=== PATIENT | male | born 1950 | race Caucasian/White ===

== ENCOUNTER → 2017-06-21 12:08 | Outpatient (CLI) | payer BC, SELFPAY ==
[2017-06-21 13:16] LABS: PSA,Total- Diagnostic 0.01 ng/mL (0.0-4.0)
== END ==
PROVIDERS: Family Provider Family Medicine; PCP Family Medicine; Visit Provider Urology
DX: C61 Malignant neoplasm of prostate (principal)
CPT/HCPCS: 36415; 84153

== ENCOUNTER → 2017-12-20 11:56 | Outpatient (CLI) | payer BC, SELFPAY ==
[2017-12-20 13:54] LABS: PSA,Total- Diagnostic < 0.01 ng/mL (0.0-4.0)
== END ==
PROVIDERS: Family Provider Family Medicine; PCP Family Medicine; Referring Provider Urology; Visit Provider Urology
DX: C61 Malignant neoplasm of prostate (principal)
CPT/HCPCS: 36415; 84153

== ENCOUNTER → 2018-07-22 | Outpatient (CLI) | payer BC, SELFPAY ==
[2018-07-22 16:08] LABS: PSA,Total- Diagnostic < 0.01 ng/mL (0.0-4.0)
== END | disposition home or self-care (01) ==
LOC: LAB 14:56
PROVIDERS: Family Provider Family Medicine; PCP Family Medicine; Referring Provider Urology; Visit Provider Urology
DX: C61 Malignant neoplasm of prostate (principal)
CPT/HCPCS: 36415; 84153

== ENCOUNTER → 2019-03-13 12:52 | Outpatient (CLI) | payer BC, SELFPAY ==
[2019-02-20 14:44] VITALS: BMI 26.5
--- NOTE | 2019-03-13 12:53 | ECHOD_ITS ---
Reason For Study: Murmur Procedure This was a 2D Doppler, Color Flow transthoracic echocardiogram. The exam was of adequate technical quality. Exam performed in department. Left Ventricle Normal LV size. Left ventricular systolic function is normal. The estimated ejection fraction is 65 %. No evidence for diastolic dysfunction. No regional wall motion abnormalities noted. Right Ventricle Normal RV size. Normal systolic function. Atria Normal left atrium. Normal right atrium. No doppler evidence for ASD. Mitral Valve There is no mitral annular calcification. Anterior leaflet diffuse mitral valve thickening. Mild (1+) mitral valve insufficiency. Tricuspid Valve Normal tricuspid valve. Mild tricuspid valve insufficiency. Right ventricular systolic pressure estimated to be 27 mmHg. Aortic Valve Trisinus/trileaflet aortic valve. Mild diffuse aortic valve calcification. Mild aortic stenosis. Trivial aortic valve insufficiency. Pulmonic Valve The pulmonic valve is not well visualized. Trivial pulmonic valve insufficiency. Great Vessels Normal sized aortic root. Pericardium/Pleural No pericardial effusion. MMode/2D Measurements & Calculations LVIDd: 4.2 cm IVSd: 1.1 cm LVOT diam: 2.2 cm LVIDs: 2.2 cm LVPWd: 1.1 cm LVOT area: 3.8 cm2 RVDd: 3.8 cm FS: 47.1 % Ao root diam: 3.5 cm LAV(MOD-bp): 52.0 ml LA A4 area: 15.9 cm2 LAV(MOD-bp) Indexed: 27.1 ml/m2 LAV(MOD-sp2): 62.1 ml LAV(MOD-sp4): 40.0 ml LA dimension(2D): 3.7 cm RA A4 area: 16.5 cm2 Doppler Measurements & Calculations MV E max jose: 60.0 cm/sec Lat Peak E' Jose: 9.3 cm/sec Med Peak E' Jose: 6.5 cm/sec MV A max jose: 66.4 cm/sec E/E' lat: 6.4 E/E' med: 9.3 MV E/A: 0.90 Ao V2 max: 264.1 cm/sec AI max jose: 444.0 cm/sec LV V1 max: 124.1 cm/sec Ao max P.0 mmHg AI max P.2 mmHg LV V1 max P.2 mmHg Ao V2 mean: 179.2 cm/sec AI dec slope: 196.1 cm/sec2 LV V1 mean P.6 mmHg Ao mean P.6 mmHg AI P1/2t: 663.0 msec LV V1 mean: 91.1 cm/sec Ao V2 VTI: 61.2 cm LV V1 VTI: 31.0 cm SHARON(I,D): 1.9 cm2 SHARON(V,D): 1.8 cm2 SV(LVOT): 118.8 ml PA V2 max: 93.2 cm/sec TR max jose: 242.4 cm/sec TR max P.5 mmHg Interpretation Summary Left ventricular systolic function is normal. The estimated ejection fraction is 65 %. Anterior leaflet diffuse mitral valve thickening. Mild (1+) mitral valve insufficiency. Mild tricuspid valve insufficiency. Mild diffuse aortic valve calcification. Mild aortic stenosis. Trivial aortic valve insufficiency. Trivial pulmonic valve insufficiency. Right ventricular systolic pressure estimated to be 27 mmHg. No evidence for diastolic dysfunction. Ordering Physician: Rome Patel Referring Physician: Danilo Funes Performed By: Maria A Whitten RDCS
== END ==
PROVIDERS: Family Provider Family Medicine; PCP Family Medicine; Referring Provider Internal Medicine Cardiovascular Disease; Visit Provider Internal Medicine Cardiovascular Disease
DX: R01.1 Cardiac murmur, unspecified (principal); I34.0 Nonrheumatic mitral (valve) insufficiency; I35.1 Nonrheumatic aortic (valve) insufficiency; I48.0 Paroxysmal atrial fibrillation; E78.5 Hyperlipidemia, unspecified
CPT/HCPCS: 93306

== ENCOUNTER → 2019-08-08 | Outpatient (CLI) | payer BC, SELFPAY ==
[2019-02-20 14:44] VITALS: BMI 26.5
[2019-08-08 17:39] LABS: PSA,Total - Annual Screen 0.01 ng/mL (0.00-4.00)
== END | disposition home or self-care (01) ==
PROVIDERS: PCP Family Medicine; Referring Provider Urology; Visit Provider Urology
DX: C61 Malignant neoplasm of prostate (principal)
CPT/HCPCS: 36415; 84153; G0103

== ENCOUNTER → 2019-08-25 08:23 | Outpatient (CLI) | payer BC, SELFPAY ==
[2019-08-21 09:31] VITALS: BMI 26.9
[2019-08-25 09:43] LABS: AST(SGOT) 17 U/L (15-37); Alanine Aminotransfer ALT/SGPT 28 U/L (16-61); Albumin, Serum 3.7 g/dL (3.2-5.0); Alkaline Phosphatase 52 U/L (45-117); Bilirubin, Direct 0.13 mg/dL (0.00-0.30); Cholesterol 178 mg/dL (200); Globulin 3.5 g/dL (2.2-4.2); High Density Lipoprotein 66 mg/dL; Protein, Total 7.2 g/dL (6.4-8.2); Triglycerides 80 mg/dL; Very Low Density Lipoprotein 16 mg/dL (5-40)
== END ==
PROVIDERS: PCP Family Medicine; Referring Provider Physician Assistant Medical; Visit Provider Physician Assistant Medical
DX: E78.5 Hyperlipidemia, unspecified (principal)
CPT/HCPCS: 36415; 80061; 80076

== ENCOUNTER → 2019-12-30 | Outpatient (CLI) | payer BC, SELFPAY ==
[2019-08-21 09:31] VITALS: BMI 26.9
[2019-12-30 11:58] LABS: Anion Gap 7 (5-15); BUN 19 mg/dL (7-18); BUN/Creat Ratio 15.1 RATIO (10-20); Calcium,Total 9.2 mg/dL (8.5-10.1); Chloride 105 mmol/L (98-107); Creatinine, Serum 1.26 mg/dL (0.70-1.30); EST Glomerular Filtration Rate 60 mL/min (>60); Est Glom Filt Rate - Afr Amer 72 mL/min (>60); Glucose 92 mg/dL (74-106); Magnesium 2.5 mg/dL (1.6-2.6); Potassium 4.1 mmol/L (3.5-5.1); Sodium Level 139 mmol/L (136-145); Thyroid Stim Hormone (TSH) 3.76 uIU/mL (0.358-3.74)
== END | disposition home or self-care (01) ==
LOC: LAB 09:45
PROVIDERS: PCP Family Medicine; Referring Provider Internal Medicine Cardiovascular Disease; Visit Provider Internal Medicine Cardiovascular Disease
DX: I34.0 Nonrheumatic mitral (valve) insufficiency (principal); I35.1 Nonrheumatic aortic (valve) insufficiency; I48.0 Paroxysmal atrial fibrillation; R01.1 Cardiac murmur, unspecified
CPT/HCPCS: 36415; 80048; 83735; 84443

== ENCOUNTER → 2020-02-10 14:14 | Outpatient (CLI) | payer BC, SELFPAY ==
[2019-08-21 09:31] VITALS: BMI 26.9
[2020-02-10 15:41] LABS: Thyroid Stim Hormone (TSH) 3.14 uIU/mL (0.358-3.74)
== END ==
PROVIDERS: PCP Family Medicine; Referring Provider Internal Medicine Cardiovascular Disease; Visit Provider Internal Medicine Cardiovascular Disease
DX: E78.5 Hyperlipidemia, unspecified (principal); I34.0 Nonrheumatic mitral (valve) insufficiency; I35.1 Nonrheumatic aortic (valve) insufficiency; I48.0 Paroxysmal atrial fibrillation; R01.1 Cardiac murmur, unspecified; R79.89 Other specified abnormal findings of blood chemistry
CPT/HCPCS: 36415; 84443

== ENCOUNTER → 2020-04-23 09:11 | Outpatient (CLI) | payer BC, SELFPAY ==
[2019-08-21 09:31] VITALS: BMI 26.9
[2020-04-23 10:26] LABS: AST(SGOT) 17 U/L (15-37); Alanine Aminotransfer ALT/SGPT 27 U/L (16-61); Albumin, Serum 3.9 g/dL (3.2-5.0); Alkaline Phosphatase 57 U/L (45-117); Bilirubin, Direct 0.12 mg/dL (0.00-0.30); Cholesterol 177 mg/dL (200); Globulin 3.1 g/dL (2.2-4.2); High Density Lipoprotein 65 mg/dL; Triglycerides 84 mg/dL; Very Low Density Lipoprotein 17 mg/dL (5-40)
== END ==
PROVIDERS: PCP Family Medicine; Visit Provider Internal Medicine Cardiovascular Disease
DX: E78.00 Pure hypercholesterolemia, unspecified (principal); E78.5 Hyperlipidemia, unspecified
CPT/HCPCS: 36415; 80061; 80076

== ENCOUNTER → 2020-08-18 08:36 | Outpatient (CLI) | payer BC, MEDICARE, SELFPAY ==
[2020-04-23 13:06] VITALS: BMI 27.6
[2020-08-18 10:06] LABS: PSA,Total- Diagnostic 0.01 ng/mL (0.0-4.0)
== END ==
PROVIDERS: PCP Family Medicine; Referring Provider Urology; Visit Provider Urology
DX: R97.21 Rising PSA following treatment for malignant neoplasm of prostate (principal)
CPT/HCPCS: 36415; 84153

== ENCOUNTER → 2020-09-29 08:09 | Outpatient (CLI) | payer MEDICARE, OTHER, SELFPAY ==
[2020-04-23 13:06] VITALS: BMI 27.6
[2020-09-29 10:02] LABS: AST(SGOT) 22 U/L (15-37); Alanine Aminotransfer ALT/SGPT 33 U/L (16-61); Albumin, Serum 3.7 g/dL (3.2-5.0); Alkaline Phosphatase 59 U/L (45-117); Bilirubin, Direct 0.16 mg/dL (0.00-0.30); Cholesterol 167 mg/dL (200); Globulin 3.1 g/dL (2.2-4.2); High Density Lipoprotein 65 mg/dL; Protein, Total 6.8 g/dL (6.4-8.2); Triglycerides 78 mg/dL; Very Low Density Lipoprotein 16 mg/dL (5-40)
== END ==
PROVIDERS: PCP Family Medicine; Referring Provider Internal Medicine Cardiovascular Disease; Visit Provider Internal Medicine Cardiovascular Disease
DX: E78.5 Hyperlipidemia, unspecified (principal); E78.00 Pure hypercholesterolemia, unspecified
CPT/HCPCS: 36415; 80061; 80076

== ENCOUNTER → 2021-01-01 11:13 | Outpatient (CLI) | payer MEDICARE, OTHER, SELFPAY ==
[2021-01-01 12:23] LABS: PSA,Total- Diagnostic 0.02 ng/mL (0.0-4.0)
== END ==
PROVIDERS: PCP Family Medicine; Referring Provider Urology; Visit Provider Urology
DX: R97.20 Elevated prostate specific antigen [PSA] (principal); C61 Malignant neoplasm of prostate
CPT/HCPCS: 36415; 84153

== ENCOUNTER → 2021-08-02 | Outpatient (CLI) | payer MEDICARE, OTHER, SELFPAY ==
[2021-08-02 11:08] LABS: PSA,Total - Annual Screen < 0.01 ng/mL (0.00-4.00)
== END | disposition home or self-care (01) ==
LOC: LAB 09:04
PROVIDERS: PCP Family Medicine; Referring Provider Urology; Visit Provider Urology
DX: Z12.5 Encounter for screening for malignant neoplasm of prostate (principal); R97.21 Rising PSA following treatment for malignant neoplasm of prostate
CPT/HCPCS: 84153; G0103

== ENCOUNTER → 2021-10-19 | Outpatient (CLI) | payer MEDICARE, OTHER, SELFPAY ==
[2021-10-19 10:24] LABS: AST(SGOT) 15 U/L (15-37); Alanine Aminotransfer ALT/SGPT 24 U/L (16-61); Albumin, Serum 3.5 g/dL (3.2-5.0); Alkaline Phosphatase 48 U/L (45-117); Bilirubin, Direct 0.13 mg/dL (0.00-0.30); Cholesterol 165 mg/dL (200); High Density Lipoprotein 62 mg/dL; Protein, Total 6.5 g/dL (6.4-8.2); Triglycerides 67 mg/dL; Very Low Density Lipoprotein 13 mg/dL (5-40)
== END | disposition home or self-care (01) ==
LOC: LAB 08:47
PROVIDERS: PCP Family Medicine; Visit Provider Internal Medicine Cardiovascular Disease
DX: E78.5 Hyperlipidemia, unspecified (principal)
CPT/HCPCS: 36415; 80061; 80076

== ENCOUNTER 2021-10-21 11:06 | Emergency (ER) | payer MEDICARE, OTHER, SELFPAY ==
[2021-10-21 11:06] VITALS: BP 133/91; PULSE 100; RESP 18; TEMP 36.6; O2SAT 95; BMI 26.6
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
[2021-10-21] MEDS: HYDROcodone Bitartrate/Apap 5/325 Tablet PO (12:08)
[2021-10-21] MEDS: Cefazolin 1 GM/5 ML Vial IM (12:39)
[2021-10-21] MEDS: Lidocaine 1% (20 ml mdv) 20 ML Vial INFILT (12:40)
--- NOTE | 2021-10-21 13:15 | RAD_ITS ---
STUDY: X-RAY - RIGHT HAND, ATTENTION right thumb. REASON FOR EXAM: Male, 71 old. Postreduction -- thumb TECHNIQUE: 3 view(s) of the finger were obtained. COMPARISON: Comparison is made with prior examination done earlier today. FINDINGS: Normal metacarpal head. Normal metacarpophalangeal joint. Normal proximal phalanx. Normal distal phalanx. Satisfactory reduction of the distal interphalangeal joint of the thumb. Soft tissue swelling. RAD/Finger(s) Min 2 Views IMPRESSION: Satisfactory reduction of the distal interphalangeal joint of the thumb. Electronically Signed: Rashi Goff MD at 13:26 EDT ,
--- NOTE | 2021-10-21 13:49 | CONS.ORTHO ---
HPI Consult Data Date of Consult: 10/21/21 HPI Narrative HPI Narrative: NAHOMI BUENROSTRO, is a 71 M who presents with pain right thumb (interphalangeal joint dislocation. I was called by the emergency physician pathology transcriptionist today at approximately 1:[address] Figueredo. Currently the patient had a fall was seen in the emergency department. The physician has irrigated debrided the wound done at closed reduction sutured the wound and is planning to send the patient for hand specialist outpatient consultation with splinting. [facility] Medical History (Updated 10/21/21 @ 13:[address] Luis Figueredo MD) Benign prostate hyperplasia History of prostate cancer Hyperlipidemia Kidney stone Non-rheumatic aortic regurgitation Non-rheumatic mitral regurgitation TALI on CPAP Paroxysmal atrial fibrillation Systolic murmur Home Medications aspirin 81 mg tablet,delayed release 81 mg PO DAILY@0800 07/01/13 [History Last Taken Unknown] metoprolol tartrate 25 mg tablet 25 mg PO DAILY PRN Cardiac Arrhythmia #30 tabs 06/11/20 [Rx Last Taken Unknown] flecainide 100 mg tablet 100 mg PO BID #180 tabs 04/05/21 [Rx Last Taken Unknown] pravastatin 40 mg tablet 40 mg PO QHS #30 tabs 04/07/21 [Rx Last Taken Unknown] Allergy/AdvReac Type Severity Reaction Status Date / Time Penicillins [PCN] Allergy Hives Verified 10/21/21 11:08 Family History Mother Congestive heart failure Father Heart disease Heart valve disease Grandmother Cancer stomach Surgical History History of radical prostatectomy Social History Smoking Status: Never smoker alcohol intake: never substance use type: does not use caffeine: Yes Type: coffee Number of servings: 4 Vital Signs Vital Signs Vital Signs: 10/21/21 11:06 10/21/21 11:15 Temperature 98 F Temperature Source Temporal Pulse Rate 100 Respiratory Rate 18 Respiratory Effort Normal Non-Labored Respiratory Depth Normal Respiratory Pattern Normal Blood Pressure 133/91 H Blood Pressure Mean 105 Pulse Ox 95 Oxygen Delivery Method Room Air Room Air Weight Weight: 175 lb Body Mass Index (BMI) 26.6 Physical Exam Narrative Per the emergency department physician on-call this was an open injury however clean edges cap refill is good and neurovascularly intact with able to flex and extend the IP joint of the right thumb without difficulties after the closed reduction. Radiology Impression Finger X-Ray 10/21/21 11:29 IMPRESSION: 1. There is complete posterior/dorsal dislocation of the distal phalanx of the thumb from its articulation by 6.8 mm. Laceration and subcutaneous air and irregularity is present at this site, there is also protrusion of the head of the proximal phalanx of the thumb through the skin of the defect Electronically Signed: Gigi Harrell MD at 12:02 EDT , Ribs w/Chest X-Ray 10/21/21 11:47 IMPRESSION: RIBS: Linear minimally displaced fractures present at the posterior lateral margin of the left seventh rib see image #4. Normal remaining visualized ribs. No pneumothorax is present. CHEST: No acute process of the chest. Electronically Signed: Gigi Harrell MD at 12:27 EDT , Finger X-Ray 10/21/21 13:15 IMPRESSION: Satisfactory reduction of the distal interphalangeal joint of the thumb. Electronically Signed: Rashi Goff MD at 13:26 EDT , Assessment & Plan Assessment/Plan (1) Open dislocation of interphalangeal joint of right thumb: (2) Laceration of right thumb: PLAN: Plan This 71-year-old man with a open IP joint dislocation of the right thumb that has now been irrigated debrided closed - I recommend splinting in flexion as this was a dorsal dislocation. Recommend appropriate dressing close follow-up referral as an outpatient to a hand specialist ideally today if not within the next few days. The patient has been given intravenous Ancef as well as tetanus is up-to-date and has been given oral antibiotics as well. Typically according to Dr. Figueredo he would send them to the [facility] in [place] however if there is any other acute concerns (like redness, drainage or infection / neurovascular problems) I am happy to see the patient on an earlier timeline.
[2021-10-21 13:50] VITALS: BP 115/94; PULSE 57; RESP 18; O2SAT 97
[2021-10-21 14:04] VITALS: BP 115/94; PULSE 57; RESP 16
== END 2021-10-21 15:08 | disposition home or self-care (01) ==
PROVIDERS: Emergency Provider Emergency Medicine; PCP Family Medicine; Visit Provider Emergency Medicine
DX: S63.124A Dislocation of interphalangeal joint of right thumb, initial encounter (principal); S61.011A Laceration without foreign body of right thumb without damage to nail, initial encounter; E78.5 Hyperlipidemia, unspecified; V18.0XXA Pedal cycle driver injured in noncollision transport accident in nontraffic accident, initial encounter; Y93.55 Activity, bike riding; Z79.82 Long term (current) use of aspirin
CPT/HCPCS: 12002; 26641; 71101; 73140; 96372; 99283

== ENCOUNTER → 2021-11-02 | Outpatient (CLI) | payer MEDICARE, OTHER, SELFPAY ==
--- NOTE | 2021-11-02 09:47 | ECHOD_ITS ---
Reason For Study: Procedure This was a 2D Doppler, Color Flow transthoracic echocardiogram. The exam was of adequate technical quality. Exam performed in department. Left Ventricle Normal LV size. Left ventricular systolic function is normal. The estimated ejection fraction is 65 %. Diastolic function is indeterminate. No regional wall motion abnormalities noted. Right Ventricle Normal RV size. Normal systolic function. Atria Normal left atrium. Normal right atrium. No doppler evidence for ASD. Mitral Valve There is no mitral annular calcification. Anterior leaflet diffuse mitral valve thickening. The mitral papillary muscle appears thickened and/or calcified. Mild (1+) mitral valve insufficiency. Tricuspid Valve Normal tricuspid valve. Mild tricuspid valve insufficiency. Right ventricular systolic pressure estimated to be 34 mmHg. Aortic Valve Trisinus/trileaflet aortic valve. Mild diffuse aortic valve thickening. Moderate diffuse aortic valve calcification. Moderate aortic stenosis. Trivial aortic valve insufficiency. Pulmonic Valve The pulmonic valve is not well visualized. Great Vessels Normal sized aortic root. Pericardium/Pleural No pericardial effusion. MMode/2D Measurements & Calculations LVIDd: 4.6 cm IVSd: 0.80 cm LVOT diam: 2.0 cm LVIDs: 3.2 cm FS: 32.0 % LVOT area: 3.2 cm2 RVDd: 4.2 cm Ao root diam: 3.7 cm LAV(MOD-sp4): 38.7 ml LVAd ap4: 29.0 cm2 LVLd ap4: 8.9 cm EDV(MOD-sp4): 77.9 ml EDV(sp4-el): 80.6 ml LVAs ap4: 14.4 cm2 LVLs ap4: 7.0 cm ESV(MOD-sp4): 25.8 ml ESV(sp4-el): 25.3 ml EF(MOD-sp4): 66.9 % EF(sp4-el): 68.6 % SV(MOD-sp4): 52.1 ml SV(sp4-el): 55.3 ml LA A4 area: 16.0 cm2 LA dimension(2D): 3.8 cm RA A4 area: 24.6 cm2 Time Measurements MV dec time: 0.21 sec Doppler Measurements & Calculations MV E max jose: 65.6 cm/sec Lat Peak E' Jose: 9.4 cm/sec Med Peak E' Jose: 7.0 cm/sec MV A max jose: 45.5 cm/sec E/E' lat: 7.0 E/E' med: 9.3 MV E/A: 1.4 MV V2 max: 130.7 cm/sec Ao V2 max: 290.0 cm/sec MV max P.8 mmHg MV dec slope: 310.9 cm/sec2 Ao max P.7 mmHg MV V2 mean: 49.0 cm/sec Ao V2 mean: 214.4 cm/sec MV mean P.4 mmHg Ao mean P.5 mmHg MV V2 VTI: 32.3 cm Ao V2 VTI: 76.5 cm MVA(VTI): 2.7 cm2 SHARON(I,D): 1.1 cm2 SHARON(V,D): 1.1 cm2 AI max jose: 465.1 cm/sec LV V1 max: 95.6 cm/sec SV(LVOT): 85.7 ml AI max P.5 mmHg LV V1 max P.7 mmHg LV V1 mean P.3 mmHg AI dec slope: 233.0 cm/sec2 LV V1 mean: 72.0 cm/sec AI P1/2t: 584.6 msec LV V1 VTI: 26.7 cm PA V2 max: 63.2 cm/sec TR max jose: 280.3 cm/sec TR max P.4 mmHg ECHO/Echo Complete Interpretation Summary Left ventricular systolic function is normal. The estimated ejection fraction is 65 %. Anterior leaflet diffuse mitral valve thickening. The mitral papillary muscle appears thickened and/or calcified. Mild (1+) mitral valve insufficiency. Mild tricuspid valve insufficiency. Moderate aortic stenosis. Trivial aortic valve insufficiency. Right ventricular systolic pressure estimated to be 34 mmHg. Diastolic function is indeterminate. Ordering Physician: Rome Patel Performed By: Cynthia Hickman RCS
== END | disposition home or self-care (01) ==
LOC: CVS 09:46
PROVIDERS: PCP Family Medicine; Visit Provider Internal Medicine Cardiovascular Disease
DX: I35.1 Nonrheumatic aortic (valve) insufficiency (principal); I35.0 Nonrheumatic aortic (valve) stenosis
CPT/HCPCS: 93306

== ENCOUNTER 2021-11-14 11:47 | Outpatient (RCR) | payer MEDICARE, OTHER, SELFPAY ==
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
--- NOTE | 2022-02-06 12:53 | HP.OT.NRP ---
NAHOMI BUENROSTRO was seen in my office for initial evaluation on 11/14/21. The following Plan of Care was established for this patient: Anticipated Interventions: A/AAROM/PROM, Strengthening, Scar Care, Desensitization, Joint Protection/Energy Conservation, Ergonomic Education, Education re Diagnosis, Home Program This patient was last seen in our office 11/14/21. Pertinent comments regarding their Occupational therapy will appear below: Pt seen for eval only- no further apts have been scheduled and due to time lapse in services pt d/c. At this point I will be discontinuing this patient from occupational therapy. I would be happy to see this patient again in the future if found appropriate by the physician. Thank you! Deya Prescott, OTR/L, CHT
== END 2021-11-14 19:00 | disposition home or self-care (01) ==
LOC: OT 11:47
PROVIDERS: PCP Family Medicine; Referring Provider Orthopaedic Surgery Hand Surgery; Visit Provider Orthopaedic Surgery Hand Surgery
DX: S61.001D Unspecified open wound of right thumb without damage to nail, subsequent encounter (principal); S63.104D Unspecified dislocation of right thumb, subsequent encounter; X58.XXXD Exposure to other specified factors, subsequent encounter
CPT/HCPCS: 97166; 97530

== ENCOUNTER → 2022-04-19 | Outpatient (CLI) | payer MEDICARE, OTHER, SELFPAY ==
[2022-04-19 10:45] LABS: AST(SGOT) 18 U/L (15-37); Alanine Aminotransfer ALT/SGPT 28 U/L (16-61); Albumin, Serum 3.7 g/dL (3.2-5.0); Alkaline Phosphatase 68 U/L (45-117); Bilirubin, Direct 0.14 mg/dL (0.00-0.30); Cholesterol 151 mg/dL (200); Globulin 3.3 g/dL (2.2-4.2); High Density Lipoprotein 67 mg/dL; Triglycerides 64 mg/dL; Very Low Density Lipoprotein 13 mg/dL (5-40)
== END | disposition home or self-care (01) ==
LOC: LAB 10:03
PROVIDERS: PCP Family Medicine; Referring Provider Internal Medicine Cardiovascular Disease; Visit Provider Internal Medicine Cardiovascular Disease
DX: E78.5 Hyperlipidemia, unspecified (principal)
CPT/HCPCS: 36415; 80061; 80076

== ENCOUNTER → 2022-07-26 | Outpatient (CLI) | payer MEDICARE, OTHER, SELFPAY ==
[2022-07-26 11:05] LABS: PSA,Total- Diagnostic 0.02 ng/mL (0.0-4.0)
== END | disposition home or self-care (01) ==
LOC: LAB.FUTURE 09:25 → LAB 09:28
PROVIDERS: PCP Family Medicine; Referring Provider Urology; Visit Provider Urology
DX: R97.21 Rising PSA following treatment for malignant neoplasm of prostate (principal)
CPT/HCPCS: 36415; 84153

== ENCOUNTER → 2022-12-18 | Outpatient (CLI) | payer MEDICARE, OTHER, SELFPAY ==
[2022-12-18 10:16] LABS: AST(SGOT) 15 U/L (15-37); Alanine Aminotransfer ALT/SGPT 24 U/L (16-61); Albumin, Serum 3.6 g/dL (3.2-5.0); Alkaline Phosphatase 66 U/L (45-117); Bilirubin, Direct 0.13 mg/dL (0.00-0.30); Cholesterol 151 mg/dL (200); Globulin 3.4 g/dL (2.2-4.2); High Density Lipoprotein 60 mg/dL; Triglycerides 109 mg/dL; Very Low Density Lipoprotein 22 mg/dL (5-40)
== END | disposition home or self-care (01) ==
LOC: LAB 09:10
PROVIDERS: PCP Family Medicine; Referring Provider Nurse Practitioner Gerontology; Visit Provider Nurse Practitioner Gerontology
DX: E78.00 Pure hypercholesterolemia, unspecified (principal)
CPT/HCPCS: 36415; 80061; 80076

== ENCOUNTER → 2023-02-06 | Outpatient (CLI) | payer MEDICARE, OTHER, SELFPAY ==
[2023-02-06 12:45] LABS: PSA,Total- Diagnostic 0.01 ng/mL (0.0-4.0)
== END | disposition home or self-care (01) ==
LOC: LAB 10:50
PROVIDERS: PCP Family Medicine; Referring Provider Urology; Visit Provider Urology
DX: C61 Malignant neoplasm of prostate (principal)
CPT/HCPCS: 36415; 84153

== ENCOUNTER → 2023-02-12 | Outpatient (CLI) | payer MEDICARE, OTHER, SELFPAY ==
--- NOTE | 2023-02-12 10:54 | ECHOD_ITS ---
Version 2 Reason For Study: Non Rheumatic Procedure This was a 2D Doppler, Color Flow transthoracic echocardiogram. Exam performed in department. Left Ventricle Normal LV size. Mild concentric left ventricular hypertrophy. Left ventricular systolic function is normal. The estimated ejection fraction is 60 %. Stage 1 diastolic dysfunction. No regional wall motion abnormalities noted. Right Ventricle Normal RV size. Normal systolic function. Mitral Valve Normal mitral valve. Tricuspid Valve Normal tricuspid valve. Mild to moderate (1-2+) tricuspid valve insufficiency. Pulmonary artery systolic pressure is 31 mmHg. Aortic Valve Trisinus/trileaflet aortic valve. Moderate focal aortic valve calcification. Peak aortic valve gradient 57 mmHg. Mean aortic valve gradient 31 mmHg. Moderate aortic stenosis. Mild (1+) aortic valve insufficiency. Pulmonic Valve Normal pulmonic valve. Great Vessels Normal aortic root. The pulmonary artery is normal size. Normal inferior vena cava. Pericardium/Pleural No pericardial effusion. MMode/2D Measurements & Calculations LVIDd: 4.2 cm IVSd: 1.2 cm LVOT diam: 2.0 cm LVIDs: 2.8 cm LVPWd: 1.2 cm LVOT area: 3.0 cm2 RVDd: 4.0 cm FS: 32.9 % Ao root diam: 3.7 cm LAV(MOD-sp2): 62.5 ml TAPSE: 1.7 cm LA dimension: 3.5 cm Time Measurements MV dec time: 0.21 sec Doppler Measurements & Calculations MV E max jose: 72.9 cm/sec Lat Peak E' Jose: 8.3 cm/sec Med Peak E' Jose: 6.6 cm/sec MV A max joes: 77.3 cm/sec E/E' lat: 8.8 E/E' med: 11.0 MV E/A: 0.94 MV V2 max: 70.1 cm/sec MV P1/2t max jose: 70.1 cm/sec Ao V2 max: 377.0 cm/sec MV max P.0 mmHg MV P1/2t: 59.4 msec Ao max P.9 mmHg MV V2 mean: 35.9 cm/sec MV dec slope: 345.6 cm/sec2 Ao V2 mean: 260.0 cm/sec MV mean P.64 mmHg Ao mean P.9 mmHg MV V2 VTI: 28.7 cm MVA(P1/2t): 3.7 cm2 Ao V2 VTI: 96.7 cm MVA(VTI): 2.7 cm2 AV (velocity ratio): 0.27 SHARON(I,D): 0.81 cm2 SHARON(V,D): 0.77 cm2 AI max jose: 416.3 cm/sec LV V1 max: 95.6 cm/sec SV(LVOT): 78.7 ml AI max P.4 mmHg LV V1 max P.7 mmHg AI dec slope: 162.7 cm/sec2 LV V1 mean P.8 mmHg AI P1/2t: 749.5 msec LV V1 mean: 61.5 cm/sec LV V1 VTI: 25.9 cm PA V2 max: 86.9 cm/sec TR max jose: 266.3 cm/sec PA V2 mean: 56.4 cm/sec TR max P.4 mmHg ECHO/Echo Complete Interpretation Summary Normal LV size. Left ventricular systolic function is normal. The estimated ejection fraction is 60 %. Mild concentric left ventricular hypertrophy. Stage 1 diastolic dysfunction. Pulmonary artery systolic pressure is 31 mmHg. Mild (1+) aortic valve insufficiency. Mean aortic valve gradient 31 mmHg. Moderate aortic stenosis. Moderate focal aortic valve calcification. Ordering Physician: Jana Dumont Referring Physician: Danilo Funes Performed By: Brad Zaragoza RCS
== END | disposition home or self-care (01) ==
LOC: CVS 10:53
PROVIDERS: PCP Family Medicine; Referring Provider Internal Medicine Cardiovascular Disease; Visit Provider Internal Medicine Cardiovascular Disease
DX: I35.1 Nonrheumatic aortic (valve) insufficiency (principal); I35.0 Nonrheumatic aortic (valve) stenosis
CPT/HCPCS: 93306

== ENCOUNTER → 2023-02-22 | Outpatient (CLI) | payer MEDICARE, OTHER, SELFPAY ==
--- NOTE | 2023-02-22 15:29 | STRESSREP ---
Stress Test Report Exercise stress test. 72-year-old male with a history of chest pain Stress protocol: Resting EKG demonstrates sinus bradycardia with a rate of 47 bpm resting blood pressure is 128/78 mmHg. The patient exercised according to the regular Yefri protocol for a total duration of 8 minutes and 15 seconds attaining a maximum heart rate of 146 bpm which was 100% of maximum predicted heart rate; the maximum workload was 10.1 metabolic equivalents. At rest there were no ST or T wave changes noted to suggest ischemia and at peak exercise upsloping ST changes only were noted which did not meet the criteria for ischemia. No clinical angina was noted the test was terminated due to the target heart rate being achieved/fatigue. The peak blood pressure was 160/86 mmHg. Rate-pressure product was 18,700. Conclusion: Normal exercise stress test with no EKG criteria for ischemia
== END | disposition home or self-care (01) ==
LOC: CVS 09:07
PROVIDERS: PCP Family Medicine; Referring Provider Nurse Practitioner Gerontology; Visit Provider Nurse Practitioner Gerontology
DX: R94.31 Abnormal electrocardiogram [ECG] [EKG] (principal); I48.0 Paroxysmal atrial fibrillation; E78.5 Hyperlipidemia, unspecified; R01.1 Cardiac murmur, unspecified; I34.0 Nonrheumatic mitral (valve) insufficiency; I35.1 Nonrheumatic aortic (valve) insufficiency; I35.0 Nonrheumatic aortic (valve) stenosis; Z79.899 Other long term (current) drug therapy; Z51.81 Encounter for therapeutic drug level monitoring
CPT/HCPCS: 93017

== ENCOUNTER → 2023-07-31 | Outpatient (CLI) | payer MEDICARE, OTHER, SELFPAY ==
[2023-07-31 13:15] LABS: PSA,Total- Diagnostic 0.01 ng/mL (0.0-4.0)
== END | disposition home or self-care (01) ==
LOC: LAB 11:40
PROVIDERS: PCP Family Medicine; Referring Provider Family Medicine; Visit Provider Family Medicine
DX: C61 Malignant neoplasm of prostate (principal)
CPT/HCPCS: 36415; 84153

== ENCOUNTER → 2024-01-07 | Outpatient (CLI) | payer MEDICARE, OTHER, SELFPAY ==
[2024-01-07 11:37] LABS: PSA,Total- Diagnostic 0.02 ng/mL (0.0-4.0)
== END | disposition home or self-care (01) ==
LOC: LAB 10:35
PROVIDERS: PCP Family Medicine; Referring Provider Urology; Visit Provider Urology
DX: C61 Malignant neoplasm of prostate (principal)
CPT/HCPCS: 36415; 84153

== ENCOUNTER 2024-02-19 08:50 | Outpatient (CLI) | payer MEDICARE, OTHER, SELFPAY ==
[2024-02-19 10:22] LABS: AST(SGOT) 21 U/L (15-37); Alanine Aminotransfer ALT/SGPT 29 U/L (16-61); Albumin, Serum 3.5 g/dL (3.2-5.0); Alkaline Phosphatase 60 U/L (45-117); Bilirubin, Direct 0.13 mg/dL (0.00-0.30); Cholesterol 148 mg/dL (200); Globulin 3.3 g/dL (2.2-4.2); High Density Lipoprotein 61 mg/dL; Protein, Total 6.8 g/dL (6.4-8.2); Triglycerides 69 mg/dL; Very Low Density Lipoprotein 14 mg/dL (5-40)
== END 2024-02-19 23:59 | disposition home or self-care (01) ==
LOC: LAB 08:52
PROVIDERS: Internal Medicine Cardiovascular Disease; PCP Family Medicine; Referring Provider Nurse Practitioner Gerontology; Visit Provider Nurse Practitioner Gerontology
DX: E78.5 Hyperlipidemia, unspecified (principal)
CPT/HCPCS: 36415; 80061; 80076

== ENCOUNTER → 2024-03-03 | Outpatient (CLI) | payer MEDICARE, OTHER, SELFPAY ==
--- NOTE | 2024-03-03 11:03 | ECHOD_ITS ---
Reason For Study: AORTIC STENOSIS Procedure This was a 2D Doppler, Color Flow transthoracic echocardiogram. Exam performed in department. Left Ventricle Normal LV size. Mild concentric left ventricular hypertrophy. Left ventricular systolic function is normal. The left ventricular ejection fraction is 70 %. Stage 1 diastolic dysfunction. No regional wall motion abnormalities noted. Right Ventricle Normal RV size. Normal systolic function. Atria Normal left atrium. Normal right atrium. Mitral Valve Normal mitral valve. Tricuspid Valve Normal tricuspid valve. Mild (1+) tricuspid valve insufficiency. Pulmonary artery systolic pressure is 28 mmHg. Aortic Valve Trisinus/trileaflet aortic valve. Peak aortic valve gradient 58 mmHg. Mean aortic valve gradient 36 mmHg. Moderate to severe aortic stenosis. Mild (1+) aortic valve insufficiency. Pulmonic Valve Normal pulmonic valve. Great Vessels Normal aortic root. The pulmonary artery is normal size. Normal inferior vena cava. Pericardium/Pleural No pericardial effusion. MMode/2D Measurements & Calculations LVIDd: 3.7 cm IVSd: 1.5 cm LVOT diam: 2.0 cm LVIDs: 1.7 cm LVPWd: 1.2 cm LVOT area: 3.0 cm2 RVDd: 3.8 cm FS: 55.5 % asc Aorta Diam: 3.5 cm LAV(MOD-bp): 53.9 ml LVAd ap4: 27.1 cm2 LAV(MOD-bp) Indexed: 27.7 ml/m2 LVLd ap4: 8.7 cm LAV(MOD-sp2): 58.4 ml EDV(MOD-sp4): 69.2 ml LAV(MOD-sp4): 49.4 ml EDV(sp4-el): 71.6 ml LVAs ap4: 12.7 cm2 LVLs ap4: 7.0 cm ESV(MOD-sp4): 20.8 ml ESV(sp4-el): 19.7 ml EF(MOD-sp4): 70.0 % EF(sp4-el): 72.5 % LVAd ap2: 27.5 cm2 SV(MOD-sp4): 48.5 ml SV(MOD-sp2): 52.1 ml LVLd ap2: 8.8 cm SI(MOD-sp4): 24.9 ml/m2 SI(MOD-sp2): 26.8 ml/m2 EDV(MOD-sp2): 72.0 ml EDV(sp2-el): 72.8 ml LVAs ap2: 12.6 cm2 LVLs ap2: 7.2 cm ESV(MOD-sp2): 19.9 ml ESV(sp2-el): 18.6 ml EF(MOD-sp2): 72.3 % SV(sp4-el): 51.9 ml Ao sinus diam: 3.[address] Junction: 2.9 cm LA dimension(2D): 3.7 cm LA A4 area: 18.3 cm2 RA A4 area: 17.6 cm2 TAPSE: 1.8 cm Time Measurements MV dec time: 0.29 sec Doppler Measurements & Calculations MV E max jose: 65.0 cm/sec Lat Peak E' Jose: 9.7 cm/sec Med Peak E' Jose: 6.8 cm/sec MV A max jose: 75.6 cm/sec E/E' lat: 6.7 E/E' med: 9.6 MV E/A: 0.86 MV dec slope: 220.6 cm/sec2 Ao V2 max: 378.9 cm/sec AI max jose: 364.6 cm/sec Ao max P.4 mmHg AI max P.2 mmHg Ao V2 mean: 289.1 cm/sec AI dec slope: 182.1 cm/sec2 Ao mean P.0 mmHg AI P1/2t: 586.5 msec Ao V2 VTI: 94.7 cm AV (velocity ratio): 0.27 SHARON(I,D): 0.80 cm2 SHARON(V,D): 0.80 cm2 LV V1 max: 100.6 cm/sec SV(LVOT): 75.8 ml PA V2 max: 90.6 cm/sec LV V1 max P.0 mmHg LV V1 mean P.6 mmHg LV V1 mean: 79.5 cm/sec LV V1 VTI: 25.2 cm PI end-d jose: 97.7 cm/sec TR max jose: 246.2 cm/sec TR max P.3 mmHg ECHO/Echo Complete Interpretation Summary Normal LV size. Left ventricular systolic function is normal. The left ventricular ejection fraction is 70 %. Stage 1 diastolic dysfunction. Mean aortic valve gradient 36 mmHg. Moderate to severe aortic stenosis. Ordering Physician: Rogelio Myrick Referring Physician: Rogelio Myrick MD Performed By: Myrtle Jeffries RDCS
== END | disposition home or self-care (01) ==
LOC: CVS 10:59
PROVIDERS: PCP Family Medicine; Referring Provider Internal Medicine Cardiovascular Disease; Visit Provider Internal Medicine Cardiovascular Disease
DX: I35.0 Nonrheumatic aortic (valve) stenosis (principal)
CPT/HCPCS: 93306

== ENCOUNTER → 2024-08-04 | Outpatient (CLI) | payer MEDICARE, OTHER, SELFPAY ==
[2024-08-04 12:16] LABS: PSA,Total- Diagnostic < 0.02 ng/mL (0.00-4.00)
[2024-08-04 12:54] LABS: AST(SGOT) 22 U/L (<=37); Alanine Aminotransfer ALT/SGPT 22 U/L (<=46); Albumin, Serum 4.3 g/dL (3.4-4.8); Alkaline Phosphatase 70 U/L (40-129); Bilirubin, Direct 0.21 mg/dL (0.00-0.30); Cholesterol 144 mg/dL (<=200); Globulin 2.7 g/dL (2.2-4.2); High Density Lipoprotein 53 mg/dL; Low Density Lipoprotein Calc. 76 mg/dL; Total Bilirubin 0.47 mg/dL (0.00-1.30); Triglycerides 80 mg/dL; Very Low Density Lipoprotein 16 mg/dL (5-40); cholesterol:hdl ratio screen 2.74
== END | disposition home or self-care (01) ==
LOC: LAB 09:08
PROVIDERS: Physician Assistant Medical; PCP Family Medicine; Referring Provider Urology; Visit Provider Urology
DX: C61 Malignant neoplasm of prostate (principal); E78.00 Pure hypercholesterolemia, unspecified
CPT/HCPCS: 36415; 80061; 80076; 84153

== ENCOUNTER 2024-08-05 09:26 | Emergency (ER) | payer MEDICARE, OTHER, SELFPAY ==
[2024-08-05 09:27] VITALS: BP 110/81; PULSE 58; RESP 19; TEMP 36.7; O2SAT 97; BMI 26.6
--- NOTE | 2024-08-05 09:37 | RAD_ITS ---
PROCEDURE: RIBS UNI MIN 3V W/PA CHEST 08/05/2024 REASON FOR EXAM: DECREASED BREATH SOUNDS RIGHT WITH PAIN TO PALPATI TECHNIQUE: Upright PA chest image supplemented by for additional views of the right-sided ribs was obtained. COMPARISON: PA chest, 10/21/2021 FINDINGS: There is a large right-sided pneumothorax, with almost complete collapse of the lung and with displacement of the mediastinal structures to the left consistent with tension. There are acute fractures of the right 8th through 10th ribs. There is subcutaneous emphysema over the right lateral chest extending into the base of the neck. RAD/Ribs Uni Min 3V w/PA Chest IMPRESSION: 1. Large right-sided tension pneumothorax. 2. Multiple right-sided rib fractures with subcutaneous emphysema as described . Note: Findings were discussed with the emergency room physician in [place] on the morning of 08/05/2024 at 10:15 a.m. Reading Location: [place] [id number]
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
[2024-08-05 10:17] LABS: Absolute Lymphocyte Count 1.36 X10^3/uL (0.83-4.51); Absolute Neutrophil Count 8.8 X10^3/uL (2.0-7.7); Basophil# 0.03 X10^3/uL; Basophil% 0.3 % (0-1); Eosinophil# 0.08 X10^3/uL; Eosinophils% 0.7 % (0-5); Hematocrit 44.4 % (40-54); Hemoglobin 14.8 g/dL (13.0-16.5); Lymphocyte # 1.36 X10^3/ul (0.83-4.51); Lymphocyte % 11.9 % (19-41); Mean Corp Hgb Conc 33.3 g/dL (32-36); Mean Corpuscular Volume 99.1 fL (80-94); Mean Platelet Vol. 10.2 fl (6.2-12.0); Monocyte# 1.15 X10^3/uL; Monocyte% 10.1 % (0-10); NRBC Flagged by Analyzer 0 % (0-5); Neutrophil # 8.75 X10^3/uL (2.7-7.7); Neutrophil % 76.6 % (47-70); Platelet Count 231 K/mm3 (150-450); RBC Distribution Width CV 13.5 % (11.6-14.6); RBC Distribution Width SD 49.5 fl (35.1-43.9); Red Blood Count 4.48 M/mm3 (4.6-6.2); White Blood Count 11.4 K/mm3 (4.4-11.0)
[2024-08-05] MEDS: Lidocaine 1% (20 ml mdv) 20 ML Vial 10 ML INFILT (10:22)
[2024-08-05] MEDS: Midazolam 2 MG/2 ML Syringe IV (10:22)
[2024-08-05] MEDS: HYDROmorphone 0.5 MG/0.5 ML SYRINGE IV ×3 (10:22→16:13)
--- NOTE | 2024-08-05 10:50 | RAD_ITS ---
PROCEDURE: CHEST 1 VIEW (PORTABLE) 08/05/2024 REASON FOR EXAM: STATUS POST CHEST TUBE PLACEMENT TECHNIQUE: Frontal view of the chest. COMPARISON: Chest x-ray of earlier on 08/05/2024. RAD/Chest 1 View (Portable) IMPRESSION: Interval placement of a right chest tube, with only a small residual pneumothor ax now seen. Areas of mild atelectasis remain on the right. No left-sided pneumothorax is seen. No significant pleural fluid collection is evident. No evidence of pulmonary e caroline. The cardiomediastinal silhouette is stable, with a tortuous aorta noted; no mya dence of cardiomegaly. Reading Location: [id number]
[2024-08-05 10:56] LABS: Anion Gap 11 (5-15); BUN 24 mg/dL (4-19); BUN/Creat Ratio 18.5 RATIO (10-20); Calcium,Total 9.6 mg/dL (7.6-11.0); Carbon Dioxide 23.7 mmol/L (21.0-32.0); Chloride 102 mmol/L (98-108); Creatinine, Serum 1.28 mg/dL (0.70-1.20); EST Glomerular Filtration Rate 58 (>60); Glucose 104 mg/dL (70-99); Potassium 4.8 mmol/L (3.3-5.1); Sodium Level 137 mmol/L (133-145)
[2024-08-05] MEDS: Clindamycin 600 MG/50 ML BAG 100 MG IV (11:20)
--- NOTE | 2024-08-05 11:50 | CT_ITS ---
PROCEDURE: CHEST WITHOUT CONTRAST 08/05/2024 REASON FOR EXAM: EVALUATE FOR RIB FRACTURES AND PULMONARY CONTUSION TECHNIQUE: Contiguous axial scans of mm slice thicknesses. Sagittal and coronal reconstruction images were obtained. One or more dose reduction techniques were used (e.g., automated exposure control, adjustment of mA and/or kv according to patient size, use of iterative reconstruction technique). RADIATION DOSE SUMMARY: DLP: 610.72 mGycm COMPARISON: Ribs and chest dated 08/05/2024. FINDINGS: Lungs and Airways: Hypoventilatory changes are noted in the bilateral lungs. Areas of ground-glass opacification are noted in the right upper lobe. Pleura: Interval insertion of a large caliber right chest tube. No significant residual pneumothorax following chest tube insertion. Heart: Normal heart size. No pericardial effusion. Pericardium: No thickening. Coronary arteries: Coronary artery calcifications. Thoracic Aorta: Ascending aorta diameter measures 4.0 cm. Pulmonary Vessels: No dilatation or other abnormalities. Mediastinum: No mediastinal hilar or axillary lymphadenopathy. Thyroid:No nodules.. Upper Abdomen: At least 3 left renal cysts, largest measuring 4.4 cm. Bones: A few nondisplaced right rib fractures are redemonstrated. Soft tissues: Marked subcutaneous emphysema is noted along the right chest wall. CT/Chest without Contrast IMPRESSION: INTERVAL INSERTION OF A RIGHT LARGE CALIBER CHEST TUBES SINCE THE PREVIOUS STUD Y WITH RE-EXPANSION OF THE RIGHT LUNG. AREAS OF GROUND-GLASS OPACIFICATION AND HYPOVENTILATORY CHANGES WITH AREAS OF S UBSEGMENTAL ATELECTASIS. ASSOCIATED SUBCUTANEOUS EMPHYSEMA INVOLVING THE RIGHT CHEST WALL EXTENDING TO T HE BASE OF THE NECK. LEFT RENAL CYSTS. Reading Location: [place] [id number]
[2024-08-05 13:27] VITALS: BP 130/88; PULSE 49; RESP 18; O2SAT 98
[2024-08-05 15:04] VITALS: BP 105/75; PULSE 58; RESP 23; O2SAT 98
[2024-08-05 15:08] VITALS: BP 105/75; PULSE 56; RESP 30; TEMP 36.7; O2SAT 97
--- NOTE | 2024-08-05 15:09 | PCM.HP.STD ---
HPI - General General Date of Service: 08/05/24 Chief Complaint: Traumatic rib fractures and pneumothorax HPI Narrative NAHOMI BUENROSTRO, is a 74 M who presents to [facility] emergency department approximately 24 hours postevent with complaints of right chest discomfort. He shares that he was moving a lot of dirt with a wheelbarrow and the wheelbarrow rotated and caused him to lose his balance falling down onto a brick patio. He states that he fell onto his back and there is no loss of consciousness. Upon arrival to the emergency department chest x-ray showed 100% pneumothorax with tension component. Emergent chest tube was placed with reexpansion of the lung. I was contacted to evaluate patient for possible admission here and requested additional imaging with CT chest. Patient denies any history of tobacco use or primary lung pathology apart from a diagnosis of obstructive sleep apnea requiring nightly CPAP. However, a cardiac perspective he has a diagnosis of paroxysmal atrial fibrillation and shares that he is also diagnosed with severe aortic stenosis. He is not presently anticoagulated. In addition to the above he reports a history of baseline bradycardia. [facility] Medical History (Updated 08/05/24 @ 14:[address] Claude Jiménez MD) Non-rheumatic aortic regurgitation Kidney stone History of prostate cancer Non-rheumatic mitral regurgitation TALI on CPAP Paroxysmal atrial fibrillation Systolic murmur Hyperlipidemia Benign prostate hyperplasia Home Medications ?Medication ?Instructions ?Recorded ?Last Taken ?Type aspirin 81 mg tablet,delayed 81 mg PO DAILY@0800 07/01/13 08/04/24 History release pravastatin 40 mg tablet 40 mg PO QHS #90 TABLETS 06/29/23 08/04/24 Rx metoprolol tartrate 25 mg tablet 12.5 mg (1/2 x 25 mg) PO DAILY 02/21/24 08/05/24 Rx Cardiac Arrhythmia #30 tabs flecainide 100 mg tablet See Rx Instructions .Route 03/31/24 08/05/24 Rx .COMPLEX #180 tabs ibuprofen 200 mg tablet (Advil) 400 mg PO Q6H PRN fever or pain 08/05/24 08/05/24 History Allergy/AdvReac Type Severity Reaction Status Date / Time Penicillins (PCN) Allergy Hives Verified 08/05/24 09:27 Family History Mother Congestive heart failure Father Heart disease Heart valve disease Grandmother Cancer stomach Surgical History History of radical prostatectomy Social History Smoking Status: Never smoker alcohol intake: never substance use type: does not use caffeine: Yes Type: coffee Number of servings: 4 Vital Signs Vital Signs Vital Signs: 08/05/24 09:27 08/05/24 09:59 08/05/24 13:27 Temperature 98.1 F Temperature Source Oral Pulse Rate 58 L 49 L Respiratory Rate 19 H 18 Respiratory Effort Normal Blood Pressure 110/81 H 130/88 H Blood Pressure Mean 90 102 Pulse Ox 97 98 Oxygen Delivery Method Room Air Room Air 08/05/24 15:04 Temperature Temperature Source Pulse Rate 58 L Respiratory Rate 23 H Respiratory Effort Blood Pressure 105/75 Blood Pressure Mean 85 Pulse Ox 98 Oxygen Delivery Method Room Air Weight Weight: 175 lb 8 oz Body Mass Index (BMI) 26.6 Physical Exam Const alert and oriented x3 Constitutional Narrative: Patient describes discomfort from his right chest tube insertion site Resp Resp Narrative: Mildly tachypneic with shallow inspiration, chest tube in place to right lateral chest wall. Chest tube dressing intact and there is some scant serosanguineous drainage in the chest tube and immediate suction tubing. There is no kinking of the suction tubing or chest tube. Pleur-evac is examined and the chest tube is to suction at -20 cm of water with expanded pro. There is no evident air leak. Skin Skin Narrative: Patient's right upper chest and neck are examined and there is a scant amount of crepitus on palpation. Results Lab / Micro Data 08/05/24 10:11 08/05/24 10:11 Labs: Laboratory Results - last 24 hr 08/05/24 10:11: WBC 11.4 H, RBC 4.48 L, Hgb 14.8, Hct 44.4, MCV 99.1 H, MCH 33.0 H, MCHC 33.3, RDW Std Deviation 49.5 H, RDW Coeff of Ernie 13.5, Plt Count 231, MPV 10.2, Immature Gran % (Auto) 0.400, Neut % (Auto) 76.6 H, Lymph % (Auto) 11.9 L, [place] % (Auto) 10.1 H, Eos % (Auto) 0.7, Baso % (Auto) 0.3, Absolute Neuts (auto) 8.8 H, Absolute Lymphs (auto) 1.36, Nucleated RBC % 0, Sodium 137, Potassium 4.8, Chloride 102, Carbon Dioxide 23.7, Anion Gap 11, BUN 24 H, Creatinine 1.28 H, Estim Creat Clear Calc 47.50 L, Est GFR (MDRD) Non-Af 58 L, BUN/Creatinine Ratio 18.5, Glucose 104 H, Calcium 9.6 Rhythm Strip Rhythm Strip: Sinus bradycardia, which is chronic Rate: 58 Imaging Radiology Impression Ribs w/Chest X-Ray 08/05/24 09:37 IMPRESSION: 1. Large right-sided tension pneumothorax. 2. Multiple right-sided rib fractures with subcutaneous emphysema as described. Note: Findings were discussed with the emergency room physician in [place] on the morning of 08/05/2024 at 10:15 a.m. Reading Location: [place] [id number] Chest X-Ray 08/05/24 10:50 IMPRESSION: Interval placement of a right chest tube, with only a small residual pneumothorax now seen. Areas of mild atelectasis remain on the right. No left-sided pneumothorax is seen. No significant pleural fluid collection is evident. No evidence of pulmonary edema. The cardiomediastinal silhouette is stable, with a tortuous aorta noted; no evidence of cardiomegaly. Reading Location: [id number] Chest CT 08/05/24 11:50 IMPRESSION: INTERVAL INSERTION OF A RIGHT LARGE CALIBER CHEST TUBES SINCE THE PREVIOUS STUDY WITH RE-EXPANSION OF THE RIGHT LUNG. AREAS OF GROUND-GLASS OPACIFICATION AND HYPOVENTILATORY CHANGES WITH AREAS OF SUBSEGMENTAL ATELECTASIS. ASSOCIATED SUBCUTANEOUS EMPHYSEMA INVOLVING THE RIGHT CHEST WALL EXTENDING TO THE BASE OF THE NECK. LEFT RENAL CYSTS. Reading Location: [place] [id number] Assessment & Plan Assessment/Plan (1) Closed traumatic fracture of ribs of right side with pneumothorax: PLAN: Patient is a 74-year-old male who presents with history of blunt trauma to the right chest wall resulting in multiple nondisplaced right-sided rib fractures as well as complete right pneumothorax with tension phenomenon. He had a favorable response to thoracostomy tube placement by emergency medicine and there is no residual pneumothorax shown on his CT imaging. Additionally, I did not identify evidence of a pulmonary contusion or intrapleural process I would suggest a hemothorax. However, outside of the thoracic cavity there is a significant extent of subcutaneous emphysema. Upon exam patient initially appears conversant but in some discomfort from his chest tube. However, when he is asked to cough he is unable to comply with this request, describes feeling acutely nauseous, and even states that he feels as though he is to blackout. He was undergoing continuous vital sign monitoring and his heart rate became very bradycardic in the mid 30s. Subsequent blood pressure dropped approximately 50 points to 70/50. This was a transient phenomena and patient did spontaneously regain his normal composure and improved vital signs. Thereafter he demonstrated vital capacity on the inspirometer of approximately 2400 mL. I shared with patient and his family that I believed he was a borderline candidate for admission here and given his presyncopal episode, underlying cardiac disease, and my desire to see him have improved pulmonary toilet (with potentially an offer of regional anesthesia using either an intercostal or serratus block from anesthesia) I recommended transfer to a trauma center. We simply do not have the [id number] deputy director of finance coverage nor anesthesia support for making these goals possible. Patient and his family expressed understanding but a willingness to proceed as recommended. As patient awaits transfer recommend continuous suction on chest tube -20 cmH2O and minimizing narcotic administration while maximizing other modalities for analgesia. Impression and recommendation discussed with emergency medicine. Elijah Contreras MD General Surgery Endocrine Surgery Pager: [facility] [address] [place] [address], [address] [place] [address] Office: [phone] (2) Vasovagal near-syncope: Charges/Coding Visit Charges Office Visits / Consults: 39193 ED Visit; High/Urgent Severity
--- NOTE | 2024-08-05 15:14 | ED.RN ---
This RN called [facility] to give report, nurse at [facility] stated they did not need report from this RN as a physician had already given report.
[2024-08-05 15:35] VITALS: BP 93/69; PULSE 59; RESP 20; O2SAT 95
--- NOTE | 2024-08-05 15:39 | ED.RN ---
[facility] will be here in 20 minutes
[2024-08-05 15:51] VITALS: BP 104/69
[2024-08-05] MEDS: 0.9% Normal Saline (1000mL) 1,000 ML 150 ML IV (15:58)
[2024-08-05] MEDS: Ondansetron 4 MG/2 ML Vial IV (16:13)
--- OUTSIDE RECORDS SUMMARY | 2024-08-05 20:19 | XMS RPT_ITS | CCD ---
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 mg/dL Low 8.5-10.1 [facility] Comment on above: Performed By: #### P 8 #### [facility] [address], [place] [address] CO2 [Moles/Vol] 25 mmol/L Normal 21-32 [facility] Comment on above: Performed By: #### P 8 #### [facility] [address], [place] [address] Glucose [Mass/Vol] 95 mg/dL Normal 70-99 [facility] Comment on above: Performed By: #### P 8 #### [facility] [address], [place] [address] Urea nitrogen [Mass/Vol] 17 mg/dL Normal 7-18 [facility] Comment on above: Performed By: #### P 8 #### [facility] [address], [place] [address] Chloride [Moles/Vol] 106 mmol/L Normal 98-107 [facility] Comment on above: Performed By: #### P 8 #### [facility] [address], [place] [address] Potassium [Moles/Vol] 4.3 mmol/L Normal 3.5-5.1 [facility] Comment on above: Performed By: #### P 8 #### [facility] [address], [place] [address] Sodium [Moles/Vol] 138 mmol/L Normal 136-145 [facility] Comment on above: Performed By: #### P 8 #### [facility] [address], [place] [address] Hemogramon 10-06-2018 Erythrocyte distribution width (RBC) [Ratio] 12.7 % Normal 11.6-14.4 [facility] Comment on above: Performed By: #### C BC1 #### [facility] [address], [place] [address] Hematocrit (Bld) [Volume fraction] 33.4 % Low 40.1-51.0 [facility] Comment on above: Performed By: #### C BC1 #### [facility] [address], [place] [address] Hemoglobin (Bld) [Mass/Vol] 11.1 g/dL Low 13.7-17.5 [facility] Comment on above: Performed By: #### C BC1 #### [facility] [address], [place] [address] MCH (RBC) [Entitic mass] 33.2 pg High 25.7-32.2 [facility] Comment on above: Performed By: #### C BC1 #### [facility] [address], [place] [address] MCHC (RBC) [Mass/Vol] 33.2 % Normal 32.3-36.5 [facility] Comment on above: Performed By: #### C BC1 #### [facility] [address] [address] MCV (RBC) [Entitic vol] 100.0 fL High 83.2-95.6 [facility] Comment on above: Performed By: #### C BC1 #### [facility] [address] [address] Platelet mean volume (Bld) [Entitic vol] 10.6 fL Normal 8.7-12.0 [facility] Comment on above: Performed By: #### C BC1 #### [facility] [address] [address] Platelets (Bld) [#/Vol] 182 thou/cmm Normal 141-365 [facility] Comment on above: Performed By: #### C BC1 #### [facility] [address] [address] RBC (Bld) [#/Vol] 3.34 mil/cmm Low 4.63-6.08 [facility] Comment on above: Performed By: #### C BC1 #### [facility] [address] [address] RDW SD 46.8 fl High 36.1-45.8 [facility] Comment on above: Performed By: #### C BC1 #### [facility] [address], [place] [address] WBC (Bld) [#/Vol] 7.68 thou/cmm Normal 4.23-9.07 [facility] Comment on above: Performed By: #### C BC1 #### [facility] [address], [place] [address] MDRD GFRon 10-06-2018 GFR/1.73 sq M predicted among non-blacks MDRD (S/P/Bld) [Vol rate/Area] 43.84 mL/min/{1.73_m2} Normal >60mL/min/1.7 3m2 [facility] Comment on above: Result Comment: If t he patient is , multiply the result by 1.210. Performed By: #### G FR #### [facility] [address], [place] [address] PROGRESSon 10-06-2018 PROGRESS HNO ID: [id number] Author: Markus Zambrano Service: Urology Author Type: Physician Type: Progress Notes Filed: 10/06/2018 12:32 PM Note Text: UROLOGY PROGRESS NOTE PATIENT NAME: Nahomi Buenrostro DATE OF : 1950 ADMISSION DATE: 10/05/2018 9:33 AM Subjective Patient passed stone overnight Pain improved this AM Wants to eat. Objective VS: BP 107/69 Pulse 67 Temp 37.1 ?C (98.8 ?F) (Oral) Resp 16 Ht 172.7 cm (5' 8) Wt 75.8 kg (167 lb) SpO2 95% BMI 25.39 kg/m? I AND O - 24hr: Intake/Output Summary (Last 24 hours) at 10/06/2018 0808 Last data filed at 10/06/2018 0500 Gross per 24 hour Intake ? Output 1200 ml Net -1200 ml Physical Exam: General: Neck: Resp: Abdomen: No acute distress Supple Normal effort Soft, non-tender, nondistended : No L-sided CVA/flank TTP Labs and Imaging Studies LABS: BMP: Glucose (mg/dL) Date Value 10/06/2018 95 Potassium (mEq/L) Date Value 10/06/2018 4.3 Sodium (mEq/L) Date Value 10/06/2018 138 Chloride (mEq/L) Date Value 10/06/2018 106 CO2 (mEq/L) Date Value 10/06/2018 25 Creatinine (mg/dL) Date Value 10/06/2018 1.57 BUN (mg/dL) Date Value 10/06/2018 17 Anion Gap (no units) Date Value 10/06/2018 11 Calcium (mg/dL) Date Value 10/06/2018 8.3 CBC: Hemoglobin (g/dL) Date Value 10/04/2018 13.4 HGB (g/dL) Date Value 10/06/2018 11.1 Hematocrit (%) Date Value 10/06/2018 33.4 WBC (thou/cmm) Date Value 10/06/2018 7.68 Platelet Count (thou/cmm) Date Value 10/06/2018 182 Urinalysis: Specific [place], Ur Date Value Ref Range Status 10/05/2018 1.027 1.005 - 1.030 Final Glucose, Urine Date Value Ref Range Status 10/05/2018 NEGATIVE Negative mg/dL Final Bilirubin, Urine Date Value Ref Range Status 10/05/2018 see below (A) Negative Final Comment: Detected (Unable to confirm). Ketones, Urine Date Value Ref Range Status 10/05/2018 NEGATIVE Negative mg/dL Final Hemoglobin/Blood,Ur Date Value Ref Range Status 10/04/2018 Large (A) Negative Final Protein, Urine Date Value Ref Range Status 10/05/2018 30 (A) Negative mg/dL Final Urobilinogen, Urine Date Value Ref Range Status 10/05/2018 4.0 (A) 0.2 - 1.0 EU/dL Final Nitrites Date Value Ref Range Status 10/04/2018 Negative Negative Final Nitrites Urine Date Value Ref Range Status 10/05/2018 NEGATIVE Negative Final WBC, Urine Date Value Ref Range Status 10/05/2018 2.1 0.0 - 5.0 /hpf Final Urine Culture: No results found for: URCUL RADIOLOGY: Assessment and Plan ASSESSMENT: 68 year old male with passed L-sided ureteral stone PLAN: - no surgery this AM - ok for diet - will discharge home this AM - will discuss with attending Gael Cano DO Urology, PGY-2 2442 Pt passed stone and d/c'd prior to being seen. Markus Zambrano MD Normal [facility] Basic Panelon 10-05-2018 Creatinine [Mass/Vol] 1.43 mg/dL High 0.67-1.17 [facility] Comment on above: Performed By: #### P 8 #### [address], [place] [address] Anion gap [Moles/Vol] 8 mmol/L Normal 8-16 [facility] Comment on above: Performed By: #### P 8 #### [facility] [address], [place] [address] CO2 [Moles/Vol] 29 mmol/L Normal 21-32 [facility] Comment on above: Performed By: #### P 8 #### [facility] [address], [place] [address] Glucose [Mass/Vol] 92 mg/dL Normal 70-99 [facility] Comment on above: Performed By: #### P 8 #### [facility] [address], [place] [address] Urea nitrogen [Mass/Vol] 17 mg/dL Normal 7-18 [facility] Comment on above: Performed By: #### P 8 #### [facility] [address], [place] [address] Calcium [Mass/Vol] 8.9 mg/dL Normal 8.5-10.1 [facility] Comment on above: Performed By: #### P 8 #### [facility] [address], [place] [address] Chloride [Moles/Vol] 106 mmol/L Normal 98-107 [facility] Comment on above: Performed By: #### P 8 #### [facility] [address], [place] [address] Potassium [Moles/Vol] 4.4 mmol/L Normal 3.5-5.1 [facility] Comment on above: Performed By: #### P 8 #### [facility] [address], [place] [address] Sodium [Moles/Vol] 139 mmol/L Normal 136-145 [facility] Comment on above: Performed By: #### P 8 #### [facility] [address], [place] [address] CASE MGT INIT ASSESon 2018 CASE MGT INIT ASSES HNO ID: [id number] Author: Jolene JasonRn) IBAN Locke Service: Care Management Author Type: Registered Nurse Type: Care Mgt Initial Assessment Filed: 10/05/2018 1:01 PM Note Text: CARE MANAGEMENT: ASSESSMENT AND DISCHARGE PLAN SERVICE DATE: 10/05/2018 SERVICE TIME: 1230 pm PRIMARY CARE PHYSICIAN: Danilo Funes MD ADMISSION STATUS: Emergency MEDICAL: Patient/Leander macario Stated Goals: To have reduction in pain Get something for pain Health Insurance: [employer] Health Issues Impacting Discharge Plan: Kidney stone Last Discharge Date: 10/04/18 Is this Within the Past 30 days? No Advance Directive: No Health Literacy: 1. How often do you need to have someone help you when you read instructions, pamphlets, or other written material from your doctor or pharmacy? Never - 1 2. How confident are you filling out medical forms by yourself? Extremely - 1 If Patient scores > 3 on either question, the following interventions were put into place: Patient did not score > 3 FUNCTIONAL AND COGNITIVE/BEHAVIORA L PRIOR TO ADMISSION: Baseline Mental Status: Alert AND Oriented, Person, Place , Time and Situation Functional Status: Independent Does Patient Currently Receive Any Community Services or Home Care? None Equipment Prior to Admission: Bi-level Positive Airway Pressure/Continuous Positive Airway Pressure Has the Patient Been in a Shelter Facility in the Past 30 days? No SOCIAL: Living Arrangement: Home Lives With: Spouse Financial Resources: Retired Primary Contact: Extended Emergency Contact Information Primary Emergency Contact: Edwin Buenrostro Address: [address] [place] [address] [place] [address] [phone] Mobile Relation: Spouse Supportive: Yes Other Important Patient Contacts: None Caregiver Assessment: Caregiver is ready, willing and able to meet the patient's needs as recommended by the inter-professional team? No Caregiver Needed Patient's transition needs and plan for meeting these needs: Supportive environment Does the patient have an acute stroke diagnosis, or has the patient had a stroke during this admission? No Medication Adherence: I am convinced of the importance of my prescription medication: Agree completely - 0 I worry that my prescription medication will do more harm than good to me Disagree completely - 0 I feel financially burdened by my [id number] expenses for my prescription medication: Disagree completely - 0 Patient is categorized as low risk < 2 Are you interested in bedside delivery of your medications? No Food Concerns: In the Last Month, Have You had Trouble Getting Food? No trouble getting food During the Last Month, Have You Worried Whether Your Food Would Run Out Before You Had Enough Money to Buy More? No Is the Patient Psychosocially Complex? No ASSESSMENT AND PLAN: Medical Needs: 2 or more chronic diseases Psychosocial Needs: None FREEDOM OF CHOICE EXPLAINED: N/A POTENTIAL TRANSITION PLANS No Services Indicated Functional Status: Independent. Resides with spouse. DME: CPAP Pharmacy: [facility] AD: None ER: [facility] [phone] PCP: Dr. Funes Chart reviewed: From [facility]. Left UVJ stone, 4mm. Met with pt. Anticipate home at discharge. SIGNATURE: Joleen Locke RN PATIENT NAME: Nahomi Buenrostro DATE: October 05, 2018 TIME: 12:46 PM PAGER/CONTACT #: [phone] [facility] ED NOTEon 10-05-2018 ED NOTE HNO ID: [id number] Author: Rosenda Ling RN Service: Nursing Author Type: Registered Nurse Type: ED Notes Filed: 10/05/2018 10:53 AM Note Text: Transport took patient to [facility] at this time. [facility] ED NOTE HNO ID: [id number] Author: Rosenda Ling RN Service: Nursing Author Type: Registered Nurse Type: ED Notes Filed: 10/05/2018 10:35 AM Note Text: Xray notified that patient is ready. [facility] ED NOTE HNO ID: [id number] Author: Rosenda Ling RN Service: Nursing Author Type: Registered Nurse Type: ED Notes Filed: 10/05/2018 10:25 AM Note Text: Patient verified by name, date of . Patient placed on cardiac, SpO2, and continuous BP monitors. Bed in lowest position and locked. Call light within reach. [facility] ED NOTE HNO ID: [id number] Author: Rosenda Ling RN Service: Nursing Author Type: Registered Nurse Type: ED Notes Filed: 10/05/2018 10:04 AM Note Text: Clean catch urine specimen obtained and sent. Culture sent. [facility] ED NOTE HNO ID: [id number] Author: Rosenda (Rn) IBAN Ling Service: Nursing Author Type: Registered Nurse Type: ED Notes Filed: 10/05/2018 9:53 AM Note Text: Dr Vargas at bedside assessing patient. Normal [facility] ED PROV NOTEon 10-05-2018 ED PROV NOTE HNO ID: [id number] Author: Gabriel Vargas DO Service: Emergency Medicine Author Type: Resident Type: ED Provider Notes Filed: 10/05/2018 1:02 PM Note Text: ---- Attestation signed by Srini Yip MD at 10/05/2018 2:09 PM Attending Note I evaluated the patient and personally participated in the rockwell components. I agree with the resident's findings and plan as documented and have discussed the case and management of the patient's care with the resident. ED Course as of Oct 05 1408 Srini Yip's Documentation Sat Oct 05, 2018 1015 Patient presents for evaluation of recurrence of his left flank pain. He was diagnosed last night with a kidney stone on the left side at the UVJ. Pain it got much better he went home and then the pain worsened this morning. He denies any fevers or chills no hematuria no frequency urgency or other complaints. On examination abdomen soft nontender without guarding rebound masses or distention vital signs are stable he's afebrile there is no CVA tenderness. We'll obtain baseline labs and a KUB. We will also give him pain control, consider urology consultation pending the results of the kidney function and response to pain medications. Clinical Impressions as of Oct 05 1408 Kidney stone on left side Signature: Srini Yip MD Date: 10/05/2018 Time: 2:09 PM ---- ED Provider Note Patient Name: Nahomi Buenrostro SERVICE DATE: 10/05/18 History Patient presents with: Flank Pain: The patient complains of left flank pain for over 1 week. The patient states he has been seen for this and diagnosed with a kidney stone. The patient states he was at [place] last night and told to come here to see Dr. Zambrano. Patient is 68-year-old male who presents emergency Department with left flank pain. Patient was seen at [facility] yesterday for similar problem. Patient was diagnosed with a kidney stone with 5 mm in the ureteropelvic junction. Patient was instructed to come to [facility] if his pain significantly worsened. Patient states that his pain is not being controlled at home. Patient states that he was initially pain free after he left the hospital, but it returned this morning. Patient denies any changes in his symptoms. Patient denies any fevers, chills, chest pain, nausea, vomiting, diarrhea or constipation. Patient states that he is urinating. Patient denies any gross blood in his urine. Patient has no other complaints at this time. PAST MEDICAL HISTORY Diagnosis Date - Aortic valve disorders Dr. Coffman - Arrhythmia - Atrial fibrillation (HCC) - BPH (benign prostatic hyperplasia) - Cardiomegaly - Diverticulosis of colon (without mention of hemorrhage) - External hemorrhoids without mention of complication - Mitral valve disorders(424.0) - TALI (obstructive sleep apnea) on cpap - Prostate cancer (HCC) Dr. Reeves - Snoring PAST SURGICAL HISTORY Procedure Laterality Date - COLONOSCOP W/ OR W/O [facility] 07/04/07 - COLONOSCOP W/ OR W/O [facility] 11/29/2017 Colonoscopy - LAPAROSCOPIC RADICAL PROSTATECTOMY 07/09/13 FAMILY HISTORY Problem Relation Age of Onset - other (CHF) Mother - other (CHF) Father - other (stomache cancer) Paternal Grandmother - other (skin ca) Maternal Grandfather Social History Tobacco Use - Smoking status: Never Smoker - Smokeless tobacco: Never Used Substance and Sexual Activity - Alcohol use: No - Drug use: No - Sexual activity: Not on file ALLERGIES Allergen Reactions - Penicillin Rash, Itching Review of Systems Respiratory: Negative for cough, chest tightness and shortness of breath. Cardiovascular: Negative for chest pain, palpitations and leg swelling. Gastrointestinal: Negative for constipation, diarrhea, nausea and vomiting. Genitourinary: Positive for flank pain. Negative for difficulty urinating, dysuria, frequency and urgency. All other systems reviewed and are negative. Physical Exam BP 139/92 Pulse 74 Temp (Src) 98.4 (Oral) Resp 23 Ht 5' 8 (1.73m) Wt 167 lb (75.8kg) SpO2 99% BMI 25.40 kg/(m2). O2 Therapy: Room Air Physical Exam Constitutional: He is oriented to person, place, and time. He appears well-developed and well-nourished. He appears distressed. HENT: Head: Normocephalic and atraumatic. Mouth/Throat: Oropharynx is clear and moist. Eyes: EOM are normal. No scleral icterus. Cardiovascular: Normal rate and regular rhythm. Pulmonary/Chest: Effort normal and breath sounds normal. Abdominal: Normal appearance and bowel sounds are normal. There is tenderness in the left upper quadrant. There is no rebound, no guarding and no CVA tenderness. Neurological: He is alert and oriented to person, place, and time. Skin: Skin is warm and dry. Capillary refill takes less than 2 seconds. Nursing note and vitals reviewed. Diagnostic Testing ED Labs Ordered and Reviewed BASIC METABOLIC PANEL (AK,AV,EU,FV,HL,MARJ, MM,SP) - Abnormal; Notable for the following components: Result Value Ref Range Creatinine 1.43 (*) 0.67 - 1.17 mg/dL All other components within normal limits CBC + AUTO DIFF (AK,AV,EU,FV,HL,MARJ, MM,SP) - Abnormal; Notable for the following components: WBC 9.94 (*) 4.23 - 9.07 thou/cmm RBC 4.02 (*) 4.63 - 6.08 mil/cmm HGB 13.1 (*) 13.7 - 17.5 g/dL MCV 100.0 (*) 83.2 - 95.6 fl MCH 32.6 (*) 25.7 - 32.2 pg RDW-SD 46.8 (*) 36.1 - 45.8 fl Abs. Neut(Anc) 7.61 (*) 1.78 - 5.38 thou/cmm Abs. Humphreys 0.96 (*) 0.30 - 0.82 thou/cmm All other components within normal limits URINALYSIS WITH MICROSCOPIC (AK,AV,EU,FV,HL,MARJ, MM,SP) - Abnormal; Notable for the following components: Hemoglobin, Urine TRACE (*) Negative Protein, Urine 30 (*) Negative mg/dL Bilirubin, Urine see below (*) Negative Urobilinogen, Urine 4.0 (*) 0.2 - 1.0 EU/dL RBC, Urine 8.1 (*) 0.0 - 5.0 /hpf All other components within normal limits MDRD GFR Procedures ED Course / Clinical Impression ED Course as of Oct 06 1255 Others' Documentation Sat Oct 05, 2018 1015 Patient presents for evaluation of recurrence of his left flank pain. He was diagnosed last night with a kidney stone on the left side at the UVJ. Pain it got much better he went home and then the pain worsened this morning. He denies any fevers or chills no hematuria no frequency urgency or other complaints. On examination abdomen soft nontender without guarding rebound masses or distention vital signs are stable he's afebrile there is no CVA tenderness. We'll obtain baseline labs and a KUB. We will also give him pain control, consider urology consultation pending the results of the kidney function and response to pain medications. [TR] ED Course User Index [TR] Srini Yip MD Clinical Impressions as of Oct 06 1255 Kidney stone on left side MDM / Disposition / Plan Laboratory work showed stable kidney function. Patient had slight elevation of white blood cell count. Patient's vital signs remained stable while in the emergency department. Case was discussed with urology resident who came down and evaluated the patient. Neurology recommends admission to the hospital with surgical intervention tomorrow. Patient will be admitted to surgical floor pending his surgery tomorrow. Patient states that he agrees to this plan. Patient will be admitted at this time. The patient was ADMITTED TO: Regular nursing floor. Condition at time of disposition: stable SIGNATURE: DO Gabriel Wright (Res) DO Sam Resident 10/05/18 1302 Srini Yip MD 10/05/18 1409 Normal [facility] HISTORY PHYSICALon HISTORY PHYSICAL HNO ID: [id number] Author: Markus Zambrano Service: Urology Author Type: Physician Type: HANDP Filed: 10/06/2018 12:31 PM Note Text: Urology History and Physical Date: 10/05/2018 Patient Name: Nahomi Buenrostro Date of : 1950 Admit Date: 10/05/2018 Age: [age] year old PCP: Danilo Funes MD Patient presents with: Flank Pain: The patient complains of left flank pain for over 1 week. The patient states he has been seen for this and diagnosed with a kidney stone. The patient states he was at [facility] last night and told to come here to see Dr. Zambrano. Narrative: The patient is a 68 year old male who presents to the ED with left flank pain. He had CT yesterday which showed 5mm L UVJ calculus and was discharged after pain was controlled. He returns to ED today with increasing left flank pain. Pain is primarily located to the left flank with radiation to the LLQ. He endorses associated nausea/vomiting He denies chest pain, sob, abdominal pain diarrhea, hematuria, or dysuria. He has never had kidney stones before. Follows with Dr. Trimble for BPH. PAST MEDICAL HISTORY Diagnosis Date - Aortic valve disorders Dr. Coffman - Arrhythmia - Atrial fibrillation (HCC) - BPH (benign prostatic hyperplasia) - Cardiomegaly - Diverticulosis of colon (without mention of hemorrhage) - External hemorrhoids without mention of complication - Mitral valve disorders(424.0) - TALI (obstructive sleep apnea) on cpap - Prostate cancer (HCC) Dr. Reeves - Snoring PAST SURGICAL HISTORY Procedure Laterality Date - COLONOSCOP W/ OR W/O [facility] 07/04/07 - COLONOSCOP W/ OR W/O [facility] 11/29/2017 Colonoscopy - LAPAROSCOPIC RADICAL PROSTATECTOMY 07/09/13 Family History Problem Relation Age of Onset - other (CHF) Mother - other (CHF) Father - other (stomache cancer) Paternal Grandmother - other (skin ca) Maternal Grandfather Outpatient Medications Marked as Taking for the 10/05/18 encounter (Hospital Encounter): HYDROcodone-acetami nophen (NORCO) 5-325 mg per tablet Take 1 tablet by mouth every 6 hours as needed for Pain for up to 7 days. Disp: 10 tablet Rfl: 0 metoprolol tartrate, short acting, (LOPRESSOR) 25 mg tablet Take 1 tablet by mouth twice daily as needed. Disp: 20 tablet Rfl: 6 pravastatin (PRAVACHOL) 40 mg tablet Take 1 tablet by mouth daily at bedtime. Disp: 90 tablet Rfl: 3 flecainide (TAMBOCOR) 100 mg tablet Take 1 tablet by mouth twice daily. Disp: 180 tablet Rfl: 3 aspirin, enteric coated (ECOTRIN LOW STRENGTH) 81 mg EC tablet Take 1 tablet by mouth once daily. Disp: Rfl: 0 Medications flecainide 100 mg tab(s) (TAMBOCOR) (has no administration in time range) atorvastatin 10 mg tab(s) (LIPITOR) (has no administration in time range) aspirin, enteric coated 81 mg tab(s) (has no administration in time range) NaCl 0.9% iv infusion (has no administration in time range) oxyCODONE-acetamino phen 5-325 mg 1-2 tablet (PERCOCET) (has no administration in time range) morphine 2 mg injection (has no administration in time range) ondansetron (PF) 4 mg injection (ZOFRAN) (has no administration in time range) tamsulosin ER 0.4 mg cap(s) (FLOMAX) (has no administration in time range) enoxaparin 40 mg injection (LOVENOX) (has no administration in time range) acetaminophen 650 mg tab(s) (TYLENOL) (has no administration in time range) morphine 4 mg injection (4 mg INTRAVENOUS Given 10/05/18 1025) HYDROmorphone 1 mg injection (DILAUDID) (1 mg INTRAVENOUS Given 10/05/18 1254) ALLERGIES Allergen Reactions - Penicillin Rash, Itching Social History: Social History Socioeconomic History Marital status: Spouse name: Edwin Number of children: 0 Years of education: Not on file Highest education level: Not on file Occupational History Employer: [employer] Social Needs Financial resource strain: Not on file Food insecurity: Worry: Not on file Inability: Not on file Transportation needs: Medical: Not on file Non-medical: Not on file Tobacco Use Smoking status: Never Smoker Smokeless tobacco: Never Used Substance and Sexual Activity Alcohol use: No Drug use: No Sexual activity: Not on file Lifestyle Physical activity: Days per week: Not on file Minutes per session: Not on file Stress: Not on file Relationships Social connections: Talks on phone: Not on file Gets together: Not on file Attends bahai service: Not on file Active member of club or organization: Not on file Attends meetings of clubs or organizations: Not on file Relationship status: Not on file Intimate partner violence: Fear of current or ex partner: Not on file Emotionally abused: Not on file Physically abused: Not on file Forced sexual activity: Not on file Other Topics Concerns: Not on file Social History Narrative Not on file ROS: Constitutional: negative for chills and fevers Respiratory: negative for hemoptysis and shortness of breath Cardiovascular: negative for dyspnea and syncope Gastrointestinal: negative for jaundice, +nausea and vomiting Genitourinary:negat renaldo for dysuria and hematuria, +left flank pain Hematologic/lymphat ic: negative for bleeding and lymphadenopathy Integumentary: no new bruises or lesions Musculoskeletal:neg ative for muscle weakness or pain Neurological: negative for coordination problems and seizures All other systems negative Physical Exam: 10/05/18 1200 10/05/18 1254 10/05/18 1300 10/05/18 1508 BP: 135/91 139/92 135/87 124/75 Pulse: 68 74 78 74 Resp: 14 23 18 18 Temp: 36.9 ?C (98.4 ?F) TempSrc: Oral SpO2: 99% 99% 98% 97% Weight: Height: General: Alert, in no acute distress Head: Normocephalic, atraumatic Neck: supple, trachea is midline, no obvious masses Respiratory: normal effort, no audible wheezes Cardiovascular: regular pulse and no cyanosis Musculoskeletal: moving all extremities, normal tone Skin: warm and dry Psych: normal mood and affect, oriented Abdomen: soft, non distended, non tender, no organomegaly, no hernias : mild left cva tenderness, no sp tenderness Labs: CBC: Recent Labs 10/05/18 1000 10/04/18 1936 10/04/18 1102 WBC 9.94* 8.56 7.95 HCT 40.2 39.6 36.9* MCV 100.0* 99.2 100.3* RBC 4.02* 3.99* 3.68* RDW 12.8 -- -- PLT 239 206 205 BMP: Recent Labs 10/05/18 1000 10/04/18 1936 10/04/18 1102 NA 139 136 135* K 4.4 4.5 4.6 CO2 29 26 24 BUN 17 16 15 CA 8.9 9.5 9.3 Coagulation: No results found for: INR, APTT Lactic acid: No components found for: LACTA Radiology: CT A/P IMPRESSION: Left hydronephrosis with a 5 mm stone near the left uterovesical junction. ?Left perinephric and periureteral stranding. ? Left renal lesions suggestive of cysts. ?Right nephrolithiasis. ?Small amount of pelvic free fluid. ?Findings consistent with old granulomatous disease. Assessment and Plan: 68 year old male left 5mm ureteral calculus PLAN: - Admit - IVF - NPO @ NH - Page with fevers/hypotension - Flomax - Pain/nausea control - Strain urine - Options for stone treatment were discussed with the patient and a decision was made for Ureteroscopy and Laser Lithotripsy with stent All risks, benefits and alternatives were discussed with the patient including but not limited to , Stroke, WI, bleeding, infection, injury to the urethra, bladder, ureter, kidney or any other adjacent organs. It was discussed at length that there are always chances that we would be unable to reach the stone on the first try and would require stenting with subsequent procedure for stone management. In all likelihood a stent will be left and will be removed in the office in 1-2 weeks. If the stone is able to be removed at this procedure. Otherwise it will be removed/changed at the next procedure After explaining all of the above to the patient they will proceed with surgery and informed consent was signed and placed in the chart. Diego Parker MD 10/05/2018 4:13 PM Patient passed stone and was discharged prior to being seen. Stone sent for analysis. Markus Zambrano MD October 06, 2018 12:31 PM Normal [facility] Hemogram/Diffon 10-05-2018 Abs Immature Grans 0.04 thou/cmm Normal 0.00-0.05 [facility] Comment on above: Performed By: #### C BCD1 #### [facility] [address] [place] [address] Abs Neut (ANC) 7.61 thou/cmm High 1.78-5.38 [facility] Comment on above: Performed By: #### C BCD1 #### [facility] [address] [place], [place] [address] Abs. Baso 0.03 thou/cmm Normal 0.01-0.08 [facility] Comment on above: Performed By: #### C BCD1 #### [facility] [address] [place] [address] Abs. Humphreys 0.96 thou/cmm High 0.30-0.82 [facility] Comment on above: Performed By: #### C BCD1 #### [facility] [address] [place] [address] Basophils/100 WBC (Bld) 0.3 % Normal [facility] Comment on above: Performed By: #### C BCD1 #### [facility] [address] [place] [address] Eosinophils (Bld) [#/Vol] 0.05 thou/cmm Normal 0.04-0.54 [facility] Comment on above: Performed By: #### C BCD1 #### [facility] [address] [place] [address] Eosinophils/100 WBC (Bld) 0.5 % Normal [facility] Comment on above: Performed By: #### C BCD1 #### [facility] [address] [place] [address] Erythrocyte distribution width (RBC) [Ratio] 12.8 % Normal 11.6-14.4 [facility] Comment on above: Performed By: #### C BCD1 #### [facility] [address] [place] [address] Hematocrit (Bld) [Volume fraction] 40.2 % Normal 40.1-51.0 [facility] Comment on above: Performed By: #### C BCD1 #### [facility] [address] [place] [address] Hemoglobin (Bld) [Mass/Vol] 13.1 g/dL Low 13.7-17.5 [facility] Comment on above: Performed By: #### C BCD1 #### [facility] [address] [place], [place] [address] Immature Grans 0.40 % Normal [facility] Comment on above: Performed By: #### C BCD1 #### [facility] [address] [place], [place] [address] Lymphocytes (Bld) [#/Vol] 1.24 thou/cmm Normal 0.84-2.85 [facility] Comment on above: Performed By: #### C BCD1 #### [facility] [address] [place], [place] [address] Lymphocytes/100 WBC (Bld) 12.5 % Normal [facility] Comment on above: Performed By: #### C BCD1 #### [facility] [address] [place], [place] [address] MCH (RBC) [Entitic mass] 32.6 pg High 25.7-32.2 [facility] Comment on above: Performed By: #### C BCD1 #### [facility] [address] [place] [address] MCHC (RBC) [Mass/Vol] 32.6 % Normal 32.3-36.5 [facility] Comment on above: Performed By: #### C BCD1 #### [facility] [address] [place] [address] MCV (RBC) [Entitic vol] 100.0 fL High 83.2-95.6 [facility] Comment on above: Performed By: #### C BCD1 #### [address] [address] Monocytes/100 WBC (Bld) 9.7 % Normal [facility] Comment on above: Performed By: #### C BCD1 #### [facility] [address] [place], [place] [address] Platelet mean volume (Bld) [Entitic vol] 10.6 fL Normal 8.7-12.0 [facility] Comment on above: Performed By: #### C BCD1 #### [address] [address] Platelets (Bld) [#/Vol] 239 thou/cmm Normal 141-365 [facility] Comment on above: Performed By: #### C BCD1 #### [facility] [address] [place], [place] [address] RBC (Bld) [#/Vol] 4.02 mil/cmm Low 4.63-6.08 [facility] Comment on above: Performed By: #### C BCD1 #### [facility] [address] [place], [place] [address] RDW SD 46.8 fl High 36.1-45.8 [facility] Comment on above: Performed By: #### C BCD1 #### [facility] [address] [place], [place] [address] Seg Neutrophil 76.6 % Normal [facility] Comment on above: Performed By: #### C BCD1 #### [facility] [address] [place], [place] [address] WBC (Bld) [#/Vol] 9.94 thou/cmm High 4.23-9.07 [facility] Comment on above: Performed By: #### C BCD1 #### [facility] [address] [place], [place] [address] PLAN OF CAREon 10-05-2018 PLAN OF CARE HNO ID: [id number] Author: Jyoti Howard (Dispatcher [place]) Service: Pharmacy Author Type: Computer Technician Type: Plan of Care Filed: 10/05/2018 2:07 PM Note Text: MEDICATION HISTORY Patient Name:J Carlos Buenrostro : 1950 Source of history:Patient: Reliability of source: Appears reliable, clearly identified: Medication name, Pharmacy records: [facility] [phone] and [facility] records Medication Nonadherence Identified: No barriers noted The above information represents the best possible medication history: Yes Additional comments: [id number] Medication List Adjustments: Medication Regimen Changes: Verified with patient and pharmacy. Not sure why patient is no longer taking nitrofurantoin 100 mg reported stopped on 10/04/18. 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 Yes metoprolol tartrate, short acting, (LOPRESSOR) 25 mg tablet Take 1 tablet by mouth twice daily as needed. Yes pravastatin (PRAVACHOL) 40 mg tablet Take 1 tablet by mouth daily at bedtime. Yes flecainide (TAMBOCOR) 100 mg tablet Take 1 tablet by mouth twice daily. Yes aspirin, enteric coated (ECOTRIN LOW STRENGTH) 81 mg EC tablet Take 1 tablet by mouth once daily. Yes Jyoti Howard (Dispatcher [place]) [id number] October 05, 2018 1:56 PM -- Normal [facility] Urinalysis Routineon 019 Bacteria LM.HPF (Urine sed) [#/Area] NONE Normal None [facility] Comment on above: Performed By: #### U RIN2 #### [place] [address] Ep Cells Urine 0.8 /hpf Normal 0.0-5.0 [facility] Comment on above: Performed By: #### U RIN2 #### [facility] [address] [place], [place] [address] Hyaline Cast 0.0 /lpf Normal 0.0-1.0 [facility] Comment on above: Performed By: #### U RIN2 #### [facility] [address] [place], [place] [address] RBC LM.HPF (Urine sed) [#/Area] 8.1 /[HPF] High 0.0-5.0 [facility] Comment on above: Performed By: #### U RIN2 #### [facility] [address] [place] [address] WBC LM.HPF (Urine sed) [#/Area] 2.1 /[HPF] Normal 0.0-5.0 [facility] Comment on above: Performed By: #### U RIN2 #### [facility] [address] [place] [address] Appearance (U) CLEAR Normal [facility] Comment on above: Performed By: #### U RIN2 #### [facility] [address] [place] [address] Bilirubin (U) [Mass/Vol] see below Abnormal Negative [facility] Comment on above: Result Comment: Dete cted (Unable to confirm). Performed By: #### U RIN2 #### [facility] [address] [place] [address] Color (U) DK YELLOW Normal [facility] Comment on above: Performed By: #### U RIN2 #### [facility] [address] [place] [address] Glucose Ql (U) Negative Normal Negative [facility] Comment on above: Performed By: #### U RIN2 #### [facility] [address] [place] [address] Hemoglobin,Urine TRACE Abnormal Negative [facility] Comment on above: Performed By: #### U RIN2 #### [facility] [address] [place] [address] Ketone Urine Negative Normal Negative [facility] Comment on above: Performed By: #### U RIN2 #### [facility] [address] [place] [address] Leukocytes Esterase Negative Normal Negative [facility] Comment on above: Performed By: #### U RIN2 #### [facility] [address] [place] [address] Nitrites Urine Negative Normal Negative [facility] Comment on above: Performed By: #### U RIN2 #### [facility] [address] [place] [address] pH (U) 6.0 [pH] Normal 5.0-8.0 [facility] Comment on above: Performed By: #### U RIN2 #### [facility] [address] [place] [address] Protein (U) [Mass/Vol] 30 mg/dL Abnormal Negative [facility] Comment on above: Performed By: #### U RIN2 #### [facility] [address] [place] [address] Specific [place], Ur 1.027 Normal 1.005-1.030 [facility] Comment on above: Performed By: #### U RIN2 #### [facility] [address] [place], [place] [address] Urobilinogen,Ur 4.0 EU/dL Abnormal 0.2-1.0 [facility] Comment on above: Performed By: #### U RIN2 #### [facility] [address] [place] [phone] ALLIED HEALTHon 10-04-2018 ALLIED HEALTH HNO ID: [id number] Author: REGINA Madden (Ct) Service: Radiology Author Type: Clinical Computer Technician Type: Allied Health Filed: 10/04/2018 9:17 PM Note Text: Radiology Service Progress Note PATIENT NAME: Nahomi Buenrostro DATE OF SERVICE: October 04, 2018 TIME: 9:17 PM PATIENT IDENTITY VERIFICATION COMPLETED USING TWO (2) METHODS: Patient confirmed name verbally and ID band matches.. PATIENT GENDER DATA: Male PATIENT RELEVANT IMPLANT DATA REVIEWED: Not Applicable RADIOLOGY DEPARTMENT: CT; Exam(s) Completed: Abdomen/Pelvis PERIPHERAL IV DATA: Not applicable SIGNED BY: REGINA Madden October 04, 2018 9:17 PM Normal [facility] CBC and Differentialon 10-04 Abs Baso <0.03 Normal <0.11 [facility] Comment on above: Performed By: #### C FLORA PALMER #### [facility] [address] [place], [place] [phone] Abs Humphreys 1.03 k/uL High <0.87 [facility] Comment on above: Performed By: #### C SPENCER CMP #### [facility] [address] [place], [place] [phone] Abs Neut 5.87 k/uL Normal 1.45-7.50 [facility] Comment on above: Performed By: #### C SPENCER CMP #### [facility] [address] [place], [place] [phone] Basophils/100 WBC (Bld) 0.2 % Normal [facility] Comment on above: Performed By: #### C NEGRITADIF, CMP #### [facility] [address] [facility] [phone] Eosinophils (Bld) [#/Vol] 0.10 10*3/uL Normal <0.46 [facility] Comment on above: Performed By: #### C BCDIF, CMP #### [facility] [address] [place] [phone] Eosinophils/100 WBC (Bld) 1.2 % Normal [facility] Comment on above: Performed By: #### C BCKATELINF, CMP #### [facility] [address] [place] [phone] Erythrocyte distribution width (RBC) [Ratio] 13.0 % Normal 11.5-15.0 [facility] Comment on above: Performed By: #### C BCKATELINF CMP #### [facility] [address] [place] [phone] Hematocrit (Bld) [Volume fraction] 39.6 % Normal 39.0-51.0 [facility] Comment on above: Performed By: #### C BCDIF CMP #### [facility] [address] [place] [phone] Hemoglobin (Bld) [Mass/Vol] 13.4 g/dL Normal 13.0-17.0 [facility] Comment on above: Performed By: #### C BCDIF CMP #### [facility] [address] Lymphocytes (Bld) [#/Vol] 1.54 10*3/uL Normal 1.00-4.00 [facility] Comment on above: Performed By: #### C BCDIF, CMP #### [facility] [address] [place] [phone] Lymphocytes/100 WBC (Bld) 18.0 % Normal [facility] Comment on above: Performed By: #### C BCDIF, CMP #### [facility] [address] [place], [place] [phone] MCH (RBC) [Entitic mass] 33.6 pG Normal 26.0-34.0 [facility] Comment on above: Performed By: #### C BCDIF, CMP #### [facility] [address] [place] [phone] MCHC (RBC) [Mass/Vol] 33.8 g/dL Normal 30.5-36.0 [facility] Comment on above: Performed By: #### C BCDIF, CMP #### [facility] [address] [place] [phone] MCV (RBC) [Entitic vol] 99.2 fL Normal 80.0-100.0 [facility] Comment on above: Performed By: #### C BCDIF, CMP #### [facility] [address] [place] [address] Monocytes/100 WBC (Bld) 12.0 % Normal [facility] Comment on above: Performed By: #### C BCDIF, CMP #### [facility] [address] [place] [address] Neutrophils/100 WBC (Bld) 68.6 % Normal [facility] Comment on above: Performed By: #### C BCDIF, CMP #### [facility] [address] [place] [address] Platelet mean volume (Bld) [Entitic vol] 10.1 fL Normal 9.0-12.7 [facility] Comment on above: Performed By: #### C BCDIF, CMP #### [facility] [address] [place] [address] Platelets (Bld) [#/Vol] 206 10*3/uL Normal 150-400 [facility] Comment on above: Performed By: #### C BCDIF, CMP #### [facility] [address] RBC (Bld) [#/Vol] 3.99 10*6/uL Low 4.20-6.00 [facility] Comment on above: Performed By: #### C BCDIF, CMP #### [facility] [address] [place] [phone] WBC (Bld) [#/Vol] 8.56 10*3/uL Normal 3.70-11.00 [facility] Comment on above: Performed By: #### C BCDIF, CMP #### [facility] [address] [place] [phone] [address] FLANK WO IVCONon 10-05-[address] FLANK WO IVCON * * *Final Report* * * DATE OF EXAM: Oct 04 2018 9:20PM [facility] 0529 - CT FLANK WO IVCON / PROCEDURE REASON: Flank pain, stone disease suspected * * * * Physician Interpretation * * * * EXAMINATION: CT ABDOMEN AND PELVIS WITHOUT IV CONTRAST (Renal stone protocol) CLINICAL HISTORY: Unspecified flank pain. Flank pain, stone disease suspected FLANK PAIN HX STONE TECHNIQUE: Non-contrast imaging of the abdomen and pelvis was performed through the urinary tract. Study performed without intravenous or oral contrast to evaluate for urinary tract calculus. MQ: [id number] Contrast: IV contrast: None Oral contrast: None CT Radiation dose: Integrated dose-length product (DLP) for this visit = 496 mGy*cm. CT Dose Reduction Employed: mAs-kVp adjusted based on patient size-age COMPARISON: 05/12/2010 RESULT: Limitations: Unenhanced imaging is limited for the evaluation of some renal and other intra-abdominal and pelvic pathology. Urinary Tract: Right kidney and ureter: A punctate 2 mm stone is present in the lower pole the right kidney.. No hydronephrosis. No finding to suggest cyst or mass in the unenhanced kidney. Left kidney and ureter: Moderate left hydronephrosis is noted. Left perinephric and periureteral stranding is present. A 5 mm stone is noted near the left ureterovesical junction. 2 hypodensities are present in the lower pole the left kidney measuring up to approximately 2.8 cm in size suggestive of cysts. A 3 mm hyperdensity is noted in the mid left kidney which may represent a stone or parenchymal calcification. Bladder: No calculus. Abdomen and Pelvis: Liver: Unremarkable. Biliary: Unremarkable Spleen: No splenomegaly. Multiple punctate calcifications are noted in the spleen. Pancreas: Unremarkable. Adrenals: Normal. GI Tract: No bowel dilation. The appendix appears unremarkable. Lymph Nodes: Multiple small lymph nodes are present in the retroperitoneum and mesentery.. Mesentery/peritoneu m: No free air is identified. A small amount of free fluid is noted in the pelvis. Vasculature: No evidence of aneurysm. Pelvis: Small amount of pelvic free fluid. Bones/Soft Tissues: There is a large sclerotic focus noted in the left iliac bone which was seen on the prior study and appears stable. Lower thorax: Mild linear densities are noted near the right lung base suggestive of small areas of atelectasis. IMPRESSION: Left hydronephrosis with a 5 mm stone near the left uterovesical junction. Left perinephric and periureteral stranding. Left renal lesions suggestive of cysts. Right nephrolithiasis. Small amount of pelvic free fluid. Findings consistent with old granulomatous disease. Supervisor Mixing: LLOYD Transcribe Date/Time: Oct 04 2018 9:35P Dictated by : MONALISA DE LA PAZ MD This examination was interpreted and the report reviewed and electronically signed by: MONALISA DE LA PAZ MD on Oct 04 2018 9:46PM EST [id number] Normal [facility] Comp Metabolic Panelon 10-04 Albumin [Mass/Vol] 4.4 g/dL Normal 3.9-4.9 [facility] Comment on above: Performed By: #### C BCSTEFANIE CMP #### [facility] [address] [place] [address] ALP [Catalytic activity/Vol] 70 U/L Normal 38-113 [facility] Comment on above: Performed By: #### C BCSTEFANIE CMP #### [facility] [address] [place] [address] ALT [Catalytic activity/Vol] 12 U/L Normal 10-54 [facility] Comment on above: Performed By: #### C BCSTEFANIE CMP #### [facility] [address] [place] [address] Anion gap [Moles/Vol] 13 mmol/L Normal 9-18 [facility] Comment on above: Performed By: #### C BCSTEFANIE CMP #### [facility] [address] [place] [address] AST [Catalytic activity/Vol] 13 U/L Low 14-40 [facility] Comment on above: Performed By: #### C BCKATELINF CMP #### [facility] [address] [place] [address] Bilirubin [Mass/Vol] 0.5 mg/dL Normal 0.2-1.3 [facility] Comment on above: Performed By: #### C BCSTEFANIE, CMP #### [facility] [address] [place] [address] Calcium [Mass/Vol] 9.5 mg/dL Normal 8.5-10.2 [facility] Comment on above: Performed By: #### C BCDIF, CMP #### [facility] [address] [facility] [phone] Chloride [Moles/Vol] 97 mmol/L Normal 97-105 [facility] Comment on above: Performed By: #### C BCDIF, CMP #### [facility] [address] [facility] [phone] CO2 [Moles/Vol] 26 mmol/L Normal 22-30 [facility] Comment on above: Performed By: #### C BCDIF, CMP #### [facility] [address] [facility] [phone] Creatinine [Mass/Vol] 1.62 mg/dL High 0.73-1.22 [facility] Comment on above: Performed By: #### C BCDIF, CMP #### [facility] [address] [phone] eGFR- Amer. 51 Normal [facility] Comment on above: Performed By: #### C BCDIF, CMP #### [facility] [address] [phone] GFR/1.73 sq M predicted among non-blacks MDRD (S/P/Bld) [Vol rate/Area] 42 . Normal [facility] Comment on above: Result Comment: eGFR (Estimated GFR) Units of measure: mL/min/1.73 meters squared eGFR is derived from the reexpressed MDRD Study equation using the following parameters: serum creatinine, age, gender and race. The creatinine assay has been calibrated to be traceable to IDMS. An eGFR <60 mL/min/1.73m2 for >3 months is consistent with chronic kidney disease. Refer to KDOQI guidelines for clinical interpretation. In patients with unstable renal function, e.g. those with acute kidney injury, the eGFR may not accurately reflect actual GFR. Performed By: #### C BCDIF, CMP #### [facility] [address] [facility] [phone] Glucose [Mass/Vol] 101 mg/dL High 74-99 [facility] Comment on above: Result Comment: The [place] [employer] (ADA) provides guidance for cutoff values for fasting glucose and random glucose. The ADA defines fasting as no caloric intake for at least 8 hours. Fasting plasma glucose results between 100 to 125 mg/dL indicate increased risk for diabetes (prediabetes). Fasting plasma glucose results greater than or equal to 126 mg/dL meet the criteria for diagnosis of diabetes. In the absence of unequivocal hyperglycemia, results should be confirmed by repeat testing. In a patient with classic symptoms of hyperglycemia or hyperglycemic crisis, random plasma glucose results greater than or equal to 200 mg/dL meet the criteria for diagnosis of diabetes. Reference: Standards of Medical Care in Diabetes 2016, [place] [employer]. Diabetes Care. 2016.39(Suppl 1). Performed By: #### C BCDIF, CMP #### [facility] [address] [place], [place] [phone] Potassium [Moles/Vol] 4.5 mmol/L Normal 3.7-5.1 [facility] Comment on above: Performed By: #### C BCDIF, CMP #### [facility] [address] [place], [place] [phone] Protein [Mass/Vol] 7.6 g/dL Normal 6.3-8.0 [facility] Comment on above: Performed By: #### C BCDIF, CMP #### [facility] [address] [place], [place] [phone] Sodium [Moles/Vol] 136 mmol/L Normal 136-144 [facility] Comment on above: Performed By: #### C BCDIF, CMP #### [facility] [address] [place], [place] [phone] Urea nitrogen [Mass/Vol] 16 mg/dL Normal 9-24 [facility] Comment on above: Performed By: #### C BCDIF, CMP #### [facility] [address] [place], [place] [address] ED NOTEon 10-04-2018 ED NOTE HNO ID: [id number] Author: Lizbeth JasonRn) IBAN Diaz Service: Nursing Author Type: Registered Nurse Type: ED Notes Filed: 10/04/2018 6:29 PM Note Text: Dr Monae rounds on pt at bedside to assess. [facility] ED NOTE HNO ID: [id number] Author: Lizbeth Lopez) IBAN Diaz Service: Nursing Author Type: Registered Nurse Type: ED Notes Filed: 10/04/2018 6:18 PM Note Text: Pt presents to ED for CC L flank pain, has a known kidney stone. Saw Moisés cooper in urology for same and was sent here for surgery with Dr Nolan. Normal [facility] ED PROV NOTEon 10-04-2018 ED PROV NOTE HNO ID: [id number] Author: Tawnya Monae MD Service: ? Author Type: Physician Type: ED Provider Notes Filed: 10/04/2018 10:45 PM Note Text: ED Provider Note Patient Name: Nahomi Buenrostro SERVICE DATE: 10/04/18 History Patient presents with: Kidney Stones Patient with h/o afib, mitral valve disorder, and prostate Ca who presents with left 4 mm UVJ stone who was sent to ED for admission for surgery. He saw [facility] who saw him today and sent him here. He began with pain 9 days ago. He had a Ct flank 3 days ago which showed the UVJ stone. The Darcy apparently spoke with Dr. Nolan who told him to come to [place] ED. Patient is currently pain free. He last had pain this morning. PAST MEDICAL HISTORY Diagnosis Date - Aortic valve disorders Dr. Coffman - Arrhythmia - Atrial fibrillation (HCC) - BPH (benign prostatic hyperplasia) - Cardiomegaly - Diverticulosis of colon (without mention of hemorrhage) - External hemorrhoids without mention of complication - Mitral valve disorders(424.0) - TALI (obstructive sleep apnea) on cpap - Prostate cancer (HCC) Dr. Reeves - Snoring PAST SURGICAL HISTORY Procedure Laterality Date - COLONOSCOP W/ OR W/O [facility] 07/04/07 - COLONOSCOP W/ OR W/O [facility] 11/29/2017 Colonoscopy - LAPAROSCOPIC RADICAL PROSTATECTOMY 07/09/13 FAMILY HISTORY Problem Relation Age of Onset - other (CHF) Mother - other (CHF) Father - other (stomache cancer) Paternal Grandmother - other (skin ca) Maternal Grandfather Social History Tobacco Use - Smoking status: Never Smoker - Smokeless tobacco: Never Used Substance and Sexual Activity - Alcohol use: No - Drug use: No - Sexual activity: Not on file ALLERGIES Allergen Reactions - Penicillin Rash, Itching Review of Systems Constitutional: Negative for chills and fever. HENT: Negative for congestion, rhinorrhea, sinus pressure, sinus pain, sneezing and sore throat. Eyes: Negative for visual disturbance. Respiratory: Negative for cough and shortness of breath. Cardiovascular: Negative for chest pain, palpitations and leg swelling. Gastrointestinal: Negative for abdominal pain, diarrhea, nausea and vomiting. Genitourinary: Positive for flank pain. Negative for difficulty urinating, dysuria and hematuria. Musculoskeletal: Negative for back pain, myalgias and neck stiffness. Skin: Negative for pallor.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 prosecute any alcohol or drug abuse patient.[facility] HospitalIn the event this information is protected by the Federal Confidentiality of Alcohol and Drug Abuse Patient Records regulations: The Federal rules restrict any use of the information to criminally investigate or prosecute any alcohol or drug abuse patient.[facility] HospitalIn the event this information is protected by the Federal Confidentiality of Alcohol and Drug Abuse Patient Records regulations: The Federal rules restrict any use of the information to criminally investigate or prosecute any alcohol or drug abuse patient.[facility] Reason for Visit (unrecogniz ed section and content) Reason Comments ER F/U [facility] ER 10/21/21 dx: d islocated R thumb; bruised L ribs Reason Comments Ear Problem Ear wax build up Care Teams (unrecognized sec tion and content) Kennel Assistant Relationship Specialty Start Date End Date Danilo Fuens MD [address] [place], [place] [phone] PCP - General Family Practice 04/05/12 Kennel Assistant Relationship Specialty Start Date End Date Danilo Funes MD [address] [place], [place] [phone] PCP - General Family Practice 04/05/12 Kennel Assistant Relationship Specialty Start Date End Date Danilo Funes MD [address] [place], [place] [id number] PCP - General Family Medicine 04/05/12 Team Status: Active Member Role Status Dates Dr. Danilo Funes MD Family Provider Active Dr. Danilo Funes MD Primary Care Provider Active Team Status: Inactive Member Role Status Dates Dr. Danilo Funes MD Primary Care Provider Active Dr. Rome Patel MD Attending Provider, Referring Provider Active Kennel Assistant Relationship Specialty Start Date End Date Danilo Funes MD [address] [place], [place] [phone] PCP - General Family Medicine 04/05/12 Team Status: Inactive Member Role Status Dates Dr. Danilo Funes MD Primary Care Provider Active Dr. Ayaan Reeves MD Attending Provider, Referr ing Provider Active Team Status: Inactive Member Role Status Dates Dr. Danilo Funes MD Primary Care Provider Active Jana Dumont WARP COILER, WARP COILER-C Attending Provider, Referring Charles [place] Active Team Status: Inactive Member Role Status Dates Dr. Danilo Funes MD Primary Care Provider, Referring Provider Active Dr. Rome Patel MD Active Jana Dumont WARP COILER, WARP COILER-C Attending Provider Active Team Status: Active Member Role Status Dates Dr. Danilo Funes MD Primary Care Provider Active Dr. Rogelio Myrick MD Attending Provider Active Team Status: Active Member Role Status Dates Dr. Danilo Funes MD Primary Care Provider Active Jana Dumont WARP COILER, WARP COILER-C Attending Provider Active Team Status: Inactive Member Role Status Dates Dr. Danilo Funes MD Primary Care Provider Active Dr. Rogelio Myrick MD Attending Provider, Referring Pro vider Active Kennel Assistant Relationship Specialty Start Date End Date Danilo Funes MD [address] [place], [place] [id number] PCP - General Family Medicine 04/05/12 Krystal Oswald APRN.STERILIZER MACHINE OPERATOR [address] [place], [place] [phone] Replaced By [facility] 02/11/24 Bhavana Jang APRN.STERILIZER MACHINE OPERATOR [address] [place], [place] [phone] Replaced By [facility] 02/11/24 FOR RECORDS PERTAINING TO PATIENTS WHO ARE OR HAVE BEEN ENROLLED IN A CHEMICAL DEPENDENCY/SUBSTANCEABUSE PROGRAM, SOME INFORMATION MAY BE OMITTED. This clinical summary was aggregated from multiple sources. Caution should be exercised in using it in the provision of clinical care. This summary normalizes information from multiple sources, and as a consequence, information in this document may materially change the coding, format and clinical context of patient data. In addition, data may be omitted in some cases. CLINICAL DECISIONS SHOULD BE BASED ON THE PRIMARY CLINICAL RECORDS. [facility] [employer] provides no warranty or guarantee of the accuracy or completeness of information in this document.
== END 2024-08-05 16:26 | disposition short-term general hospital (02) ==
PROVIDERS: Emergency Provider Emergency Medicine; PCP Family Medicine; Visit Provider Emergency Medicine
DX: S27.0XXA Traumatic pneumothorax, initial encounter (principal); I48.0 Paroxysmal atrial fibrillation; S22.41XA Multiple fractures of ribs, right side, initial encounter for closed fracture; W01.198A Fall on same level from slipping, tripping and stumbling with subsequent striking against other object, initial encounter; R55 Syncope and collapse; R00.1 Bradycardia, unspecified; I95.9 Hypotension, unspecified; I35.1 Nonrheumatic aortic (valve) insufficiency; E78.5 Hyperlipidemia, unspecified; G47.33 Obstructive sleep apnea (adult) (pediatric); Z79.82 Long term (current) use of aspirin; Z79.899 Other long term (current) drug therapy; Z82.49 Family history of ischemic heart disease and other diseases of the circulatory system
CPT/HCPCS: 32551; 71045; 71101; 71250; 80048; 85025; 96374; 96375; 96376; 99285; A4216; J2405

== ENCOUNTER → 2024-09-08 | Outpatient (CLI) | payer MEDICARE, OTHER, SELFPAY | END | disposition home or self-care (01) | LOC: CVS 12:43 | PROVIDERS: PCP Family Medicine; Referring Provider Physician Assistant Medical; Visit Provider Physician Assistant Medical | DX: I35.0 Nonrheumatic aortic (valve) stenosis (principal) | CPT/HCPCS: 93306 ==

== ENCOUNTER → 2024-09-19 | Outpatient (CLI) | payer MEDICARE, OTHER, SELFPAY ==
--- NOTE | 2024-09-19 10:27 | RAD_ITS ---
PROCEDURE: Chest x-ray dated 08/05/2024 09/19/2024 REASON FOR EXAM: PRE-PROCEDURE TECHNIQUE: CHEST PA AND LATERAL COMPARISON: Chest x-ray dated 08/05/2024 FINDINGS: Hardware: None Heart: Heart size and configuration are within normal limits. Aorta appears to measure 4.5 cm. Mediastinum: Pulmonary vasculature and hilar structures are unremarkable. Trachea is midline. Lungs: Expanded and clear without evidence of pneumothorax, atelectasis, consolidation, effusion or pneumonic infiltrate. Bones: A subtle levo scoliotic curvature of the thoracic spine is noted. Diffuse osteopenia of the bony thorax is seen. RAD/Chest PA and Lateral IMPRESSION: No acute cardiopulmonary process identified radiographically. Thoracic aorta appears aneurysmal. Reading Location: [id number]
[2024-09-19 10:46] LABS: Hematocrit 39.1 % (40-54); Hemoglobin 13.2 g/dL (13.0-16.5); Immature Granulocytes Count 0.030 X10^3/uL (0.0-0.0); Mean Corp Hgb Conc 33.8 g/dL (32-36); Mean Corpuscular Volume 98.5 fL (80-94); Mean Platelet Vol. 10.4 fl (6.2-12.0); NRBC Flagged by Analyzer 0 % (0-5); Platelet Count 187 K/mm3 (150-450); RBC Distribution Width CV 13.6 % (11.6-14.6); RBC Distribution Width SD 49.5 fl (35.1-43.9); Red Blood Count 3.97 M/mm3 (4.6-6.2); White Blood Count 7.1 K/mm3 (4.4-11.0)
[2024-09-19 10:57] LABS: Prothrombin Time (Protime)PT. 12.9 SECONDS (11.7-14.9)
[2024-09-19 11:24] LABS: Anion Gap 8 (5-15); BUN 23 mg/dL (4-19); BUN/Creat Ratio 19.1 RATIO (10-20); Calcium,Total 9.3 mg/dL (7.6-11.0); Carbon Dioxide 26.0 mmol/L (21.0-32.0); Chloride 105 mmol/L (98-108); Glucose 88 mg/dL (70-99); Potassium 4.4 mmol/L (3.3-5.1)
== END | disposition home or self-care (01) ==
PROVIDERS: PCP Family Medicine; Referring Provider Physician Assistant Medical; Visit Provider Physician Assistant Medical
DX: I35.0 Nonrheumatic aortic (valve) stenosis (principal)
CPT/HCPCS: 36415; 71046; 80048; 85025; 85610

== ENCOUNTER 2024-10-01 06:52 | Day surgery (SDC) | payer MEDICARE, OTHER, SELFPAY ==
[2024-09-30 08:14] VITALS: BMI 27.0
--- OUTSIDE RECORDS SUMMARY | 2024-10-01 06:57 | XMS RPT_ITS | CCD ---
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 now severely stenotic. He is here today to further discuss this. Patient is asymptomatic with his aortic stenosis. He is active. He does not have any fatigue, does not have any chest pain, does not have any lightheadedness dizziness syncopal episodes. He does not have any palpitations. Intake Vital Signs 08/05/24 09:27 09/19/24 06:40 Height 5 ft 8 in 5 ft 8 in Weight: 178 lb BMI 27.0 BP 142/87 H Blood Pressure Location Lt brachial Position Sitting Respiration 16 Pulse 48 L Pulse Source Monitor Pulse Oximetry (%) 98 Oxygen Delivery Method room air Intake Visit Reasons: [facility] ECHO Cello Teacher Required: No Accompanied by: Daughter Is patient in pain?: No Allergies Penicillins (PCN) Allergy (Verified 09/19/24 09:23) Hives Medications ???Medication ???Instructions ???Recorded ???Confirmed ???Type aspirin 81 mg tablet,delayed 81 mg PO DAILY@0800 07/01/1309/19 History release pravastatin 40 mg tablet 40 mg PO QHS #90 TABLETS 06/29/23 09/19/24 Rx metoprolol tartrate 25 mg tablet 12.5 mg (1/2 x 25 mg) PO DAILY 09/19/24 Rx Cardiac Arrhythmia #30 tabs flecainide 100 mg tablet See Rx Instructions .Route 5 09/19/24 Rx .COMPLEX #180 tabs ibuprofen 200 mg tablet (Advil) 400 mg PO Q6H PRN fever or pain 09/19/24 History Ejection fraction %: 75 Have you fallen in the past year?: Yes PFSH Medical History Non-rheumatic aortic regurgitation Kidney [...] ROS Const Const: Negative for fatigue, weakness, headache(s) or frequent falls Eyes Eyes: Negative for blurry vision ENT ENT: Negative for headache(s), dizziness or Nosebleed/epistaxis Cardio Chest Pain: No Palpitations: No Edema: None Muscle aches with walking: None Resp Respiratory: Negative for SOB with activity, SOB at rest or SOB orthopnea SOB lying down GI GI: Negative nausea, vomiting, heartburn, bright, red blood in stools or black,tarry stools : Negative for hematuria Neuro Neuro: Negative for dizziness, lightheadedness, near syncope, syncope, frequent falls, headache(s), weakness or blurry vision Endo Endo: Negative for fatigue Cardiology Exam [...] gallop Murmur: Grade 3/6, harsh, mid systolic, (more content not included)... Normal [facility] Chest PA and Lateralon 09-19 Chest PA and Lateral [facility] Imaging Services [address] [place], [place] [address] Chest PA and Lateral MR#: [id number] Acct: [id number] Name: NAHOMI JARAMILLO Rep #: [id number] : 1950 M 74 From: Marcella Martínez PCP: Dr. Danilo Donis MD Status: REG CLI Study: Chest PA and Lateral Date of Exam: 09/19/24 Exam# [id number] Ordering Dr: Deya Louise PA PROCEDURE: Chest x-ray dated 08/05/2024 09/19/2024 REASON FOR EXAM: PRE-PROCEDURE TECHNIQUE: CHEST PA AND LATERAL COMPARISON: Chest x-ray dated 08/05/2024 FINDINGS: Hardware: None Heart: Heart size and configuration are within normal limits. Aorta appears to measure 4.5 cm. Mediastinum: Pulmonary vasculature and hilar structures are unremarkable. Trachea is midline. Lungs: Expanded and clear without evidence of pneumothorax, atelectasis, consolidation, effusion or pneumonic infiltrate. Bones: A subtle levo scoliotic curvature of the thoracic spine is noted. Diffuse osteopenia of the bony thorax is seen. RAD/Chest PA and Lateral IMPRESSION: No acute cardiopulmonary process identified radiographically. Thoracic aorta appears aneurysmal. Reading Location: UYI-UONOF-NP CC: Dr. Danilo Donis MD; SANDEEP Rosales Collateral Analyst: Signed Normal [facility] Chloride assayOrdered By: Leyda Louise on 09-19-2024 Chloride [Moles/Vol] 105 mmol/L 98-108 [facility] Eosinophil percentageOrdered By: Deya Louise on 09-19-2024 Eosinophils/100 WBC (Bld) 1.6 % 0-5 [facility] Erythrocyte distribution wid th ratioOrdered By: Deya Louise on 09-19-2024 Erythrocyte distribution width (RBC) [Ratio] 13.6 % 11.6-14.6 [facility] Erythrocyte distribution wid th standard deviationOrdered By: Deya Louise on 09-19-2024 Erythrocyte distribution width (RBC) [Ratio] 49.5 fl High 35.1-43.9 [facility] Glomerular filtration rate ( GFR) estimation/1.73 sq m using serum, plasma, or whole bOrdered By: Deya Louise on 09-19-2024 GFR/1.73 sq M.predicted among non-blacks MDRD (S/P/Bld) [Vol rate/Area] 64 mL/min/{1.73_m2} >60 [facility] Comment on above: mL/min/1.73m2 CKD-EP I Creatinine Equation (2020) Hematocrit Auto (Bld) [Volum e fraction]Ordered By: Deya Louise on 09-19-2024 Hematocrit (Bld) [Volume fraction] 39.1 % Low 40-54 [facility] Hemoglobin measurementOrdere d By: Deya Louise on 09-19-2024 Hemoglobin (Bld) [Mass/Vol] 13.2 g/dL 13.0-16.5 [facility] Immature granulocytes/100 WB C Auto (Bld)Ordered By: Deya Louise on 09-19-2024 Immature granulocytes/100 WBC (Bld) 0.400 % 0.0-0.9 [facility] Comment on above: IG% - Immature Granu locytes (promyelocytes, myelocytes and metamyelocytes) > 1% indicates that a LEFT SHIFT is Present. International normalized rat io (INR) calculationOrdered By: Deya Louise on 09-19-2024 INR Coag (Bld) [Relative time] 1.0 {INR} [facility] MCV (mean corpuscular volume ) determinationOrdered By: Deya Louise on 09-19-2024 MCV (RBC) [Entitic vol] 98.5 fL High 80-94 [facility] Mean corpuscular hemoglobin (MCH) determinationOrdered By: Deya Louise on 09-19-2024 MCH (RBC) [Entitic mass] 33.2 pg High 27.0-32.0 [facility] Mean corpuscular hemoglobin concentration (MCHC) determinationOrdered By: Deya Louise on 09-19-2024 MCHC (RBC) [Mass/Vol] 33.8 g/dL 32-36 [facility] Mean platelet volume determi nationOrdered By: Deya Louise on 09-19-2024 Platelet mean volume (Bld) [Entitic vol] 10.4 fL 6.2-12.0 [facility] Monocyte percentageOrdered B y: Deya Louise on 09-19-2024 Monocytes/100 WBC (Bld) 9.8 % 0-10 [facility] Neutrophil percentageOrdered By: Deya Louise on 09-19-2024 Neutrophils/100 WBC (Bld) 65.0 % 47-70 [facility] Nucleated red blood cell per centageOrdered By: Deya Louise on 09-19-2024 Nucleated RBC/100 WBC (Bld) [Ratio] 0 % 0-5 [facility] Platelet countOrdered By: Leyda Louise on 09-19-2024 Platelets (Bld) [#/Vol] 187 10*3/uL 150-450 [facility] Potassium measurement (mass/ volume)Ordered By: Deya Louise on 09-19-2024 Potassium (Unsp spec) [Mass/Vol] 4.4 mmol/L 3.3-5.1 [facility] Prothrombin Time w/INRon INR Coag (PPP) [Relative time] 1.0 {INR} Normal [facility] Comment on above: Performed By: #### L 500.2500, L100.0100, L300.3900 #### [facility] [address] [place], [address] PT Coag (PPP) [Time] 12.9 s Normal 11.7-14.9 [facility] Comment on above: Performed By: #### L 500.2500, L100.0100, L300.3900 #### [facility] [address] [place], [address] Prothrombin timeOrdered By: Deya Louise on 09-19-2024 PT Coag (PPP) [Time] 12.9 s 11.7-14.9 [facility] RBC Auto (Bld) [#/Vol]Ordere d By: Deya Louise on 09-19-2024 RBC (Bld) [#/Vol] 3.97 10*6/uL Low 4.6-6.2 [facility] Serum creatinine measurement (mass/volume)Ordered By: Deya Louise on 09-19-2024 Creatinine [Mass/Vol] 1.18 mg/dL 0.70-1.20 [facility] Serum glucose measurement (m ass/volume)Ordered By: Deya Louise on 09-19-2024 Glucose [Mass/Vol] 88 mg/dL 70-99 [facility] Serum or plasma calcium radha urement (mass/volume)Ordered By: Deya Louise on 09-19-2024 Calcium [Mass/Vol] 9.3 mg/dL 7.6-11.0 [facility] Serum or plasma urea nitroge n measurement (mass/volume)Ordered By: Deya Louise on 09-19-2024 Urea nitrogen [Mass/Vol] 23 mg/dL High 4-19 [facility] Sodium levelOrdered By: Leland Louise on 09-19-2024 Sodium [Moles/Vol] 139 mmol/L 133-145 [facility] White blood cell (WBC) count Ordered By: Deya Louise on 09-19-2024 WBC (Bld) [#/Vol] 7.1 10*3/uL 4.4-11.0 [facility] Echo Completeon 09-08-2024 Echo Complete [facility] [address] [place] [id number] Echo Complete 09/08/24 1306 MR#: [id number] Acct: [id number] Name: NAHOMI JARAMILLO Rep #: [id number] : 1950 74 From: Rogelio Myrick MD Attending Dr: SANDEEP Rosales Status: REG CLI Ordering Dr: Deya Louise Date: 09/26 Location: [facility] Sex: M C Admitted: Reason For Study Reason For Study: Murmur Procedure This was a 2D Doppler, Color Flow transthoracic echocardiogram. Myocardial strain analysis was performed in this exam to aid in the assessment of cardiac function. Exam performed in department. Left Ventricle Normal LV size. Sigmoid septum. The global longitudinal strain = -18.1 % (normal). The left ventricular ejection fraction is 75 %. Stage 1 diastolic dysfunction. No regional wall motion abnormalities noted. Right Ventricle Normal RV size. Normal systolic function. Atria Normal left atrium. Normal right atrium. Tricuspid Valve Normal tricuspid valve. Mild tricuspid valve insufficiency. Pulmonary artery systolic pressure is 28 mmHg. Aortic Valve Severe focal aortic valve calcification. Peak aortic valve gradient 89 mmHg. Mean aortic valve gradient 49 mmHg. Severe aortic stenosis. Mild (1+) aortic valve insufficiency. Pulmonic Valve Normal pulmonic valve. Great Vessels Normal aortic root. The pulmonary artery is normal size. Inferior vena cava collapse with respiration. Pericardium/Pleural No pericardial effusion. MMode/2D Measurements Calculations LVIDd: 4.0 cm IVSd: 1.4 cm LVOT diam: 2.1 cm LVIDs: 2.1 cm LVPWd: 1.1 cm LVOT area: 3.6 cm2 RVDd: 3.5 cm FS: 47.9 % Ao root diam: 3.7 cm LAV(MOD-bp): 48.3 ml LVAd ap4: 26.9 cm2 LAV(MOD-bp) Indexed: 25.2 ml/m2 LVLd ap4: 8.5 cm LAV(MOD-sp2): 48.1 ml EDV(MOD-sp4): 69.7 ml LAV(MOD-sp4): 50.0 ml EDV(sp4-el): 72.6 ml LVAs ap4: 11.9 cm2 LVLs ap4: 6.6 cm ESV(MOD-sp4): 19.4 ml ESV(sp4-el): 18.0 ml EF(MOD-sp4): 72.1 % EF(sp4-el): 75.3 % SV(MOD-sp4): 50.3 ml SV(sp4-el): 54.7 ml Ao sinus diam: 3.5 cm SI(MOD-sp4): 26.2 ml/m2 Ao ST Junction: 3.1 cm LA A4 area: 18.7 cm2 LA dimension(2D): 3.7 cm RA A4 area: 16.9 cm2 Time Measurements MV dec time: 0.27 sec Doppler Measurements Calculations MV E max valerie: 66.4 cm/sec Lat Peak E' Valerie: 6.1 cm/sec Med Peak E' Valerie: 5.4 cm/sec MV A max valerie: 83.7 cm/sec E/E' lat: 10.8 E/E' med: 12.2 MV E/A: 0.79 MV V2 max: 83.2 cm/sec MV P1/2t max valerie: 75.7 cm/sec Ao V2 max: 470.3 cm/sec MV max P.8 mmHg MV P1/2t: 92.6 msec Ao max P.6 mmHg MV V2 mean: 40.0 cm/sec MV dec slope: 239.4 cm/sec2 Ao V2 mean: 326.3 cm/sec MV mean P.81 mmHg MVA(P1/2t): 2.4 cm2 Ao mean P.3 mmHg MV V2 VTI: 37.8 cm Ao V2 VTI: 130.3 cm MVA(VTI): 2.8 cm2 AV (velocity ratio): 0.23 SHARON(I,D): 0.82 cm2 SHARON(V,D): 0.80 cm2 AI max valerie: 391.5 cm/sec LV V1 max: 103.7 cm/sec MR max valerie: 645.4 cm/sec AI max P.4 mmHg LV V1 max P.3 mmHg MR max P.6 mmHg LV V1 mean P.7 mmHg MR mean valerie: 461.7 cm/sec AI dec slope: 118.0 cm/sec2 LV V1 mean: 77.9 cm/sec MR mean P.4 mmHg AI P1/2t: 971.6 msec LV V1 VTI: 29.6 cm MR VTI: 266.1 cm SV(LVOT): 107.0 ml PA V2 max: 94.0 cm/sec TR max valerie: 246.6 cm/sec TR max P.3 mmHg ECHO/Echo Complete Interpretation Summary Normal LV size. The global longitudinal strain = -18.1 % (normal). The left ventricular ejection fraction is 75 %. Stage 1 diastolic dysfunction. Mean aortic valve gradient 49 mmHg. Severe focal aortic valve calcification. Severe aortic stenosis. Ordering Physician: Deya Louise Referring Physician: Deya Louise Performed By: Brad Zaragoza RCS 09/08/24 1557 Date Rogelio Myrick MD CC: Dr. Danilo Donis MD; SANDEEP Rosales Date Dictated: 09/08/24 130 Date Transcribed: 09/08/241556 Collateral Analyst: Signed Normal [facility] Echocardiogram study reportO rdered By: Rogelio Myrick on 09-08-2024 Study report [facility] [address] [place] [address] Echo Complete 09/08/241305 MR#: [id number] Acct: [id number] Name: NAHOMI JARAMILLO Rep #:[id number] : 1950 74 From: Rogelio Borja Attending Dr: SADNEEP Rosales Status: REG CLI Ordering Dr: Deya Louise Date: 09/08/24 Location: [facility] Sex: M C Admitted: Reason For Study Reason For Study: Murmur Procedure This was a 2D Doppler, Color Flow transthoracic echocardiogram. Myocardial strain analysis was performed in this exam to aid in the assessment of cardiac function. Exam performed in department. Left Ventricle Normal LV size. Sigmoid septum. The global longitudinal strain = -18.1 % (normal). The left ventricular ejection fraction is 75 %. Stage 1 diastolic dysfunction. No regional wall motion abnormalities noted. Right Ventricle Normal RV size. Normal systolic function. Atria Normal left atrium. Normal right atrium. Tricuspid Valve Normal tricuspid valve. Mild tricuspid valve insufficiency. Pulmonary artery systolic pressure is 28 mmHg. Aortic Valve Severe focal aortic valve calcification. Peak aortic valve gradient 89 mmHg. Mean aortic valve gradient 49 mmHg. Severe aortic stenosis. Mild (1+) aortic valve insufficiency. Pulmonic Valve Normal pulmonic valve. Great Vessels Normal aortic root. The pulmonary artery is normal size. Inferior vena cava collapse with respiration. Pericardium/Pleural No pericardial effusion. MMode/2D Measurements & Calculations LVIDd: 4.0 cm IVSd: 1.4 cm LVOT diam: 2.1 cm LVIDs: 2.1 cm LVPWd: 1.1 cm LVOT area: 3.6 cm2 RVDd: 3.5 cm FS: 47.9 % Ao root diam: 3.7 cm LAV(MOD-bp): 48.3 ml LVAd ap4: 26.9 cm2 LAV(MOD-bp) Indexed: 25.2 ml/m2 LVLd ap4: 8.5 cm LAV(MOD-sp2): 48.1 ml EDV(MOD-sp4): 69.7 ml LAV(MOD-sp4): 50.0 ml EDV(sp4-el): 72.6 ml LVAs ap4: 11.9 cm2 LVLs ap4: 6.6 cm ESV(MOD-sp4): 19.4 ml ESV(sp4-el): 18.0 ml EF(MOD-sp4): 72.1 % EF(sp4-el): 75.3 % SV(MOD-sp4): 50.3 ml SV(sp4-el): 54.7 ml Ao sinus diam: 3.5 cm SI(MOD-sp4): 26.2 ml/m2 Ao ST Junction: 3.1 cm LA A4 area: 18.7 cm2 LA dimension(2D): 3.7 cm RA A4 area: 16.9 cm2 Time Measurements MV dec time: 0.27 sec Doppler Measurements & Calculations MV E max valerie: 66.4 cm/sec Lat Peak E' Valerie: 6.1 cm/sec Med Peak E' Valerie: 5.4 cm/sec MV A max valerie: 83.7 cm/sec E/E' lat: 10.8 E/E' med: 12.2 MV E/A: 0.79 MV V2 max: 83.2 cm/sec MV P1/2t max valerie: 75.7 cm/sec Ao V2 max: 470.3 cm/sec MV max P.8 mmHg MV P1/2t: 92.6 msec Ao max P.6 mmHg MV V2 mean: 40.0 cm/sec MV dec slope: 239.4 cm/sec2 Ao V2 mean: 326.3 cm/sec MV mean P.81 mmHg MVA(P1/2t): 2.4 cm2 Ao mean P.3 mmHg MV V2 VTI: 37.8 cm Ao V2 VTI: 130.3 cm MVA(VTI): 2.8 cm2 AV (velocity ratio): 0.23 SHARON(I,D): 0.82 cm2 SHARON(V,D): 0.80 cm2 AI max valerie: 391.5 cm/sec LV V1 max: 103.7 cm/sec MR max valerie: 645.4 cm/sec AI max P.4 mmHg LV V1 max P.3 mmHg MR max P.6 mmHg LV V1 mean P.7 mmHg MR mean valerie: 461.7 cm/sec AI dec slope: 118.0 cm/sec2 LV V1 mean: 77.9 cm/sec MR mean P.4 mmHg AI P1/2t: 971.6 msec LV V1 VTI: 29.6 cm MR VTI: 266.1 cm SV(LVOT): 107.0 ml PA V2 max: 94.0 cm/sec TR max valerie: 246.6 cm/sec TR max P.3 mmHg ECHO/Echo Complete Interpretation Summary Normal LV size. The global longitudinal strain = -18.1 % (normal). The left ventricular ejection fraction is 75 %. Stage 1 diastolic dysfunction. Mean aortic valve gradient 49 mmHg. Severe focal aortic valve calcification. Severe aortic stenosis. Ordering Physician: Deya Louise Referring Physician: Deya Louise Performed By: Brad Zaragoza, JAKI 09/08/24 515 Date _ Rogelio Myrick MD CC: Dr. Danilo Donis MD; SANDEEP Rosales ~ Date Dictated: 09/08/24 1306 Date Transcribed: 09/08/241556 Collateral Analyst: Signed [facility] Work Phone: CNOVon 08-25-2024 CNOV Office Visit (FAMPWS) NAHOMI JARAMILLO ([id number]) 1950 M Date Time Provider Department 08/25/24 11:20 AM KRYSTAL OSWALD During your visit today, we recorded the following information about you: Pulse Respiration Blood pressure Weight 59/minute 16/minute 121/75 79.8 kg Krystal Oswald APRN.TOP STOP ATTACHER 08/25/2024 12:38 PM Signed Nahomi Jaramillo is a 74 year old male here for a Medicare wellness visit. Medicare Health Risk Assessment General Health Excellent Exercise: Minutes/Day 60 min Exercise: Days/Week 4 days Alcohol: Daily Use Never Alcohol: Drinks/Day Patient does not drink Alcohol: 6 or more drinks Never Feel off balance No Concerns: Teeth/Dentures No Concerns: Sexual function No Troubled by feelings None of the above Frequency: Eating healthy diet Nearly every day ADLs requiring help None of the above Safety precautions in home/vehicle No Smoke, vape, chews tobacco No Difficulty hearing No Difficulty seeing No Current Providers Specialists: I have reviewed specialist-related care of the patient in the medical record. Outside specialists seen: Cardiology, urology, dermatology. Medical/Family history review Reviewed and updated problem list, medical/surgical/fam reji/social history, medications, and allergies. Opioid use review Opioid Medications (last 90 days) 08/05/2024 20:57 08/07/2024 01:31 Opioid Medications oxycodone HCl 5 mg, ORAL, EVERY 6 HOURS NEEDED, Starting on 08/05/24 at 2056, Until Genevieve 08/07/24 at 013, Severe Pain (>/=7) - Enteral 5 mg, ORAL, EVERY 6 HOURS NEEDED, Starting on 08/05/24 at 2056, Until Genevieve 08/07/24 at 013, Severe Pain (>/=7) - Enteral-Discontinued (AUTO DC AT D) [facility] medication Anxiety/Depression screening DEMETRIUS-7 Score: 0 . Recommendation: no further intervention at this time Cognitive screening Declined per nursing Cognitive screening reviewed and Patient declined Mini-Cog test. Functional Observation Was the patient's Timed Up AND Go test unsteady or >= 12 seconds? No Advance Care Planning Will check into it. Measurements BP 121/75 Pulse (!) 59 Resp 16 Wt 79.8 kg (176 lb) SpO2 98% BMI 26.77 kg/m? Vision Screening: Follows with optometry/ophthalmol ogy Assessment/Plan Medicare annual wellness visit, subsequent (Z00.00) - Counseled on healthy diet and regular exercise - Fall avoidance information provided - Personalized prevention plan provided Additional Concerns The following concerns were also discussed with the patient: Recording using ambient [employer] software for draft documentation of the visit was discussed with the patient/authorized workforce services representative; all questions welcomed and answered. Patient/authorized workforce services representative agreed to proceed Subjective Sleep Apnea: - Has not used CPAP since pneumothorax. - Reluctant to resume CPAP use, concerned it may have aggravated the pneumothorax. - Interested in an oral appliance for sleep apnea management; has contacted Dr. Lee, a local dentist, about this option. - Reports nocturnal oxygen saturation levels as low as 73% without CPAP, monitored using a non-medical imaging director. - Has not seen a sleep specialist since obtaining CPAP in 4024-2013. Atrial Fibrillation: - Managed by Dr. Myrick. - Taking flecainide BID and metoprolol 1/2 tablet daily. - Dr. Myrick has mentioned discontinuing flecainide and metoprolol but has not yet done so. - Denies current dyspnea. Pneumothorax: - Occurred following an accident. Pain improving. Breathing improved. - Denies current dyspnea. Cholesterol: - Last checked on 08/04; total cholesterol 144 mg/dL, triglycerides 80 mg/dL, HDL 53 mg/dL, LDL 76 mg/dL. Constitutional: (-) unintentional weight loss, (-) weakness, (-) fatigue Head: (-) headaches Eyes: (-) vision change Ears/Nose/Mouth/Thro at: (-) hearing loss, (-) dysphagia Neck: (-) neck mass Cardiovascular: (-) chest pain, (-) palpitations, (-) peripheral edema Respiratory: (-) dyspnea Gastrointestinal: (-) heartburn, (-) indigestion, (-) diarrhea, (-) constipation, (-) hematochezia, (-) melena Genitourinary: (-) dysuria Musculoskeletal: (-) myalgia, (-) arthralgia, (-) joint redness/swelling Skin: (-) rash Neurological: (-) syncope, (-) seizures, (-) tremor Psychiatric: (+) irritability, (-) depression, (-) anxiety Endocrine: (+) heat intolerance, (-) cold intolerance, (-) polydipsia, (-) polyuria Hematologic/Lymphati c: (-) easy bruising, (-) abnormal bleeding Labs: (08/05) - CBC: - WBC: Slightly elevated - MCV: Upper end of normal - Glucose: 116 mg/dL (non-fasting) (08/04) - Lipid panel: - Cholesterol: 144 mg/dL - Triglycerides: 80 mg/dL - HDL: 53 mg/dL - LDL: 76 mg/dL Objective BP 121/75 Pulse (!) 59 Resp 16 Wt 79.8 kg (176 lb) SpO2 98% BMI 26.77 kg/m? GENERAL: NAD, alert and oriented. SKIN: Unre (more content not included)... Normal [facility] CNOVon 08-12-2024 CNOV Office Visit (FAMPWS) NAHOMI JARAMILLO ([id number]) 1950 M Date Time Provider Department 08/12/24 8:00 [facility] your visit today, we recorded the following information about you: Pulse Respiration Blood pressure Weight 64/minute 16/minute 104/64 80.3 kg Krystal Oswald APRN.CNP 08/12/2024 1:52 PM Signed Transitional Care Management TCM Eligibility Documentation Outreach completed via text messaging service. Provider Documentation Nahomi Jaramillo is a 74 year old male here today for a follow up from recent hospitalization. I have reviewed the patient's hospital course including discharge summary, discharge medications , and follow up needs with the patient and any family members present at today's visit. Recording using [employer] software for draft documentation of the visit was discussed with the patient/authorized workforce services representative; all questions welcomed and answered. Patient/authorized workforce services representative agreed to proceed Copied and pasted from discharge summary. Hospital Course as Described to the Patient: You were admitted for Fall, right rib fractures 8-10 with pneumothorax. 74 year old male patient presented tot he ED as a level III trauma after falling over a wheelbarrow and landing on right right side. He originally presented to [facility] and was found to have right rib fractures 8-10 and a pneumothorax. A 28 niuean chest tube was placed prior to transfer. Patient denies hitting his head or losing consciousness, he denies taking blood thinners. A chest x-ray was obtained when he arrived to the emergency department and showed resolution of the pneumothorax. Patient was admitted to a regular nursing floor under trauma services. In the morning of 08/06, chest tube was placed to water seal. A chest x-ray was repeated at noon and showed a small apical pneumothorax. Chest tube was removed and an additional x-ray was obtained 4 hours after removal which was stable. PT/OT evaluated the patient and recommended home. Patient was discharged home in good condition on 08/06. HPI Pneumothorax and Rib Fractures: - Recent pneumothorax and right rib fractures (8-10) following a fall. - Initial treatment at [facility] on the , with chest tube placement. - Transferred to [facility]; chest X-ray showed improved pneumothorax. - Chest tube removed after stable X-ray findings; discharged on the with gabapentin. - Pain is improving and tolerable; initially experienced spasms with movement, now mostly resolved. - Using an incentive spirometer device for breathing exercises; walking regularly. - Taking Tylenol in the morning and at night; gabapentin once daily at night -- only has one left for tonight and tomorrow night. - Finished a course of muscle relaxants; last dose taken this morning. - Denies dizziness, syncope, chest pain, palpitations, hemoptysis, or productive cough. - Appetite and bowel movements are normal; denies hematochezia or melena. - Urination is normal; no visible bruising noted. Obstructive Sleep Apnea: - Currently using CPAP; interested in exploring a dental appliance for TALI management. - Last sleep study was in 2013. - Reports good sleep quality with CPAP but desires to avoid using the machine if he is able to correct with oral appliance. Aortic Stenosis: - Diagnosed with aortic stenosis; last cardiology visit with Dr. Myrick was approximately 6 months ago. - Upcoming echocardiogram scheduled for September 08. Atrial Fibrillation: - Managed with flecainide BID and metoprolol 1/2 tablet daily. Constitutional: (+) positional sleep difficulty Cardiovascular: (-) chest pain, (-) palpitations Gastrointestinal: (-) constipation, (-) hematochezia, (-) melena, (-) decreased appetite Genitourinary: (-) urinary symptoms Musculoskeletal: (+) right rib pain Skin: (-) bruising Neurological: (-) dizziness, (-) syncope Labs: Tests: (2013) Sleep Study: Consistent with sleep apnea Imaging: - Chest X-ray: Pneumothorax stable 4 hours after chest tube removal - Chest X-ray: Stable after water seal - Chest X-ray: Pneumothorax improved - Chest X-ray: Right pneumothorax with right rib fractures 8-10 - (09/08) Echocardiogram: Aortic stenosis PHYSICAL EXAMINATION BP 104/64 Pulse 64 Resp 16 Wt 80.3 kg (177 lb) SpO2 96% BMI 26.92 kg/m? GENERAL: NAD, alert and oriented. SKIN: some tape irritation on the right lateral chest wall. Some minimal bruising around chest tube site. Small amount of subq air palpated along the chest wall. HEAD: Normocephalic. EYES: EOMI, conjunctiva clear. OROPHARYNX: Lips, mucosa, and tongue normal, good dentition. LUNGS: Clear to auscultation bilaterally, no wheezes/rhonchi/rale s. HEART: Regular rate and rhythm. + murmur 2-3/6. No ectopy. EXTREMITIES: Normal, no deformities, no skin disc (more content not included)... Normal [facility] XR CHEST 2V FRONTAL/LATon XR CHEST 2V FRONTAL/LAT * * *Final Repor t* * * DATE OF EXAM: Aug 12 2024 9:52AM WOX 5291 - XR CHEST 2V FRONTAL/LAT / PROCEDURE REASON: multiple diagnoses * * * * Physician Interpretation * * * * EXAMINATION: CHEST RADIOGRAPH (2 VIEW FRONTAL and LATERAL) CLINICAL HISTORY: 74 years old Male with Closed fracture of multiple ribs of right side with routine healing, subsequent encounter. Traumatic pneumothorax, subsequent encounter. Recent fx of right ribs 8-10. Had pneumothorax w/ chest tube. Small amount of subq air palpable. MQ: XC2_6 EXAM DATE/TIME: 08/12/2024 9:52 AM COMPARISON: Chest radiograph 08/06/2024, outside hospital CT 08/05/2024 RESULT/ IMPRESSION: Lines, tubes, and devices: None. Lungs and pleura: Mild elevation of the LEFT hemidiaphragm and mild eventration of the RIGHT hemidiaphragm. Mild bibasilar atelectasis. Mild blunting of the costophrenic angles may be secondary to atelectasis and/or trace pleural effusions. No apparent consolidation. No pneumothorax identified. Cardiomediastinal silhouette: Normal heart size. Calcified mediastinal nodes, sequela of remote granulomatous disease. Bones and soft tissues: Interval resolution of RIGHT neck subcutaneous emphysema. Interval decrease without resolution of RIGHT chest wall subcutaneous emphysema. Nondisplaced RIGHT lateral 9th and 10th rib fractures better assessed on recent CT 08/05/2024. Collateral Analyst: LLOYD Transcribe Date/Time: Aug 12 2024 9:53A Dictated by : IVÁN CHRISTOPHER DO This examination was interpreted and the report reviewed and electronically signed by: IVÁN CHRISTOPHER DO on Aug 12 2024 10:03AM EST [id number] Normal [facility] XR Chest PA and Lateralon IMPRESSION: Lines, tubes, and devices: None. Lungs and pleura: Mild elevation of the LEFT hemidiaphragm and mild eventration of the RIGHT hemidiaphragm. Mild bibasilar atelectasis. Mild blunting of the costophrenic angles may be secondary to atelectasis and/or trace pleural effusions. No apparent consolidation. No pneumothorax identified. Cardiomediastinal silhouette: Normal heart size. Calcified mediastinal nodes, sequela of remote granulomatous disease. Bones and soft tissues: Interval resolution of RIGHT neck subcutaneous emphysema. Interval decrease without resolution of RIGHT chest wall subcutaneous emphysema. Nondisplaced RIGHT lateral 9th and 10th rib fractures better assessed on recent CT 08/05/2024. Collateral Analyst: LLOYD Transcribe Date/Time: Aug 12 2024 9:53A Dictated by : IVÁN CHRISTOPHER DO This examination was interpreted and the report reviewed and electronically signed by: IVÁN CHRISTOPHER DO on Aug 12 2024 10:03AM [facility] DIVISION OF RADIOLOGY * * *Final Report* * * DATE OF EXAM: Aug 12 2024 9:52AM WOX 5291 - XR CHEST 2V FRONTAL/LAT / PROCEDURE REASON: multiple diagnoses * * * * Physician Interpretation * * * * EXAMINATION: CHEST RADIOGRAPH (2 VIEW FRONTAL & LATERAL) CLINICAL HISTORY: 74 years old Male with Closed fracture of multiple ribs of right side with routine healing, subsequent encounter. Traumatic pneumothorax, subsequent encounter. Recent fx of right ribs 8-10. Had pneumothorax w/ chest tube. Small amount of subq air palpable. MQ: XC2_6 EXAM DATE/TIME: 08/12/2024 9:52 AM COMPARISON: Chest radiograph 08/06/2024, outside hospital CT 08/05/2024 RESULT/ DIVISION OF RADIOLOGY Provider, [facility] - 08/12/2024 * * *Final Report* * * DATE OF EXAM: Aug 12 2024 9:52AM WOX 5291 - XR CHEST 2V FRONTAL/LAT / PROCEDURE REASON: multiple diagnoses * * * * Physician Interpretation * * * * EXAMINATION: CHEST RADIOGRAPH (2 VIEW FRONTAL & LATERAL) CLINICAL HISTORY: 74 years old Male with Closed fracture of multiple ribs of right side with routine healing, subsequent encounter. Traumatic pneumothorax, subsequent encounter. Recent fx of right ribs 8-10. Had pneumothorax w/ chest tube. Small amount of subq air palpable. MQ: XC2_6 EXAM DATE/TIME: 08/12/2024 9:52 AM COMPARISON: Chest radiograph 08/06/2024, outside hospital CT 08/05/2024 RESULT/ IMPRESSION IMPRESSION: Lines, tubes, and devices: None. Lungs and pleura: Mild elevation of the LEFT hemidiaphragm and mild eventration of the RIGHT hemidiaphragm. Mild bibasilar atelectasis. Mild blunting of the costophrenic angles may be secondary to atelectasis and/or trace pleural effusions. No apparent consolidation. No pneumothorax identified. Cardiomediastinal silhouette: Normal heart size. Calcified mediastinal nodes, sequela of remote granulomatous disease. Bones and soft tissues: Interval resolution of RIGHT neck subcutaneous emphysema. Interval decrease without resolution of RIGHT chest wall subcutaneous emphysema. Nondisplaced RIGHT lateral 9th and 10th rib fractures better assessed on recent CT 08/05/2024. Collateral Analyst: LLOYD Transcribe Date/Time: Aug 12 2024 9:53A Dictated by : IVÁN CHRISTOPHER DO This examination was interpreted and the report reviewed and electronically signed by: IVÁN CHRISTOPHER DO on Aug 12 2024 10:03AM EST [facility] Radiology Study observation (narrative) Luanne borja [facility] XR Chest PA and LateralOrder ed By: [facility] Provider on 08-12-2024 [facility] Fernando 08-07-2024 CNPN Telephone (PODCCP) NAHOMI JARAMILLO ([id number]) 1950 M Date Time Provider Department 08/07/24 ENMANUEL ZULUAGA PODNAVYA During your visit today, we recorded the following information about you: Enmanuel Zuluaga RN 08/07/2024 1:38 PM Addendum [place] Nurse calling patient who has reported worsening symptoms. Patient reports he was feeling worse but didn't have his medications but since then has received them and he is feeling much better. Allergies As of Date: 08/07/2024 Noted Allergy Reaction PENICILLIN 11/07/2015 2 - Rash 9 - Itching Date Reviewed: 08/05/2024 Reviewed by: Annie Clay RN - Fully Assessed Reason for Visit: Follow Up Phone Call [[phone]] Cmt: [facility] post discharge follow-up - contacted - all clear Prescriptions as of 08/07/2024 - acetaminophen (TYLENOL) 500 mg tablet Take 2 tablets by mouth every 8 hours as needed for pain. - gabapentin (NEURONTIN) 300 mg capsule Take 1 capsule by mouth once daily for 7 days. - lidocaine (SALONPAS) 4 % patch Apply 1 patch as directed once daily. - methocarbamol (ROBAXIN) 500 mg tablet Take 1 tablet by mouth four times daily for 5 days. - senna-docusate (SENNA-S) 8.6-50 mg per tablet Take 1 tablet by mouth two times a day. - CPAP Initiate CPAP @ 13 cm of water with humidification. Mask (per patient preference) optional chin strap (if indicated) , filters, tubing, humidifier and lifetime supplies. - pravastatin (PRAVACHOL) 40 mg tablet Take 1 tablet by mouth daily at bedtime. - metoprolol tartrate, short acting, (LOPRESSOR) 25 mg tablet Take 1 tablet by mouth twice daily as needed. - flecainide (TAMBOCOR) 100 mg tablet Take 1 tablet by mouth twice daily. - aspirin, enteric coated (ECOTRIN LOW STRENGTH) 81 mg EC tablet Take 1 tablet by mouth once daily. Problem List As Of Date 08/07/2024 Noted Resolved BPH w Urinary Obs/LUTS [N40.1, N13.8] 06/27/2007 Bladder Neck Obstruction [N32.0] 06/27/2007 Incomplete Bladder Emptying [R33.9] 06/27/2007 Other and unspecified hyperlipidemia [E78.5] 05/04/2008 Chronic Rhinitis [J31.0] 05/04/2008 Aortic insufficiency [I35.1] 08/06/2009 Elevated prostate specific antigen (PSA) [R97.2*05/18/2010 Adenocarcinoma of prostate (HCC) [C61] 06/13/2010 Atrial fibrillation (HCC) [I48.91] TALI on CPAP [G47.33] 05/01/2016 Left ureteral calculus [N20.1] 10/05/2018 Trauma [T14.90XA] 08/05/2024 Closed traumatic fracture of ribs of right side*08/06/2024 Encounter Status:Closed by ENMANUEL ZULUAGA on 08/07/24 Normal [facility] Basic metabolic 2000 panelon 08-06-2024 Anion gap [Moles/Vol] 7 mmol/L Normal 5-16 [facility] Comment on above: Order Comment: Speci men Type: BLOOD SPECIMENOrdering Facility: [facility] Address: [address] [place] [address] Performed By: #### 2 4321-2 ####[facility] LABORATORYCLIA [id number] [place] [id number] [place] Calcium [Mass/Vol] 8.9 mg/dL Normal 8.5-10.5 [facility] Comment on above: Order Comment: Speci men Type: BLOOD SPECIMENOrdering Facility: [facility] Address: [address] [place] [address] Performed By: #### 2 4321-2 ####[facility] LABORATORYCLIA [id number] [place] [id number] [place] Chloride [Moles/Vol] 104 mmol/L Normal 98-107 [facility] Comment on above: Order Comment: Speci men Type: BLOOD SPECIMENOrdering Facility: [facility] Address: [address] [place] [address] Performed By: #### 2 4321-2 ####[facility] LABORATORYCLIA [id number] [place] [address] [place] CO2 [Moles/Vol] 28 mmol/L Normal 21-32 [facility] Comment on above: Order Comment: Speci men Type: BLOOD SPECIMENOrdering Facility: [facility] Address: [address] [place] [address] Performed By: #### 2 4321-2 ####[facility] LABORATORYCLIA [id number] [place] [address] [place] Creatinine [Mass/Vol] 1.09 mg/dL Normal 0.50-1.40 [facility] Comment on above: Order Comment: Speci men Type: BLOOD SPECIMENOrdering Facility: [facility] Address: [address] [place] [address] Result Comment: Ele ents receiving either N-Acetylcysteine (NAC) or Metamizole prior to venipuncture, may have falsely depressed results. Performed By: #### 2 4321-2 ####[facility] LABORATORYCLIA [id number] [place] [address] [place] Creatinine and Glomerular filtration rate.predicted panel (S/P/Bld) 70 mL/min/1.73m??? Normal >=60 [facility] Comment on above: Order Comment: Tita swift Type: BLOOD SPECIMENOrdering Facility: [facility] Address: [address] [place] [address] Result Comment: Bhargavi mated Glomerular Filtration Rate (eGFR) is calculated using the 2020 CKD-EPI creatinine equation. This equation utilizes serum creatinine, sex, and age as parameters. The creatinine assay has traceable calibration to isotope dilution-mass spectrometry. Refer to KDIGO guidelines for clinical interpretation. In patients with unstable renal function, e.g. those with acute kidney injury, the eGFR may not accurately reflect actual GFR. Performed By: #### 2 4321-2 ####[facility] LABORATORYCLIA [id number] [place] [id number] [place] Glucose [Mass/Vol] 103 mg/dL High 70-100 [facility] Comment on above: Order Comment: Tita swift Type: BLOOD SPECIMENOrdering Facility: [facility] Address: [address] [place] [address] Result Comment: The [place] Diabetes Association (ADA) provides guidance for cutoff [...] Standards of Medical Care in Diabetes 2016, [place] [employer] Association. Diabetes Care. 2016.39(Suppl 1). Results may be falsely elevated after the administration of Sulfapyridine. Results may be falsely depressed after the administration of Sulfasalazine. Performed By: #### 2 4321-2 ####[facility] LABORATORYCLIA [id number] [place] [id number] [place] Potassium [Moles/Vol] 4.8 mmol/L Normal 3.5-5.1 [facility] Comment on above: Order Comment: Speci men Type: BLOOD SPECIMENOrdering Facility: [facility] Address: [address] [place] [address] Performed By: #### 2 4321-2 ####[facility] LABORATORYCLIA [id number] [place] [id number] [place] Sodium [Moles/Vol] 139 mmol/L Normal 136-145 [facility] Comment on above: Order Comment: Speci men Type: BLOOD SPECIMENOrdering Facility: [facility] Address: [address] [place] [address] Performed By: #### 2 4321-2 ####[facility] LABORATORYCLIA [id number] [place] [address] [place] Urea nitrogen [Mass/Vol] 20 mg/dL Normal 7-26 [facility] Comment on above: Order Comment: Speci men Type: BLOOD SPECIMENOrdering Facility: [facility] Address: [address] [place] [address] Performed By: #### 2 4321-2 ####[facility] LABORATORYCLIA [id number] [place] [address] [place] CBC panel Auto (Bld)on 08-06 Erythrocyte distribution width (RBC) [Ratio] 13.6 % Normal 11.5-15.0 [facility] Comment on above: Order Comment: Speci men Type: BLOOD SPECIMEN Ordering Facility: [facility] Address: [address] [place] [address] Performed By: #### 5 8410-2 #### [facility] CLIA [id number] [address] [place] [address] [place] Hematocrit (Bld) [Volume fraction] 40.5 % Normal 39.0-51.0 [facility] Comment on above: Order Comment: Speci men Type: BLOOD SPECIMEN Ordering Facility: [facility] Address: [address] [place] [address] Performed By: #### 5 8410-2 #### [facility] CLIA [id number] [address] [place] [address] [place] Hemoglobin (Bld) [Mass/Vol] 13.2 g/dL Normal 13.0-17.0 [facility] Comment on above: Order Comment: Speci men Type: BLOOD SPECIMEN Ordering Facility: [facility] Address: [address] [place] [address] Performed By: #### 5 8410-2 #### [facility] CLIA [id number] [address] [place] [address] [place] MCH (RBC) [Entitic mass] 33.0 pg Normal 26.0-34.0 [facility] Comment on above: Order Comment: Speci men Type: BLOOD SPECIMEN Ordering Facility: [facility] Address: [address] [place] [address] Performed By: #### 5 8410-2 #### [facility] CLIA [id number] [address] [place] [address] [place] MCHC (RBC) [Mass/Vol] 32.6 g/dL Normal 30.5-36.0 [facility] Comment on above: Order Comment: Speci men Type: BLOOD SPECIMEN Ordering Facility: [facility] Address: [address] [place] [address] Performed By: #### 5 8410-2 #### [facility] CLIA [id number] [address] [place] [address] [place] MCV (RBC) [Entitic vol] 101.3 fL High 80.0-100.0 M [facility] Comment on above: Order Comment: Speci men Type: BLOOD SPECIMEN Ordering Facility: [facility] Address: [address] [place] [address] Performed By: #### 5 8410-2 #### [facility] CLIA [id number] [address] [place] [address] [place] Nucleated RBC (Bld) [#/Vol] 10*3/uL Normal <0.01 [facility] Comment on above: Order Comment: Speci men Type: BLOOD SPECIMEN Ordering Facility: [facility] Address: [address] [place], [place] [address] [id number] Performed By: #### 5 8410-2 #### [facility] CLIA [id number] [address] [place], [place] [address] [place] Platelet mean volume (Bld) [Entitic vol] 10.9 fL Normal 9.0-12.7 [facility] Comment on above: Order Comment: Speci men Type: BLOOD SPECIMEN Ordering Facility: [facility] Address: [address] [place], [place] [address] Performed By: #### 5 8410-2 #### [facility] CLIA [id number] [address] [place], [place] [address] [place] Platelets (Bld) [#/Vol] 197 10*3/uL Normal 150-400 [facility] Comment on above: Order Comment: Speci men Type: BLOOD SPECIMEN Ordering Facility: [facility] Address: [address] [place], [place] [address] [address] Performed By: #### 5 8410-2 #### [facility] CLIA [id number] [address] [place] [address] [place] RBC (Bld) [#/Vol] 4.00 10*6/uL Low 4.20-6.00 [facility] Comment on above: Order Comment: Speci men Type: BLOOD SPECIMEN Ordering Facility: [facility] Address: [facility] [address] [place] [id number] Performed By: #### 5 8410-2 #### [facility] CLIA [id number] [address] [place], [place] [address] [place] WBC (Bld) [#/Vol] 11.00 10*3/uL Normal 3.70-11.00 [facility] Comment on above: Order Comment: Speci men Type: BLOOD SPECIMEN [facility]ing [facility] Address: [facility] [place] [address] Performed By: #### 5 8410-2 #### [facility] CLIA [id number] [address] [place], [place] [address] [place] CNDSon 08-06-2024 CNDS HNO ID: [id number] Author: SRINI ESPARZA MD Service: General Surgery Author Type: Physician Type: Discharge Summary Filed: 08/06/2024 20:22 Note Text: DISCHARGE NOTE (Patient Admitted Less than 48 Hours) SERVICE DATE: 08/06/2024 SERVICE TIME: 8:22 PM ADMISSION DATE: 08/05/2024 DISCHARGE DISPOSITION: Home with Self Care DIET: Regular ACTIVITY AFTER DISCHARGE: Resume pre-hospital activity FOLLOW UP CARE REQUIRED: with PCP DISCHARGE MEDICATIONS: Medication List START taking these medications acetaminophen 500 mg tablet Commonly known as: TYLENOL Take 2 tablets by mouth every 8 hours as needed for pain. gabapentin 300 mg capsule Commonly known as: NEURONTIN Take 1 capsule by mouth once daily for 7 days. Start taking on: August 07, 2024 lidocaine 4 % patch Commonly known as: SALONPAS Apply 1 patch as directed once daily. methocarbamol 500 mg tablet Commonly known as: ROBAXIN Take 1 tablet by mouth four times daily for 5 days. senna-docusate 8.6-50 mg per tablet Commonly known as: SENNA-S Take 1 tablet by mouth two times a day. CONTINUE taking these medications aspirin, enteric coated 81 mg EC tablet Commonly known as: ECOTRIN LOW STRENGTH Take 1 tablet by mouth once daily. CPAP Initiate CPAP @ 13 cm of water with humidification. Mask (per patient preference) optional chin strap (if indicated) , filters, tubing, humidifier and lifetime supplies. flecainide 100 mg tablet Commonly known as: TAMBOCOR Take 1 tablet by mouth twice daily. metoprolol tartrate (short acting) 25 mg tablet Commonly known as: LOPRESSOR Take 1 tablet by mouth twice daily as needed. pravastatin 40 mg tablet Commonly known as: PRAVACHOL Take 1 tablet by mouth daily at bedtime. Where to Get Your Medications These medications were sent to e- [facility]/pharmacy #[id number] [place] [address] - [address] - [phone] [facility] [address] [id number] [address] [place] [address] gabapentin 300 mg capsule methocarbamol 500 mg tablet You can get these medications from any pharmacy You don't need a prescription for these medications acetaminophen 500 mg tablet lidocaine 4 % patch senna-docusate 8.6-50 mg per tablet FINAL DIAGNOSIS: ACTIVE PROBLEM LIST Hypertrophy of Prostate With Urinary Obstruction and Other Lower Urinary Tract Symptoms (Luts) Bladder Neck Obstruction Incomplete Bladder Emptying Other and Unspecified Hyperlipidemia Chronic Rhinitis Aortic Insufficiency Elevated Prostate Specific Antigen (Psa) Adenocarcinoma of Prostate (Hcc) Atrial Fibrillation (Hcc) Tali On Cpap Left Ureteral Calculus Trauma Closed Traumatic Fracture of Ribs of Right Side With Pneumothorax Active Hospital Problems Diagnosis POA Closed traumatic fracture of ribs of right side with pneumothorax Yes Trauma Yes Resolved Hospital Problems No resolved problems to display. SIGNATURE: Srini Esparza MD PATIENT NAME: Nahomi Jaramillo DATE: August 06, 2024 TIME: 8:22 PM [facility] HNO ID: [id number] Author: SYLVIE SHAH MD Service: Trauma Author Type: Physician Type: Discharge Summary Filed: 08/11/2024 19:31 Note Text: I agree with the discharge summary I spent less than 10 minutes on this discharge summary Signature: Sylvie Shah MD Date: 08/11/2024 Time: 7:31 PM DISCHARGE SUMMARY PATIENT NAME: Nahomi Jaramillo ADMISSION DATE: 08/05/2024 DISCHARGE DATE: 08/06/2024 Attending Physician: Sylvie Shah MD Code Status: Full Code Highest Readmission Risk Score: 5 The 30 day readmissions risk score is derived from an internally validated risk model which evaluates patient level characteristics, utilization history, medication orders and lab results up until the day of discharge. Patients with a score of 39 or above are considered highest risk for readmission. Specific patient level drivers will be listed at the bottom of the summary. Reason for Hospitalization: Fall, right rib fractures 8-10 with pneumothorax Final Diagnosis: Right rib fractures with pneumothorax Active Hospital Problems Diagnosis POA Closed traumatic fracture of ribs of right side with pneumothorax Yes Trauma Yes Resolved Hospital Problems No resolved problems to display. Hospital Course as Described to the Patient: You were admitted for Fall, right rib fractures 8-10 with pneumothorax. 74 year old male patient presented tot he ED as a level III trauma after falling over a wheelbarrow and landing on right right side. He originally presented to [facility] and was found to have right rib fractures 8-10 and a pneumothorax. A 28 niuean chest tube was placed prior to transfer. Patient denies hitting his head or losing consciousness, he denies taking blood thinners. A chest x-ray was obtained when he arrived to the emergency department and showed resolution of the pneumothorax. Patient was admitted to a regular nursing floor under trauma services. In the morning of 08/06, chest tube was placed to water seal. A chest x-ray was repeated at noon and showed a small apical pneumothorax. Chest tube was removed and an additional x-ray was obtained 4 hours after removal which was stable. PT/OT evaluated the patient and recommended home. Patient was discharged home in good condition on 08/06. Transitions of Care Critical Issues: None LABS AND PROCEDURES PENDING AT DISCHARGE: No pending results. Additional Provider to Provider Information: Principal Problem: Closed traumatic fracture of ribs of right side with pneumothorax Active Problems: Trauma Resolved Problems: * No resolved hospital problems. * Operations During Hospitalization: None Procedures During Hospitalization: CT Scan Consulting Teams During Hospitalization: Treatment Team: Attending Provider: Sylvie Shah MD Consulting: TRAUMA None Patient Condition @ Discharge: Good Discharge Disposition: Home/Self Care Information Provided to Patient: Diet: Resume pre-hospital diet Activity: Resume pre-hospital activity Wound/Surgical Site Care: ALLERGIES Allergen Reactions Penicillin Rash, Itching Discharge Medications: Medication List ASK your doctor about these medications aspirin, enteric coated 81 mg EC tablet Commonly known as: ECOTRIN LOW STRENGTH Take 1 tablet by mouth once daily. CPAP Initiate CPAP @ 13 cm of water with humidification. Mask (per patient preference) optional chin strap (if indicated) , filters, tubing, humidifier and lifetime supplies. flecainide 100 mg tablet Commonly known as: TAMBOCOR Take 1 tablet by mouth twice daily. metoprolol tartrate (short acting) 25 mg tablet Commonly known as: LOPRESSOR Take 1 tablet by mouth twice daily as needed. pravastatin 40 mg tablet Commonly known as: PRAVACHOL Take 1 tablet by mouth daily at bedtime. Plan of Care: Plan of care discussed with Provider, RN, Patient Future Appointments: Follow Up with PCP: Danilo Donis MD Future Appointments Date Time Provider Department Center 08/25/2024 11:00 AM [facility] for Next 45 Days Date and Time Provider Department Dept Phone 08/25/2024 11:[address] [facility] [phone] The patient's risk for 30-day readmission is determined using the following contributing factors: Predictive Model Details 5% (Low) Factor Value Calculated 08/06/2024 17:20 -96% Hospital Unit MR 5B MED/SURG [facility] READMISSION RISK Model -13% Admissions (365d) 1 -13% [facility] 10% Admission Provider Speciality GENERAL SURGERY -8% ED visits (365d) 0 7% Albumin (Min) 3.9 -7% ED Encounter No 7% Facility [facility] -7% Observations (365d) 0 -6% Appointments (365d) 0 I have performed the khel-lc-guuk and relevant services for a total of 35 minutes. SIGNATURE: Taylor Larios APRN.TOP STOP ATTACHER PATIENT NAME: Nahomi Jaramillo DATE: August 06, 2024 TIME: 5:06 PM Normal [facility] HISTORY PHYSICALon HISTORY PHYSICAL HNO ID: [id number] Author: SYLVIE SHAH MD Service: Trauma Author Type: Physician Type: H&P Filed: 08/07/2024 13:16 Note Text: Attending Note I have personally performed a face to face assessment of the patient and have reviewed the MARILIN note and agree with the documentation with my additions below. I performed a substantive portion of the visit including, but not limited to, the history, review of systems, and physical exam. The medical decision making for the patient was performed as a team with my supervision. Patient doing well. 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 He originally presented to [facility] and was found to have right rib fractures 8-10 and a pneumothorax. A 28 niuean chest tube was placed prior to transfer. Patient denies hitting his head or losing consciousness, he denies taking blood thinners. A chest x-ray was obtained when he arrived to the emergency department and showed resolution of the pneumothorax. 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 Neurological: Negative for dizziness, sensory change, loss of consciousness, weakness and headaches. OBJECTIVE: Objective VITALS: BP 131/81 Pulse 65 Temp (Src) 98.4 (Oral) Resp 18 Ht 5' 7.992 (1.73m) Wt 172 lb 6.4 oz (78.2kg) SpO2 96% BMI 26.22 kg/(m2). O2 Therapy: Room Air Temp (24hrs), Av.8 ?C (98.2 ?F), Min:36.7 ?C (98.1 ?F), Max:36.9 ?C (98.4 ?F) O2 Therapy: Room Air General: Alert, sitting up in bed resting. No acute distress. Head/Face: Normocephalic. Atraumatic. Eyes: Pupils brisk. Sclera not icteric, not injected Neck: Normal range of motion displayed. No midline tenderness. Resp: Lungs clear bilaterally. Chest rise is symmetrical and respirations unlabored. Tenderness over right lateral ribs, chest tube present with a scant amount sanguinous drainage. No crepitus. CVS: RRR. Strong pulses and good cap refill GI: Abdomen is soft, not distended. No guarding or rigidity. Back: No midline tenderness on palpation. No evidence of cutaneous trauma. MSK: GONG. No obvious deformities. Skin: Warm and dry. Normal color for ethnicity. Neuro: AANDOx3. Strength and sensation intact. GCS15. Psych: Normal mood. Normal affect. RADIOLOGICAL/OTHER TEST DATA: XR CHEST 1V FRONTAL PORT Final Result IMPRESSION: No discernible pneumothorax after chest tube placement. Collateral Analyst: LLOYD Transcribe Date/Time: Aug 05 2024 7:06P Dictated by : KEVIN FRIEND MD This examination was interpreted and the report reviewed and electronically signed by: KEVIN FRIEND MD on Aug 05 2024 7:08PM EST XR CHEST 1V FRONTAL (Results Pending) XR CHEST 2V FRONTAL/LAT (Results Pending) Labs: No results for input(s): BODSITE, CTYPE, PH, PCO2, PO2, BE, HCO3, CO2CT, O2HB, COHB, MHGB, TEMP, PHTC, PCO2T, PO2T, O2AD in the last 72 hours. Recent Labs 08/06/24 0458 08/05/24 1805 CREAT 1.09 1.01 BUN 20 23 NA 139 139 K 4.8 4.6 CHLOR 104 101 CO2 28 28 ANION 7 10 GLUC 103* 116* CA 8.9 8.7 ALB -- 3.9 AST -- 23 ALT -- 23 ALKPHOS -- 78 TBILI -- 0.7 WBC 11.00 12.51* HB 13.2 13.9 HCT 40.5 41.7 PLT 197 190 ASSESSMENT AND PLAN: (more content not included)... [facility] THERAPY NTon 08-06-2024 THERAPY NT HNO ID: [id number] Author: NEO ALLAN PT Service: Physical Therapy Author Type: Physical Therapist Type: Therapy (PT/OT/Speech/Resp) Filed: 08/06/2024 12:50 Note Text: Physical Therapy Evaluation Summary SERVICE DATE: 08/06/2024 SERVICE TIME: 1111 to 1124 ROOM: [place] [address] PT 6 Clicks Score: 24 DISCHARGE RECOMMENDATIONS Home Anticipated Discharge Needs: Supervision at Home Supervision at Home due to: Decreased safety awareness ASSESSMENT Response to Therapy Interventions: Good Participation in Activities Pt tolerated PT eval well. He does not require therapy at this time PRECAUTIONS Lines/Tubes/Drains rib fx R side; chest tube CURRENT HOSPITAL COURSE fall resulting in R rib fx and R pneumothorax with chest tube placement Relevant Past Medical History: prostate [place] HOME LIVING Patient Lives With: Self/Alone Assistance Available: PRN, Other: See Comment Comments: daughter local Entry To Home: Stairs, Without Rail Number Of Stairs Into Home: 2 Number Of Stairs To Bed/Bath: 0 Tub/Shower Type: tub/shower Laundry: main level Equipment Owned: Other: See Comment (none) PRIOR FUNCTIONAL LEVEL Within Functional Limits pt reports independence with ADLs, IADLs, denies device, manages own medicaitons, denies other falls. SUBJECTIVE THERAPY DIAGNOSIS No Skilled Need TREATMENT INTERVENTIONS Evaluation Skilled Treatment Time (minutes): 13 TRAINING AND EDUCATION PROVIDED Anatomy and Impact on Deficits, Assistive Device Use, Bed Mobility, Benefits of In-Hospital Mobility, Discharge Planning, Disease Specific Education, Expected Functional Level, Falls Prevention, Gait Pattern, Reduction of Deviations, Precautions/Restrict ions, Role of Physical Therapy, Transfers THERAPEUTIC SKILLS USED Cues for Sequencing/Proper Technique for Activity FUNCTIONAL STATUS Bed Mobility Transfers Sit To Stand: Supervision Stand To Sit: Supervision Bed to Chair Gait Supervision Gait Device: None General Deviations/Observati ons: Shuffling Gait, Step length decreased Gait Distance (feet): 250 Stairs Supervision Number of Stairs: 3 GOALS Patient will demonstrate understanding of importance of mobility during hospital stay and resolve all functional needs identified. Rehab Potential: Excellent Excellent Rehab Potential Due To: Current objective clinical presentation Progress Toward Goals: Progressing as expected ACUTE CARE TREATMENT PLAN PT Frequency: Discontinue Therapy Services Reasons Therapy Services Discontinued: No skilled needs Treatment Interventions: Education SIGNATURE: Neo Allan PT PATIENT NAME: Nahomi Jaramillo DATE: August 06, 2024 TIME: 12:50 PM [facility] THERAPY NT HNO ID: [id number] Author: JET HUERTAS, TORRIR/L Service: Occupational Therapy Author Type: Occupational Therapist Type: Therapy (PT/OT/Speech/Resp) Filed: 08/06/2024 10:16 Note Text: Occupational Therapy Evaluation Summary SERVICE DATE: 08/06/2024 SERVICE TIME: 934 to 1009 ROOM: [id number] OT 6 Clicks Score: 24 DISCHARGE RECOMMENDATIONS Home Recommended Discharge Disposition Comments: pt presents at supervision level with ADLs, funcitonal transfers and safety, pt with no further skilled OT needs ASSESSMENT Response to Therapy Interventions: Good Participation in Activities PRECAUTIONS Lines/Tubes/Drains rib fx R side; chest tube CURRENT HOSPITAL COURSE fall resulting in R rib fx and R pneumothorax with chest tube placement Relevant Past Medical History: prostate [place] HOME LIVING Patient Lives With: Self/Alone Assistance Available: PRN, Other: See Comment Comments: daughter local Entry To Home: Stairs, Without Rail Number Of Stairs Into Home: 2 Number Of Stairs To Bed/Bath: 0 Tub/Shower Type: tub/shower Laundry: main level Equipment Owned: Other: See Comment (None) PRIOR FUNCTIONAL LEVEL Within Functional Limits pt reports independence with ADLs, IADLs, denies device, manages own medicaitons, denies other falls. Baseline Cognition: Oriented to place, Oriented to self, Oriented to time, Oriented to situation SUBJECTIVE COGNITION Responsiveness: Alert Follows Commands: 3-step Commands THERAPY DIAGNOSIS Decreased activities of daily living (ADL) TREATMENT INTERVENTIONS Evaluation, Self Fci Management (92683) Timed Code Treatment (minutes): 15 Skilled Treatment Time (minutes): 30 TRAINING AND EDUCATION PROVIDED Activity Adaptation/Compensat ory Strategies, Adaptive Equipment/DME, Bed Mobility, Benefits of In-Hospital Mobility, Discharge Planning, Edema Management, Energy Conservation, Functional Mobility Involving ADLs, Grooming Tasks, Insight into Deficits, Lower Extremity Bathing, Lower Extremity Dressing, Positioning, Precautions/Restrict ions THERAPEUTIC SKILLS USED Activity Dosing, Cues for Sequencing/Proper Technique for Activity FUNCTIONAL STATUS Activities of Daily Living Assist Level Additional Information Feeding Independent Grooming Modified Independent Bathing Upper Body Modified Independent Bathing Lower Body Modified Independent Dressing Upper Body Modified Independent Dressing Lower Body Modified Independent Toileting Modified Independent Mobility Assist Level Additional Information Bed Mobility Supine To Sit: Modified Independent, Additional Information HOB elevated into sitting, pt completing modified log roll - pt plans to sleep in recliner upon homegoing Sit to Stand Modified Independent Stand to Sit Modified Independent Bed to Chair Toilet/Commode Shower Functional Mobility Modified Independent, Additional Information Functional Mobility Device: None good pacing, no LOB, denied dizziness; in home functional distances ~60ft x2 GOALS Patient will demonstrate progress with self-care, cognitive and/or coping needs identified to allow safe discharge to home with available support and/or physical assistance. Rehab Potential: Excellent Excellent Rehab Potential Due To: Good motivation ACUTE CARE TREATMENT PLAN OT Frequency: Discontinue Therapy Services Reasons Therapy Services Discontinued: Goals met Treatment Interventions: Education, Self Care/Home Management Plan for Next Visit: Bathing Training, Bed Mobility, Chair/Commode Transfer Training, Edema Management, Energy Conservation, Fall Prevention SIGNATURE: Jet Huertas OTR/L PATIENT NAME: Nahomi Jaramillo DATE: August 06, 2024 TIME: 10:16 AM [facility] XR CHEST 1V FRONTALon 2024 XR CHEST 1V FRONTAL * * *Final Report* * * DATE OF EXAM: Aug 06 2024 12:14PM [id number] [id number] - XR CHEST 1V FRONTAL / PROCEDURE REASON: Pneumothorax * * * * Physician Interpretation * * * * EXAMINATION: CHEST RADIOGRAPH (SINGLE VIEW AP OR PA) CLINICAL HISTORY: Pneumothorax MQ: XC1_5 Comparison: 08/05/2024 RESULT: Lines, tubes, and devices: Right-sided chest tube is similarly positioned. Lungs and pleura: Small pneumothorax at the right apex with the pleura about 1 cm from the chest wall. Low lung volumes with right midlung and bibasilar atelectasis. Vascularity is not congested. No pneumothorax. Probable small left pleural effusion. Cardiomediastinal silhouette: Cardiac and mediastinal contours are stable. Other: Soft tissue gas right chest wall extending into the right neck beyond the [id number]-unfu. IMPRESSION: Similarly positioned right chest tube with small pneumothorax at the right apex. Low lung volumes with bibasilar and right midlung atelectasis and small left pleural effusion. Collateral Analyst: LLOYD Transcribe Date/Time: Aug 06 2024 12:14P Dictated by : CASEY SHUKLA MD This examination was interpreted and the report reviewed and electronically signed by: CASEY SHUKLA MD on Aug 06 2024 12:17PM EST [id number] [facility] XR CHEST 2V FRONTAL/LATon XR CHEST 2V FRONTAL/LAT * * *Final Repor t* * * DATE OF EXAM: Aug 06 2024 6:35PM RHX [id number] - XR CHEST 2V FRONTAL/LAT / PROCEDURE REASON: Other * * * * Physician Interpretation * * * * EXAMINATION: CHEST RADIOGRAPH (2 VIEW FRONTAL and LATERAL) CLINICAL HISTORY: Other, pneumothorax, post chest tube removal MQ: XC2_6 EXAM DATE/TIME: 08/06/2024 6:35 PM COMPARISON: 08/06/2024 RESULT: Lines, tubes, and devices: None. Lungs and pleura: No consolidation. No lung mass. No pleural effusion. No pneumothorax. Atelectasis in the right midlung. Small left pleural effusion. Nodular density in the lateral radiograph likely corresponds to calcified mediastinal nodes. Cardiomediastinal silhouette: Normal cardiomediastinal silhouette. Bones and soft tissues: Unremarkable. Subcutaneous emphysema about the right neck and right lateral chest wall. IMPRESSION: No discernible pneumothorax. Small left pleural effusion. Collateral Analyst: LLOYD Transcribe Date/Time: Aug 06 2024 7:02P Dictated by : KEVIN FRIEND MD This examination was interpreted and the report reviewed and electronically signed by: KEVIN FRIEND MD on Aug 06 2024 7:10PM EST [id number] [facility] Absolute lymphocyte countOrd ered By: Claude Jiménez on 08-05-2024 Lymphocytes Auto (Unsp spec) [#/Vol] 1.36 10*3/uL 0.83-4.51 [facility] Absolute neutrophil countOrd ered By: Claude Jiménez on 08-05-2024 Neutrophils (Bld) [#/Vol] 8.8 10*3/uL High 2.0-7.7 [facility] Anion gap in Serum or Plasma Ordered By: Claude Jiménez on 08-05-2024 Anion gap [Moles/Vol] 11 mmol/L 5-15 [facility] Automated lymphocyte count a s percentage of total leukocytesOrdered By: Claude Jiménez on 08-05-2024 Lymphocytes/100 WBC Auto (Unsp spec) 11.9 % Low 19-41 [facility] BLOOD BANK COMMENTon 025 BLOOD BANK COMMENT See Comment Normal [facility] Comment on above: Order Comment: Speci men Type: BLOOD SPECIMEN Ordering Facility: [facility] Address: [address] [place] [address] Result Comment: DORIS NEGRETE sample requested from : MARIN 1822 TS Performed By: #### L [id number], TSCR #### [facility] BLOOD BANK CLIA [id number] [address] [place] [address] [facility] BUN/creatinine ratioOrdered By: Claude Jiménez on 08-05-2024 Urea nitrogen/Creatinine [Mass ratio] 18.5 mg/mg - [facility] Basic Metabolic Profile (BMP )on 08-05-2024 BUN/CRE 18.5 RATIO Normal - [facility] Comment on above: Performed By: #### L 500.2500, L100.0100 ####[facility] [address] [place], [address] Calcium [Mass/Vol] 9.6 mg/dL Normal 7.6-11.0 [facility] Comment on above: Performed By: #### L 500.2500, L100.0100 ####[facility] [address] [place], [address] Chloride [Moles/Vol] 102 mmol/L Normal 98-108 [facility] Comment on above: Performed By: #### L 500.2500, L100.0100 ####[facility] [address] [place], [address] CO2 [Moles/Vol] 23.7 mmol/L Normal 21.0-32.0 [facility] Comment on above: Performed By: #### L 500.2500, L100.0100 ####[facility] [address] [place], [address] Creatinine [Mass/Vol] 1.28 mg/dL High 0.70-1.20 [facility] Comment on above: Performed By: #### L 500.2500, L100.0100 ####[facility] [address] [place], [address] ECRCL 47.50 ml/min Low 50-250 [facility] Comment on above: Performed By: #### L 500.2500, L100.0100 ####[facility] [address] [place], [address] GAP 11 Normal 5-15 [facility] Comment on above: Performed By: #### L 500.2500, L100.0100 ####[facility] [address] [place], [address] GFR/1.73 sq M.predicted among non-blacks MDRD (S/P/Bld) [Vol rate/Area] 58 mL/min/{1.73_m2} Low >60 [facility] Comment on above: Result Comment: mL/m in/1.73m2 CKD-EPI Creatinine Equation (2020) Performed By: #### L 500.2500, L100.0100 ####[facility] [address] [place], [address] Glucose [Mass/Vol] 104 mg/dL High 70-99 [facility] Comment on above: Performed By: #### L 500.2500, L100.0100 ####[facility] [address] [place], [address] Potassium [Moles/Vol] 4.8 mmol/L Normal 3.3-5.1 [facility] Comment on above: Performed By: #### L 500.2500, L100.0100 ####[facility] [address] [place], [address] Sodium [Moles/Vol] 137 mmol/L Normal 133-145 [facility] Comment on above: Performed By: #### L 500.2500, L100.0100 ####[facility] [address] [place], [address] Urea nitrogen [Mass/Vol] 24 mg/dL High 4-19 [facility] Comment on above: Performed By: #### L 500.2500, L100.0100 ####[facility] [address] [place], [address] Basophil percentageOrdered B y: Claude Jiménez on 08-05-2024 Basophils/100 WBC (Bld) 0.3 % 0-1 [facility] CBC W/Diff, Automatedon Absolute Lymph 1.36 X10 3/uL Normal 0.83-4.51 [facility] Comment on above: Performed By: #### L 500.2500, L100.0100 ####[facility] [address] [place], [address] Absolute Neut 8.8 X10 3/uL High 2.0-7.7 [facility] Comment on above: Performed By: #### L 500.2500, L100.0100 ####[facility] [address] [place], [address] Basophils/100 WBC (Bld) 0.3 % Normal 0-1 [facility] Comment on above: Performed By: #### L 500.2500, L100.0100 ####[facility] [address] [place], [address] Eosinophils/100 WBC (Bld) 0.7 % Normal 0-5 [facility] Comment on above: Performed By: #### L 500.2500, L100.0100 ####[facility] [address] [place], [address] Erythrocyte distribution width (RBC) [Ratio] 13.5 % Normal 11.6-14.6 [facility] Comment on above: Performed By: #### L 500.2500, L100.0100 ####[facility] [address] [place], [address] Hematocrit (Bld) [Volume fraction] 44.4 % Normal 40-54 [facility] Comment on above: Performed By: #### L 500.2500, L100.0100 ####[facility] [address] [place], [address] Hemoglobin (Bld) [Mass/Vol] 14.8 g/dL Normal 13.0-16.5 [facility] Comment on above: Performed By: #### L 500.2500, L100.0100 ####[facility] [address] [place], [address] IG% 0.400 Normal 0.0-0.9 [facility] Comment on above: Result Comment: IG% - Immature Granulocytes (promyelocytes, myelocytes and metamyelocytes) > 1% indicates that a LEFT SHIFT is Present. Performed By: #### L 500.2500, L100.0100 ####[facility] [address] [place], [address] Lymphocytes/100 WBC (Bld) 11.9 % Low 19-41 [facility] Comment on above: Performed By: #### L 500.2500, L100.0100 ####[facility] [address] [place], [address] MCH (RBC) [Entitic mass] 33.0 pg High 27.0-32.0 [facility] Comment on above: Performed By: #### L 500.2500, L100.0100 ####[facility] [address] [place], [address] MCHC (RBC) [Mass/Vol] 33.3 g/dL Normal 32-36 [facility] Comment on above: Performed By: #### L 500.2500, L100.0100 ####[facility] [address] [place], [address] MCV (RBC) [Entitic vol] 99.1 fL High 80-94 [facility] Comment on above: Performed By: #### L 500.2500, L100.0100 ####[facility] [address] [place], [address] Monocytes/100 WBC (Bld) 10.1 % High 0-10 [facility] Comment on above: Performed By: #### L 500.2500, L100.0100 ####[facility] [address] [place], [address] Neutrophils/100 WBC (Bld) 76.6 % High 47-70 [facility] Comment on above: Performed By: #### L 500.2500, L100.0100 ####[facility] [address] [place], [address] Nucleated RBC (Bld) [#/Vol] 0 10*3/uL Normal 0-5 [facility] Comment on above: Performed By: #### L 500.2500, L100.0100 ####[facility] [address] [place], [address] Platelet mean volume (Bld) [Entitic vol] 10.2 fL Normal 6.2-12.0 [facility] Comment on above: Performed By: #### L 500.2500, L100.0100 ####[facility] [address] [place], [address] Platelets (Bld) [#/Vol] 231 10*3/uL Normal 150-450 [facility] Comment on above: Performed By: #### L 500.2500, L100.0100 ####[facility] [address] [place], [address] RBC (Bld) [#/Vol] 4.48 10*6/uL Low 4.6-6.2 [facility] Comment on above: Performed By: #### L 500.2500, L100.0100 ####[facility] [address] [place], [address] RDW SD 49.5 fl High 35.1-43.9 [facility] Comment on above: Performed By: #### L 500.2500, L100.0100 ####[facility] [address] [place], [address] WBC (Bld) [#/Vol] 11.4 10*3/uL High 4.4-11.0 [facility] Comment on above: Performed By: #### L 500.2500, L100.0100 ####[facility] [address] [place], [address] CBC panel Auto (Bld)on 08-05 Erythrocyte distribution width (RBC) [Ratio] 13.6 % Normal 11.5-15.0 [facility] Comment on above: Order Comment: Speci men Type: BLOOD SPECIMEN Ordering Facility: [facility] Address: [address] [place] [address] Performed By: #### 5 8410-2 #### [facility] CLIA [id number] [address] [place] [address] [place] Hematocrit (Bld) [Volume fraction] 41.7 % Normal 39.0-51.0 [facility] Comment on above: Order Comment: Speci men Type: BLOOD SPECIMEN Ordering Facility: [facility] Address: [address] [place] [address] Performed By: #### 5 8410-2 #### [facility] CLIA [id number] [address] [place], [place] [address] [place] Hemoglobin (Bld) [Mass/Vol] 13.9 g/dL Normal 13.0-17.0 [facility] Comment on above: Order Comment: Speci men Type: BLOOD SPECIMEN Ordering Facility: [facility] Address: [address] [place] [address] Performed By: #### 5 8410-2 #### [facility] CLIA [id number] [address] [place] [address] [place] MCH (RBC) [Entitic mass] 33.1 pg Normal 26.0-34.0 [facility] Comment on above: Order Comment: Speci men Type: BLOOD SPECIMEN Ordering Facility: [facility] Address: [address] [place] [address] Performed By: #### 5 8410-2 #### [facility] CLIA [id number] [address] [place] [address] [place] MCHC (RBC) [Mass/Vol] 33.3 g/dL Normal 30.5-36.0 [facility] Comment on above: Order Comment: Speci men Type: BLOOD SPECIMEN Ordering Facility: [facility] Address: [address] [place] [address] Performed By: #### 5 8410-2 #### [facility] CLIA [id number] [address] [place] [address] [place] MCV (RBC) [Entitic vol] 99.3 fL Normal 80.0-100.0 [facility] Comment on above: Order Comment: Speci men Type: BLOOD SPECIMEN Ordering Facility: [facility] Address: [address] [place] [address] Performed By: #### 5 8410-2 #### [facility] CLIA [id number] [address] [place] [address] [place] Nucleated RBC (Bld) [#/Vol] 10*3/uL Normal <0.01 [facility] Comment on above: Order Comment: Speci men Type: BLOOD SPECIMEN Ordering Facility: [facility] Address: [address] [place] [address] Performed By: #### 5 8410-2 #### [facility] CLIA [id number] [address] [place] [address] [place] Platelet mean volume (Bld) [Entitic vol] 10.2 fL Normal 9.0-12.7 [facility] Comment on above: Order Comment: Speci men Type: BLOOD SPECIMEN Ordering Facility: [facility] Address: [address] [facility] [place] [address] Performed By: #### 5 8410-2 #### [facility] CLIA [id number] [address] [place], [place] [address] [place] Platelets (Bld) [#/Vol] 190 10*3/uL Normal 150-400 [facility] Comment on above: Order Comment: Speci men Type: BLOOD SPECIMEN Ordering Facility: [facility] Address: [address] [place], [place] [address] Performed By: #### 5 8410-2 #### [facility] CLIA [id number] [address] [place], [place] [address] [place] RBC (Bld) [#/Vol] 4.20 10*6/uL Normal 4.20-6.00 [facility] Comment on above: Order Comment: Speci men Type: BLOOD SPECIMEN Ordering Facility: [facility] Address: [address] [place], [place] [address] Performed By: #### 5 8410-2 #### [facility] CLIA [id number] [address] [place], [place] [address] [place] WBC (Bld) [#/Vol] 12.51 10*3/uL High 3.70-11.00 [facility] Comment on above: Order Comment: Speci men Type: BLOOD SPECIMEN Ordering Facility: [facility] Address: [address] [place] [address] Performed By: #### 5 8410-2 #### [facility] CLIA [id number] [address] [place], [place] [address] [place] Carbon dioxide, total [Moles /volume] in Central venous bloodOrdered By: Claude Jiménez on 08-05-2024 CO2 [Moles/Vol] 23.7 mmol/L 21.0-32.0 [facility] Chest 1 View (Portable)on Chest 1 View (Portable) [facility] Imaging Services [address] [place] [address] Chest 1 View (Portable) MR#: [id number] Acct: [id number] Name: NAHOMI JARAMILLO Rep #: [id number] : 1950 M 74 From: Monalisa Borja PCP: Dr. Danilo Donis MD Status: REG ER Study: Chest 1 View (Portable) Date of Exam: 08/05/24 Exam# [id number] Ordering Dr: Claude Jiménez MD PROCEDURE: CHEST 1 VIEW (PORTABLE) 08/05/2024 REASON FOR EXAM: STATUS POST CHEST TUBE PLACEMENT TECHNIQUE: Frontal view of the chest. COMPARISON: Chest x-ray of earlier on 08/05/2024. RAD/Chest 1 View (Portable) IMPRESSION: Interval placement of a right chest tube, with only a small residual pneumothorax now seen. Areas of mild atelectasis remain on the right. No left-sided pneumothorax is seen. No significant pleural fluid collection is evident. No evidence of pulmonary edema. The cardiomediastinal silhouette is stable, with a tortuous aorta noted; no evidence of cardiomegaly. Reading Location: [address] CC: Dr. Claude Jiménez MD; Dr. Danilo Donis MD Collateral Analyst: Signed Normal [facility] Chest without Contraston Chest without Contrast [facility] Imaging Services [address] [place], [place] [address] Chest without Contrast MR#: [id number] Acct: [id number] Name: NAHOMI JARAMILLO Rep #: [id number] : 1950 M 74 From: Alfred Coleman MD PCP: Dr. Danilo Donis MD Status: REG ER Study: Chest without Contrast Date of Exam: 08/05/24 Exam# [id number] Ordering Dr: Claude Jiménez MD PROCEDURE: CHEST WITHOUT CONTRAST 08/05/2024 REASON FOR EXAM: EVALUATE FOR RIB FRACTURES AND PULMONARY CONTUSION TECHNIQUE: Contiguous axial scans of mm slice thicknesses. Sagittal and coronal reconstruction images were obtained. One or more dose reduction techniques were used (e.g., automated exposure control, adjustment of mA and/or kv according to patient size, use of iterative reconstruction technique). RADIATION DOSE SUMMARY: DLP: 610.72 mGycm COMPARISON: Ribs and chest dated 08/05/2024. FINDINGS: Lungs and Airways: Hypoventilatory changes are noted in the bilateral lungs. Areas of ground-glass opacification are noted in the right upper lobe. Pleura: Interval insertion of a large caliber right chest tube. No significant residual pneumothorax following chest tube insertion. Heart: Normal heart size. No pericardial effusion. Pericardium: No thickening. Coronary arteries: Coronary artery calcifications. Thoracic Aorta: Ascending aorta diameter measures 4.0 cm. Pulmonary Vessels: No dilatation or other abnormalities. Mediastinum: No mediastinal hilar or axillary lymphadenopathy. Thyroid:No nodules.. Upper Abdomen: At least 3 left renal cysts, largest measuring 4.4 cm. Bones: A few nondisplaced right rib fractures are redemonstrated. Soft tissues: Marked subcutaneous emphysema is noted along the right chest wall. CT/Chest without Contrast IMPRESSION: INTERVAL INSERTION OF A RIGHT LARGE CALIBER CHEST TUBES SINCE THE PREVIOUS STUDY WITH RE-EXPANSION OF THE RIGHT LUNG. AREAS OF GROUND-GLASS OPACIFICATION AND HYPOVENTILATORY CHANGES WITH AREAS OF SUBSEGMENTAL ATELECTASIS. ASSOCIATED SUBCUTANEOUS EMPHYSEMA INVOLVING THE RIGHT CHEST WALL EXTENDING TO THE BASE OF THE NECK. LEFT RENAL CYSTS. Reading Location: [place] [address] CC: Dr. Claude Jiménez MD; Dr. Danilo Donis MD Collateral Analyst: Signed Normal [facility] Chloride assayOrdered By: Anabel Jiménez on 08-05-2024 Chloride [Moles/Vol] 102 mmol/L 98-108 [facility] Comprehensive metabolic 2000 panelon 08-05-2024 Albumin [Mass/Vol] 3.9 g/dL Normal 3.2-5.0 [facility] Comment on above: Order Comment: Speci men Type: BLOOD SPECIMEN Ordering Facility: [facility] Address: [address] [place] [address] Performed By: #### 2 4323-8, 3040-3, 5643-2 #### [facility] CLIA [id number] [address] [place] [address] [place] ALP [Catalytic activity/Vol] 78 U/L Normal 45-117 [facility] Comment on above: Order Comment: Speci men Type: BLOOD SPECIMEN Ordering Facility: [facility] Address: [address] [place] [address] Performed By: #### 2 4323-8, 3040-3, 5643-2 #### [facility] CLIA [id number] [address] [place], [place] [address] [place] ALT [Catalytic activity/Vol] 23 U/L Normal 13-61 [facility] Comment on above: Order Comment: Speci men Type: BLOOD SPECIMEN Ordering Facility: [facility] Address: [address] [place] [address] Result Comment: Resu lts may be falsely depressed after the administration of Sulfasalazine and/or Sulfapyridine. Performed By: #### 2 4323-8, 3040-3, 5643-2 #### [facility] CLIA [id number] [address] [place] [address] [place] [facility] Anion gap [Moles/Vol] 10 mmol/L Normal 5-16 [facility] Comment on above: Order Comment: Breannai jeniffer Type: BLOOD SPECIMEN Ordering Facility: [facility] Address: [address] [place] [address] Performed By: #### 2 4323-8, 3040-3, 5643-2 #### [facility] CLIA [id number] [address] [place], [place] [address] [place] AST [Catalytic activity/Vol] 23 U/L Normal 8-34 [facility] Comment on above: Order Comment: Speci men Type: BLOOD SPECIMEN Ordering Facility: [facility] Address: [address] [place] [address] Result Comment: Resu lts may be falsely depressed after the administration of Sulfasalazine and/or Sulfapyridine. Performed By: #### 2 4323-8, 3040-3, 5643-2 #### [facility] CLIA [id number] [address] [place] [address] [place] Bilirubin [Mass/Vol] 0.7 mg/dL Normal 0.2-1.0 [facility] Comment on above: Order Comment: Speci men Type: BLOOD SPECIMEN Ordering Facility: [facility] Address: [address] [place] [address] Performed By: #### 2 4323-8, 0-3, 5643-2 #### [facility] CLIA [id number] [address] [place], [place] [address] [place] Calcium [Mass/Vol] 8.7 mg/dL Normal 8.5-10.5 [facility] Comment on above: Order Comment: Speci men Type: BLOOD SPECIMEN Ordering Facility: [facility] Address: [address] [place] [address] Performed By: #### 2 4323-8, 0-3, 5643-2 #### [facility] CLIA [id number] [address] [place] [address] [place] Chloride [Moles/Vol] 101 mmol/L Normal 98-107 [facility] Comment on above: Order Comment: Speci men Type: BLOOD SPECIMEN Ordering Facility: [facility] Address: [address] [place] [address] Performed By: #### 2 4323-8, 3039-3, 5643-2 #### [facility] CLIA [id number] [address] [place], [place] [address] [place] CO2 [Moles/Vol] 28 mmol/L Normal 21-32 [facility] Comment on above: Order Comment: Speci men Type: BLOOD SPECIMEN Ordering Facility: [facility] Address: [address] [place] [address] Performed By: #### 2 4323-8, 3040-3, 5643-2 #### [facility] CLIA [id number] [address] [place], [place] [address] [place] Creatinine [Mass/Vol] 1.01 mg/dL Normal 0.50-1.40 [facility] Comment on above: Order Comment: Speci men Type: BLOOD SPECIMEN Ordering Facility: [facility] Address: [address] [place] [id number] Result Comment: Ele ents receiving either N-Acetylcysteine (NAC) or Metamizole prior to venipuncture, may have falsely depressed results. Performed By: #### 2 4323-8, 3040-3, 5643-2 #### [facility] CLIA [id number] [address] [place] [address] [place] Creatinine and Glomerular filtration rate.predicted panel (S/P/Bld) 77 mL/min/1.73m??? Normal >=60 [facility] Comment on above: Order Comment: Tita swift Type: BLOOD SPECIMEN Ordering Facility: [facility] Address: [address] [place] [address] Result Comment: Bhargavi mated Glomerular Filtration Rate (eGFR) is calculated using the 2020 CKD-EPI creatinine equation. This equation utilizes serum creatinine, sex, and age as parameters. The creatinine assay has traceable calibration to isotope dilution-mass spectrometry. Refer to KDIGO guidelines for clinical interpretation. In patients with unstable renal function, e.g. those with acute kidney injury, the eGFR may not accurately reflect actual GFR. Performed By: #### 2 4323-8, 3040-3, 5643-2 #### [facility] CLIA [id number] [address] [place], [place] [address] [place] Glucose [Mass/Vol] 116 mg/dL High 70-100 [facility] Comment on above: Order Comment: Tita swift Type: BLOOD SPECIMEN Ordering Facility: [facility] Address: [address] [place] [address] Result Comment: The [place] Diabetes Association (ADA) provides guidance for cutoff [...] Standards of Medical Care in Diabetes 2016, [place] [employer]. Diabetes Care. 2016.39(Suppl 1). Results may be falsely elevated after the administration of Sulfapyridine. Results may be falsely depressed after the administration of Sulfasalazine. Performed By: #### 2 4323-8, 0-3, 5643-2 #### [facility] CLIA [id number] [address] [place], [place] [address] [place] Potassium [Moles/Vol] 4.6 mmol/L Normal 3.5-5.1 [facility] Comment on above: Order Comment: Speci men Type: BLOOD SPECIMEN Ordering Facility: [facility] Address: [address] [place] [address] Performed By: #### 2 4323-8, 0-3, 5643-2 #### [facility] CLIA [id number] [address] [place] [address] [place] Protein [Mass/Vol] 6.8 g/dL Normal 6.0-8.5 [facility] Comment on above: Order Comment: Speci men Type: BLOOD SPECIMEN Ordering Facility: [facility] Address: [address] [place] [address] Performed By: #### 2 4323-8, 3039-3, 5643-2 #### [facility] CLIA [id number] [address] [place] [address] [place] Sodium [Moles/Vol] 139 mmol/L Normal 136-145 [facility] Comment on above: Order Comment: Speci men Type: BLOOD SPECIMEN Ordering Facility: [facility] Address: [address] [place] [address] Performed By: #### 2 4323-8, 0-3, 5643-2 #### [facility] CLIA [id number] [address] [place], [place] [address] [place] Urea nitrogen [Mass/Vol] 23 mg/dL Normal 7-26 [facility] Comment on above: Order Comment: Speci men Type: BLOOD SPECIMEN Ordering Facility: [facility] Address: [address] [place] [address] Performed By: #### 2 4323-8, 3040-3, 5643-2 #### [facility] CLIA [id number] [address] [place] [address] [facility] ED NOTEon 08-05-2024 ED NOTE HNO ID: [id number] Author: NIC MOSCOSO, RN Service: Emergency Medicine Author Type: Registered Nurse Type: ED Notes Filed: 08/05/2024 18:13 Note Text: Boxed lunch given Normal [facility] ED PROV NOTEon 08-05-2024 ED PROV NOTE HNO ID: [id number] Author: RISHI PERKINS DO Service: ? Author Type: Physician Type: ED Provider Notes Filed: 08/05/2024 18:06 Note Text: ED Provider Note Patient Name: Nahomi Jaramillo : 1950 SERVICE DATE: 08/05/24 History Patient presents with: pneumothorax: Pt had a fall over a wheelbarrel yesterday, found to have a pneumothorax at [facility], 28 FR chest tube insterted to right chest wall, right sided rib fx, takes daily ASA. The patient is a 74-year-old male who presents to the emergency department for treatment of a pneumothorax. He was at outside hospital and had chest tube placed for this. Patient states that he fell while using a wheelbarrow whenever it tipped over. He landed on his side going down 2 steps. He was having persistent right sided chest pain and went to the emergency department today. He denies hitting his head or losing consciousness. No neck or back pain. No abdominal pain. No injury to lower extremities and has been ambulating without issue. He does take daily aspirin but denies any blood thinning medications. PAST MEDICAL HISTORY Diagnosis Date Aortic valve [...] PFRMD 11/29/2017 Colonoscopy LAPAROSCOPIC RADICAL PROSTATECTOMY 07/09/13 FAMILY HISTORY Problem Relation Age of Onset other (CHF) Mother other (CHF) Father other (stomache cancer) Paternal Grandmother other (skin ca) Maternal Grandfather Social History Tobacco Use Smoking status: Never Smokeless tobacco: Never Substance and Sexual Activity Alcohol use: No Drug use: No Sexual activity: Not on file ALLERGIES Allergen Reactions Penicillin Rash, Itching Review of Systems Physical Exam Vitals [08/05/24 1724] BP Pulse Temp Temp src Resp SpO2 Weight Height 132/76 58 36.7 ?C (98.1 ?F) Oral 18 98 % 78 kg (172 lb) 1.727 m (5' 8) Physical Exam Vitals and nursing note reviewed. Constitutional: General: He is not in acute distress. Appearance: Normal appearance. He is not ill-appearing. HENT: Head: Normocephalic and atraumatic. Mouth/Throat: Mouth: Mucous membranes are moist. Eyes: Extraocular Movements: Extraocular movements intact. Pupils: Pupils are equal, round, and reactive to light. Cardiovascular: Rate and Rhythm: Normal rate and regular rhythm. Heart sounds: No murmur heard. Pulmonary: Effort: Pulmonary effort is normal. No respiratory distress. Breath sounds: Normal breath sounds. Comments: Right sided lateral chest tube in place. Abdominal: General: There is no distension. Palpations: Abdomen is soft. Tenderness: There is no abdominal tenderness. Musculoskeletal: General: No tenderness. Normal range of motion. Cervical back: Normal range of motion and neck supple. Right lower leg: No edema. Left lower leg: No edema. Comments: No midline spine tenderness. 5 out of 5 muscle strength and range of motion in all 4 extremities. Skin: General: Skin is warm and dry. Capillary Refill: Capillary refill takes less than 2 seconds. Findings: No rash. Neurological: General: No focal deficit present. Mental Status: He is alert and oriented to person, place, and time. Mental status is at baseline. Diagnostic Testing ED Labs Ordered and Reviewed - No data to display Procedures ED Course / Clinical Impression Clinical Impressions as of 08/05/24 1806 Pneumothorax Closed fracture of multiple ribs of right side, initial encounter MDM / Disposition / Plan The patient presents to the emergency department for pneumothorax with chest tube placed. I did review outside hospital CT scan which did show rib fractures of 8, 9 and 10 on the right side with associated pneumothorax. Repeat x-ray here shows reexpansion of the lung. He otherwise is satting well on room air. Hemodynamically stable. Trauma lab testing is being obtained we will admit for further workup and evaluation. Currently patient's pain is well-controlled. He is agreeable with plan. Patient did have incentive spirometer obtained and okay for general nursing floor. Management Management of the patient was discussed with:admitting team SIGNATURE: DO Ольга Price JOSEPH 08/05/24 4439 [facility] Emergency Department Summary on 08-05-2024 Emergency Department Summary [facility] Medical Records Department [address] [place] [address] Emergency Department Summary 08/05/24 MR#: [id number] Acct: [id number] Name: NAHOMI JARAMILLO Rep #: [id number] : 1950 74 From: Claude Jiménez MD PCP: Dr. Danilo Donis MD Status:REG ER Location: ED HPI History of Present Illness Chief Complaint: Chest Other Detail of Chief Complaint: Pain right flank area due to blunt trauma Informant: patient and family Onset/Context/Timing Onset: Yesterday Mechanism/Context: Blunt Injury Location of pain/injuries: - (Right flank area) Quality of Pain: Aching Location: Of right flank Current Severity: Mild Maximum Severity: Severe Worsened by: Certain movements Relieved by: Nothing Associated Symptoms Associated Symptoms: Positive for - (Complains of shortness of breath); Negative for Parasthesias, Weakness, Loss of function, Inability to ambulate, Loss of consciousness or Amnesia Narrative Narrative: Patient is a 74-year-old male. He is on a baby aspirin. He is on no other antithrombotic and on no anticoagulant. He was lifting a bag of rocks out of his wheelbarrow. Wheelbarrow began to tap. He attempted to prevent it from tipping and was thrown to the ground. He complains of pain that he localizes to the right flank area. He had no dark-colored urine. He does complain of shortness of breath. Certain movements make the pain very severe. He denies head trauma. He denies neck pain. He denies paresthesia, anesthesia or motor weakness upper or lower extremity. Prior similar symptoms: No Recent Illness/Hospitalizat ion: No PFSH PFSH Medical History (Updated 08/05/24 @ 14:[address] Claude Jiménez MD) Non-rheumatic aortic regurgitation Kidney stone History of prostate cancer Non-rheumatic mitral regurgitation TALI on CPAP Paroxysmal atrial fibrillation Systolic murmur Hyperlipidemia Benign prostate hyperplasia Home Medications ???Medication ???Instructions ???Recorded ???Last Taken ???Type aspirin 81 mg tablet,delayed 81 mg PO DAILY@0800 07/01/1308/04 History release pravastatin 40 mg tablet 40 mg PO QHS #90 TABLETS 06/29/23 08/04/24 Rx metoprolol tartrate 25 mg tablet 12.5 mg (1/2 x 25 mg) PO DAILY 08/05/24 Rx Cardiac Arrhythmia #30 tabs flecainide 100 mg tablet See Rx Instructions .Route 5 08/05/24 Rx .COMPLEX #180 tabs ibuprofen 200 mg tablet (Advil) 400 mg PO Q6H PRN fever or pain 08/05/24 History Allergy/AdvReac Type Severity Reaction Status Date / Time Penicillins (PCN) Allergy Hives Verified 08/05/24 09:27 Family History Mother Congestive heart failure Father Heart disease Heart valve disease Grandmother Cancer stomach Surgical History History of radical prostatectomy Social History Smoking Status: Never smoker alcohol intake: never substance use type: does not use caffeine: Yes Type: coffee Number of servings: 4 ROS ROS ED Constitutional Constitutional ED: Denies chills or fever(s) Eyes Eyes: Denies blurry vision or change in vision Cardiovascular Cardiovascular: Denies chest pain or paroxysmal nocturnal dyspnea Respiratory/Chest Respiratory/Chest: Reports dyspnea and dyspnea on exertion; Denies cough or paroxysmal nocturnal dyspnea Gastrointestinal Gastrointestinal: Denies abdominal pain, nausea or vomiting Genitourinary Genitourinary ED: Denies hematuria Musculoskeletal Musculoskeletal: Reports other Details: Right flank pain Integumentary Denies rash Hematologic/Lymphati c Hematologic/Lymphati c: Denies easy bleeding or easy bruising EXAM Physical Exam Const Vital Signs: 08/05/24 09:27 08/05/24 09:59 08/05/24 13:27 Temperature 98.1 F Temperature Source Oral Pulse Rate 58 L 49 L Respiratory Rate 19 H 18 Respiratory Effort Normal Blood Pressure 110/81 H 130/88 H Blood Pressure Mean 90 102 Pulse Ox 97 98 Oxygen Delivery Method Room Air Room Air Positive well nourished and well developed General Appearance ED: well developed HEENT HEENT Narrative: Ears normal. Nares patent. No clinical findings of basilar skull fracture. atraumatic Nose: Negative for septum abnormal Eyes PERRL and EOMs intact bilaterally General Eye ED: Yes other Other Details: No subconjunctival hemorrhage Neck full ROM General: Negative for tenderness Chest Wall inspection of chest normal and palpation of chest normal Chest Narrative: There is pain outpatient over the 10th rib. There is no subcutaneous air or crepitus appreciated. Patient does splint with deep breathing. Resp normal respiratory effort and clear to auscultation bilaterally Effort (more content not included)... Normal [facility] Eosinophil percentageOrdered By: [facility] on 08-05-2024 Eosinophils/100 WBC (Bld) 0.7 % 0-5 [facility] Erythrocyte distribution wid th ratioOrdered By: [facility] on 08-05-2024 Erythrocyte distribution width (RBC) [Ratio] 13.5 % 11.6-14.6 [facility] Erythrocyte distribution wid th standard deviationOrdered By: [facility] on 08-05-2024 Erythrocyte distribution width (RBC) [Ratio] 49.5 fl High 35.1-43.9 [facility] Ethanol SerPl-mCncon 025 Ethanol [Mass/Vol] mg/dL Normal <0.010 [facility] Comment on above: Order Comment: Speci men Type: BLOOD SPECIMEN Ordering Facility: [facility] Address: [address] [place] [address] Performed By: #### 2 4323-8, 3040-3, 5643-2 #### [facility] CLIA [id number] [facility] [place] [address] [place] Glomerular filtration rate ( GFR) estimation/1.73 sq m using serum, plasma, or whole bOrdered By: Claude Jiménez on 08-05-2024 GFR/1.73 sq M.predicted among non-blacks MDRD (S/P/Bld) [Vol rate/Area] 58 mL/min/{1.73_m2} Low >60 [facility] Comment on above: mL/min/1.73m2 CKD-EP I Creatinine Equation (2020) Hematocrit Auto (Bld) [Volum e fraction]Ordered By: Claude Jiménez on 08-05-2024 Hematocrit (Bld) [Volume fraction] 44.4 % 40-54 [facility] Hemoglobin measurementOrdere d By: Claude Jiménez on 08-05-2024 Hemoglobin (Bld) [Mass/Vol] 14.8 g/dL 13.0-16.5 [facility] Immature granulocytes/100 WB C Auto (Bld)Ordered By: Claude Jiménez on 08-05-2024 Immature granulocytes/100 WBC (Bld) 0.400 % 0.0-0.9 [facility] Comment on above: IG% - Immature Granu locytes (promyelocytes, myelocytes and metamyelocytes) > 1% indicates that a LEFT SHIFT is Present. Lipase SerPl-cCncon 08-06-19 25 Lipase [Catalytic activity/Vol] 29 U/L Normal 12-60 [facility] Comment on above: Order Comment: Speci men Type: BLOOD SPECIMEN Ordering Facility: [facility] Address: [address] [place] [address] Performed By: #### 2 4323-8, 3040-3, 5643-2 #### [facility] CLIA [id number] [address] [place], [place] [id number] [place] MCV (mean corpuscular volume ) determinationOrdered By: Claude Jiménez on 08-05-2024 MCV (RBC) [Entitic vol] 99.1 fL High 80-94 [facility] Mean corpuscular hemoglobin (MCH) determinationOrdered By: Claude Jiménez on 08-05-2024 MCH (RBC) [Entitic mass] 33.0 pg High 27.0-32.0 [facility] Mean corpuscular hemoglobin concentration (MCHC) determinationOrdered By: Claudekrista Jiménez on 08-05-2024 MCHC (RBC) [Mass/Vol] 33.3 g/dL 32-36 [facility] Mean platelet volume determi nationOrdered By: Claudekrista Jiménez on 08-05-2024 Platelet mean volume (Bld) [Entitic vol] 10.2 fL 6.2-12.0 [facility] Monocyte percentageOrdered B y: [facility] on 08-05-2024 Monocytes/100 WBC (Bld) 10.1 % High 0-10 [facility] Neutrophil percentageOrdered By: [facility] on 08-05-2024 Neutrophils/100 WBC (Bld) 76.6 % High 47-70 [facility] Nucleated red blood cell per centageOrdered By: [facility] on 08-05-2024 Nucleated RBC/100 WBC (Bld) [Ratio] 0 % 0-5 [facility] Platelet countOrdered By: [facility] Jiménez on 08-05-2024 Platelets (Bld) [#/Vol] 231 10*3/uL 150-450 [facility] Potassium measurement (mass/ volume)Ordered By: [facility] on 08-05-2024 Potassium (Unsp spec) [Mass/Vol] 4.8 mmol/L 3.3-5.1 [facility] RBC Auto (Bld) [#/Vol]Ordere d By: [facility] on 08-05-2024 RBC (Bld) [#/Vol] 4.48 10*6/uL Low 4.6-6.2 [facility] Ribs Uni Min 3V w/PA Cheston 08-05-2024 Ribs Uni Min 3V w/PA Chest [facility] Imaging Services [address] [place] [address] Ribs Uni Min 3V w/PA Chest MR#: [id number] Acct: [id number] Name: NAHOMI JARAMILLO Rep #: [id number] : 1950 M 74 From: Alfred Coleman MD PCP: Dr. Danilo Donis MD Status: [facility] ER Study: Ribs Uni Min 3V w/PA Chest Date of Exam: 08/05 Exam# [id number] Ordering Dr: Claude Jiménez MD PROCEDURE: RIBS UNI MIN 3V W/PA CHEST 08/05/2024 REASON FOR EXAM: DECREASED BREATH SOUNDS RIGHT WITH PAIN TO PALPATI TECHNIQUE: Upright PA chest image supplemented by for additional views of the right-sided ribs was obtained. COMPARISON: PA chest, 10/21/2021 FINDINGS: There is a large right-sided pneumothorax, with almost complete collapse of the lung and with displacement of the mediastinal structures to the left consistent with tension. There are acute fractures of the right 8th through 10th ribs. There is subcutaneous emphysema over the right lateral chest extending into the base of the neck. RAD/Ribs Uni Min 3V w/PA Chest IMPRESSION: 1. Large right-sided tension pneumothorax. 2. Multiple right-sided rib fractures with subcutaneous emphysema as described. Note: Findings were discussed with the emergency room physician in [place] on the morning of 08/05/2024 at 10:15 a.m. Reading Location: [place] [address] CC: Dr. Claude Jiménez MD; Dr. Danilo Donis MD Collateral Analyst: Signed Normal [facility] Serum creatinine measurement (mass/volume)Ordered By: Claude Jiménez on 08-05-2024 Creatinine [Mass/Vol] 1.28 mg/dL High 0.70-1.20 [facility] Serum glucose measurement (m ass/volume)Ordered By: Claude Jiménez on 08-05-2024 Glucose [Mass/Vol] 104 mg/dL High 70-99 [facility] Serum or plasma calcium radha urement (mass/volume)Ordered By: Claude Jiménez on 08-05-2024 Calcium [Mass/Vol] 9.6 mg/dL 7.6-11.0 [facility] Serum or plasma urea nitroge n measurement (mass/volume)Ordered By: Claude Jiménez on 08-05-2024 Urea nitrogen [Mass/Vol] 24 mg/dL High 4-19 [facility] Sodium levelOrdered By: Claude Jiménez on 08-05-2024 Sodium [Moles/Vol] 137 mmol/L 133-145 [facility] TYPE + SCREENon 08-05-2024 ABO A Normal [facility] Comment on above: Order Comment: Speci men Type: BLOOD SPECIMEN Ordering Facility: [facility] Address: [address] [place] [id number] Performed By: #### L [id number], TSCR #### [facility] CLIA [id number] [address] [place] [address] [place] Rh Nom (Bld) Positive Normal [facility] Comment on above: Order Comment: Speci men Type: BLOOD SPECIMEN Ordering Facility: [facility] Address: [address] [place] [address] [place] [address] Performed By: #### L [id number], TSCR #### [facility] CLIA [id number] [address] [place] [address] TYPE AND SCREEN EXPIRATION 08/08/2024 23:59 [facility] Comment on above: Order Comment: Speci men Type: BLOOD SPECIMEN Ordering Facility: [facility] Address: [address] [place] [address] Performed By: #### L [id number], TSCR #### [facility] CLIA [id number] [address] [place] [address] [place] Urinalysis, Completeon 08-05 BACTERIA Normal None Seen [facility] Comment on above: Order Comment: CLEAN CATCH Result Comment: PT D EPARTED ED Performed By: #### L 400.0001 ####[facility] [address] [place], [place], [id number] BILIRUBIN URINE Normal Negative [facility] Comment on above: Order Comment: CLEAN CATCH Result Comment: PT D EPARTED ED Performed By: #### L 400.0001 ####[facility] [address] [place], [place], [id number] Clarity (U) Normal Clear [facility] Comment on above: Order Comment: CLEAN CATCH Result Comment: PT D EPARTED ED Performed By: #### L 400.0001 ####[facility] [address] [place], [address] Color (U) Normal Yellow [facility] Comment on above: Order Comment: CLEAN CATCH Result Comment: PT D EPARTED ED Performed By: #### L 400.0001 ####[facility] [address] [place], [address] EPI,SQUAMOUS Normal 0-5 [facility] Comment on above: Order Comment: CLEAN CATCH Result Comment: PT D EPARTED ED Performed By: #### L 400.0001 ####[facility] [address] [place], [address] GLUCOSE, UR Normal Normal [facility] Comment on above: Order Comment: CLEAN CATCH Result Comment: PT D EPARTED ED Performed By: #### L 400.0001 ####[facility] [address] [place], [address] KETONE UR Normal Negative [facility] Comment on above: Order Comment: CLEAN CATCH Result Comment: PT D EPARTED ED Performed By: #### L 400.0001 ####[facility] [address] [place], [address] LEUK ESTERASE Normal Negative [facility] Comment on above: Order Comment: CLEAN CATCH Result Comment: PT D EPARTED ED Performed By: #### L 400.0001 ####[facility] [address] [place], [address] Mucus Ql (Urine sed) Normal [facility] Comment on above: Order Comment: CLEAN CATCH Result Comment: PT D EPARTED ED Performed By: #### L 400.0001 ####[facility] [address] [place], [address] Nitrite Ql (U) Normal Negative [facility] Comment on above: Order Comment: CLEAN CATCH Result Comment: PT D EPARTED ED Performed By: #### L 400.0001 ####[facility] [address] [place], [address] OCCULT BLOOD-UR Normal Negative [facility] Comment on above: Order Comment: CLEAN CATCH Result Comment: PT D EPARTED ED Performed By: #### L 400.0001 ####[facility] [address] [place], [address] pH UR Normal 5.0 - 8.0 [facility] Comment on above: Order Comment: CLEAN CATCH Result Comment: PT D EPARTED ED Performed By: #### L 400.0001 ####[facility] [address] [place], [address] PROT DIPSTX Normal Negative [facility] Comment on above: Order Comment: CLEAN CATCH Result Comment: PT D EPARTED ED Performed By: #### L 400.0001 ####[facility] [address] [place], [address] RBC Normal 0-5 [facility] Comment on above: Order Comment: CLEAN CATCH Result Comment: PT D EPARTED ED Performed By: #### L 400.0001 ####[facility] [address] [place], [address] SP.GR. DIPSTX Normal 1.002-1.030 [facility] Comment on above: Order Comment: CLEAN CATCH Result Comment: PT D EPARTED ED Performed By: #### L 400.0001 ####[facility] [address] [place], [address] UR Preservative Normal [facility] Comment on above: Order Comment: CLEAN CATCH Result Comment: PT D EPARTED ED Performed By: #### L 400.0001 ####[facility] [address] [place], [address] UROBILI Normal Normal [facility] Comment on above: Order Comment: CLEAN CATCH Result Comment: PT D EPARTED ED Performed By: #### L 400.0001 ####[facility] [address] [place], [address] WBC Normal 0-5 [facility] Comment on above: Order Comment: CLEAN CATCH Result Comment: PT D EPARTED ED Performed By: #### L 400.0001 ####[facility] [address] [place], [address] White blood cell (WBC) count Ordered By: Claude Jiménez on 08-05-2024 WBC (Bld) [#/Vol] 11.4 10*3/uL High 4.4-11.0 [facility] XR CHEST 1V FRONTAL PORTon 0 08-05-2024 XR CHEST 1V FRONTAL PORT * * *Final Repo rt* * * DATE OF EXAM: Aug 05 2024 5:59PM RHX [id number] - XR CHEST 1V FRONTAL PORT / PROCEDURE REASON: Other * * * * Physician Interpretation * * * * EXAMINATION: CHEST RADIOGRAPH (PORTABLE SINGLE VIEW AP) Exam Date/Time: 08/05/2024 5:59 PM CLINICAL HISTORY: Other, PTX, chest tube placed MQ: XCPR_5 Comparison: 08/05/2024 RESULT: Lines, tubes, and devices: Right-sided chest tube in place with the tip projecting over the medial aspect of the mid right lung and the side port projecting over the lateral aspect of the mid to upper lung. Lungs and pleura: No pleural effusion. No discernible pneumothorax. There is some atelectasis or scarring in the right midlung and right lung base. Cardiomediastinal silhouette: Stable cardiomediastinal silhouette. Other: Subcutaneous emphysema in the right neck and chest wall . IMPRESSION: No discernible pneumothorax after chest tube placement. Collateral Analyst: PSCB Transcribe Date/Time: Aug 05 2024 7:06P Dictated by : KEVIN FRIEND MD This examination was interpreted and the report reviewed and electronically signed by: KEVIN FRIEND MD on Aug 05 2024 7:08PM EST [id number] [facility] Bilirubin directOrdered By: Deya Louise on 08-04-2024 Bilirubin.direct [Mass/Vol] 0.21 mg/dL 0.00-0.30 [facility] Bilirubin, totalOrdered By: Deya Louise on 08-04-2024 Bilirubin [Mass/Vol] 0.47 mg/dL 0.00-1.30 [facility] Calculated very low density lipoprotein (VLDL) cholesterol measurementOrdered By: Deya Louise on 08-04-2024 Calculated very low density lipoprotein (VLDL) cholesterol measurement 16 mg/dL 5-40 [facility] LDL calc ser/plasOrdered By: Deya Louise on 08-04-2024 Cholesterol in LDL [Mass/Vol] 76 mg/dL [facility] Comment on above: Diwotjzqzz=593-750 m g/dL & Higher Kzvr=158 mg/dL or greater Laboratory - Chemistry and C hemistry - challengeOrdered By: Deya Louise on 08-04-2024 AST [Catalytic activity/Vol] 22 U/L <38 [facility] Lipid Profileon 08-04-2024 CHOL:HDL 2.74 Normal [facility] Comment on above: Performed By: #### L 500.4100, L500.3400 #### [facility] [address] [facility] [id number] (512) Cholesterol [Mass/Vol] 144 mg/dL Normal <=200 [facility] Comment on above: Result Comment: Chol esterol level, Desirable <200 mg/dL Borderline high cholesterol 200-239 mg/dL High cholesterol >=240 mg/dL Recommendations of the NCEP Adult Treatment Panel for the following risk-cutoff thresholds for the [place] population. Performed By: #### L 500.4100, L500.3400 #### [facility] [address] [facility]. [place], [place], [address] Cholesterol in HDL [Mass/Vol] 53 mg/dL Normal [facility] Comment on above: Result Comment: Juany onal Cholesterol Education Program (NCEP) guidelines: <40 mg/dL: Low HDL-cholesterol (major risk factor for CHD) >= 60 mg/dL: High HDL-cholesterol (negative risk factor for CHD) HDL-cholesterol is affected by a number of factors, e.g. smoking, exercise, hormones, sex and age. Performed By: #### L 500.4100, L500.3400 #### [facility] [address] [place], [address] Cholesterol in LDL [Mass/Vol] 76 mg/dL Normal [facility] Comment on above: Result Comment: Bord ivpudx=940-558 mg/dL Higher Rsmk=991 mg/dL or greater Performed By: #### L 500.4100, L500.3400 #### [facility] [address] [place], [address] Cholesterol in VLDL [Mass/Vol] 16 mg/dL Normal 5-40 [facility] Comment on above: Performed By: #### L 500.4100, L500.3400 #### [facility] [address] [place], [address] Triglyceride [Mass/Vol] 80 mg/dL Normal [facility] Comment on above: Result Comment: The drugs N-Acetylcysteine and Metamizole may falsely depress this assay. Normal range: <150 mg/dL Borderline High: 150-199 mg/dL High: 200-499 mg/dL Very High: >500 mg/dL Performed By: #### L 500.4100, L500.3400 #### [facility] [address] [place], [address] Liver Profileon 08-04-2024 Albumin [Mass/Vol] 4.3 g/dL Normal 3.4-4.8 [facility] Comment on above: Performed By: #### L 500.4100, L500.3400 #### [facility] [address] [place], [address] ALK PHOS 70 U/L Normal 40-129 [facility] Comment on above: Performed By: #### L 500.4100, L500.3400 #### [facility] [address] [place], [address] ALT [Catalytic activity/Vol] 22 U/L Normal <=46 [facility] Comment on above: Performed By: #### L 500.4100, L500.3400 #### [facility] [address] [place], [address] AST [Catalytic activity/Vol] 22 U/L Normal <=37 [facility] Comment on above: Performed By: #### L 500.4100, L500.3400 #### [facility] [address] [place], [address] Bilirubin [Mass/Vol] 0.47 mg/dL Normal 0.00-1.30 [facility] Comment on above: Performed By: #### L 500.4100, L500.3400 #### [facility] [address] [place], [address] Bilirubin.direct [Mass/Vol] 0.21 mg/dL Normal 0.00-0.30 [facility] Comment on above: Performed By: #### L 500.4100, L500.3400 #### [facility] [address] [place], [address] Globulin (S) [Mass/Vol] 2.7 g/dL Normal 2.2-4.2 [facility] Comment on above: Performed By: #### L 500.4100, L500.3400 #### [facility] [address] [place], [address] T PROT 7.0 g/dL Normal 5.9-8.4 [facility] Comment on above: Performed By: #### L 500.4100, L500.3400 #### [facility] [address] [place], [address] PSA,Total- Diagnosticon 06-0 2-2024 PSA, DIAGNOSTIC < 0.02 Normal 0.00-4.00 [facility] Comment on above: Result Comment: This [...] Performed By: #### L 501.9940 ####[facility] [address] [place], [address] Screening total cholesterol/ high density lipoprotein (HDL) cholesterol ratioOrdered By: Deya Loiuse on 08-04-2024 Cholesterol.total/Choles terol in HDL [Mass ratio] 2.74 {ratio} [facility] Serum globulin measurementOr dered By: Deya Louise on 08-04-2024 Globulin (S) [Mass/Vol] 2.7 g/dL 2.2-4.2 [facility] Serum or plasma alanine malloy otransferase (ALT) measurementOrdered By: Deya Louise on 08-04-2024 ALT [Catalytic activity/Vol] 22 U/L <47 [facility] Serum or plasma albumin radha urement (mass/volume)Ordered By: Deya Louise on 08-04-2024 Albumin [Mass/Vol] 4.3 g/dL 3.4-4.8 [facility] Serum or plasma alkaline christi sphatase measurementOrdered By: Deya Louise on 08-04-2024 ALP [Catalytic activity/Vol] 70 U/L 40-129 [facility] Serum or plasma cholesterol in HDL measurement (mass/volume)Ordered By: Deya Louise on 08-04-2024 Cholesterol in HDL [Mass/Vol] 53 mg/dL >40 [facility] Comment on above: National Cholesterol Education Program (NCEP) guidelines:<40 mg/dL: Low HDL-cholesterol (major risk factor for CHD)>= 60 mg/dL: High HDL-cholesterol (negative risk factor for CHD)HDL-cholesterol is affected by a number of factors, e.g. smoking, exercise, hormones, sex and age. Serum or plasma cholesterol measurement (mass/volume)Ordered By: Deya Louise on 08-04-2024 Cholesterol [Mass/Vol] 144 mg/dL <201 [facility] Comment on above: Cholesterol level, D esirable <200 mg/dLBorderline high cholesterol 200-239 mg/dLHigh cholesterol >=240 mg/dLRecommendations of the NCEP Adult Treatment Panel for the following risk-cutoff thresholds for the [place] population. Total proteinOrdered By: Pepe pamela Dani on 08-04-2024 Protein [Mass/Vol] 7.0 g/dL 5.9-8.4 [facility] Triglycerides measurementOrd ered By: Deya Dani on 08-04-2024 Triglyceride [Mass/Vol] 80 mg/dL <199 [facility] Comment on above: The drugs N-Acetylcy steine and Metamizole may falsely depress this assay. Normal range: <150 mg/dLBorderline High: 150-199 mg/dLHigh: 200-499 mg/dLVery High: >500 mg/dL Echo Completeon 03-03-2024 Echo Complete [facility] [address] [place] [address] Echo Complete 03/03/24 1109 MR#: [id number] Acct: [id number] Name: NAHOMI JARAMILLO Rep #: [id number] : 1950 73 From: Rogelio Myrick MD Attending Dr: Dr. Rogelio Myrick MD Status: KENRICK VILLALOBOS Ordering Dr: Rogelio Myrick MD Date: 03/03/24 Location: [facility] Sex: M C Admitted: Reason For Study: [...] cm2 RVDd: 3.8 cm FS: 55.5 % _ asc Aorta Diam: 3.5 cm LAV(MOD-bp): 53.9 ml LVAd ap4: 27.1 cm2 LAV(MOD-bp) Indexed: 27.7 ml/m2 LVLd ap4: 8.7 cm LAV(MOD-sp2): 58.4 ml EDV(MOD-sp4): 69.2 ml LAV(MOD-sp4): 49.4 ml EDV(sp4-el): 71.6 ml LVAs ap4: 12.7 cm2 LVLs ap4: 7.0 cm ESV(MOD-sp4): 20.8 ml ESV(sp4-el): 19.7 ml EF(MOD-sp4): 70.0 % EF(sp4-el): 72.5 % _ LVAd ap2: 27.5 cm2 SV(MOD-sp4): 48.5 ml SV(MOD-sp2): 52.1 ml LVLd ap2: 8.8 cm SI(MOD-sp4): 24.9 ml/m2 SI(MOD-sp2): 26.8 ml/m2 EDV(MOD-sp2): 72.0 ml EDV(sp2-el): 72.8 ml LVAs ap2: 12.6 cm2 LVLs ap2: 7.2 cm ESV(MOD-sp2): 19.9 ml ESV(sp2-el): 18.6 ml EF(MOD-sp2): 72.3 % _ SV(sp4-el): 51.9 ml Ao sinus diam: 3.[address] Junction: 2.9 cm _ LA dimension(2D): 3.7 cm LA A4 area: 18.3 cm2 RA A4 area: 17.6 cm2 _ TAPSE: 1.8 cm Time Measurements MV dec time: 0.29 sec Doppler Measurements Calculations MV E max valerie: 65.0 cm/sec Lat Peak E' Valerie: 9.7 cm/sec Med Peak E' Valerie: 6.8 cm/sec MV A max valerie: 75.6 cm/sec E/E' lat: 6.7 E/E' med: 9.6 MV E/A: 0.86 _ MV dec slope: 220.6 cm/sec2 Ao V2 max: 378.9 cm/sec AI max valerie: 364.6 cm/sec Ao max P.4 mmHg AI max P.2 mmHg Ao V2 mean: 289.1 cm/sec AI dec slope: 182.1 cm/sec2 Ao mean P.0 mmHg AI P1/2t: 586.5 msec Ao V2 VTI: 94.7 cm AV (velocity ratio): 0.27 SHARON(I,D): 0.80 cm2 SHARON(V,D): 0.80 cm2 _ LV V1 max: 100.6 cm/sec SV(LVOT): 75.8 ml PA V2 max: 90.6 cm/sec LV V1 max P.0 mmHg LV V1 mean P.6 mmHg LV V1 mean: 79.5 cm/sec LV V1 VTI: 25.2 cm _ PI end-d valerie: 97.7 cm/sec TR max valerie: 246.2 cm/sec TR max P.3 mmHg ECHO/Echo Complete Interpretation Summary Normal LV size. Left ventricular systolic function is normal. The left ventricular ejection fraction is 70 %. Stage 1 diastolic dysfunction. Mean aortic valve gradient 36 mmHg. Moderate to severe aortic stenosis. Ordering Physician: Rogelio Myrick Referring Physician: Rogelio Myrick MD Performed By: Myrtle Jeffries, [facility] 03/03/24 1350 Date Rogelio Myrick MD CC: Dr. Rogelio Myrick MD; Dr. Danilo Donis MD Date Dictated: 03/03/24 1109 Date Transcribed: 03/03/24 1350 Collateral Analyst: Signed [facility] 12 Lead EKG performed by [facility] on 02-19-2024 12 Lead EKG performed by [facility] [address] [place] [id number] 12 Lead EKG performed by [facility] 02/19/24 1459 MR#: [id number] Acct: [id number] Name: NAHOMI JARAMILLO Rep #: [id number] : 1950 73 From: Rogelio Myrick MD Attending Dr: Dr. Rogelio Myrick MD Status: DEP A MB Ordering Dr: Rogelio Myrick MD Date: 02/19/24 [place] [facility] [place] M C Admitted: [facility]12 Lead EKG performed by [facility] ECG Report Interpretation ------Sinus Bradycardia -First degree A-V block Es = 228-Inferior ST-elevation -possible repolarization variant -consider acute process. [employer]ORDER[employer] ally signed on 02/28/2024 at 09:55 by Rogelio Myrickwood [employer] Version [id number] 02/28/24 0956 Date Rogelio Myrick MD CC: Dr. Dainlo Donis MD Date Dictated: 02/19/241458 Date Transcribed: 02/19/241458 Collateral Analyst: [place] Signed Normal [facility] Cardiology Visit Reporton Cardiology Visit Report [facility] [address] [place] [address] OFFICE VISIT Date of Service: 02/19/24 MR#: [id number] Acct: [id number] Name: NAHOMI JARAMILLO Rep #: [id number] : 1950 Provider: Dr. 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 Normal [facility] LIPID PANEL (OUTSIDE)on 02-02 LDL:HDL Ratio [facility] Non-HDL Cholesterol [facility] TC:HDL Ratio [facility] VLDL Cholesterol 14 [facility] Lipid Profileon 02-19-2024 Cholesterol [Mass/Vol] 148 mg/dL Normal 200 [address] [facility] Comment on above: Result Comment: <200 mg/dL Desirable 200-240 mg/dL Borderline >240 mg/dL High Risk Performed By: #### L 500.3400, L500.4100 ####[facility] [address] [place], [address] Cholesterol in HDL [Mass/Vol] 61 mg/dL Normal [facility] Comment on above: Result Comment: The drugs N-Acetylcysteine and Metamizole may falsely depress this assay. Reference Range HDL <40 mg/dL Low HDL Cholesterol HDL >or= 60 mg/dL High HDL Cholesterol Performed By: #### L 500.3400, L500.4100 ####[facility] [address] [place], [address] Cholesterol in LDL [Mass/Vol] 73 mg/dL Normal 0-130 [facility] Comment on above: Performed By: #### L 500.3400, L500.4100 ####[facility] [address] [place], [address] Cholesterol in VLDL [Mass/Vol] 14 mg/dL Normal 5-40 [facility] Comment on above: Performed By: #### L 500.3400, L500.4100 ####[facility] [address] [place], [address] Triglyceride [Mass/Vol] 69 mg/dL [facility] Comment on above: Result Comment: The drugs N-Acetylcysteine and Metamizole may falsely depress this assay. Serum Triglycerides Reference Interval Normal <150 mg/dL Borderline high 150 - 199 mg/dL High 200 - 499 mg/dL Very High > or = 500 mg/dL Performed By: #### L 500.3400, L500.4100 ####[facility] [address] [place], [address] CHOL Normal 200 [facility] Comment on above: Result Comment: ORDE R ON 12-17-23 Performed By: #### L 500.3400, L500.4100 ####[facility] [address] [place], [address] HDL Normal [facility] Comment on above: Result Comment: ORDE R ON 12-17-23 Performed By: #### L 500.3400, L500.4100 ####[facility] [address] [place], [address] LDL Normal 0-130 [facility] Comment on above: Result Comment: ORDE R ON 12-17-23 Performed By: #### L 500.3400, L500.4100 ####[facility] [address] [place], [address] TRIG Normal [facility] Comment on above: Result Comment: ORDE R ON 12-17-23 Performed By: #### L 500.3400, L500.4100 ####[facility] [address] [place], [address] VLDL Normal 5-40 [facility] Comment on above: Result Comment: WALDEMAR Hobson ON 12-17-23 Performed By: #### L 500.3400, L500.4100 ####[facility] [address] [place], [address] Liver Profileon 02-19-2024 Albumin [Mass/Vol] 3.5 g/dL Normal 3.2-5.0 [facility] Comment on above: Performed By: #### L 500.3400, L500.4100 ####[facility] [address] [place], [address] ALK P 60 U/L Normal 45-117 [facility] Comment on above: Performed By: #### L 500.3400, L500.4100 ####[facility] [address] [place], [address] ALT [Catalytic activity/Vol] 29 U/L Normal 16-61 [facility] Comment on above: Performed By: #### L 500.3400, L500.4100 ####[facility] [address] [place], [address] AST [Catalytic activity/Vol] 21 U/L Normal 15-37 [facility] Comment on above: Performed By: #### L 500.3400, L500.4100 ####[facility] [address] [place], [address] Bilirubin [Mass/Vol] 0.50 mg/dL Normal 0.20-1.00 [facility] Comment on above: Result Comment: For patients on eltrombopag therapy, use of Dimension [place] TBIL is not recommended. Performed By: #### L 500.3400, L500.4100 ####[facility] [address] [place], [address] Bilirubin.direct [Mass/Vol] 0.13 mg/dL Normal 0.00-0.30 [facility] Comment on above: Performed By: #### L 500.3400, L500.4100 ####[facility] [address] [place], [address] Globulin (S) [Mass/Vol] 3.3 g/dL Normal 2.2-4.2 [facility] Comment on above: Performed By: #### L 500.3400, L500.4100 ####[facility] [address] [place], [address] T PROT 6.8 g/dL Normal 6.4-8.2 [facility] Comment on above: Performed By: #### L 500.3400, L500.4100 ####[facility] [address] [place], [address] ALB Normal 3.2-5.0 [facility] Comment on above: Result Comment: ORDE R ON 12-17-23 Performed By: #### L 500.3400, L500.4100 ####[facility] [address] [place], [address] ALK P Normal 45-117 [facility] Comment on above: Result Comment: ORDE R ON 12-17-23 Performed By: #### L 500.3400, L500.4100 ####[facility] [address] [place], [address] ALT Normal 16-61 [facility] Comment on above: Result Comment: ORDE R ON 12-17-23 Performed By: #### L 500.3400, L500.4100 ####[facility] [address] [place], [address] AST Normal 15-37 [facility] Comment on above: Result Comment: ORDE R ON 12-17-23 Performed By: #### L 500.3400, L500.4100 ####[facility] [address] [place], [address] D BILI Normal 0.00-0.30 [facility] Comment on above: Result Comment: ORDE R ON 12-17-23 Performed By: #### L 500.3400, L500.4100 ####[facility] [address] [place], [address] T BILI Normal 0.20-1.00 [facility] Comment on above: Result Comment: ORDE R ON 12-17-23 Performed By: #### L 500.3400, L500.4100 ####[facility] [address] [place], [address] T PROT Normal 6.4-8.2 [facility] Comment on above: Result Comment: ORDE R ON 12-17-23 Performed By: #### L 500.3400, L500.4100 ####[facility] [address] [place], [address] PSA,Total- Diagnosticon 11-0 PSA, DIAGNOSTIC 0.02 ng/mL Normal 0.0-4.0 [facility] Comment on above: Result Comment: This test was performed using the TPSA assay method for the [employer] chemistry system. Values obtained with different assay methods cannot be used interchangably. When changing PSA assays in the course of monitoring a patient, additional sequential testing should be carried out to confirm baseline values. Performed By: #### L 501.9940 #### [facility] [address] [place], [address] No Panel InformationOrdered By: Ayaan Reeves on 02-06-2023 Prostate Specific Antigen Total 0.01 ng/mL 0.0-4.0 [facility] Comment on above: This test was perfor med using the TPSA assay method for [employer] chemistry system. Values obtained with differentassay methods cannot be used interchangably.When changing PSA assays in the course of monitoring apatient, additional sequential testing should be carriedout to confirm baseline values. Basophil percentageOrdered B y: Jana Dumont on 12-18-2022 Bilirubin [Mass/Vol] 0.40 mg/dL 0.20-1.00 [facility] Comment on above: For patients on eltr ombopag therapy, use of Dimension [place] TBIL is not recommended. Cholesterol [Mass/Vol] 151 mg/dL <200 [facility] Comment on above: <200 mg/dL Desirable 200-240 mg/dL Borderline >240 mg/dL High Risk Protein [Mass/Vol] 7.0 g/dL 6.4-8.2 [facility] Triglyceride [Mass/Vol] 109 mg/dL <199 [facility] Comment on above: The drugs N-Acetylcy steine and Metamizole may falsely depress this assay.Serum Triglycerides Reference Interval Normal <150 mg/dL Borderline high 150 - 199 mg/dL High 200 - 499 mg/dL Very High > or = 500 mg/dL Direct bilirubinOrdered By: Jana Dumont on 12-18-2022 Bilirubin.direct [Mass/Vol] 0.13 mg/dL 0.00-0.30 [facility] Laboratory - Chemistry and C hemistry - challengeOrdered By: Jana Dumont on 12-18-2022 ALP [Catalytic activity/Vol] 66 U/L 45-117 [facility] ALT [Catalytic activity/Vol] 24 U/L 16-61 [facility] Globulin (S) [Mass/Vol] 3.4 g/dL 2.2-4.2 [facility] Serum or plasma albumin radha urement (mass/volume)Ordered By: Jana Dumont on 12-18-2022 Albumin [Mass/Vol] 3.6 g/dL 3.2-5.0 [facility] Serum or plasma cholesterol in HDL measurement (mass/volume)Ordered By: Jana Dumont on 12-18-2022 Cholesterol in HDL [Mass/Vol] 60 mg/dL >40 [facility] Comment on above: The drugs N-Acetylcy steine and Metamizole may falsely depress this assay. Reference Range HDL <40 mg/dL Low HDL Cholesterol HDL >or= 60 mg/dL High HDL Cholesterol Serum or plasma cholesterol in VLDL measurement (mass/volume)Ordered By: Jana Dumont on 12-18-2022 Cholesterol in VLDL [Mass/Vol] 22 mg/dL 5-40 [facility] Serum or plasma low density lipoprotein (LDL) cholesterol measurement (mass/volume)Ordered By: Jana Dumont on 12-18-2022 Cholesterol in LDL [Mass/Vol] 69 mg/dL 0-130 [facility] Thin prep Papanicolaou smear with manual screeningOrdered By: Jana Dumont on 12-18-2022 Thin prep Papanicolaou smear with manual screening 15 U/L 15-37 [facility] No Panel InformationOrdered By: Ayaan Reeves on 07-26-2022 Prostate Specific Antigen Total 0.02 ng/mL 0.0-4.0 [facility] Comment on above: This test was perfor med using the TPSA assay method for the[employer] chemistry system. Values obtained with differentassay methods cannot be used interchangably.When changing PSA assays in the course of monitoring apatient, additional sequential testing should be carriedout to confirm baseline values. Basophil percentageOrdered B y: Dr. Patel on 04-19-2022 Bilirubin [Mass/Vol] 0.40 mg/dL 0.20-1.00 [facility] Comment on above: For patients on eltr ombopag therapy, use of Dimension [place] TBIL is not recommended. Cholesterol [Mass/Vol] 151 mg/dL <200 [facility] Comment on above: <200 mg/dL Desirable 200-240 mg/dL Borderline >240 mg/dL High Risk Protein [Mass/Vol] 7.0 g/dL 6.4-8.2 [facility] Triglyceride [Mass/Vol] 64 mg/dL <199 [facility] Comment on above: The drugs N-Acetylcy steine and Metamizole may falsely depress this assay.Serum Triglycerides Reference Interval Normal <150 mg/dL Borderline high 150 - 199 mg/dL High 200 - 499 mg/dL Very High > or = 500 mg/dL Direct bilirubinOrdered By: Dr. Patel on 04-19-2022 Bilirubin.direct [Mass/Vol] 0.14 mg/dL 0.00-0.30 [facility] LIPID PANEL (OUTSIDE)on 04-05 VLDL Cholesterol 13 [facility] Laboratory - Chemistry and C hemistry - challengeOrdered By: Dr. Patel on 04-19-2022 ALP [Catalytic activity/Vol] 68 U/L 45-117 [facility] ALT [Catalytic activity/Vol] 28 U/L 16-61 [facility] Globulin (S) [Mass/Vol] 3.3 g/dL 2.2-4.2 [facility] Serum or plasma albumin radha urement (mass/volume)Ordered By: Dr. Patel on 04-19-2022 Albumin [Mass/Vol] 3.7 g/dL 3.2-5.0 [facility] Serum or plasma cholesterol in HDL measurement (mass/volume)Ordered By: Dr. Patel on 04-19-2022 Cholesterol in HDL [Mass/Vol] 67 mg/dL >40 [facility] Comment on above: The drugs N-Acetylcy steine and Metamizole may falsely depress this assay. Reference Range HDL <40 mg/dL Low HDL Cholesterol HDL >or= 60 mg/dL High HDL Cholesterol Serum or plasma cholesterol in VLDL measurement (mass/volume)Ordered By: Dr. Patel on 04-19-2022 Cholesterol in VLDL [Mass/Vol] 13 mg/dL 5-40 [facility] Serum or plasma low density lipoprotein (LDL) cholesterol measurement (mass/volume)Ordered By: Dr. Patel on 04-19-2022 Cholesterol in LDL [Mass/Vol] 71 mg/dL 0-130 [facility] Thin prep Papanicolaou smear with manual screeningOrdered By: Dr. Patel on 04-19-2022 Thin prep Papanicolaou smear with manual screening 18 U/L 15-37 [facility] Basophil percentageon 2021 Bilirubin [Mass/Vol] 0.50 mg/dL 0.20-1.00 [facility] Work Phone: Comment on above: For patients on eltr ombopag therapy, use of Dimension [place] TBIL is not recommended. Cholesterol [Mass/Vol] 165 mg/dL <200 [facility] Work Phone: Comment on above: <200 mg/dL Desirable 200-240 mg/dL Borderline >240 mg/dL High Risk Protein [Mass/Vol] 6.5 g/dL 6.4-8.2 [facility] Work Phone: Triglyceride [Mass/Vol] 67 mg/dL <199 [facility] Work Phone: Comment on above: The drugs N-Acetylcy steine and Metamizole may falsely depress this assay.Serum Triglycerides Reference Interval Normal <150 mg/dL Borderline high 150 - 199 mg/dL High 200 - 499 mg/dL Very High > or = 500 mg/dL Direct bilirubinon Bilirubin.direct [Mass/Vol] 0.13 mg/dL 0.00-0.30 [facility] Work Phone: LIPID PANEL (OUTSIDE)on 10-03 VLDL Cholesterol 13 [facility] Laboratory - Chemistry and C hemistry - challengeon 10-19-2021 ALP [Catalytic activity/Vol] 48 U/L 45-117 [facility] Work Phone: ALT [Catalytic activity/Vol] 24 U/L 16-61 [facility] Work Phone: Globulin (S) [Mass/Vol] 3.0 g/dL 2.2-4.2 [facility] Work Phone: [phone] Serum or plasma albumin radha urement (mass/volume)on 10-19-2021 Albumin [Mass/Vol] 3.5 g/dL 3.2-5.0 [facility] Work Phone: [phone] Serum or plasma cholesterol in HDL measurement (mass/volume)on 10-19-2021 Cholesterol in HDL [Mass/Vol] 62 mg/dL >40 [facility] Work Phone: Comment on above: The drugs N-Acetylcy steine and Metamizole may falsely depress this assay. Reference Range HDL <40 mg/dL Low HDL Cholesterol HDL >or= 60 mg/dL High HDL Cholesterol Serum or plasma cholesterol in VLDL measurement (mass/volume)on 10-19-2021 Cholesterol in VLDL [Mass/Vol] 13 mg/dL 5-40 [facility] Work Phone: [phone] Serum or plasma low density lipoprotein (LDL) cholesterol measurement (mass/volume)on 10-19-2021 Cholesterol in LDL [Mass/Vol] 90 mg/dL 0-130 [facility] Work Phone: Thin prep Papanicolaou smear with manual screeningon 10-19-2021 Thin prep Papanicolaou smear with manual screening 15 U/L 15-37 [facility] Work Phone: No Panel Informationon 08-02 Prostate Specific Antigen Screen < 0.01 ng/mL 0.00-4.00 [facility] Work Phone: Comment on above: This test was perfor med using the TPSA assay method for [employer] system. Values obtained with differentassay methods cannot be used interchangably.When changing PSA assays in the course of monitoring apatient, additional sequential testing should be carriedout to confirm baseline values. Calculi Analysison 9 Calculi Analysis SEE BELOW Normal [facility] Comment on above: Result Comment: Calc ulus Type CALCULUS Calculus Color DARK BROWN Calculus Size and Wt SEE BELOW 0.5 X 0.5 X 0.3 CM 0.0598 GRAMS Calculus Composition SEE BELOW 60% Calcium Oxalate Monohydrate 30% Calcium Oxalate Dihydrate 10% Minor Components Note SEE BELOW This test was developed and its performance characteristics determined by [facility]'s [facility] [place] ( [facility]). It has not been cleared or approved by the FDA. [facility] is regulated under CLIA as qualified to perform high complexity testing. This test is used for clinical purposes. It should not be regarded as investigational or for research. Performing Laboratory: [facility] [employer] [address] [place] [address] Performed By: #### S TONX #### [place] [address] Fernando 10-08-2018 RACHEL Telephone (UROLAE) NAHOMI JARAMILLO ([id number]) 1950 M Date Time Provider Department 10/08/18 [...] Calculi Analysison 9 Calculus Type calculus Normal [facility] Comment on above: Performed By: #### S TONX #### [facility] [address] [place], [place] [address] Basic Panelon 10-06-2018 Creatinine [Mass/Vol] 1.57 mg/dL High 0.67-1.17 [facility] Comment on above: Performed By: #### P 8 #### [address] [address] Anion gap [Moles/Vol] 11 mmol/L Normal 8-16 [facility] Comment on above: Performed By: #### P 8 #### [address] [address] Calcium [Mass/Vol] 8.3 mg/dL Low 8.5-10.1 [facility] Comment on above: Performed By: #### P 8 #### [facility] [address] [place], [place] [address] CO2 [Moles/Vol] 25 mmol/L Normal 21-32 [facility] Comment on above: Performed By: #### P 8 #### [facility] [address] [place], [place] [address] Glucose [Mass/Vol] 95 mg/dL Normal 70-99 [facility] Comment on above: Performed By: #### P 8 #### [facility] [address] [place], [place] [address] Urea nitrogen [Mass/Vol] 17 mg/dL Normal 7-18 [facility] Comment on above: Performed By: #### P 8 #### [facility] [address] [place], [place] [address] Chloride [Moles/Vol] 106 mmol/L Normal 98-107 [facility] Comment on above: Performed By: #### P 8 #### [facility] [address] [place] [address] Potassium [Moles/Vol] 4.3 mmol/L Normal 3.5-5.1 [facility] Comment on above: Performed By: #### P 8 #### [facility] [address] [place] [address] Sodium [Moles/Vol] 138 mmol/L Normal 136-145 [facility] Comment on above: Performed By: #### P 8 #### [facility] [address] [place] [address] Hemogramon 10-06-2018 Erythrocyte distribution width (RBC) [Ratio] 12.7 % Normal 11.6-14.4 [facility] Comment on above: Performed By: #### C BC1 #### [facility] [address] [place] [address] Hematocrit (Bld) [Volume fraction] 33.4 % Low 40.1-51.0 [facility] Comment on above: Performed By: #### C BC1 #### [facility] [address] [place] [address] Hemoglobin (Bld) [Mass/Vol] 11.1 g/dL Low 13.7-17.5 [facility] Comment on above: Performed By: #### C BC1 #### [facility] [address] [place] [address] MCH (RBC) [Entitic mass] 33.2 pg High 25.7-32.2 [facility] Comment on above: Performed By: #### C BC1 #### [facility] [address] [place] [address] MCHC (RBC) [Mass/Vol] 33.2 % Normal 32.3-36.5 [facility] Comment on above: Performed By: #### C BC1 #### [facility] [address] [place] [address] MCV (RBC) [Entitic vol] 100.0 fL High 83.2-95.6 [facility] Comment on above: Performed By: #### C BC1 #### [facility] [address] [place], [place] [address] Platelet mean volume (Bld) [Entitic vol] 10.6 fL Normal 8.7-12.0 [facility] Comment on above: Performed By: #### C BC1 #### [facility] [address] [place], [place] [address] Platelets (Bld) [#/Vol] 182 thou/cmm Normal 141-365 [facility] Comment on above: Performed By: #### C BC1 #### [facility] [address] [place], [place] [address] RBC (Bld) [#/Vol] 3.34 mil/cmm Low 4.63-6.08 [facility] Comment on above: Performed By: #### C BC1 #### [facility] [address] [place], [place] [address] RDW SD 46.8 fl High 36.1-45.8 [facility] Comment on above: Performed By: #### C BC1 #### [facility] [address] [place], [place] [address] WBC (Bld) [#/Vol] 7.68 thou/cmm Normal 4.23-9.07 [facility] Comment on above: Performed By: #### C BC1 #### [facility] [address] [place] [id number] MDRD GFRon 10-06-2018 GFR/1.73 sq M predicted among non-blacks MDRD (S/P/Bld) [Vol rate/Area] 43.84 mL/min/{1.73_m2} Normal >60mL/min/1. 73m2 [facility] Comment on above: Result Comment: If t he patient is , multiply the result by 1.210. Performed By: #### G FR #### [facility] [address] [place] [id number] PROGRESSon 10-06-2018 PROGRESS HNO ID: [id number] Author: Markus Zambrano Service: Urology Author Type: Physician Type: Progress Notes Filed: 10/06/2018 12:32 PM Note Text: UROLOGY PROGRESS NOTE PATIENT NAME: Nahomi Jaramillo DATE OF : 1950 ADMISSION DATE: 10/05/2018 [...] (thou/cmm) Date Value 10/06/2018 182 Urinalysis: Specific [place], Ur Date Value Ref Range Status 10/05/2018 [...] 10-05-2018 Creatinine [Mass/Vol] 1.43 mg/dL High 0.67-1.17 [facility] Comment on above: Performed By: #### P 8 #### [address] [address] Anion gap [Moles/Vol] 8 mmol/L Normal 8-16 [facility] Comment on above: Performed By: #### P 8 #### [address] [address] CO2 [Moles/Vol] 29 mmol/L Normal 21-32 [facility] Comment on above: Performed By: #### P 8 #### [facility] [address] [place], [place] [address] Glucose [Mass/Vol] 92 mg/dL Normal 70-99 [facility] Comment on above: Performed By: #### P 8 #### [address] [address] Urea nitrogen [Mass/Vol] 17 mg/dL Normal 7-18 [facility] Comment on above: Performed By: #### P 8 #### [address] [place], [place] [address] Calcium [Mass/Vol] 8.9 mg/dL Normal 8.5-10.1 [facility] Comment on above: Performed By: #### P 8 #### [facility] [address] [place], [place] [address] Chloride [Moles/Vol] 106 mmol/L Normal 98-107 [facility] Comment on above: Performed By: #### P 8 #### [facility] [address] [place], [place] [address] Potassium [Moles/Vol] 4.4 mmol/L Normal 3.5-5.1 [facility] Comment on above: Performed By: #### P 8 #### [facility] [address] [place], [place] [address] Sodium [Moles/Vol] 139 mmol/L Normal 136-145 [facility] Comment on above: Performed By: #### P 8 #### [facility] [address] [place] [address] CASE MGT INIT ASSESon 2018 CASE MGT INIT ASS HNO ID: [id number] Author: Jolene (Rn) IBAN Locke Service: Care Management Author Type: Registered Nurse Type: Care Mgt Initial Assessment Filed: 10/05/2018 1:01 PM Note Text: CARE MANAGEMENT: ASSESSMENT AND DISCHARGE PLAN SERVICE DATE: 10/05/2018 SERVICE TIME: 1230 pm PRIMARY CARE PHYSICIAN: Danilo Donis MD ADMISSION STATUS: Emergency MEDICAL: Patient/Representati ve Stated Goals: To have reduction in pain Get something for pain Health Insurance: [facility] [employer] Issues Impacting Discharge Plan: Kidney stone Last [...] did not score > 3 FUNCTIONAL AND COGNITIVE/BEHAVIORAL PRIOR TO ADMISSION: Baseline Mental Status: Alert AND Oriented, Person, Place , Time and Situation Functional Status: Independent Does Patient Currently Receive Any Community Services or Home Care? None Equipment Prior to Admission: Bi-level Positive Airway Pressure/Continuous Positive Airway Pressure Has the Patient Been in a Snf Facility in the Past 30 days? No SOCIAL: Living Arrangement: Home Lives With: Spouse Financial Resources: Retired Primary Contact: Extended Emergency Contact Information Primary Emergency Contact: Edwin Jaramillo Address: [address] [place] [address] [place] [address] [phone] Mobile Relation: Spouse Supportive: Yes Other Important [...] 0 I feel financially burdened by my [id number] expenses for my prescription medication: Disagree completely [...] Independent. Resides with spouse. DME: CPAP Pharmacy: [facility] AD: None ER: [facility] [phone] PCP: Dr. Donis Chart reviewed: From [facility]. Left UVJ stone, 4mm. Met with pt. Anticipate home at discharge. SIGNATURE: Jolene Locke RN PATIENT NAME: Nahomi Jaramillo DATE: October 05, 2018 TIME: 12:46 PM PAGER/CONTACT #: [phone] [facility] ED NOTEon 10-05-2018 ED NOTE HNO ID: [id number] Author: Rosenda JasonRn) IBAN Ling Service: Nursing Author Type: Registered Nurse Type: ED Notes Filed: 10/05/2018 10:53 AM Note Text: Transport took patient to xray at this time. [facility] ED NOTE HNO ID: [id number] Author: Rosenda JasonRn) IBAN Ling Service: Nursing Author Type: Registered Nurse Type: ED Notes Filed: 10/05/2018 10:35 AM Note Text: Xray notified that patient is ready. [facility] ED NOTE HNO ID: [id number] Author: Rosenda JasonRn) IBAN Ling Service: Nursing Author Type: Registered Nurse Type: ED Notes Filed: 10/05/2018 10:25 AM Note Text: Patient verified by name, date of . Patient placed on cardiac, SpO2, and continuous BP monitors. Bed in lowest position and locked. Call light within reach. [facility] ED NOTE HNO ID: [id number] Author: Rosenda JasonRn) IBAN Ling Service: Nursing Author Type: Registered Nurse Type: ED Notes Filed: 10/05/2018 10:04 AM Note Text: Clean catch urine specimen obtained and sent. Culture sent. [facility] ED NOTE HNO ID: [id number] Author: Rosenda Ling RN Service: Nursing Author Type: Registered Nurse Type: ED Notes Filed: 10/05/2018 9:53 AM Note Text: Dr Vargas at bedside assessing patient. [facility] ED PROV NOTEon 10-05-2018 ED PROV NOTE HNO ID: [id number] Author: Gabriel Vargas DO Service: Emergency Medicine Author Type: Resident Type: ED Provider Notes Filed: 10/05/2018 1:02 PM Note Text: Attestation signed by Srini Yip MD at [...] Yip MD Date: 10/05/2018 Time: 2:09 PM ED Provider Note Patient Name: Nahomi Jaramillo SERVICE DATE: 10/05/18 History Patient presents with: [...] left flank pain. Patient was seen at [facility] yesterday for similar problem. Patient was diagnosed with a kidney stone with 5 mm in the ureteropelvic junction. Patient was instructed to come to [facility] if his pain significantly worsened. Patient [...] of complication - Mitral valve disorders(424.0) - ATLI (obstructive sleep apnea) on cpap - Prostate cancer (HCC) Dr. Reeves - Snoring PAST SURGICAL HISTORY Procedure Laterality Date - COLONOSCOP W/ OR W/O [facility] SPEC 07/04/07 - COLONOSCOP W/ OR W/O [facility] SPEC 11/29/2017 Colonoscopy - LAPAROSCOPIC RADICAL [...] Labs Ordered and Reviewed BASIC METABOLIC PANEL (AK,AV,EU,FV,,,[facility],) - Abnormal; Notable for the following components: Result Value Ref Range Creatinine 1.43 (*) 0.67 - 1.17 mg/dL All other components within normal limits CBC + AUTO DIFF (AK,AV,EU,FV,HL,MARJ,[facility],SP) - Abnormal; Notable for the following components: WBC 9.94 (*) 4.23 - 9.07 thou/cmm RBC 4.02 (*) 4.63 - 6.08 mil/cmm HGB 13.1 (*) 13.7 - 17.5 g/dL MCV 100.0 (*) 83.2 - 95.6 fl MCH 32.6 (*) 25.7 - 32.2 pg RDW-SD 46.8 (*) 36.1 - 45.8 fl Abs. Neut(Anc) 7.61 (*) 1.78 - 5.38 thou/cmm Abs. [place]ave 0.96 (*) 0.30 - 0.82 thou/cmm All other components within normal limits URINALYSIS WITH MICROSCOPIC (AK,AV,EU,FV,HL,,[facility],) - Abnormal; Notable for the following components: Hemoglobin, Urine TRACE (*) Negative Protein, Urine 30 (*) Negative mg/dL Bilirubin, Urine see below (*) Negative Urobilinogen, Urine 4.0 (*) 0.2 - 1.0 EU/dL RBC, Urine 8.1 (*) 0.0 - 5.0 /hpf All other components within normal limits MDRD GFR Procedures ED Course / Clinical Impression ED Course as of Oct 05 1256 Others' Documentation Sat Oct 05, 2018 1015 [...] Yip MD Clinical Impressions as of Oct 05 1256 Kidney stone on left side MDM / [...] Hospital HISTORY PHYSICALon HISTORY PHYSICAL HNO ID: [id number] Author: Markus Zambrano Service: Urology Author Type: Physician Type: HANDP Filed: 10/06/2018 12:31 PM Note Text: Urology History and Physical Date: 10/05/2018 Patient Name: Nahomi Jaramillo Date of : 1950 Admit Date: 10/05/2018 Age: [age] year old PCP: Danilo Donis MD Patient presents with: Flank Pain: The [...] Laterality Date - COLONOSCOP W/ OR W/O [facility] SPEC 07/04/07 - COLONOSCOP W/ OR W/O [facility] SPEC 11/29/2017 Colonoscopy - LAPAROSCOPIC RADICAL PROSTATECTOMY 07/09/13 Family History Problem Relation Age of Onset - other (CHF) Mother - other (CHF) Father - other (stomache cancer) Paternal Grandmother - other (skin ca) Maternal Grandfather Outpatient Medications Marked as Taking for the 10/05/18 encounter (Hospital Encounter): HYDROcodone-acetamin ophen (NORCO) 5-325 mg per tablet Take 1 [...] infusion (has no administration in time range) oxyCODONE-acetaminop hen 5-325 mg 1-2 tablet (PERCOCET) (has no [...] file Gets together: Not on file Attends advent service: Not on file Active member of [...] Gastrointestinal: negative for jaundice, +nausea and vomiting Genitourinary:negati ve for dysuria and hematuria, +left flank pain Hematologic/lymphati c: negative for bleeding and lymphadenopathy Integumentary: no new bruises or lesions Musculoskeletal:nega tive for muscle weakness or pain Neurological: negative for coordination problems and seizures All other systems negative Physical Exam: 10/05/18 1200 10/05/18 1254 10/05/18 1300 10/05/18 1508 BP: 135/91 139/92 135/87 124/75 Pulse: 68 74 78 74 Resp: Temp: 36.9 ?C (98.4 ?F) TempSrc: Oral [...] Labs: CBC: Recent Labs 10/05/18 1000 10/04/18 19310/04/18 1102 WBC 9.94* 8.56 7.95 HCT 40.2 39.6 36.9* MCV 100.0* 99.2 100.3* RBC 4.02* 3.99* 3.68* RDW 12.8 -- -- PLT 239 206 205 BMP: Recent Labs 10/05/18 1000 10/04/18 19310/04/18 1102 NA 139 136 135* K 4.4 [...] - Admit - [facility] - Page with fevers/hypotension - Flomax - Pain/nausea control - Strain urine - Options for stone treatment were discussed with the patient and a decision was made for Ureteroscopy and Laser Lithotripsy with stent All risks, benefits and alternatives were discussed with the patient including but not limited to , Stroke, [place], bleeding, infection, injury to the urethra, bladder, [...] Abs Immature Grans 0.04 thou/cmm Normal 0.00-0.05 [facility] Comment on above: Performed By: #### C BCD1 #### [place] [address] Abs Neut (ANC) 7.61 thou/cmm High 1.78-5.38 [facility] Comment on above: Performed By: #### C BCD1 #### [place] [address] Abs. Baso 0.03 thou/cmm Normal 0.01-0.08 [facility] Comment on above: Performed By: #### C BCD1 #### [place] [address] Abs. [place] 0.96 thou/cmm High 0.30-0.82 [facility] Comment on above: Performed By: #### C BCD1 #### [place] [address] Basophils/100 WBC (Bld) 0.3 % Normal [facility] Comment on above: Performed By: #### C BCD1 #### [place] [address] Eosinophils (Bld) [#/Vol] 0.05 thou/cmm Normal 0.04-0.54 [facility] Comment on above: Performed By: #### C BCD1 #### [facility] [address] [place], [place] [address] Eosinophils/100 WBC (Bld) 0.5 % Normal [facility] Comment on above: Performed By: #### C BCD1 #### [facility] [address] [place] [address] Erythrocyte distribution width (RBC) [Ratio] 12.8 % Normal 11.6-14.4 [facility] Comment on above: Performed By: #### C BCD1 #### [facility] [address] [place] [address] Hematocrit (Bld) [Volume fraction] 40.2 % Normal 40.1-51.0 [facility] Comment on above: Performed By: #### C BCD1 #### [place] [address] Hemoglobin (Bld) [Mass/Vol] 13.1 g/dL Low 13.7-17.5 [facility] Comment on above: Performed By: #### C BCD1 #### [place] [address] Immature Grans 0.40 % Normal [facility] Comment on above: Performed By: #### C BCD1 #### [address] [address] Lymphocytes (Bld) [#/Vol] 1.24 thou/cmm Normal 0.84-2.85 [facility] Comment on above: Performed By: #### C BCD1 #### [facility] [address] [place], [place] [address] Lymphocytes/100 WBC (Bld) 12.5 % Normal [facility] Comment on above: Performed By: #### C BCD1 #### [facility] [address] [place] [address] MCH (RBC) [Entitic mass] 32.6 pg High 25.7-32.2 [facility] Comment on above: Performed By: #### C BCD1 #### [facility] [address] [place], [place] [address] MCHC (RBC) [Mass/Vol] 32.6 % Normal 32.3-36.5 [facility] Comment on above: Performed By: #### C BCD1 #### [facility] [address] [place], [place] [address] MCV (RBC) [Entitic vol] 100.0 fL High 83.2-95.6 [facility] Comment on above: Performed By: #### C BCD1 #### [facility] [address] [place] [address] Monocytes/100 WBC (Bld) 9.7 % Normal [facility] Comment on above: Performed By: #### C NEGRITAD1 #### [facility] [address] [place] [address] Platelet mean volume (Bld) [Entitic vol] 10.6 fL Normal 8.7-12.0 [facility] Comment on above: Performed By: #### C NEGRITAD1 #### [facility] [address] [place] [address] Platelets (Bld) [#/Vol] 239 thou/cmm Normal 141-365 [facility] Comment on above: Performed By: #### C BCD1 #### [facility] [address] [place] [address] RBC (Bld) [#/Vol] 4.02 mil/cmm Low 4.63-6.08 [facility] Comment on above: Performed By: #### C BCD1 #### [facility] [address] [place] [address] RDW SD 46.8 fl High 36.1-45.8 [facility] Comment on above: Performed By: #### C BCD1 #### [facility] [address] [place] [address] Seg Neutrophil 76.6 % Normal [facility] Comment on above: Performed By: #### C BCD1 #### [facility] [address] [place], [place] [address] WBC (Bld) [#/Vol] 9.94 thou/cmm High 4.23-9.07 [facility] Comment on above: Performed By: #### C BCD1 #### [facility] [address] [place] [address] PLAN OF CAREon 10-05-2018 PLAN OF CARE HNO ID: [id number] Author: Jyoti Howard (Vusay) Service: Pharmacy Author Type: Pneumatic Tube Repairer Type: Plan of Care Filed: 10/05/2018 2:07 PM Note Text: MEDICATION HISTORY Patient Name:J Carlos Jaramillo : 1950 Source of history:Patient: Reliability of source: Appears reliable, clearly identified: Medication name, Pharmacy records: [facility] [phone] and [facility] records Medication Nonadherence Identified: No barriers noted The above information represents the best possible medication history: Yes Additional comments: [id number] Medication List Adjustments: Medication Regimen Changes: Verified [...] Reactions - Penicillin Rash, Itching Preferred Pharmacy: [facility] [phone] Current [employer] Medications: Prior to Admission medications as of 10/04/18 8466 Medication Sig Last Dose Taking HYDROcodone-acetamin ophen (NORCO) 5-325 mg per tablet Take 1 [...] by mouth once daily. Yes Jyoti Howard (Vusay) [id number] October 05, 2018 1:56 PM -- Normal [facility] Urinalysis Routineon 019 Bacteria LM.HPF (Urine sed) [#/Area] NONE Normal None [facility] Comment on above: Performed By: #### U RIN2 #### [facility] [address] [place] [address] Ep Cells Urine 0.8 /hpf Normal 0.0-5.0 [facility] Comment on above: Performed By: #### U RIN2 #### [place] [address] Hyaline Cast 0.0 /lpf Normal 0.0-1.0 [facility] Comment on above: Performed By: #### U RIN2 #### [place] [address] RBC LM.HPF (Urine sed) [#/Area] 8.1 /[HPF] High 0.0-5.0 [facility] Comment on above: Performed By: #### U RIN2 #### [place] [address] WBC LM.HPF (Urine sed) [#/Area] 2.1 /[HPF] Normal 0.0-5.0 [facility] Comment on above: Performed By: #### U RIN2 #### [place] [address] Appearance (U) CLEAR Normal [facility] Comment on above: Performed By: #### U RIN2 #### [place] [address] Bilirubin (U) [Mass/Vol] see below Abnormal Negative [facility] Comment on above: Result Comment: Dete cted (Unable to confirm). Performed By: #### U RIN2 #### [place] [address] Color (U) DK YELLOW Normal [facility] Comment on above: Performed By: #### U RIN2 #### [place] [address] Glucose Ql (U) Negative Normal Negative [facility] Comment on above: Performed By: #### U RIN2 #### [facility] [address] [place] [address] Hemoglobin,Urine TRACE Abnormal Negative [facility] Comment on above: Performed By: #### U RIN2 #### [facility] [address] [place] [address] Ketone Urine Negative Normal Negative [facility] Comment on above: Performed By: #### U RIN2 #### [facility] [address] [place] [address] Leukocytes Esterase Negative Normal Negative [facility] Comment on above: Performed By: #### U RIN2 #### [facility] [address] [place] [address] Nitrites Urine Negative Normal Negative [facility] Comment on above: Performed By: #### U RIN2 #### [facility] [address] [place] [address] pH (U) 6.0 [pH] Normal 5.0-8.0 [facility] Comment on above: Performed By: #### U RIN2 #### [place] [address] Protein (U) [Mass/Vol] 30 mg/dL Abnormal Negative [facility] Comment on above: Performed By: #### U RIN2 #### [place] [address] Specific [place], Ur 1.027 Normal 1.005-1.030 [facility] Comment on above: Performed By: #### U RIN2 #### [place] [address] Urobilinogen,Ur 4.0 EU/dL Abnormal 0.2-1.0 [facility] Comment on above: Performed By: #### U RIN2 #### [place] [address] ALLIED HEALTHon 10-04-2018 ALLIED HEALTH HNO ID: [id number] Author: REGINA Madden (Ct) Service: Radiology Author Type: Clinical Pneumatic Tube Repairer Type: Allied Health Filed: 10/04/2018 9:17 PM Note Text: Radiology Service Progress Note PATIENT NAME: Nahomi Jaramillo DATE OF SERVICE: October 04, 2018 TIME: 9:17 PM PATIENT IDENTITY VERIFICATION COMPLETED USING TWO (2) METHODS: Patient confirmed name verbally and ID band matches.. PATIENT GENDER DATA: Male PATIENT RELEVANT IMPLANT DATA REVIEWED: Not Applicable RADIOLOGY DEPARTMENT: CT; Exam(s) Completed: Abdomen/Pelvis PERIPHERAL IV DATA: Not applicable SIGNED BY: REGINA Madden October 04, 2018 9:17 PM Normal [facility] CBC and Differentialon 10-04 Abs Baso <0.03 Normal <0.11 [facility] Comment on above: Performed By: #### C BCDIF, CMP #### [facility] [address] [place] [address] Abs [place] 1.03 k/uL High <0.87 [facility] Comment on above: Performed By: #### C BCDIF, CMP #### [facility] [address] [place] [address] Abs Neut 5.87 k/uL Normal 1.45-7.50 [facility] Comment on above: Performed By: #### C BCDIF, CMP #### [facility] [address] [place] [address] Basophils/100 WBC (Bld) 0.2 % Normal [facility] Comment on above: Performed By: #### C BCDIF, CMP #### [facility] [address] [place] [address] Eosinophils (Bld) [#/Vol] 0.10 10*3/uL Normal <0.46 [facility] Comment on above: Performed By: #### C BCDIF, CMP #### [facility] [address] [place] [address] Eosinophils/100 WBC (Bld) 1.2 % Normal [facility] Comment on above: Performed By: #### C BCDIF, CMP #### [facility] [address] [place] [address] Erythrocyte distribution width (RBC) [Ratio] 13.0 % Normal 11.5-15.0 [facility] Comment on above: Performed By: #### C BCDIF, CMP #### [facility] [address] [place] [address] Hematocrit (Bld) [Volume fraction] 39.6 % Normal 39.0-51.0 [facility] Comment on above: Performed By: #### C BCDIF, CMP #### [facility] [address] [place] [phone] Hemoglobin (Bld) [Mass/Vol] 13.4 g/dL Normal 13.0-17.0 [facility] Comment on above: Performed By: #### C BCDIF, CMP #### [facility] [address] [place] [phone] Lymphocytes (Bld) [#/Vol] 1.54 10*3/uL Normal 1.00-4.00 [facility] Comment on above: Performed By: #### C BCDIF, CMP #### [facility] [address] Lymphocytes/100 WBC (Bld) 18.0 % Normal [facility] Comment on above: Performed By: #### C BCDIF, CMP #### [facility] [address] [place] [phone] MCH (RBC) [Entitic mass]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 ches t 2 views Krystal Oswald LOCAL DELIVERY DRIVER.TOP STOP ATTACHER Work Phone: Start: 08-05-2024 Antibody screen DANILO DONIS Comment on above: Order Comment: Speci men Type: BLOOD SPECIMEN Ordering Facility: [facility] Address: [address] [place] [address] Performed By: #### L [id number], [facility] [place] #### [facility] BLOOD BANK CLIA [id number] [address] [place] [address] [place] Start: 08-05-2024 CT of chest without contrast Dr. Danilo Donis MD Work Phone: Start: 08-05-2024 Plain chest X-ray Dr. Demetria Donis MD Work Phone: Start: 08-05-[address] Danilo Donis MD Work Phone: Start: 08-05-2024 X-ray of chest posteroanterior view Dr. Danilo Donis MD Work Phone: Start: 08-04-2024 Assay of prostate sp ecific antigen total Dr. Danilo Donis MD Work Phone: Comment on above: This test was perfor med using the [employer] tPSA method. Measured values of a patient sample can vary depending on the testing procedure used. PSA values determined on patient samples by different testing procedures cannot be used interchangeably. If there is a change in PSA assays while monitoring therapy, sequential testing should be performed to confirm baseline values. Start: 02-19-2024 Lipid panel [facility] Start: 02-19-2024 Lipid 1996 panel - S ivy or Plasma Danilo Donis MD Work Phone: Start: 04-19-2022 Lipid panel [facility] Start: 10-21-2021 Diagnostic radiograp hy of finger Dr. Danilo Donis Work Phone: Start: 10-21-2021 X-ray of chest posteroanterior view Dr. Danilo Donis Work Phone: Start: 10-21-2021 Diagnostic radiograp hy of finger Dr. Danilo Donis Work Phone: Start: 10-19-2021 Lipid panel [facility] Start: 09-18-2020 Adult depression scr eening assessment Krystal Oswald LOCAL DELIVERY DRIVER.TOP STOP ATTACHER Work Phone: Start: 11-29-2017 Colonoscopy Krystal elder LOCAL DELIVERY DRIVER.TOP STOP ATTACHER Work Phone: Plan of Treatment Date Care Activity Detail Author Start: 02-18-2029 Lipid panel Lipid Screening [facility] Start: 11-30-2027 Colonoscopy COLONOSCOPY [facility] Start: 11-30-2027 COLORECTAL CANCER SCREENING COLORECTAL CANCER SCREENING [facility] Start: 11-30-2027 Screening for malign ant neoplasm of colon [facility] Start: 08-07-2027 Diabetes Screening Diabetes Screenin g [facility] Start: 04-19-2027 LIPID SCREEN LIPID SCREEN [facility] Start: 10-19-2026 LIPID SCREEN LIPID SCREEN [facility] Start: 11-06-2025 Urine microalbumin profile [facility] Start: 09-29-2025 LIPID SCREEN LIPID SCREEN [facility] Start: 08-25-2025 Covid-19 Vaccine ( season) Covid-19 Vaccine ( season) [facility] Comment on above: Postponed from 11/03 (Declined at this time) Start: 08-25-2025 Medicare Annual Well ness Visit Medicare Annual Wellness Visit [facility] Start: 08-25-2025 Shingrix Vaccine (1 of 2) Fishman grix Vaccine (1 of 2) [facility] Comment on above: Postponed from 05/10 (Declined at this time) Start: 11-03-2024 Influenza vaccination Influenz a Vaccine (Season Ended) [facility] Start: 09-19-2024 Evaluation of diagno stic study results [facility] Start: 08-25-2024 End: 08-25-2024 Patient encounter procedure 08/25/2024 11:00 AM EDT Office [facility] [address] [place], [place] [id number] Krystal Oswald, LOCAL DELIVERY DRIVER.TOP STOP ATTACHER [address] [place], [place] [address] physical [facility] Comment on above: physical Start: 08-05-2024 [facility] Start: 03-05-2024 Advance Directive Discussion Advance Directive Discussion [facility] Start: 11-04-2023 Covid-19 Vaccine ( season) Covid-19 Vaccine ( season) [facility] Start: 11-04-2023 Influenza vaccination Influenza Vacc ine (#1) [facility] Start: 05-11-2023 RSV Vaccine (1 - 1-d ose 75+ series) RSV Vaccine (1 - 1-dose 75+ series) [facility] Start: 03-05-2023 Advance Directive Discussion Advance Directive Discussion [facility] Start: 03-05-2022 ADVANCE DIRECTIVE DISCUSSION ADVANCE DIRECTIVE DISCUSSION [facility] Start: 03-05-2022 DEPRESSION ASSESSMENT DEPRESSION ASS ESSMENT [facility] Start: 11-07-2021 DIABETES SCREEN DIABETES SCREEN [facility] Start: 11-07-2021 Diabetes Screening Diabetes Screenin g [facility] Start: 11-03-2021 Influenza vaccination INFLUENZA (#1) [facility] Start: 10-21-2021 Cltx carpo/metacarpa l dislocation thumb w/manj TREAT THUMB DISLOCATION [facility] Work Phone: Start: 10-21-2021 Smpl repair scalp/neck/ax/genit/trunk 2.6-7.5cm RPR S/N/AX/GEN/TRNK2.6-7.5C M [facility] Work Phone: Start: 09-18-2021 Adult depression screening assessment DEPRESSION SCREENING [facility] Start: 03-05-2021 ADVANCE DIRECTIVE DISCUSSION ADVANCE DIRECTIVE DISCUSSION [facility] Start: 09-23-2020 COVID-19 VACCINE (2 - Booster for Fartun series) COVID-19 VACCINE (2 - Booster for Fartun series) [facility] Start: 07-03-2020 Medicare Annual Well ness Visit Medicare Annual Wellness Visit [facility] Start: 10-09-2019 FECAL OCCULT BLOOD FECAL OCCULT BLOO D [facility] Start: 10-09-2019 Screening for malign ant neoplasm of colon Fecal Occult Blood [facility] Start: 1998 SHINGRIX VACCINE (1 of 2) FISHMAN GRIX VACCINE (1 of 2) [facility] Start: 1993 COLOGUARD (FIT-DNA) COLOGUARD (FIT-D NA) [facility] Start: [address] COLONOGRAPHY [facility] Start: 1993 Screening for malign ant neoplasm of colon [facility] Start: [address] [facility] Start: 1966 Anxiety Screening Anxiety Screening [facility] Start: 1966 Depression Screening Depression Scre ening [facility] Basic metabolic 2008 panel with ionized calcium - Serum or Plasma [facility] Bilirubin measuremen t, urine [facility] Catheterization of l eft heart [facility] CBC W Auto Different ial panel - Blood [facility] Hemoglobin [Presence ] in Urine [facility] Measurement of keton es in urine using dipstick [facility] Microscopic urinalysis [facility] Patient Education ED Thumb Dislocation [facility] Work Phone: Patient referral [facility] Work Phone: pH of Urine [facility] Prothrombin time [facility] Removal impacted cer umen irrigation/lvg unilat AMBULATORY EAR LAVAGE/IRRIGATION Procedures Routine Hearing loss due to cerumen impaction, right Ordered: 05/17/2022 [facility] Work Phone: Comment on above: Ordered: 05/17/2022 Specific gravity of Urine [facility] Urine blood test [facility] Urine dipstick for glucose [facility] Urine dipstick for leukocyte esterase [facility] Urine dipstick for nitrite [facility] Urine dipstick for protein [facility] Urine examination [facility] Urine microscopy: epithelial cells [facility] Urine Microscopy: wh ite cells [facility] Urobilinogen [Presen ce] in Urine [facility] Work Phone: [facility] XR Chest PA and Lateral [facility] Immunizations Immunization Date Immunization Notes Care Provider Omar vázquez 01-11-2018 pneumococcal polysaccharide vaccine, 23 valent Krystal Oswald LOCAL DELIVERY DRIVER.TOP STOP ATTACHER Work Phone: [facility] 01-11-2018 influenza virus vacc ine, unspecified formulation Danilo Donis MD Work Phone: [facility] 11-19-2015 influenza, high dose seasonal, preservative-free Krystal Oswald LOCAL DELIVERY DRIVER.TOP STOP ATTACHER Work Phone: [facility] 11-19-2015 pneumococcal conjuga te vaccine, 13 valent Krystal Oswald LOCAL DELIVERY DRIVER.TOP STOP ATTACHER Work Phone: [facility] 11-07-2015 tetanus toxoid, redu adriana diphtheria toxoid, and acellular pertussis vaccine, adsorbed Krystal Oswald LOCAL DELIVERY DRIVER.TOP STOP ATTACHER Work Phone: [facility] 11-20-2003 tetanus and diphther ia toxoids, adsorbed, preservative free, for adult use (2 Lf of tetanus toxoid and 2 Lf of diphtheria toxoid) Krystal Oswald LOCAL DELIVERY DRIVER.[facility] Work Phone: [facility] Work Phone: Payers Date Payer Category Payer Private Health Insurance [id number] 2024 Private Health Insurance WENDI S UPPLEMENT [id number] 2024 Private Health Insurance [id number] 2024 Self-pay [id number] 2023 Unknown [id number] 2020 Unknown MMO MMO MEDICARE SUPPLEMENT [id number] 2020-Present [phone] [address] [place] [address] Indemnity [id number] 2020 Medicare [id number] 2020 Medicare [id number] 2016 Unknown [id number] Unknown [id number] 462 Unknown [id number]. 462 Unknown [id number]. 462 Unknown [id number] [id number]. 462 Unknown [id number] [id number]. 462 Unknown [id number] [id number]. 462 Unknown [id number] [id number]. 462 Unknown [id number] [id number]. 462 Unknown [id number]. 462 Unknown [id number] [id number]. 462 Unknown 1918 [id number] 462 Unknown [id number]. 462 Unknown [id number]. 462 Unknown [id number]. 462 Social History Date Type Detail Facility Start: 10-22-2020 End: 01-01-2023 Tobacco smoking status KYIS Unknown if ever smoked [facility] Start: 08-09-2020 None [facility] Start: 08-09-2020 Non-smoker [facility] Start: 1950 Sex Assigned At Male W [facility] Start: 08-05-2024 [facility] tobacco [facility] Start: 10-25-2021 End: 08-25-2024 Alcohol intake Current non-drinker of alcohol (finding) [facility] Start: 10-24-2021 History SDOH Alcohol Frequency 1 [facility] Start: 10-24-2021 History SDOH Alcohol Std Drinks 0 [facility] Start: 10-24-2021 History SDOH Social Connections Phone 5 [facility] Start: 10-24-2021 History SDOH Social Connections [employer] 3 [facility] Start: 10-24-2021 History SDOH Social Connections Living 4 [facility] Start: 10-24-2021 History SDOH Physica l Activity MPS 6 [facility] Start: 10-24-2021 History SDOH Transport Med 2 [facility] Start: 09-18-2020 Education 17 [facility] Start: 1950 Sex Assigned At Not on file C [facility] Start: 10-24-2021 End: 08-06-2024 History of Social function [facility] Start: 10-24-2021 End: 08-06-2024 Social connection and isolation panel [facility] Do you belong to any clubs or organizations such as nondenominational groups, unions, fraternal or athletic groups, or school groups? Yes [facility] Are you now , , , , never or living with a partner? [facility] How often to you hav e a drink containing alcohol? Never [facility] How many standard dr inks containing alcohol do you have on a typical day? Patient does not drink [facility] Do you feel stress - tense, restless, nervous, or anxious, or unable to sleep at night because your mind is troubled all the time - these days [OSQ] Not at all [facility] (I/We) worried damion er (my/our) food would run out before (I/we) got money to buy more. Never true [facility] In the past 12 month s, was there a time when you were not able to pay the mortgage or rent on time? No [facility] Functional Status Date Assessment Result Facility 10-06-2018 Are you deaf, or do you have serious difficulty hearing No 10/06/2018 10:25 AM Carlie Strickland RN No [facility] 10-06-2018 Are you blind, or do you have serious difficulty seeing, even when wearing glasses No 10/06/2018 10:25 AM EDT Carlie Merino, IBAN No [facility] 10-06-2018 Do you have serious difficulty walking or climbing stairs No 10/06/2018 10:25 AM EDT Carlie Merino, RN No [facility] 10-06-2018 Do you have difficul ty dressing or bathing No 10/06/2018 10:25 AM EDT Carlie Merino, RN No [facility] 10-06-2018 Because of a physica l, mental, or emotional condition, do you have difficulty doing errands alone such as visiting a physician's office or shopping No 10/06/2018 10:25 AM EDT Carlie Merino, RN No [facility] Mental Status Date Assessment Result Facility 08-05-2024 Cognitive function Voice/Name [facility] Work Phone: 10-06-2018 Because of a physica l, mental, or emotional condition, do you have serious difficulty concentrating, remembering, or making decisions No 10/06/2018 10:25 AM EDT Carlie Merino, IBAN No [facility] Clinical Notes 10-25-2021 to 09-19-2024 Note Date & Type Note Facility 09-19-2024 Evaluation note Diagnosis Onset Date Resolution Aortic valve stenosis, acquired acute September 19, 2024 9:20am Non-rheumatic mitral regurgitation acute September 19, 2024 9:20am Paroxysmal atrial fibrillation acute September 19, 2024 9:20am Hyperlipidemia chronic September 19, 2024 9:20am [facility] Work Phone: 1(518) 453-898607-18-2025 Radiology Diagnostic study note [facility] Imaging Services [address] [place] [address] Chest PA and Lateral MR#: [id number] Acct: [id number] Name: NAHOMI JARAMILLO Rep #: [id number] : [id number] M [id number] From: Raulito rFeire DO PCP: Dr. Danilo Donis MD Status: REG C WILFREDO Study:Chest PA and Lateral Date of Exam: 09/19/24 Exam# [id number] Ordering Dr: McConnel l,Deya M PA PA PROCEDURE: Chest x-ray dated 08/05/2024 09/19/2024 REASON FOR EXAM: PRE-PROCEDURE TECHNIQUE: CHEST PA AND LATERAL COMPARISON: Chest x-ray dated 08/05/2024 FINDINGS: Hardware: None Heart: Heart size and configuration are within normal limits. Aorta appears to measure 4.5 cm. Mediastinum: Pulmonary vasculature and hilar structures are unremarkable. Trachea is midline. Lungs: Expanded and clear without evidence of pneumothorax, atelectasis, consolidation, effusion orpneumonic infiltrate. Bones: A subtle levo scoliotic curvature of the thoracic spine is noted. Diffuse osteopenia of the bony thorax is seen. RAD/Chest PA and Lateral IMPRESSION: No acute cardiopulmonary process identified radiographically. Thoracic aorta appears aneurysmal. Reading Location: [id number] CC: Dr. Danilo Donis MD; SANDEEP Rosales ~ Collateral Analyst: Signed [facility]06-23-2025 NoteHNO ID: [id number] Author: KRYSTAL OSWALD APRN.TOP STOP ATTACHER Service: ? Author Type: Nurse Practitioner Type: Progress Notes Filed: 08/25/2024 12:38 Note Text: Nahomi Jaramillo is a 74 year old male here for a Medicare wellness visit. Medicare Health Risk Assessment General Health Excellent Exercise: Minutes/Day 60 min Exercise: Days/Week 4 days Alcohol: Daily Use Never Alcohol: Drinks/Day Patient does not drink Alcohol: 6 or more drinks Never Feel off balance No Concerns: Teeth/Dentures No Concerns: Sexual function No Troubled by feelings None of the above Frequency: Eating healthy diet Nearly every day ADLs requiring help None of the above Safety precautions in home/vehicle No Smoke, vape, chews tobacco No Difficulty hearing No Difficulty seeing No Current Providers Specialists: I have reviewed specialist-related care of the patient in the medical record. Outside specialists seen: Cardiology, urology, dermatology. Medical/Family history review Reviewed and updated problem list, medical/surgical/family/social history, medications, and allergies. Opioid use review Opioid Medications (last 90 days) 08/05/2024 20:57 08/07/2024 01:31 Opioid Medications oxycodone HCl 5 mg, ORAL, EVERY 6 HOURS NEEDED, Starting on Sun08/05/24 at 2056, Until Genevieve 08/07/24 at 013, Severe Pain (>/=7) - Enteral 5 mg, ORAL, EVERY 6 HOURS NEEDED, Starting on Sun08/05/24 at 2056, Until Genevieve 08/07/24 at 130, Severe Pain (>/=7) - Enteral-Discontinued (AUTO DC AT D) Details Hospital medication Anxiety/Depression screening DEMETRIUS-7 Score: 0 . Recommendation: no further intervention at this time Cognitive screening Declined per nursing Cognitive screening reviewed and Patient declined Mini-Cog test. Functional Observation Was the patient's Timed Up AND Go test unsteady or >= 12 seconds? No Advance Care Planning Will check into it. Measurements BP 121/75 Pulse (!) 59 Resp 16 Wt 79.8 kg (176 lb) SpO2 98% BMI 26.77 kg/m? Vision Screening: Follows with optometry/ophthalmology Assessment/Plan Medicare annual wellness visit, subsequent (Z00.00) - Counseled on healthy diet and regular exercise - Fall avoidance information provided - Personalized prevention plan provided Additional Concerns The following concerns were also discussed with the patient: Recording using [employer] software for draft documentation of the visit was discussed with the patient/authorized workforce services representative; all questions welcomed and answered. Patient/authorized workforce services representative agreed to proceed Subjective Sleep Apnea: - Has not used CPAP since pneumothorax. - Reluctant to resume CPAP use, concerned it may have aggravated the pneumothorax. - Interested in an oral appliance for sleep apnea management; has contacted Dr. Lee, a local dentist, about this option. - Reports nocturnal oxygen saturation levels as low as 73% without CPAP, monitored using a non-medical imaging director. - Has not seen a sleep specialist since obtaining CPAP in [id number]. Atrial Fibrillation: - Managed by Dr. Myrick. - Taking flecainide BID and metoprolol 1/2 tablet daily. - Dr. Myrick has mentioned discontinuing flecainide and metoprolol but has not yet done so. - Denies current dyspnea. Pneumothorax: - Occurred following an accident. Pain improving. Breathing improved. - Denies current dyspnea. Cholesterol: - Last checked on 08/04; total cholesterol 144 mg/dL, triglycerides 80 mg/dL, HDL 53 mg/dL, LDL 76 mg/dL. Constitutional: (-) unintentional weight loss, (-) weakness, (-) fatigue Head: (-) headaches Eyes: (-) vision change Ears/Nose/Mouth/Throat: (-) hearing loss, (-) dysphagia Neck: (-) neck mass Cardiovascular: (-) chest pain, (-) palpitations, (-) peripheral edema Respiratory: (-) dyspnea Gastrointestinal: (-) heartburn, (-) indigestion, (-) diarrhea, (-) constipation, (-) hematochezia, (-) melena Genitourinary: (-) dysuria Musculoskeletal: (-) myalgia, (-) arthralgia, (-) joint redness/swelling Skin: (-) rash Neurological: (-) syncope, (-) seizures, (-) tremor Psychiatric: (+) irritability, (-) depression, (-) anxiety Endocrine: (+) heat intolerance, (-) cold intolerance, (-) polydipsia, (-) polyuria Hematologic/Lymphatic: (-) easy bruising, (-) abnormal bleeding Labs: (08/05) - CBC: - WBC: Slightly elevated - MCV: Upper end of normal - Glucose: 116 mg/dL (non-fasting) (08/04) - Lipid panel: - Cholesterol: 144 mg/dL - Triglycerides: 80 mg/dL - HDL: 53 mg/dL - LDL: 76 mg/dL Objective BP 121/75 Pulse (!) 59 Resp 16 Wt 79.8 kg (176 lb) SpO2 98% BMI 26.77 kg/m? GENERAL: NAD, alert and oriented. SKIN: Unremarkable, no rash or skin lesions. HEAD: Normocephalic. EYES: PERRLA, EOMI, conjunctiva clear. EARS: External ears normal, canals clear, TM's normal. NOSE/SINUSES: Nares normal. Septum midline. OROPHARYNX: Lips, mucosa, and tongue normal, good dentition (more content not included)...[facility]06-23-2025 History of Present illness Narrative* Krystal Oswald, MICHELE.TOP STOP ATTACHER - 08/25/2024 11:13 AM EDT Images from the original note were not included. Nahomi Jaramillo is a 74 year old male here for a Medicare wellness visit. Medicare Health Risk Assessment General Health Excellent Exercise: Minutes/Day 60 min Exercise: Days/Week 4 days Alcohol: Daily Use Never Alcohol: Drinks/Day Patient does not drink Alcohol: 6 or more drinks Never Feel off balance No Concerns: Teeth/Dentures No Concerns: Sexual function No Troubled by feelings None of the above Frequency: Eating healthy diet Nearly every day ADLs requiring help None of the above Safety precautions in home/vehicle No Smoke, vape, chews tobacco No Difficulty hearing No Difficulty seeing No Current Providers Specialists: I have reviewed specialist-related care of the patient in the medical record. Outside specialists seen: Cardiology, urology, dermatology. Medical/Family history review Reviewed and updated problem list, medical/surgical/family/social history, medications, and allergies. Opioid use review Opioid Medications (last 90 days) 08/05/2024 20:57 08/07/2024 01:31 Opioid Medications oxycodone HCl 5 mg, ORAL, EVERY 6 HOURS NEEDED, Starting on 08/05/24 at 2056, Until Genevieve 08/07/24at 0131, Severe Pain (>/=7) - Enteral 5 mg, ORAL, EVERY 6 HOURS NEEDED, Starting on 08/05/24 at 2056, Until Genevieve 08/07/24 at 0131, Severe Pain (>/=7) - Enteral-Discontinued (AUTO DC AT D) Details Hospital medication Anxiety/Depression screening DEMETRIUS-7 Score: 0 . Recommendation: no further intervention at this time Cognitive screening Declined per nursing Cognitive screening reviewed and Patient declined Mini-Cog test. Functional Observation Was the patient's Timed Up & Go test unsteady or >= 12 seconds? No Advance Care Planning Will check into it. Measurements BP 121/75 Pulse (!) 59 Resp 16 Wt 79.8 kg (176 lb) SpO2 98% BMI 26.77 kg/m Vision Screening: Follows with optometry/ophthalmology Assessment/Plan Medicare annual wellness visit, subsequent (Z00.00) - Counseled on healthy diet and regular exercise - Fall avoidance information provided - Personalized prevention plan provided Additional Concerns The following concerns were also discussed with the patient: Recording using ambient [employer] software for draft documentation of the visit was discussed with the patient/authorized workforce services representative; all questions welcomed and answered. Patient/authorized workforce services representative agreed to proceed Subjective Sleep Apnea: - Has not used CPAP since pneumothorax. - Reluctant to resume CPAP use, concerned it may have aggravated the pneumothorax. - Interested in an oral appliance for sleep apnea management; has contacted Dr. Lee, a local dentist, about this option. - Reports nocturnal oxygen saturation levels as low as 73% without CPAP, monitored using a non-medical imaging director. - Has not seen a sleep specialist since obtaining CPAP in [id number]. Atrial Fibrillation: - Managed by Dr. Myrick. - Taking flecainide BID and metoprolol 1/2 tablet daily. - Dr. Myrick has mentioned discontinuing flecainide and metoprolol but has not yet done so. - Denies current dyspnea. Pneumothorax: - Occurred following an accident. Pain improving. Breathing improved. - Denies current dyspnea. Cholesterol: - Last checked on 08/04; total cholesterol 144 mg/dL, triglycerides 80 mg/dL, HDL 53 mg/dL, LDL 76 mg/dL. Constitutional: (-) unintentional weight loss, (-) weakness, (-) fatigue Head: (-) headaches Eyes: (-) vision change Ears/Nose/Mouth/Throat: (-) hearing loss, (-) dysphagia Neck: (-) neck mass Cardiovascular: (-) chest pain, (-) palpitations, (-) peripheral edema Respiratory: (-) dyspnea Gastrointestinal: (-) heartburn, (-) indigestion, (-) diarrhea, (-) constipation, (-) hematochezia,(-) melena Genitourinary: (-) dysuria Musculoskeletal: (-) myalgia, (-) arthralgia, (-) joint redness/swelling Skin: (-) rash Neurological: (-) syncope, (-) seizures, (-) tremor Psychiatric: (+) irritability, (-) depression, (-) anxiety Endocrine: (+) heat intolerance, (-) cold intolerance, (-) polydipsia, (-) polyuria Hematologic/Lymphatic: (-) easy bruising, (-) abnormal bleeding Labs: (08/05) - CBC: - WBC: Slightly elevated - MCV: Upper end of normal - Glucose: 116 mg/dL (non-fasting) (08/04) - Lipid panel: - Cholesterol: 144 mg/dL - Triglycerides: 80 mg/dL - HDL: 53 mg/dL - LDL: 76 mg/dL Objective BP 121/75 Pulse (!) 59 Resp 16 Wt 79.8 kg (176 lb) SpO2 98% BMI 26.77 kg/m GENERAL: NAD, alert and oriented. SKIN: Unremarkable, no rash or skin lesions. HEAD: Normocephalic. EYES: PERRLA, EOMI, conjunctiva clear. EARS: External ears normal, canals clear, TM's normal. NOSE/SINUSES: Nares normal. Septum midline. OROPHARYNX: Lips, mucosa, and tongue normal, good dentition. No oral lesions noted. NECK: Supple, no lymphadenopathy, normal thyroid, no carotid bruits. LUNGS: Clear to auscultation bilaterally, no wheezes/rhonchi/rales. No longer able to detect any subcutaneous air. HEART: Regular rate and rhythm, no murmurs. No ectopy. EXTREMITIES: Normal, no deformities, no skin discoloration, no edema. NEURO: Awake, alert and oriented x3, cranial nerves II-XII grossly intact, normal gait, no involuntary motions. Assessment & Plan 1. Essential (primary) hypertension (I10) - Blood pressure well-controlled. - Continue current medication regimen. 2. Obstructive sleep apnea (adult) (pediatric) (G47.33) - Patient has discontinued CPAP use due to concerns about a previous pneumothorax. - Discussed alternative treatment options, including mandibular advancement device. - Advised patient to check with insurance regarding coverage for the oral appliance and home sleep study. - Will order a home sleep study if insurance coverage is confirmed. - Patient to follow up with Dr. Lee for further evaluation of oral appliance therapy. 3. Traumatic pneumothorax, sequela (S27.0XXS) - No current respiratory distress; lung sounds clear on auscultation. - No subcutaneous emphysema noted on examination. - Continue monitoring for any respiratory symptoms. 4. Paroxysmal atrial fibrillation (HCC) (I48.0) - Managed by Dr. Myrikc - No recent episodes of palpitations or chest pain reported. - Continue current medication regimen. 5. Hyperlipidemia, mixed (E78.2) - Recent lipid panel on August 04 shows total cholesterol 144 mg/dL, LDL 76 mg/dL, HDL 53 mg/dL, triglycerides 80 mg/dL. - Continue current management. 6. History of prostate cancer (Z85.46) Follows with urology. - No current issues reported. - Continue regular follow-up and monitoring. Discussed treatment plan and patient voices understanding. Patient's questions answered appropriately. Medications and potential side effects were discussed and patient voices understanding. Return to the office as scheduled or as needed for worsening/no improvement. Krystal Oswald APRN.MISTY documented in this encounterA[facility]06-[facility] Instructions* Patient Instructions* Krystal Oswald APRN.CNP - 08/25/2024 11:13 AM EDT Screening schedule The following prevention plan is recommended: Depression Screening Never done Anxiety Screening Never done Shingrix Vaccine(1 of 2) Never done Medicare Annual Wellness Visit Never done RSV Vaccine(1 - 1-dose 75+ series) Never done Covid-19 Vaccine( - season) due on 11/04/2023 Advance Directive Discussion Never done WHAT YOU CAN DO TO PREVENT FALLS Many falls can be prevented. By making some changes, you can lower your chances of falling. Four things YOU can do to prevent falls for you* and your caregiver 1. Begin a regular exercise program Exercise is one of the most important ways to lower your chances of falling. It makes you stronger and helps you feel better. Exercises that improve balance and coordination (like Amaury Chi) are the most helpful. Lack of exercise leads to weakness and increases your chances of falling. Ask your doctor or health care provider about the best type of exercise program for you. 2. Have your health care provider review your medicines Have your doctor or pharmacist review all the medicines you take, even [id number]-[id number] medicines. As you get older, the way medicines work in your body can change. Some medicines, or combinations of medicines, can make you sleepy or dizzy andcan cause you to fall. 3. Have your vision checked Have your eyes checked by an eye doctor at least once a year. You may be wearing the wrong glasses or have a condition like glaucoma or cataracts that limits your vision. Poor vision can increase your chances of falling. 4. Make your home safer About half of all falls happen at home. To make your home safer: Remove things you can trip over (like papers, books, clothes, and shoes) from stairs and places where you walk. Remove small throw rugs or use double-sided tape to keep the rugs from slipping. Keep items you use often in cabinets you can reach easily without using a step stool. Have grab bars put in next to your toilet and in the tub or shower. Use non-slip mats in the bathtub and on shower floors. Improve the lighting in your home. As you get older, you need brighter lights to see well. Hang light-weight curtains or shades to reduce glare. Have handrails and lights put in on all staircases. Wear shoes both inside and outside the house. Avoid going barefoot or wearing slippers. For more information, contact: Centers for Disease Control and Prevention www.cdc.gov/injury * This information may not apply if you have certain medical conditions. documented in this encounterA[facility]06-17-[facility]25 Telephone encounter Note * Telephone Encounter - [facility] - 08/19/2024 6:13 PM EDT Record ID: [id number] Patient name: Nahomi Jaramillo Date: August 19, 2024 - 01:13 Administered by: [facility] Protocol: -> Great! Now we are in a secure chat environment. Protecting your health information is important to us. Ok, let's get started. Please verify your name and date of . Please click on the button with your first name. -> Nahomi Got it. On to the next question... Select the button with your last name. -> Ella Got it, thank you. Please enter your date of in MM/DD/YYYY format:(e.g., 03/23/1971 for Mar 23, 1971) -> 1950 Thank you for verifying your information. I'd like to ask you a few questions about how your recovery is going. Since leaving the hospital, do you have any new or worsening symptoms? -> Yes And how have these symptoms changed since you first noticed them? -> Worse To play it safe, your symptoms should be reviewed by a clinician. If you think this is a medical emergency, go to the nearest emergency room or call 911. Otherwise you can expect a call from a [facility] registered nurse within the next business day. Thank you for your time and allowing us tocare for you. We will check in on you over the next four weeks to ensure you continue to recover and support your needs. In the meantime, please reach out to your PCP for any questions or concerns.Thank you for choosing [facility]! -> Great! Now we are in a secure chat environment. Protecting your health information is important to us. Ok, let's get started. Please verify your name and date of . Please click on the button with your first name. -> Nahomi Got it. On to the next question... Select the button with your last name. -> Jaramillo Got it, thank you. Please enter your date of in MM/DD/YYYY format:(e.g., 03/23/1971 for Mar 23, 1971) -> 1950 Thank you for verifying your information. I'd like to ask you a few questions about how your recovery is going. Have you experienced any new or worsening symptoms since returning home? -> No I'm glad to hear that. Have you had a hospital follow-up appointment yet since your discharge? -> Yes Thank you for your time and allowing us to care for you. We will check in on you over the next fourweeks to ensure you continue to recover and support your needs. In the meantime, please reach out to your PCP for any questions or concerns.Thank you for choosing [facility]! -> Thank you for your time and allowing us to care for you. We will check in on you over the next fourweeks to ensure you continue to recover and support your needs. In the meantime, please reach out to your PCP for any questions or concerns.Thank you for choosing [facility]! -> Great! Now we are in a secure chat environment. Protecting your health information is important to us. Ok, let's get started. Please verify your name and date of . Please click on the button with your first name. -> Nahomi Got it. On to the next question... Select the button with your last name. -> Ella Got it, thank you. Please enter your date of in MM/DD/YYYY format:(e.g., 03/23/1971 for Mar 23, 1971) -> 1950 Thank you for verifying your information. I'd like to ask you a few questions about how your recovery is going. Have there been any new or worsening symptoms since your last response? -> No I'm glad to hear that. Thank you for your time and for allowing us to care for you. Please be sure to reach out to your provider for any further symptoms or needs. Please rate your satisfaction with the care and support you have received from us since you have been home: (scale 1-5; 1 worst and 5 best) -> 5 Please tell me what you liked best about your experience: -> c Please tell me what you liked least about your experience: -> Great! Now we are in a secure chat environment. Protecting your health information is important to us. Ok, let's get started. Please verify your name and date of . Please click on the button with your first name. -> Great! Now we are in a secure chat environment. Protecting your health information is important to us. Ok, let's get started. Please verify your name and date of . Please click on the button with your first name. -> Nahomi Got it. On to the next question... Select the button with your last name. -> Ella Got it, thank you. Please enter your date of in MM/DD/YYYY format:(e.g., 03/23/1971 for Mar [birth year], 1971) -> 1950 Thank you for verifying your information. I'd like to ask you a few questions about how your recovery is going. Have there been any new or worsening symptoms since your last response? -> No I'm glad to hear that. Thank you for your time and for allowing us to care for you. Please be sure to reach out to your provider for any further symptoms or needs. Please rate your satisfaction with the care and support you have received from us since you have been home: (scale 1-5; 1 worst and 5 best) -> 5 Please tell me what you liked best about your experience: -> good people Please tell me what you liked least about your experience: -> nothing [facility]06-[facility] Miscellaneous Notes* Telephone Encounter - [facility] - 08/19/2024 6:13 PM EDT Record ID: [id number] Patient name: Nahomi Jaramillo Date: August 19, 2024 - :13 Administered by: [facility] Protocol: -> Great! Now we are in a secure chat environment. Protecting your health information is important to us. Ok, let's get started. Please verify your name and date of . Please click on the button with your first name. -> Nahomi Got it. On to the next question... Select the button with your last name. -> Ella Got it, thank you. Please enter your date of in MM/DD/YYYY format:(e.g., 03/23/1971 for Mar 23, 1971) -> 1950 Thank you for verifying your information. I'd like to ask you a few questions about how your recovery is going. Since leaving the hospital, do you have any new or worsening symptoms? -> Yes And how have these symptoms changed since you first noticed them? -> Worse To play it safe, your symptoms should be reviewed by a clinician. If you think this is a medical emergency, go to the nearest emergency room or call 911. Otherwise you can expect a call from a [facility] registered nurse within the next business day. Thank you for your time and allowing us tocare for you. We will check in on you over the next four weeks to ensure you continue to recover and support your needs. In the meantime, please reach out to your PCP for any questions or concerns.Thank you for choosing [facility]! -> Great! Now we are in a secure chat environment. Protecting your health information is important to us. Ok, let's get started. Please verify your name and date of . Please click on the button with your first name. -> Nahomi Got it. On to the next question... Select the button with your last name. -> Ella Got it, thank you. Please enter your date of in MM/DD/YYYY format:(e.g., 03/23/1971 for Mar [birth year], 1971) -> 1950 Thank you for verifying your information. I'd like to ask you a few questions about how your recovery is going. Have you experienced any new or worsening symptoms since returning home? -> No I'm glad to hear that. Have you had a hospital follow-up appointment yet since your discharge? -> Yes Thank you for your time and allowing us to care for you. We will check in on you over the next fourweeks to ensure you continue to recover and support your needs. In the meantime, please reach out to your PCP for any questions or concerns.Thank you for choosing [facility]! -> Thank you for your time and allowing us to care for you. We will check in on you over the next fourweeks to ensure you continue to recover and support your needs. In the meantime, please reach out to your PCP for any questions or concerns.Thank you for choosing [facility]! -> Great! Now we are in a secure chat environment. Protecting your health information is important to us. Ok, let's get started. Please verify your name and date of . Please click on the button with your first name. -> Nahomi Got it. On to the next question... Select the button with your last name. -> Ella Got it, thank you. Please enter your date of in MM/DD/YYYY format:(e.g., 03/23/1971 for Mar 23, 1971) -> 1950 Thank you for verifying your information. I'd like to ask you a few questions about how your recovery is going. Have there been any new or worsening symptoms since your last response? -> No I'm glad to hear that. Thank you for your time and for allowing us to care for you. Please be sure to reach out to your provider for any further symptoms or needs. Please rate your satisfaction with the care and support you have received from us since you have been home: (scale 1-5; 1 worst and 5 best) -> 5 Please tell me what you liked best about your experience: -> c Please tell me what you liked least about your experience: -> Great! Now we are in a secure chat environment. Protecting your health information is important to us. Ok, let's get started. Please verify your name and date of . Please click on the button with your first name. -> Great! Now we are in a secure chat environment. Protecting your health information is important to us. Ok, let's get started. Please verify your name and date of . Please click on the button with your first name. -> Nahomi Got it. On to the next question... Select the button with your last name. -> Ella Got it, thank you. Please enter your date of in MM/DD/YYYY format:(e.g., 03/23/1971 for Mar 23, 1971) -> 1950 Thank you for verifying your information. I'd like to ask you a few questions about how your recovery is going. Have there been any new or worsening symptoms since your last response? -> No I'm glad to hear that. Thank you for your time and for allowing us to care for you. Please be sure to reach out to your provider for any further symptoms or needs. Please rate your satisfaction with the care and support you have received from us since you have been home: (scale 1-5; 1 worst and 5 best) -> 5 Please tell me what you liked best about your experience: -> good people Please tell me what you liked least about your experience: -> nothing documented in this encounterAden[facility]06-10-2025 Telephone encounter Note * Telephone Encounter - [facility] - 08/12/2024 1:04 PM EDT Record ID: [id number] Patient name: Nahomi Jaramillo Date: August 12, 2024 - 08:04 Administered by: [facility] Protocol: -> Great! Now we are in a secure chat environment. Protecting your health information is important to us. Ok, let's get started. Please verify your name and date of . Please click on the button with your first name. -> Nahomi Got it. On to the next question... Select the button with your last name. -> Ella Got it, thank you. Please enter your date of in MM/DD/YYYY format:(e.g., 03/23/1971 for Mar [birth year], 1971) -> 1950 Thank you for verifying your information. I'd like to ask you a few questions about how your recovery is going. Since leaving the hospital, do you have any new or worsening symptoms? -> Yes And how have these symptoms changed since you first noticed them? -> Worse To play it safe, your symptoms should be reviewed by a clinician. If you think this is a medical emergency, go to the nearest emergency room or call 911. Otherwise you can expect a call from a [facility] registered nurse within the next business day. Thank you for your time and allowing us tocare for you. We will check in on you over the next four weeks to ensure you continue to recover and support your needs. In the meantime, please reach out to your PCP for any questions or concerns.Thank you for choosing [facility]! -> Great! Now we are in a secure chat environment. Protecting your health information is important to us. Ok, let's get started. Please verify your name and date of . Please click on the button with your first name. -> Nahomi Got it. On to the next question... Select the button with your last name. -> Ella Got it, thank you. Please enter your date of in MM/DD/YYYY format:(e.g., 03/23/1971 for Mar [birth year], 1971) -> 1950 Thank you for verifying your information. I'd like to ask you a few questions about how your recovery is going. Have you experienced any new or worsening symptoms since returning home? -> No I'm glad to hear that. Have you had a hospital follow-up appointment yet since your discharge? -> Yes [facility]06[facility] Miscellaneous Notes* Telephone Encounter - [facility] - 08/12/2024 1:04 PM EDT Record ID: [id number] Patient name: Nahomi Jaramillo Date: August 12, 2024 - 08:04 Administered by: [facility] Protocol: -> Great! Now we are in a secure chat environment. Protecting your health information is important to us. Ok, let's get started. Please verify your name and date of . Please click on the button with your first name. -> Nahomi Got it. On to the next question... Select the button with your last name. -> Ella Got it, thank you. Please enter your date of in MM/DD/YYYY format:(e.g., [birth year]/23/1969 for Mar [birth year], 1971) -> 1950 Thank you for verifying your information. I'd like to ask you a few questions about how your recovery is going. Since leaving the hospital, do you have any new or worsening symptoms? -> Yes And how have these symptoms changed since you first noticed them? -> Worse To play it safe, your symptoms should be reviewed by a clinician. If you think this is a medical emergency, go to the nearest emergency room or call 911. Otherwise you can expect a call from a [facility] registered nurse within the next business day. Thank you for your time and allowing us tocare for you. We will check in on you over the next four weeks to ensure you continue to recover and support your needs. In the meantime, please reach out to your PCP for any questions or concerns.Thank you for choosing [facility]! -> Great! Now we are in a secure chat environment. Protecting your health information is important to us. Ok, let's get started. Please verify your name and date of . Please click on the button with your first name. -> Nahomi Got it. On to the next question... Select the button with your last name. -> Ella Got it, thank you. Please enter your date of in MM/DD/YYYY format:(e.g., [birth year]/23/1969 for Mar [birth year], 1971) -> 1950 Thank you for verifying your information. I'd like to ask you a few questions about how your recovery is going. Have you experienced any new or worsening symptoms since returning home? -> No I'm glad to hear that. Have you had a hospital follow-up appointment yet since your discharge? -> Yes documented in this encounterA[facility]06-10-[facility] History of Present illness Narrative* Esthela Hubbard RT(R) - 08/12/2024 9:00 AM EDT Radiology Service Progress Note PATIENT NAME: Nahomi Jaramillo DATE OF SERVICE: August 12, 2024 TIME: 9:41 AM PATIENT IDENTITY VERIFICATION COMPLETED USING TWO (2) IDENTIFIERS: Name and Date of confirmedby patient verbally. FALL SCREENING: Has the patient had 2 falls in the last year or 1 fall with injury or currently using an Ambulatory Assistive Device (Walker, Cane, Wheelchair, Crutches, etc.)? No PATIENT GENDER DATA: Assigned male at PATIENT RELEVANT IMPLANT DATA REVIEWED: Yes PATIENT PRESENTS WITH AN IMPLANTABLE OR ATTACHED TELEGRAPH LINEMAN: No RADIOLOGY DEPARTMENT: General X-ray: Exam(s) Completed: Chest X-Ray PERIPHERAL IV DATA: Not applicable SIGNED BY: SERGIO Gordon) August 12, 2024 9:41 AM documented in this encounterAdena [facility]06-10-2025 NoteHNO ID: [id number] Author: ESTHELA HUBBARD RT(R) Service: ? Author Type: Technologist Type: Progress Notes Filed: 08/12/2024 09:49 Note Text: Radiology Service Progress Note PATIENT NAME: Nahomi Jaramillo DATE OF SERVICE: August 12, 2024 TIME: 9:41 AM PATIENT IDENTITY VERIFICATION COMPLETED USING TWO (2) IDENTIFIERS: Name and Date of confirmed by patient verbally. FALL SCREENING: Has the patient had 2 falls in the last year or 1 fall with injury or currently using an Ambulatory Assistive Device (Walker, Cane, Wheelchair, Crutches, etc.)? No PATIENT GENDER DATA: Assigned male at PATIENT RELEVANT IMPLANT DATA REVIEWED: Yes PATIENT PRESENTS WITH AN IMPLANTABLE OR ATTACHED TELEGRAPH LINEMAN: No RADIOLOGY DEPARTMENT: General X-ray: Exam(s) Completed: Chest X-Ray PERIPHERAL IV DATA: Not applicable SIGNED BY: CAROL GordonR) August 12, 2024 9:41 [facility]06-10-2025 Instructions* Patient Instructions* Krystal Oswald APRN.CNP - 08/12/2024 8:48 AM EDT - Refilled your gabapentin so you have an ongoing supply; continue taking one dose at bedtime as needed for nerve pain as before. - Sent a new prescription for methocarbamol (30 tablets); use it as needed for muscle spasms and gradually back off as your pain improves. - Complete a stat chest x-ray today; check MyChart for the results by lunchtime and I ll review them--we ll call you if anything needs attention. - Continue using your incentive spirometer several times a day; take deep breaths and cough to fully expand your lung and help prevent pneumonia. - If you decide to try the oral sleep-apnea appliance, let us know when you obtain it; use it nightly for a few weeks before arranging a repeat sleep study to confirm effectiveness. - You may leave the dressing off the former chest-tube site; just monitor the area and tell us if you notice redness, swelling, or drainage. - Watch for any new fevers, chills, or worsening cough--contact the office promptly if these occur. documented in this encounterAdena [facility]06-10-2025 NoteHNO ID: [id number] Author: KRYSTAL OSWALD APRN.MISTY Service: ? Author Type: Nurse Practitioner Type: Progress Notes Filed: 08/12/2024 13:52 Note Text: Transitional Care Management TCM Eligibility Documentation Outreach completed via text messaging service. Provider Documentation Nahomi Jaramillo is a 74 year old male here today for a follow up from recent hospitalization. I have reviewed the patient's hospital course including discharge summary, discharge medications , and follow up needs with the patient and any family members present at today's visit. Recording using [employer] software for draft documentation of the visit was discussed with the patient/authorized workforce services representative; all questions welcomed and answered. Patient/authorized workforce services representative agreed to proceed Copied and pasted from discharge summary. Hospital Course as Described to the Patient: You were admitted for Fall, right rib fractures 8-10 with pneumothorax. 74 year old male patient presented tot he ED as a level III trauma after falling over a wheelbarrow and landing on right right side. He originally presented to [facility] and was found to have right rib fractures 8-10 and a pneumothorax. A 28 niuean chest tube was placed prior to transfer. Patient denies hitting his head or losing consciousness, he denies taking blood thinners. A chest x-ray was obtained when he arrived to the emergency department and showed resolution of the pneumothorax. Patient was admitted to a regular nursing floor under trauma services. In the morning of 08/06, chest tube was placed to water seal. A chest x-ray was repeated at noon and showed a small apical pneumothorax. Chest tube was removed and an additional x-ray was obtained 4 hours after removal which was stable. PT/OT evaluated the patient and recommended home. Patient was discharged home in good condition on 08/06. HPI Pneumothorax and Rib Fractures: - Recent pneumothorax and right rib fractures (8-10) following a fall. - Initial treatment at [facility] on the , with chest tube placement. - Transferred to [facility]; chest X-ray showed improved pneumothorax. - Chest tube removed after stable X-ray findings; discharged on the with gabapentin. - Pain is improving and tolerable; initially experienced spasms with movement, now mostly resolved. - Using an incentive spirometer device for breathing exercises; walking regularly. - Taking Tylenol in the morning and at night; gabapentin once daily at night -- only has one left for tonight and tomorrow night. - Finished a course of muscle relaxants; last dose taken this morning. - Denies dizziness, syncope, chest pain, palpitations, hemoptysis, or productive cough. - Appetite and bowel movements are normal; denies hematochezia or melena. - Urination is normal; no visible bruising noted. Obstructive Sleep Apnea: - Currently using CPAP; interested in exploring a dental appliance for TALI management. - Last sleep study was in 2013. - Reports good sleep quality with CPAP but desires to avoid using the machine if he is able to correct with oral appliance. Aortic Stenosis: - Diagnosed with aortic stenosis; last cardiology visit with Dr. Myrick was approximately 6 months ago. - Upcoming echocardiogram scheduled for September 08. Atrial Fibrillation: - Managed with flecainide BID and metoprolol 1/2 tablet daily. Constitutional: (+) positional sleep difficulty Cardiovascular: (-) chest pain, (-) palpitations Gastrointestinal: (-) constipation, (-) hematochezia, (-) melena, (-) decreased appetite Genitourinary: (-) urinary symptoms Musculoskeletal: (+) right rib pain Skin: (-) bruising Neurological: (-) dizziness, (-) syncope Labs: Tests: (2013) Sleep Study: Consistent with sleep apnea Imaging: - Chest X-ray: Pneumothorax stable 4 hours after chest tube removal - Chest X-ray: Stable after water seal - Chest X-ray: Pneumothorax improved - Chest X-ray: Right pneumothorax with right rib fractures 8-10 - (09/08) Echocardiogram: Aortic stenosis PHYSICAL EXAMINATION BP 104/64 Pulse 64 Resp 16 Wt 80.3 kg (177 lb) SpO2 96% BMI 26.92 kg/m? GENERAL: NAD, alert and oriented. SKIN: some tape irritation on the right lateral chest wall. Some minimal bruising around chest tube site. Small amount of subq air palpated along the chest wall. HEAD: Normocephalic. EYES: EOMI, conjunctiva clear. OROPHARYNX: Lips, mucosa, and tongue normal, good dentition. LUNGS: Clear to auscultation bilaterally, no wheezes/rhonchi/rales. HEART: Regular rate and rhythm. + murmur 2-3/6. No ectopy. EXTREMITIES: Normal, no deformities, no skin discoloration, no edema. NEURO: Awake, alert and oriented x3, cranial nerves II-XII grossly intact, normal gait, no involuntary motions. 1. Closed fracture of multiple ribs of right side with routine healing, subsequent encounter (S22.41XD) 2. Traumatic p (more content not included)...[facility] 08-12-2024 History of Present illness Narrative* Krystal Oswald APRN.[facility] - 08/12/2024 8:19 AM EDT Transitional Care Management TCM Eligibility Documentation Outreach completed via text messaging service. Provider Documentation Nahomi Jaramillo is a 74 year old male here today for a follow up from recent hospitalization. I have reviewed the patient's hospital course including discharge summary, discharge medications , and follow up needs with the patient and any family members present at today's visit. Recording using [employer] software for draft documentation of the visit was discussed with the patient/authorized workforce services representative; all questions welcomed and answered. Patient/authorized workforce services representative agreed to proceed Copied and pasted from discharge summary. Hospital Course as Described to the Patient: You were admitted for Fall, right rib fractures 8-10 with pneumothorax. 74 year old male patient presented tot he ED as a level III trauma after falling over a wheelbarrow and landing on right right side. He originally presented to [facility] and was found to have right rib fractures 8-10 and a pneumothorax. A 28 niuean chest tube was placed prior to transfer. Patient denies hitting his head or losing consciousness, he denies taking blood thinners. A chest x-ray was obtained when he arrived to the emergency department and showed resolution of the pneumothorax. Patient was admitted to a regular nursing floor under trauma services. In the morning of 08/06, chest tube was placed to water seal. A chest x-ray was repeated at noon and showed a small apical pneumothorax. Chest tubewas removed and an additional x-ray was obtained 4 hours after removal which was stable. PT/OT evaluated the patient and recommended home. Patient was discharged home in good condition on 08/06. HPI Pneumothorax and Rib Fractures: - Recent pneumothorax and right rib fractures (8-10) following a fall. - Initial treatment at [facility] on the , with chest tube placement. - Transferred to [facility]; chest X-ray showed improved pneumothorax. - Chest tube removed after stable X-ray findings; discharged on the with gabapentin. - Pain is improving and tolerable; initially experienced spasms with movement, now mostly resolved. - Using an incentive spirometer device for breathing exercises; walking regularly. - Taking Tylenol in the morning and at night; gabapentin once daily at night -- only has one left for tonight and tomorrow night. - Finished a course of muscle relaxants; last dose taken this morning. - Denies dizziness, syncope, chest pain, palpitations, hemoptysis, or productive cough. - Appetite and bowel movements are normal; denies hematochezia or melena. - Urination is normal; no visible bruising noted. Obstructive Sleep Apnea: - Currently using CPAP; interested in exploring a dental appliance for TALI management. - Last sleep study was in 2013. - Reports good sleep quality with CPAP but desires to avoid using the machine if he is able to correct with oral appliance. Aortic Stenosis: - Diagnosed with aortic stenosis; last cardiology visit with Dr. Myrick was approximately 6 months ago. - Upcoming echocardiogram scheduled for September 08. Atrial Fibrillation: - Managed with flecainide BID and metoprolol 1/2 tablet daily. Constitutional: (+) positional sleep difficulty Cardiovascular: (-) chest pain, (-) palpitations Gastrointestinal: (-) constipation, (-) hematochezia, (-) melena, (-) decreased appetite Genitourinary: (-) urinary symptoms Musculoskeletal: (+) right rib pain Skin: (-) bruising Neurological: (-) dizziness, (-) syncope Labs: Tests: (2013) Sleep Study: Consistent with sleep apnea Imaging: - Chest X-ray: Pneumothorax stable 4 hours after chest tube removal - Chest X-ray: Stable after water seal - Chest X-ray: Pneumothorax improved - Chest X-ray: Right pneumothorax with right rib fractures 8-10 - (09/08) Echocardiogram: Aortic stenosis PHYSICAL EXAMINATION BP 104/64 Pulse 64 Resp 16 Wt 80.3 kg (177 lb) SpO2 96% BMI 26.92 kg/m GENERAL: NAD, alert and oriented. SKIN: some tape irritation on the right lateral chest wall. Some minimal bruising around chest tubesite. Small amount of subq air palpated along the chest wall. HEAD: Normocephalic. EYES: EOMI, conjunctiva clear. OROPHARYNX: Lips, mucosa, and tongue normal, good dentition. LUNGS: Clear to auscultation bilaterally, no wheezes/rhonchi/rales. HEART: Regular rate and rhythm. + murmur 2-3/6. No ectopy. EXTREMITIES: Normal, no deformities, no skin discoloration, no edema. NEURO: Awake, alert and oriented x3, cranial nerves II-XII grossly intact, normal gait, no involuntary motions. 1. Closed fracture of multiple ribs of right side with routine healing, subsequent encounter (S22.41XD) 2. Traumatic pneumothorax, subsequent encounter (S27.0XXD) - Patient was initially treated at [facility] on the , where a chest tube was placed, and right rib fractures 8 through 10 were identified. Subsequently transferred to [facility], where a repeat chest X-ray showed improvement in the pneumothorax. The chest tube was transitioned to water seal the next morning, with continued stability on X-ray, leading to chest tube removal and discharge on the . - Since discharge, patient reports tolerable pain, improved with current medication regimen. No significant issues with coughing or deep breathing, and no reports of dizziness, syncope, chest pain, or palpitations. Appetite and bowel movements are normal, with no hematuria or melena. Patient is ambulating and using incentive spirometry, though not as frequently as recommended. - Physical examination reveals mild ecchymosis at the chest tube site, with no signs of infection or dehiscence. Auscultation of the lungs reveals clear breath sounds bilaterally, with no wheezing, rales, or rhonchi. Cardiac examination reveals a regular rate and rhythm, with a grade II/ systolicejection murmur best heard at the right upper sternal border, consistent with known aortic stenosis. - Ordered a stat chest X-ray to evaluate for residual pneumothorax or other complications. Results will be reviewed and communicated to the patient via [employer]. - Prescribed gabapentin 300 mg PO QHS and methocarbamol 750 mg PO TID PRN for pain management, with30 tablets each and no refills. Patient advised to use medications as needed and to notify the clinic if additional medication is required. - Patient educated on the importance of deep breathing exercises and coughing to prevent atelectasis and pneumonia. Advised to continue using the incentive spirometer regularly. - Patient advised to monitor for signs of infection, including fever, chills, and increased pain ordrainage at the chest tube site, and to seek medical attention if these symptoms occur. - Patient understands and agrees with the treatment plan. Discussed treatment plan and patient voices understanding. Patient's questions answered appropriately. Medications and potential side effects were discussed and patient voices understanding. Return to the office as scheduled or as needed for worsening/no improvement. Krystal Oswald APRN.TOP STOP ATTACHER documented in this encounterA[facility] Telephone encounter Note * Telephone Encounter - Gyant - 08/07/2024 5:03 PM EDT Record ID: [id number] Patient name: Nahomi Jaramillo Date: August 07, 2024 - : Administered by: PARISH Protocol: -> Great! Now we are in a secure chat environment. Protecting your health information is important to us. Ok, let's get started. Please verify your name and date of . Please click on the button with your first name. -> Nahomi Got it. On to the next question... Select the button with your last name. -> Ella Got it, thank you. Please enter your date of in MM/DD/YYYY format:(e.g., [birth year]/1969 for Mar 23, 1971) -> 1950 Thank you for verifying your information. I'd like to ask you a few questions about how your recovery is going. Since leaving the hospital, do you have any new or worsening symptoms? -> Yes And how have these symptoms changed since you first noticed them? -> Worse [facility]06-05-2025 Miscellaneous Notes* Telephone Encounter - Parish - 08/07/2024 5:03 PM EDT Record ID: [id number] Patient name: Nahomi Jaramillo Date: August 07, 2024 - :03 Administered by: PARISH Protocol: -> Great! Now we are in a secure chat environment. Protecting your health information is important to us. Ok, let's get started. Please verify your name and date of . Please click on the button with your first name. -> Nahomi Got it. On to the next question... Select the button with your last name. -> Ella Got it, thank you. Please enter your date of in MM/DD/YYYY format:(e.g., [birth year]/1969 for Mar 23, 1971) -> 1950 Thank you for verifying your information. I'd like to ask you a few questions about how your recovery is going. Since leaving the hospital, do you have any new or worsening symptoms? -> Yes And how have these symptoms changed since you first noticed them? -> Worse documented in this encounterAdena [facility]06-05-2025 Telephone encounter Note * Telephone Encounter - Enmanuel Zuluaga RN - 08/07/2024 1:27 PM EDT [place] [employer] Nurse calling patient who has reported worsening symptoms. Patient reports he was feeling worse but didn't have his medications but since then has received them and he is feeling much better. [facility]06-05-[facility] Miscellaneous Notes* Telephone Encounter - Enmanuel Zuluaga RN - 08/07/2024 1:27 PM EDT [place] [employer] Nurse calling patient who has reported worsening symptoms. Patient reports he was feeling worse but didn't have his medications but since then has received them and he is feeling much better. documented in this encounterAdena [facility]06-04-2025 NoteHNO ID: [id number] Author: TAYLOR LARIOS APRN.CNP Service: Trauma Author Type: Nurse Practitioner Type: Plan of Care Filed: 08/06/2024 13:40 Note Text: Procedure Note Procedure: Chest tube removal Assisted by: Pete Brenner CNP Chest Tube Site: Right Stay suture in place: No Simple interrupted sutures in place: No Occlusive dressing applied: Yes Chest tube removed in its entirety: Yes Complications: None Post Removal Care: Follow-Up Chest X-Ray in 4 hours 2. Hourly incentive spirometry use 3. Monitor for and report any change in respiratory assessment, shortness of breath and/ or hypoxia 4. Maintain dressing X 48-72 hours Taylor Larios APRN.CNP 08/06/2024 1:39 PM[facility] NoteHNO ID: [id number] Author: VILMA CASTREJON, RN Service: Care Management Author Type: Registered Nurse Type: Care Mgt Progress Note Filed: 08/06/2024 12:23 Note Text: CARE MANAGEMENT PROGRESS NOTE SERVICE DATE: 08/06/2024 SERVICE TIME: 1215 LOS: 1 day Chart Reviewed. Presented with c/o c/o R Chest Pain s/p fall over a wheelbarrow. Admitted and Dx with R Ribs Fx's 8-10 and R Pneumothorax. Is usually A/O x4 and independent in all ADL's. Lives alone. Contact pesons are his Daughters: Sisi Matamoros [phone] and Brigitte Alonso [phone] both live locally and are able to provide intermittent physical assistance and transportation as needed. Has 2 steps into a one level home. Does not have or use any DME. Has med and Rx coverage. PCP is . PT/OT eval and Tx. OT rec Home. Is on RA. Chest Tube Patent and to Water Seal. D/C Plan is Home w/ Care and Support from Daughters when med cleared. No DME or d/c needs identified at this time. Family will provide d/c transportation. CM will cont to follow and assist with safe d/c planning. Intimate Partner Violence We have begun to talk to patients about safe and healthy relationships because it can have a large impact on your health. Do you feel safe around your partner or ex-partner?: Yes Food Insecurity Within the past 12 months, you worried that your food would run out before you got the money to buy more.: Never true Within the past 12 months, the food you bought just didn't last and you didn't have money to get more.: Never true Transportation Needs In the past 12 months, has lack of transportation kept you from medical appointments or from getting medications?: No In the past 12 months, has lack of transportation kept you from meetings, work, or from getting things needed for daily living?: No Housing Stability In the last 12 months, was there a time when you were not able to pay the mortgage or rent on time?: No At any time in the past 12 months, were you homeless or living in a retirement (including now)?: No Utilities In the past 12 months has the [employer], gas, oil, or water company threatened to shut off services in your home?: No SIGNATURE: Vilma Castrejon RN PATIENT NAME: Nahomi Jaramillo DATE: August 06, 2024 TIME: 12:18 PM[facility]06-[facility] History and physical note [facility] Medical Records Department [address] [place] [address] History & Physical Exam 08/05/24 1509 MR#: [id number] Acct: [id number] Name: NAHOMI JARAMILLO Rep #:[id number] : 1950 74 From: Elijah Borja PCP: Dr. Danilo Donis MD Status:REG E R Location: ED HPI - General General Date of Service: 08/05/24 Chief Complaint: Traumatic rib fractures and pneumothorax HPI Narrative NAHOMI JARAMILLO, is a 74 M who presents to [facility] emergency department approximately 24 hours postevent with complaints of right chest discomfort. He shares that he was moving a lot of dirt with a wheelbarrow and the wheelbarrow rotated and caused him to lose his balance falling down onto a brick patio. He states that he fell onto his back and there is no loss of consciousness. Upon arrival to the emergency department chest x-ray showed 100%pneumothorax with tension component. Emergent chest tube was placed with reexpansion of the lung. I was contacted to evaluate patient for possible admission here and requested additional imaging with CT chest. Patient denies any history of tobacco use or primary lung pathology apart from adiagnosis of obstructive sleep apnea requiring nightly CPAP. However, a cardiacperspective he has a diagnosis of paroxysmal atrial fibrillation and shares thathe is also diagnosed with severe aortic stenosis. He is not presently anticoagulated. In addition to the above he reports a history of baseline bradycardia. [facility] Medical History (Updated 08/05/24 @ 14:[address] Claude Jiménez MD) Non-rheumatic aortic regurgitation Kidney stone History of prostate cancer Non-rheumatic mitral regurgitation TALI on CPAP Paroxysmal atrial fibrillation Systolic murmur Hyperlipidemia Benign prostate hyperplasia Home Medications ?Medication ?Instructions ?Recorded ?Last Taken ?Type aspirin 81 mg tablet,delayed 81 mg PO DAILY@0800 07/0108/04/24 History release pravastatin 40 mg tablet 40 mg PO QHS #90 TABLETS 08/04/24 Rx metoprolol tartrate 25 mg tablet 12.5 mg (1/2 x 25 mg) PO DAILY 02/21/24 08/05/24 Rx Cardiac Arrhythmia #30 tabs flecainide 100 mg tablet See Rx Instructions .Route 0 03/31/24 08/05/24 Rx .COMPLEX #180 tabs ibuprofen 200 mg tablet (Advil) 400 mg PO Q6H PRN feve r or pain 08/05/24 08/05/24 History Allergy/AdvReac Type Severity Reaction Status Date / Time Penicillins (PCN) Allergy Hives Verified 08/05/24 09:27 Family History Mother Congestive heart failure Father Heart disease Heart valve disease Grandmother Cancer stomach Surgical History History of radical prostatectomy Social History Smoking Status: Never smoker alcohol intake: never substance use type: does not use caffeine: Yes Type: coffee Number of servings: 4 Vital Signs Vital Signs Vital Signs: 08/05/24 09:27 08/05/24 09:59 08/05/24 13:27 Temperature 98.1 F Temperature Source Oral Pulse Rate 58 L 49 L Respiratory Rate 19 H 18 Respiratory Effort Normal Blood Pressure 110/81 H 130/88 H Blood Pressure Mean 90 102 Pulse Ox 97 98 Oxygen Delivery Method Room Air Room Air 08/05/24 15:04 Temperature Temperature Source Pulse Rate 58 L Respiratory Rate 23 H Respiratory Effort Blood Pressure 105/75 Blood Pressure Mean 85 Pulse Ox 98 Oxygen Delivery Method Room Air Weight Weight: 175 lb 8 oz Body Mass Index (BMI) 26.6 Physical Exam Const alert and oriented x3 Constitutional Narrative: Patient describes discomfort from his right chest tube insertion site Resp Resp Narrative: Mildly tachypneic with shallow inspiration, chest tube in place to right lateralchest wall. Chest tube dressing intact and there is some scant serosanguineous drainage in the chest tube and immediatesuction tubing. There is no kinking ofthe suction tubing or chest tube. Pleur-evac is examined and the chest tube is to suction at -20 cm of water with expanded pro. There is no evident air leak. Skin Skin Narrative: Patient's right upper chest and neck are examined and there is a scant amount ofcrepitus on palpation. Results Lab / Micro Data 08/05/24 10:11 08/05/24 10:11 Labs: Laboratory Results - last 24 hr 08/05/24 10:11: WBC 11.4 H, RBC 4.48 L, Hgb 14.8, Hct 44.4, MCV 99.1 H, MCH 33.0H, MCHC 33.3, RDW Std Deviation 49.5 H, RDW Coeff of Ernie 13.5, Plt Count 231, MPV 10.2, Immature Gran % (Auto) 0.400, Neut % (Auto) 76.6 H, Lymph % (Auto) 11.9 L, [place]ave % (Auto) 10.1 H, Eos % (Auto) 0.7, Baso % (Auto) 0.3, Absolute Neuts (auto) 8.8 H, Absolute Lymphs (auto) 1.36, Nucleated RBC % 0, Sodium 137, Potassium 4.8, Chloride 102, Carbon Dioxide 23.7, Anion Gap 11, BUN 24 H, Creatinine 1.28 H, Estim Creat Clear Calc 47.50 L, Est GFR (MDRD) Non-Af 58 L, BUN/Creatinine Ratio 18.5, Glucose 104 H, Calcium 9.6 Rhythm Strip Rhythm Strip: Sinus bradycardia, which is chronic Rate: 58 Imaging Radiology Impression Ribs w/Chest X-Ray 08/05/24 09:37 IMPRESSION: 1. Large right-sided tension pneumothorax. 2. Multiple right-sided rib fractures with subcutaneous emphysema as described. Note: Findings were discussed with the emergency room physician in [place] on the morning of 08/05/2024 at 10:15 a.m. Reading Location: [place] [address] Chest X-Ray 08/05/24 10:50 IMPRESSION: Interval placement of a right chest tube, with only a small residual pneumothorax now seen. Areas of mild atelectasis remain on the right. No left-sided pneumothorax is seen. No significant pleural fluid collection is evident. No evidence of pulmonary edema. The cardiomediastinal silhouette is stable, with a tortuous aorta noted; no evidence of cardiomegaly. Reading Location: [id number] Chest CT 08/05/24 11:50 IMPRESSION: INTERVAL INSERTION OF A RIGHT LARGE CALIBER CHEST TUBES SINCE THE PREVIOUS STUDYWITH RE-EXPANSION OF THE RIGHT LUNG. AREAS OF GROUND-GLASS OPACIFICATION AND HYPOVENTILATORY CHANGES WITH AREAS OF SUBSEGMENTAL ATELECTASIS. ASSOCIATED SUBCUTANEOUS EMPHYSEMA INVOLVING THE RIGHT CHEST WALL EXTENDING TO THE BASE OF THE NECK. LEFT RENAL CYSTS. Reading Location: [facility] Assessment & Plan Assessment/Plan (1) Closed traumatic fracture of ribs of right side with pneumothorax: PLAN: Patient is a 74-year-old male who presents with history of blunt trauma tothe right chest wall resulting in multiple nondisplaced right-sided rib fractures as well as complete right pneumothorax with tension phenomenon. He had a favorable response to thoracostomy tube placement by emergency medicine and there is no residual pneumothorax shown on his CT imaging. Additionally, I did not identify evidence of a pulmonary contusion or intrapleural process I would suggest a hemothorax. However,outside of the thoracic cavity there is a significant extent of subcutaneous emphysema. Upon exam patient initially appears conversant but in some discomfort from his chest tube. However, when heis asked to cough he is unable to comply with this request, describes feeling acutely nauseous, and evenstates that he feels as though he is to blackout. Hewas undergoing continuous vital sign monitoringand his heart rate became very bradycardic in the mid 30s. Subsequent blood pressure dropped approximately 50 points to 70/50. This was a transient phenomena and patient did spontaneously regain his normal composure and improved vital signs. Thereafter he demonstrated vital capacity on the inspirometer of approximately 2400 mL. I shared with patient and his family that I believed he was a borderline candidatefor admission here and given his presyncopal episode, underlying cardiac disease, and my desire to see him have improved pulmonary toilet (with potentially an offer of regional anesthesiausing either an intercostal or serratus block from anesthesia) I recommended transfer to a trauma center. We simply do not have the [id number] fashion buying internship coverage nor anesthesia support for making these goals possible. Patient and his family expressed understanding but a willingness to proceed as recommended. As patient awaits transfer recommend continuous suction on chest tube -20 cmH2O and minimizing narcotic administration while maximizing other modalities for analgesia. Impression andrecommendation discussed with emergency medicine. Elijah Contreras MD General Surgery Endocrine Surgery Pager: [facility] [address] [place] [address], Outpatient Pavilion, [address] [place] [address] Office: [phone] (2) Vasovagal near-syncope: Charges/Coding Visit Charges Office Visits / Consults: 08170 ED Visit; High/Urgent Severity 08/05/24 1522 Cosigner Signature (if applicable): CC: Dr. Elijah Contreras MD; Dr. Danilo Donis MD~ Signed [facility]06-03-2025 [facility] Medical Records Department [address] [place], [place] [id number] History Physical Exam 08/05/24 1509 MR#: [id number] Acct: [id number] Name: NAHOMI JARAMILLO Rep #: [id number] : 1950 74 From: Elijah Contreras MD PCP: Dr. Danilo Donis MD Status:REG ER Location: ED HPI - General General Date of Service: 08/05/24 Chief Complaint: Traumatic rib fractures and pneumothorax HPI Narrative NAHOMI JARAMILLO, is a 74 M who presents to [facility] emergency department approximately 24 hours postevent with complaints of right chest discomfort. He shares that he was moving a lot of dirt with a wheelbarrow and the wheelbarrow rotated and caused him to lose his balance falling down onto a brick patio. He states that he fell onto his back and there is no loss of consciousness. Upon arrival to the emergency department chest x-ray showed 100% pneumothorax with tension component. Emergent chest tube was placed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 Directive Response Recorded Date/ Time Advance Directives No July 09, 2013 4:49pm Living Will No October 21 11:17am Power of Ukrainian Folk Arts Instructor No October 21 11:17am Advance Directive Response Recorded Date/ Time Advance Directives No July 09, 2013 3:49pm Living Will No October 21 10:17am Power of Ukrainian Folk Arts Instructor No October 21 10:17am Advance Directive Response Recorded Date/ Time Do you have a Healthcare Power of Ukrainian Folk Arts Instructor? No August 05, 2024 9:59am Advance Directives No July 09, 2013 4:49pm Date Activated Date Inactivated Comments 08/06/2024 8:31 AM 08/07/2024 2:31 AM Question Answer Comments Full Code Order Discussed With: Patient Chief Complaint and Reason for Visit Chief [...] regurgitation Paroxysmal atrial fibrillation Hyperlipidemia Chief Complaint Admit Date rib pain August 05, 2024 9:26a m rib pain August 05, 2024 3:09p m Chief Complaint Admit Date rib pain August 05, 2024 9:26a m rib pain August 05, 2024 3:09p m AORTIC STENOSIS September 08, 2024 12:42 pm Chief Complaint Admit Date rib pain August 05, 2024 9:26a m rib pain August 05, 2024 3:09p m AORTIC STENOSIS September 08, 2024 12:42 pm ABN ECHO September 19, 2024 9:20 am Reason for Visit Admit Date Aortic valve stenosis, acquired September 9:20am Non-rheumatic mitral regurgitation September 19, 2024 9:20am Paroxysmal atrial fibrillation September 9:20am Hyperlipidemia September 19, 2024 9:20 am Chief Complaint Admit Date rib pain August 05, 2024 9:26a m rib pain August 05, 2024 3:09p m AORTIC STENOSIS September 08, 2024 12:42 pm ABN ECHO September 19, 2024 9:20 am INT LAB AND XRAY ORDERS September 19, 2024 10:08am Additional Source Comments (unrecognized sect ion and content) No Status Records FoundNo Status Records FoundNo Status Records FoundNo Status Records FoundNo Status Records FoundNo Status Records Found INFORMATION SOURCE (unrecogn ized section and content) DATE CREATED AUTHOR 10/06/2018 [facility] DATE CREATED AUTHOR AUTHOR'S ORGANIZ ATION 10/09/2018 [facility] DATE CREATED AUTHOR AUTHOR'S ORGANIZ ATION 10/09/2018 [facility] DATE CREATED AUTHOR AUTHOR'S ORGANIZ ATION 08/12/2024 [facility] nter DATE CREATED AUTHOR AUTHOR'S ORGANIZ ATION 08/30/2024 [facility] DATE CREATED AUTHOR AUTHOR'S ORGANIZ ATION 09/25/2024 [facility] Goals (unrecognized section and content) Goals [...] or prosecute any alcohol or drug abuse patient.[facility] Center[facility] the event this information is protected by the Federal Confidentiality of Alcohol and Drug Abuse Patient Records regulations: The Federal rules restrict any use of the information to criminally investigate or prosecute any alcohol or drug abuse patient.[facility] Center[facility] the event this information is protected by the Federal Confidentiality of Alcohol and Drug Abuse Patient Records regulations: The Federal rules restrict any use of the information to criminally investigate or prosecute any alcohol or drug abuse patient.[facility] Center[facility] the event this information is protected by the Federal Confidentiality of Alcohol and Drug Abuse Patient Records regulations: The Federal rules restrict any use of the information to criminally investigate or prosecute any alcohol or drug abuse patient.[facility] CenterIn the event this information is protected by the Federal Confidentiality of Alcohol and Drug Abuse Patient Records regulations: The Federal rules restrict any use of the information to criminally investigate or prosecute any alcohol or drug abuse patient.[facility] CenterIn the event this information is protected by the Federal Confidentiality of Alcohol and Drug Abuse Patient Records regulations: The Federal rules restrict any use of the information to criminally investigate or prosecute any alcohol or drug abuse patient.[facility] CenterIn the event this information is protected by the Federal Confidentiality of Alcohol and Drug Abuse Patient Records regulations: The Federal rules restrict any use of the information to criminally investigate or prosecute any alcohol or drug abuse patient.[facility] CenterIn the event this information is protected by the Federal Confidentiality of Alcohol and Drug Abuse Patient Records regulations: The Federal rules restrict any use of the information to criminally investigate or prosecute any alcohol or drug abuse patient.[facility] CenterIn the event this information is protected by the Federal Confidentiality of Alcohol and Drug Abuse Patient Records regulations: The Federal rules restrict any use of the information to criminally investigate or prosecute any alcohol or drug abuse patient.[facility] CenterIn the event this information is protected by the Federal Confidentiality of Alcohol and Drug Abuse Patient Records regulations: The Federal rules restrict any use of the information to criminally investigate or prosecute any alcohol or drug abuse patient.[facility] CenterIn the event this information is protected by the Federal Confidentiality of Alcohol and Drug Abuse Patient Records regulations: The Federal rules restrict any use of the information to criminally investigate or prosecute any alcohol or drug abuse patient.[facility] CenterIn the event this information is protected by the Federal Confidentiality of Alcohol and Drug Abuse Patient Records regulations: The Federal rules restrict any use of the information to criminally investigate or prosecute any alcohol or drug abuse patient.[facility] Reason for Visit (unrecogniz ed section and content) Reason Comments ER F/U [facility] ER 10/21/21 dx: d islocated R thumb; bruised L ribs Reason Comments Ear Problem Ear wax build up Reason Comments Follow Up Phone Call [facility] post dis charge follow-up - contacted - all clear Reason Comments Hospital Follow Up [facility] to [place] dc' d 08/06/24 dx: rib fx; collapsed lung Reason Comments Medicare Wellness Exam Care Teams (unrecognized sec tion and content) Team Status: Active Member Role Status Dates Dr. Danilo Donis MD Primary Care Provider Active Team Status: Active Member Role Status Dates Dr. Danilo Donis MD Primary Care Provider Active Start: August 04, 2024 Dr. Ayaan Reeves MD Attending Provider Active Start: August 04, 2024 Dr. Ayaan Reeves MD Referring Provider Active Start: August 04, 2024 Team Status: Inactive Member Role Status Dates Dr. Danilo Donis MD Primary Care Provider Active Start: August 05, 2024 End: August 05, 2024 Dr. Claude Jiménez MD Emergency Provider Active Sta rt: August 05, 2024 End: August 05, 2024 Team Status: Active Member Role Status Dates Dr. Danilo Donis MD Primary Care Provider Active Start: August 05, 2024 Dr. Claude Jiménez MD Emergency Provider Active Sta rt: August 05, 2024 Dr. Elijah Contreras MD Attending Provider Active Start: August 05, 2024 Director Of Mechanical Engineering Relationship Specialty Start Date End Date Danilo Donis MD [address] [place] [address] [id number] PCP - General Family Practice 04/05/12 Director Of Mechanical Engineering Relationship Specialty [place] [address] [place] [address] [id number] PCP - General Family Practice 04/05/12 Director Of Mechanical Engineering Relationship Specialty Start Date End Date Danilo Donis MD [address] [place] [address] [id number] PCP - General Family Medicine 04/05/12 Team Status: Active Member Role Status Dates Dr. Danilo Donis MD Family Provider Active Dr. Danilo Donis MD Primary Care Provider Active Team Status: Inactive Member Role Status Dates Dr. Danilo Donis MD Primary Care Provider Active Dr. Rome Patel MD Attending Provider, Referring Provider Active Director Of Mechanical Engineering Relationship Specialty Start Date End Date Danilo Donis MD [address] [place], [place] [phone] PCP - General Family Medicine 04/05/12 Team Status: Inactive Member Role Status Dates Dr. Danilo Donis MD Primary Care Provider Active Dr. Ayaan Reeves MD Attending Provider, Referr ing Provider Active Team Status: Inactive Member Role Status Dates Dr. Danilo Donis MD Primary Care Provider Active Jana Dumont CALL CENTER PROFESSIONAL, CALL CENTER PROFESSIONAL-C Attending Provider, Referring P shayna Active Team Status: Inactive Member Role Status Dates Dr. Danilo Donis MD Primary Care Provider, Referring Provider Active Dr. Rome Patel MD Active Jana Dumont CALL CENTER PROFESSIONAL, CALL CENTER PROFESSIONAL-C Attending Provider Active Team Status: Active Member Role Status Dates Dr. Danilo Donis MD Primary Care Provider Active Dr. Rogelio Myrick MD Attending Provider Active Team Status: Active Member Role Status Dates Dr. Danilo Donis MD Primary Care Provider Active Jana Dumont CALL CENTER PROFESSIONAL, CALL CENTER PROFESSIONAL-C Attending Provider Active Team Status: Inactive Member Role Status Dates Dr. Danilo Donis MD Primary Care Provider Active Dr. Rogelio Myrick MD Attending Provider, Referring Pro vider Active Director Of Mechanical Engineering Relationship Specialty Start Date End Date Danilo Donis MD [address] [place], [place] [address] PCP - General Family Medicine 04/05/12 Krystal Oswald APRN.TOP STOP ATTACHER [address] [place], [place] [address] Precision Lens Technician Family Medicine 02/11/24 Bhavana Jang APRN.TOP STOP ATTACHER [address] [place], [place] [id number] Precision Lens Technician Family Medicine 02/11/24 Team Status: Inactive Member Role Status Dates Dr. Danilo Donis MD Primary Care Provider Active Start: August 04, 2024 End: August 04, 2024 Dr. Ayaan Reeves MD Attending Provider Active Start: August 04, 2024 End: August 04, 2024 Dr. Ayaan Reeves MD Referring Provider Active Start: August 04, 2024 End: August 04, 2024 Director Of Mechanical Engineering Relationship Specialty Start Date End Date Danilo Donis MD [address] [facility] [place], [place] [id number] PCP - General Family Medicine 04/05/12 Krystal Oswald, LOCAL DELIVERY DRIVER.TOP STOP ATTACHER [address] [facility] [place] [address] [facility] 02/11/24 Bhavana Jang, LOCAL DELIVERY DRIVER.TOP STOP ATTACHER [address] [facility] [place] [address] [facility] 02/11/24 Parish Cherry MD Primary Care Conservation Educator 08/06/24 08/19/24 Director Of Mechanical Engineering Relationship Specialty Start Date End Date Danilo Donis MD [address] [facility] [place] [address] PCP - General Family Medicine 04/05/12 Krystal Oswald, LOCAL DELIVERY DRIVER.TOP STOP ATTACHER [address] [facility] [place] [address] Prec[facility] L[facility] 02/11/24 Bhavana Jang, LOCAL DELIVERY DRIVER.TOP STOP ATTACHER [address] [facility] [place] [address] Formerly [facility] 02/11/24 Parish Cherry MD Primary Care Conservation Educator 08/06/24 08/19/24 Director Of Mechanical Engineering Relationship Specialty Start Date End Date Danilo Donis MD [address] [facility] [place] [address] PCP - General Family Medicine 04/05/12 Krystal Oswald APRN.TOP STOP ATTACHER [address] [facility] [place] [address] Precision Lens Technician Family [facility] 02/11/24 Bhavana Jang APRN.TOP STOP ATTACHER [address] [facility] [place] [address] Prec[facility] 02/11/24 Parish Cherry MD Primary Care Conservation Educator 08/06/24 08/19/24 Director Of Mechanical Engineering Relationship Specialty Start Date End Date Danilo Donis MD [address] [facility] [place] [address] PCP - General Family Medicine 04/05/12 Krystal Oswald APRN.TOP STOP ATTACHER [address] [facility] [place] [address] Precision Lens Technician Family Medicine 02/11/24 Bhavana Jang APRN.TOP STOP ATTACHER [address] [facility] [place] [address] [facility] 02/11/24 Parish Cherry MD Primary Care Conservation Educator 08/06/24 08/19/24 Director Of Mechanical Engineering Relationship Specialty Start Date End Date Danilo Donis MD [address] [facility] [place] [address] PCP - General Family Medicine 04/05/12 Krystal Oswald APRN.TOP STOP ATTACHER [address] [facility] [place] [address] Precision Lens Technician Family Medicine 02/11/24 Bhavana Jang APRN.TOP STOP ATTACHER [address] [facility], [place] [id number] Formerly [facility] 02/11/24 ProviderParish MD Primary Care Conservation Educator 08/06/24 08/19/24 Director Of Mechanical Engineering Relationship Specialty Start Date End Date Danilo Donis MD [address] [facility], [place] [address] PCP - General Family Medicine 04/05/12 Krystal Oswald, LOCAL DELIVERY DRIVER.TOP STOP ATTACHER [address] [facility], [place] [address] Formerly [facility] 02/11/24 Bhavana Jang, LOCAL DELIVERY DRIVER.TOP STOP ATTACHER [address] [facility], [place] [address] Formerly [facility] 02/11/24 Team Status: Active Member Role/Relationship Status Dates Dr. Danilo Donis MD Primary Care Provider Active Team Status: Inactive Member Role/Relationship Status Dates Dr. Danilo Donis MD Primary Care Provider Active Start: August 04, 2024 End: August 04, 2024 Dr. Ayaan Reeves MD Attending Provider Active Start: August 04, 2024 End: August 04, 2024 Dr. Ayaan Reeves MD Referring Provider Active Start: August 04, 2024 End: August 04, 2024 Team Status: Inactive Member Role/Relationship Status Dates Dr. Danilo Donis MD Primary Care Provider Active Start: August 05, 2024 End: August 05, 2024 Dr. Claude Jiménez MD Attending Provider Active Sta rt: August 05, 2024 End: August 05, 2024 Dr. Claude Jiménez MD Emergency Provider Active Sta rt: August 05, 2024 End: August 05, 2024 Team Status: Active Member Role/Relationship Status Dates Dr. Danilo Donis MD Primary Care Provider Active Start: August 05, 2024 Dr. Claude Jiménez MD Referring Provider Active Sta rt: August 05, 2024 Dr. Claude Jiménez MD Emergency Provider Active Sta rt: August 05, 2024 Dr. Elijah Contreras MD Attending Provider Active Start: August 05, 2024 Team Status: Inactive Member Role/Relationship Status Dates Dr. Danilo Donis MD Primary Care Provider Active Start: September 08, 2024 End: September 08, 2024 SANDEEP Tran Attending Provider Active Start: September 08, 2024 End: September 08, 2024 SANDEEP Tran Referring Provider Active Start: September 08, 2024 End: September 08, 2024 Team Status: Active Member Role/Relationship Status Dates Dr. Danilo Donis MD Primary Care Provider Active Start: September 08, 2024 Dr. Rogelio Myrick MD Attending Provider Active S tart: September 08, 2024 Team Status: Inactive Member Role/Relationship Status Dates Dr. Danilo Donis MD Primary Care Provider Active Start: September 19, 2024 End: September 19, 2024 Dr. Danilo Donis MD Referring Provider Active Start: September 19, 2024 End: September 19, 2024 SANDEEP Tran Attending Provider Active Start: September 19, 2024 End: September 19, 2024 Team Status: Inactive Member Role/Relationship Status Dates Dr. Danilo Donis MD Primary Care Provider Active Start: September 19, 2024 End: September 19, 2024 SANDEEP Tran Attending Provider Active Start: September 19, 2024 End: September 19, 2024 SANDEEP Tran Referring Provider Active Start: September 19, 2024 End: September 19, 2024 FOR RECORDS PERTAINING TO PATIENTS WHO ARE [...] BE BASED ON THE PRIMARY CLINICAL RECORDS. [facility] [employer] provides no warranty or guarantee of the accuracy or completeness of information in this document.
--- NOTE | 2024-10-13 09:47 | CL.D_ITS ---
Patient Name: NAHOMI BUENROSTRO Study Date: 10/01/2024 Performing: Rogelio Myrick MD Ht: 68 inches 172.72 cm : 1950 Wt: 178 lbs 80.74 kg Age: 74 Gender: male BSA: 1.95 PROCEDURE(S) PERFORMED DC02-(70124)C/COR CLINICAL PROFILE AND INDICATIONS Indications: Valvular Disease Heart Failure: None Stress/Imaging Stress/Image Study Performed: No CONCLUSIONS Non obstructive coronary arteries Aortic Valve Stenosis- Severe RECOMMENDATIONS Consider TAVR DESCRIPTION OF PROCEDURE The patient arrived to the procedure lab. The risks and benefits of the procedure as well as a full description of our services here and current unavailability of surgical backup were fully explained to the patient and/or their significant other prior to the catheterization. The Timeout was completed, verifying the correct patient and procedure. The patient's procedural site was prepped and draped in the usual fashion. Local anesthetic was given subcutaneously to right radial region with Lidocaine 2%. Using a modified Seldinger technique, arterial access was obtained via the right radial artery, a 6Fr sheath was inserted. Left Coronary Artery selective angiography was performed in multiple views using a 5 Fr. 4.0 Stafford catheter. Right Coronary Artery selective angiography was then performed in multiple views using a 5 Fr. 4.0 Stafford catheter.The arterial sheath was pulled and a TR Band was applied for hemostasis with 16cc of air. CORONARY ANGIOGRAPHY DOMINANCE: Right Dominant LEFT HEART ASSESSMENT Left Ventricular Ejection Fraction: by Echo 75 % Normal LV wall motion Normal Left Ventricular systolic function LEFT MAIN: Angiographically normal LEFT ANTERIOR DESCENDING ARTERY: Mild luminal irregularities CIRCUMFLEX ARTERY: No significant disease noted RIGHT CORONARY ARTERY: Angiographically normal VALVE FINDINGS: Aortic Valve Calcification - severe Aortic Valve Stenosis - severe Aortic Valve Insufficiency: Grade 1 AORTIC ROOT: Angiographically normal COMPLICATIONS No Complications PROCEDURE MEDICATIONS Versed 1 mg IV Fentanyl 50 mcg IV Oxygen: 2 L/min via nasal cannula Heparin given IA 10/01/2024 08:05:09 Verapamil 2.5mg, 2000 units of Heparin given IA 10/01/2024 08:05:09 SUMMARY OF HEMODYNAMIC DATA Time AIR REST ECG 07:12:09 AO 113/72 (89) SA 08:09:43 Signed By Rogelio Myrick MD On 10/01/2024 08:30:07 Rogelio Myrick MD
== END 2024-10-01 10:45 | disposition home or self-care (01) ==
PROVIDERS: PCP Family Medicine; Referring Provider Internal Medicine Cardiovascular Disease; Visit Provider Internal Medicine Cardiovascular Disease
DX: I35.0 Nonrheumatic aortic (valve) stenosis (principal); I48.0 Paroxysmal atrial fibrillation; I34.0 Nonrheumatic mitral (valve) insufficiency; I25.10 Atherosclerotic heart disease of native coronary artery without angina pectoris; E78.5 Hyperlipidemia, unspecified; G47.33 Obstructive sleep apnea (adult) (pediatric); Z85.46 Personal history of malignant neoplasm of prostate; Z90.79 Acquired absence of other genital organ(s); Z79.82 Long term (current) use of aspirin; Z79.899 Other long term (current) drug therapy
CPT/HCPCS: 93454; 99152; 99153; Q9967; C1769; C1894

== ENCOUNTER → 2024-12-10 | Outpatient (CLI) | payer MEDICARE, OTHER, SELFPAY ==
--- NOTE | 2024-12-10 14:00 | PCM.CR.ITP ---
Diagnosis General Information Admitting Diagnosis: TAVR Personal Learning Style:: Audio/Visual, Demonstration, Group, Individual Preference and Written Stage of change r/t lifestyle modifications:: Preparation Gave educational material for:: Treating Heart Disease, How The Heart Works, What it means to have Heart Disease, How Coronary Artery Disease is Diagnosed, Heart Procedures, What Heart Medications Do, Risk Factors & Modifications, Living an Active Life, Nutrition, Emotions & Heart Disease, Stress Management & Relaxation and Sleep Disorders & Heart Disease Education/Goals Cardiac Rehabilitation Goals Personal Goals: Initial Assessment: Improve energy level, Improve muscle strength and endurance, Improve diet and eating habits (eat healthier) and Control risk factors (learn risk factor modification) Scale for measuring improvement of personal goals Diagnosis & Disease Process Outcomes/Goals: Pt IDs own risk factors & lifestyle modifications by Session 10, Verbalizes symptoms of angina & response by session 3. and Pt independently manages Plan/Interventions: Assist Pt to ID & engage in lifestyle modification to reduce CVD risk, Instruct on individual risk factors, Review symptoms of angina & emergency actions and Review secondary diagnosis & identify educational needs. Safety Referral to Physical Therapy: No Referral to [facility] Case Management: No Fall Risk Assessed:: Yes Assistive Devices:: None Exercise - Initial Assessment Visit Date of Eval: 12/10/24 (INITIAL EVAL) Mets: Pre-: >3 METS for 30 minutes by discharge, >5 METS for 30 minutes by discharge and >7 METS for 30 minutes by discharge Physician Prescribed Exercise Modalities: Treadmill, Rower, Schwinn Airdyne AD-7, SciFit Stepper, SciFit Pro-II Ergometer and AmoobiFit Lateral Instructional Design Technologist Frequency: 3x/week for 12 weeks [36 sessions] Intensity: 60-80% of age predicted maximum heart rate reserve Duration: 30 - 45 minutes METs - Progression 0.5-1.0 weekly:: 0.5 Current METSs:: 3 Target Heart Rate:: 86-108 Target RPE 12-16:: 12-16 Current RPE:: 12-16 Maximum Excercise HR:: 106 Resting Blood Pressure: 98/66 EKG Type: SINUS RHYTHM Current Physical Activity or Exercising minutes: 30 Outcomes & Goals Goals:: Verbalizes understanding of THR, RPE & goal METS by session 6, Documents in home exercise log/reports 30 min aerobic 5 day/wk by DC and Demonstrates accurate pulse taking by DC Intervention & Plan Exercise Program Goals: Instruct on personal THR & RPE, Instruct on MET level & personal MET goal, Show patient to take own pulse /validate performance until accurate and Instruct on home exercise Physical Activity Home Exercise Physical Activity - Home Exercise: Safe Exercise, Warm-up, Self-monitoring, Cool-Down, Home Exercise > 30 min Daily and Sitting Time <3 hours/daily Outcomes & Goals Outcomes/Goals: Demonstrates correct Warm-up/exercise Cool-Down (S3) if = 2.5 METs, Verbalizes symptoms of exercise intolerance by Session 3 (S3) and Demonstrate safe equipment use (S3) & follows exercise prescrition (6) Intervention & Plan Plan/Intervention: Instruct warm-up & cool-down if exercising at > 2 METs, Instruct on symptoms of exercise intolerance & actions to take, Instruct & monitor on saf and Assess intial functional capacity & safety risk Nutrition - Initial Assessment Program Goals Nutrition Program Goals Patient has diagnosis of Hyperlipidemia (ICD E78)?: Yes Visit Date of Eval: 12/10/24 (INITIAL EVAL) Cholesterol/Lipids (Other Core Measures) Determine presence & major risk factors that modify LDL goal: Hypertension or hypertensive medication, Low HDL cholesterol <40 mg/dL*, Family history of premature CHD in Male < 55 years: female <65 yearsFa and Age men > 45 years; women >/= 55 years Outcomes/Goals: Pt IDs own risk factors & lifestyle modifications by Session 10, Verbalizes symptoms of angina & response by session 3. and Pt independently manages Intervention/Plan: Advocate for lipid panel cholesterol medication if applicable, Instruct on personal lipid levels & lipid goals/NCEP guidelines and Instruct on cholesterol Referral to dietitian:: Yes Diabetes (Other Core Measures) Diabetes Type: Not Applicable Weight Mgt (Other Care) Height: 5 ft 8 in Weight:: 177 lb BMI: 26.9 Diagnosis Overweight/Obesity BMI> 30% ICD-10 E66: No Diagnosis High BMI/Morbid Obesity BMI> 35% ICD-10 Z68: No Outcomes/Goals: Pt sets, maintains & shows weight loss goal & trend during rehab and Other additional outcomes/goals Intervention/Plan: Instruct on ideal BMI & set weight loss goal w/patient, Assist pt to ID & incorporate diet changes for weight loss by S9, Refer to Structured Weight Loss program as appropriate, Encourage goal of using 250-300dcal per session for weight loss and Other additional plan/interventions Healthy Eating Habits Will attend diet classes:: Yes Outcomes/Goals:: Consume diet rich in vegs,fruits,whole grain/high fiber,fish,lean meat, Limit sat/trans fats,cholesterol & added salts & sugars and Other additional outcome/goals: Intervention/Plan:: Assess current eating habits and Other Additional plan/interventions Education Gave educational materials for:: Signs & symptoms of hypoglycemia, Signs & symptoms of hyperglycemia, Relate diabetes to coronary artery disease and Healthy eating Core - Initial Assessment Visit Date of Eval: 12/10/24 Medication Compliance Preventative Medication(s):: Aspirin, Statin/lipid and Beta chivo H/O mental health issues: depression, anxiety, or addiction?: No Doesn?t believe in the benefits of treatment?: No Believes medications are unnecessary or harmful?: No Has a concern about medication side effects?: No Expresses concern over the cost of medications?: No Outcomes/Goals: Verbalizes medications,desired effect & common side effects @ DC, Pt self-reports following medication regimen and Keeps card in wallet w/medications listed by DC Interventions/plans: Instruct on medication effects & side effects, Review medication list w/patient every two weeks and Instruct importance of taking meds as ordered & assist problem solving Tobacco Use Tobacco Use: Non-smoker Hypertension Hypertension Diagnosis:: Not Applicable [place] [employer] Hypertension Guidelines Tobacco Cessation Referral Smoking Cessation Referral:: No Individual Education/Counseling:: No Education Schedule Given:: Yes Psychosocial - Initial Assess VIsit Date of Eval: 12/10/24 (INITIAL EVAL) History of previous Mental disease:: No Psychosocial Test Tool Used:: PHQ-9 Questionnaire phq-9 Severity See PHQ-9 Score: 1 Total Score:: 1 Referral to Behavioral Health PS - Interventions: Yes: Attend Stress Management Classes and No: Referral to Behavioral Health if PHQ-9 score >9:, No: Referral to [facility] and No: Referral to Physician if PHQ-9 if score is 5-9: Outcomes/Goals: See list Psychosocial Outcomes/Goals:: ID's personal stressors & 2 strategies to manage stress by discharge Intervention/Plan: See List Interventions/Plan:: Assess stressors,coping strategies & signs of derpression on admission, Instruct/assist pt to develop coping & personal stress Mgt strategies, Refer to Behavioral Health if appropriate, Refer to Physician if appropriate, Instruct patient to recognize signs & symptoms of depression and Instruct patient to recog Patient Health Questionnaire PHQ-9 Screening Initial Assessment: 1. Little interest or pleasure in doing things: Not at all 2. Feeling down, depressed, or hopeless: Not at all 3. Trouble falling or staying asleep, or sleeping too much: Not at all 4. Feeling tired or having little energy: Not at all 5. Poor appetite or overeating: Not at all 6. Feeling bad about yourself -- or that you are a failure or have let yourself or your family down: Not at all 7. Trouble concentrating on things, such as reading the newspaper or watching television: Several days 8. Moving or speaking so slowly that other people could have noticed. Or the opposite - being so fidgety or restless that you have been moving around a lot more than usual: Not at all 9. Thoughts that you would be better off , or of hurting yourself in some way: Not at all How difficult have these problems made it for you to do your work, take care of things at home, or get along with other people?: Not difficult at all Total Score: 1 Nutrition Survey Nutrition Survey Initial: Have you lost >10 lbs over the past 2 months without trying?: No Are you following a special diet at home for diabetes, low fat, or low salt?: No Are you interested in meeting with a dietitian for help understanding your diet?: Yes Do you eat less than 3 meals a day?: No Do you eat fatty meats (castellano, sausage, ribs, etc), fried foods, desserts, large amounts of salad dressings, margarine, butter, or cheese most days?: No Do you have food allergies? [Enter types in comment field]: No Do you eat in restaurants more than 3 times a week?: No Do you season food with salt, seasoning salt, or garlic salt?: Yes Do you used canned, boxed, frozen meals, or soups, seasoning packets?: No Total Score:: 2 Exercise - 30-day Assessment Physician Prescribed Exercise Modalities: Treadmill, Rower, Kristy Souzane AD-7, SciFit Stepper, SciFit Pro-II Ergometer and SciFit Lateral [place] Exercise - 60-day Assessment Physician Prescribed Exercise Modalities: Treadmill, Rower, Angelinn Airdyne AD-7, SciFit Stepper, SciFit Pro-II Ergometer and SciFit Lateral [place] Exercise - 90-day Assessment Physician Prescribed Exercise Modalities: Treadmill, Rower, Schwinn Airdyne AD-7, SciFit Stepper, SciFit Pro-II Ergometer and SciFit Lateral [place] Exercise - Final/Discharge Physician Prescribed Exercise Modalities: Treadmill, Rower, Schwinn Airdyne AD-7, SciFit Stepper, SciFit Pro-II Ergometer and SciFit Lateral Instructional Design Technologist Frequency: 3x/week for 12 weeks [36 sessions] Intensity: 60-80% of age predicted maximum heart rate reserve METs - Progression 0.5-1.0 weekly:: 0.5 Current METSs:: 3 Target Heart Rate:: 86-108 Nutrition - 30-Day Assessment Weight Mgt (Other Care) Height: 5 ft 8 in Weight:: 177 lb BMI: 26.9 Nutrition - 60-Day Assessment Weight Mgt (Other Care) Height: 5 ft 8 in Weight:: 177 lb BMI: 26.9 Psychosocial - 30-Day Assess Referral to Behavioral Health PS - Interventions: Yes: Attend Stress Management Classes and No: Referral to Behavioral Health if PHQ-9 score >9:, No: Referral to [facility] and No: Referral to Physician if PHQ-9 if score is 5-9: Psychosocial - 60-Day Assess Referral to Behavioral Health PS - Interventions: Yes: Attend Stress Management Classes and No: Referral to Behavioral Health if PHQ-9 score >9:, No: Referral to [facility] and No: Referral to Physician if PHQ-9 if score is 5-9: Psychosocial - 90-Day Assess Referral to Behavioral Health PS - Interventions: Yes: Attend Stress Management Classes and No: Referral to Behavioral Health if PHQ-9 score >9:, No: Referral to [facility] and No: Referral to Physician if PHQ-9 if score is 5-9: Psychosocial - Final Assessmen Psychosocial Test phq-9 Severity See PHQ-9 Score: 1 Total Score:: 1 Referral to Behavioral Health PS - Interventions: Yes: Attend Stress Management Classes and No: Referral to Behavioral Health if PHQ-9 score >9:, No: Referral to [facility] and No: Referral to Physician if PHQ-9 if score is 5-9: Nutrition - 90-Day Assessment Weight Mgt (Other Care) Height: 5 ft 8 in Weight:: 177 lb BMI: 26.9 Nutrition - Final Assessment Program Goals Patient has diagnosis of Hyperlipidemia (ICD E78)?: Yes Weight Mgt (Other Care) Height: 5 ft 8 in Weight:: 177 lb BMI: 26.9
--- NOTE | 2024-12-10 14:05 | PCM.CR.HP2 ---
CR - History & Physical General Arrival date:: 12/10/24 Arrival time:: 14:05 Date of Referral:: 12/03/24 Date of CR Evaluation:: 12/10/24 Referring Physician: DR. AMAYA Primary Diagnosis: TAVR History of Present Cardiac Event Onset Date Current stable Angina Pectoris:: No Acute Myocardial Infarction within 12 months:: No Coronary Artery Bypass Graft:: No Heart valve replacement or repair:: Yes PTCA or coronary stenting:: No Heart or Heart-Lung Transplant:: No Heart Failure EF <35%:: No Medications Ambulatory Orders ?Medication ?Instructions ?Recorded aspirin 81 mg tablet,delayed 81 mg PO DAILY@0800 07/01/13 release metoprolol tartrate 25 mg tablet 12.5 mg (1/2 x 25 mg) PO DAILY 02/21/24 Cardiac Arrhythmia #30 tabs flecainide 100 mg tablet See Rx Instructions .Route 03/31/24 .COMPLEX #180 tabs ibuprofen 200 mg tablet (Advil) 400 mg PO Q6H PRN fever or pain 08/05/24 pravastatin 40 mg tablet 40 mg PO QHS #90 TABLETS 09/22/24 azithromycin 500 mg tablet 500 mg PO ONCE one hour prior to 12/03/24 (Zithromax) dental procedure #1 TAB Allergies Allergies Penicillins (PCN) Allergy (Verified 12/10/24 14:49) Hives Sleep Disorder Evaluation Hx of Sleep Apnea: Yes Do you snore loudly (louder than talking or can be heard through closed doors)?: No Do you often feel tired/ fatigued/ sleepy during daytime?: No Has anyone observed you stop breathing during sleep?: Yes History of Hypertension (for STOP score): No STOP Results: Negative Advanced Directives Advanced Directives Do you have a Healthcare Power of Desktop Publishing Operator?: Yes Living Will: Yes Advance Directives Information Provided: No DNR Order?:: No Past Medical History Covid-19 Screening Physicial Symptoms Fever: No Unexplained muscle aches: No Current respiratory symptoms: No Upper respiratory infections symptoms: No Gastro-intestinal symptoms: No [id number]-[id number] symptoms: No Other Clinical Concerns Has tested positive for COVID-19 in last 30 days: No Exposure Risk Had contact w/person w/symptoms or Covid-19 (+) last 14 days: No Has High Risk Exposures ID'd by Health dept/Inf Control team: No Pertinent Comorbidities 65 years or older:: Yes Lives in Assisted Living facility:: No Has a chronic lung disease or moderate to severe asthma:: No Has a serious heart condition:: Yes Immunocompromised:: No Severely obese (Body Mass Index of 40 or higher):: No Diabetic:: No Has chronic kidney disease undergoing dialysis:: No Has liver disease:: No Past Medical Illness Past Medical History (Updated 12/03/24 @ 13:16 by Deya Louise PA, PA) Non-rheumatic aortic regurgitation I35.1 Kidney stone N20.0 History of prostate cancer Z85.46 Non-rheumatic mitral regurgitation I34.0 TALI on CPAP G47.33, Z99.89 Paroxysmal atrial fibrillation I48.0 Systolic murmur R01.1 Hyperlipidemia E78.5 Benign prostate hyperplasia Past Surgical History Past Surgical History (Updated 12/03/24 @ 13:09 by Deya HOPKINS, PA) History of left heart catheterization (10/13/24) Z98.890 History of transcatheter aortic valve replacement (TAVR) (11/17/24) Z95.2 History of radical prostatectomy Z90.79 Family History Summary Family History Mother Congestive heart failure Father Heart disease Heart valve disease Grandmother Cancer stomach Social History Smoking History Smoking Status: Never smoker Alcohol Use Alcohol Usage: No Substance Abuse Hx Substance Use: No Occupation Occupation (List type of work in comments):: Retired Hobbies, Recreation, Social Activities Hobbies: Other (works on things in garage. used to bike, would like to get back to that) Recreational Activities: I am able to engage in most, but not all activities Social Environment Status Marital Status: Current Living Arrangements Living Environment:: Alone Children How many children do you have?: 3 Do any of your children live nearby?: Yes Safety Do you feel safe in your surroundings?: Yes Assistance Do you need any assistance at home?: NO Review of Systems Review of Systems Hints Review of Present Symptoms: Reports Appetite - Normal Pain Is Patient Pain Free?: No Risk Factor Assessment Vital Signs Blood Pressure: 98/66 Hypertension How long have you been treated?: reports no issues with BP's. On medication(s)?: metoprolol Blood Pressure Sitting - Left Arm: 98/66 Stress Stress: - (reports none) Diabetes Nutrition Referral for Diabetes: No Obesity Height: 5 ft 8 in Weight:: 177 lb Weight in Pounds: 177.0 lbs Weight Source: Estimated by Patient Body Mass Index (BMI): 26.9 Nutritional Referral for Obesity: No Physical Inactivity Physical Inactivity: Recreational activity (WORKS IN GARAGE) Risk Stratification Risk Guidelines: Lowest Risk: Risk Factor for Smoking and Risk Factor for Obesity, Moderate Risk: Risk Factor for Diabetes, Risk Factor for Hypertension, Risk Factor for Sedentary Lifestyle and Risk Factor for Depression and Highest Risk: Risk Factor for Dyslipidemia For Smoking Smoking Risk Guidelines For Dyslipidemia Dyslipidemia Risk Guidelines For Diabetes Mellitus Diabetes Risk Guidelines For Obesity/Overweight Obesity/Overweight Risk Guidelines For Hypertension Hypertension Risk Guidelines For Sedentary Lifestyle Sedentary Lifestyle Risk Guidelines For Depression Depression Risk Guidelines Family History Family History Mother Congestive heart failure Father Heart disease Heart valve disease Grandmother Cancer Motivation Motivation to Participate On a scale of 1 to 10, how prepared are you to commit to attending program?: 10 What do you see as barriers to successfully being able to complete the program?: nothing. What do you see as the benefits of succesfully completing the program? In other words, what do you hope to get out of participating in the program?: would like to learn exercise limits and build a routine he can stick with. Are there issues you are dealing with that will interfere with completing the program?: no. Do you have a spouse or signficant other, family or friends who will help support you to complete the program?: yes
[2024-12-10 14:23] VITALS: BMI 26.9
[2024-12-10 14:48] VITALS: BP 98/66
[2024-12-10 14:56] VITALS: BP 98/66; BMI 26.9
== END | disposition home or self-care (01) ==
PROVIDERS: PCP Family Medicine; Referring Provider Internal Medicine Cardiovascular Disease; Visit Provider Internal Medicine Cardiovascular Disease
DX: I48.0 Paroxysmal atrial fibrillation (principal); Z95.2 Presence of prosthetic heart valve

== ENCOUNTER 2025-01-02 13:00 | Outpatient (RCR) | payer MEDICARE, OTHER, SELFPAY ==
[2024-12-10 14:23] VITALS: BMI 26.9
== END 2025-01-02 23:59 ==
LOC: CR 13:00
PROVIDERS: PCP Family Medicine; Referring Provider Internal Medicine Cardiovascular Disease; Visit Provider Internal Medicine Cardiovascular Disease
DX: Z95.2 Presence of prosthetic heart valve (principal); I48.0 Paroxysmal atrial fibrillation
CPT/HCPCS: 93798

== ENCOUNTER 2025-01-28 13:00 | Outpatient (RCR) | payer MEDICARE, OTHER, SELFPAY ==
[2024-12-10 14:23] VITALS: BMI 26.9
--- NOTE | 2025-01-07 09:52 | CR.ITP_ITS ---
Exercise - Initial Assessment Visit Session #:: 11 Physician Prescribed Exercise Modalities: Treadmill, Rower and SciFit Stepper Nutrition - Initial Assessment Weight Mgt (Other Care) Height: 5 ft 8 in Weight:: 182 lb BMI: 27.6 Psychosocial - Initial Assess Referral to Behavioral Health PS - Interventions: Yes: Attend Stress Management Classes Exercise - 30-day Assessment Visit Date of Eval: 01/07/25 Session #:: 11 Physician Prescribed Exercise Modalities: Treadmill, Rower and SciFit Stepper Frequency: 3x/week for 12 weeks [36 sessions] Intensity: 60-80% of age predicted maximum heart rate reserve Duration: 30 - 45 minutes Current METSs:: 5.1 Target Heart Rate:: 86-108 Current RPE:: 13-14 Maximum Excercise HR:: 122 Resting Blood Pressure: 114/68 Maximum Exercise Blood Pressure: 122/70 EKG Type: SB-ST w/1st degree block w/ occas PAC, PVC Outcomes & Goals Goals:: Verbalizes understanding of THR, RPE & goal METS by session 6, Documents in home exercise log/reports 30 min aerobic 5 day/wk by DC, Demonstrates accurate pulse taking by DC and Other additional outcome/goals: see below Intervention & Plan Exercise Program Goals: Instruct on personal THR & RPE, Instruct on MET level & personal MET goal, Show patient to take own pulse /validate performance until accurate, Instruct on home exercise and Other additional plan/int Physical Activity Home Exercise Physical Activity - Home Exercise: Safe Exercise, Warm-up, Self-monitoring, Cool-Down, Home Exercise > 30 min Daily and Sitting Time <3 hours/daily Outcomes & Goals Outcomes/Goals: Demonstrates correct Warm-up/exercise Cool-Down (S3) if = 2.5 METs, Verbalizes symptoms of exercise intolerance by Session 3 (S3), Demonstrate safe equipment use (S3) & follows exercise prescrition (6) and Other: See below Intervention & Plan Plan/Intervention: Instruct warm-up & cool-down if exercising at > 2 METs, Instruct on symptoms of exercise intolerance & actions to take, Instruct & monitor on saf, Assess intial functional capacity & safety risk and Other See below 30-day Reassessments 30 day Reassessments:: Progressing Reassessment Notes & Comments:: Pt oriented to equipment. RPE explained to pt. Pt demonstrates understanding in his daily sessions. Exercise - 60-day Assessment Physician Prescribed Exercise Modalities: Treadmill, Rower and SciFit Stepper Exercise - 90-day Assessment Physician Prescribed Exercise Modalities: Treadmill, Rower and SciFit Stepper Exercise - Final/Discharge Physician Prescribed Exercise Modalities: Treadmill, Rower and SciFit Stepper Nutrition - 30-Day Assessment Program Goals Nutrition Program Goals Patient has diagnosis of Hyperlipidemia (ICD E78)?: Yes Visit Date of Eval: 01/07/25 Session #:: 11 (Nutrition survey score 2.) Cholesterol/Lipids (Other Core Measures) Determine presence & major risk factors that modify LDL goal: Cigarette smoking, Hypertension or hypertensive medication, Low HDL cholesterol <40 mg/dL*, Family history of premature CHD in Male < 55 years: female <65 yearsFa and Age men > 45 years; women >/= 55 years Outcomes/Goals: Pt IDs own risk factors & lifestyle modifications by Session 10, Verbalizes symptoms of angina & response by session 3., Pt independently manages and Other Additional Outcomes/Goals: Intervention/Plan: Advocate for lipid panel cholesterol medication if applicable, Instruct on personal lipid levels & lipid goals/NCEP guidelines, Instruct on cholesterol and Other additional plan/int Diabetes (Other Core Measures) Diabetes Type: Not Applicable Weight Mgt (Other Care) Height: 5 ft 8 in Weight:: 182 lb BMI: 27.6 Diagnosis Overweight/Obesity BMI> 30% ICD-10 E66: No Diagnosis High BMI/Morbid Obesity BMI> 35% ICD-10 Z68: No Outcomes/Goals: Pt sets, maintains & shows weight loss goal & trend during rehab and Other additional outcomes/goals Intervention/Plan: Instruct on ideal BMI & set weight loss goal w/patient, Assist pt to ID & incorporate diet changes for weight loss by S9, Refer to Structured Weight Loss program as appropriate, Encourage goal of using 250- 300dcal per session for weight loss and Other additional plan/interventions Healthy Eating Habits Will attend diet classes:: Yes Outcomes/Goals:: Consume diet rich in vegs,fruits,whole grain/high fiber,fish,lean meat, Limit sat/trans fats,cholesterol & added salts & sugars and Other additional outcome/goals: Intervention/Plan:: Assess current eating habits and Other Additional plan/interventions 30-day Reassessments:: Progressing Reassessment Notes & Comments:: Pt is at a healthy weight. Pt is scheduled to attend nutrition classes with our pool cleaner. Heart healthy low sodium diet encouraged. Education Gave educational materials for:: Signs & symptoms of hypoglycemia, Signs & symptoms of hyperglycemia, Relate diabetes to coronary artery disease and Healthy eating Nutrition - 60-Day Assessment Weight Mgt (Other Care) Height: 5 ft 8 in Weight:: 182 lb BMI: 27.6 Core - 30-Day Assessment Visit Date of Eval: 01/07/25 Session #:: 11 Medication Compliance Preventative Medication(s):: Aspirin, Statin/lipid and Beta chivo H/O mental health issues: depression, anxiety, or addiction?: No Doesn’t believe in the benefits of treatment?: No Believes medications are unnecessary or harmful?: No Has a concern about medication side effects?: No Expresses concern over the cost of medications?: No Outcomes/Goals: Verbalizes medications,desired effect & common side effects @ DC, Pt self-reports following medication regimen, Keeps card in wallet w/medications listed by DC and Other additional outcome/goals: Interventions/plans: Instruct on medication effects & side effects, Review medication list w/patient every two weeks, Instruct importance of taking meds as ordered & assist problem solving and Other additional Tobacco Use Tobacco Use: Non-smoker Hypertension Resting Blood Pressure:: 114/68 [place] [employer] Hypertension Guidelines Peak Exercise Blood Pressure:: 122/70 Outcomes/Goals: Able to verbalize/achieve optimal blood pressure <130/80, Incorporates diet changes & exercise for blood pressure control by DC and Other additional outcomes/goals Interventions/plan: Instruct on optimal blood pressure, hypertension & medications, Instruct on effects of sodium, alcohol, stress, exercise &hypertension and Other additional plan/interventions 30 day Reassessments:: Progressing Reassessment Notes & Comments:: Pt's BP's are within AHA normal limits. Will continue to monitor and report to pt's physician if necessary. Tobacco Cessation Referral Smoking Cessation Referral:: No Individual Education/Counseling:: No Education Schedule Given:: Yes Psychosocial - 30-Day Assess VIsit Date of Eval: 01/07/25 Session #:: 11 History of previous Mental disease:: No Psychosocial Test Tool Used:: [employer] QOL Cardiac and PHQ-9 Questionnaire phq-9 Severity See PHQ-9 Score: 1 Referral to Behavioral Health PS - Interventions: Yes: Attend Stress Management Classes Outcomes/Goals: See list Psychosocial Outcomes/Goals:: ID's personal stressors & 2 strategies to manage stress by discharge and Other Additional outcome/goals: Intervention/Plan: See List Interventions/Plan:: Assess stressors,coping strategies & signs of derpression on admission, Instruct/assist pt to develop coping & personal stress Mgt strategies, Refer to Behavioral Health if appropriate, Refer to Physician if appropriate, Instruct patient to recognize signs & symptoms of depression, Instruct patient to recog and Other additional plan/intervention 30-day Reassessments: 30 day Reassessments:: Progressing Reassessment Notes & Comments:: Pt denies any psychosocial issues at this time. Pt to attend stress management class. Will reassess every 30 days. Psychosocial - 60-Day Assess Referral to Behavioral Health PS - Interventions: Yes: Attend Stress Management Classes Outcomes/Goals: See list Psychosocial Outcomes/Goals:: ID's personal stressors & 2 strategies to manage stress by discharge and Other Additional outcome/goals: Psychosocial - 90-Day Assess Referral to Behavioral Health PS - Interventions: Yes: Attend Stress Management Classes Psychosocial - Final Assessmen Referral to Behavioral Health PS - Interventions: Yes: Attend Stress Management Classes Nutrition - 90-Day Assessment Weight Mgt (Other Care) Height: 5 ft 8 in Weight:: 182 lb BMI: 27.6 Nutrition - Final Assessment Weight Mgt (Other Care) Height: 5 ft 8 in Weight:: 182 lb BMI: 27.6
[2025-01-07 10:02] VITALS: BP 114/68; BMI 27.6
--- NOTE | 2025-01-28 10:57 | CR.ITP_ITS ---
Exercise - Initial Assessment Physician Prescribed Exercise Modalities: Treadmill, Rower and SciFit Stepper Nutrition - Initial Assessment Weight Mgt (Other Care) Height: 5 ft 8 in Weight:: 180 lb 8 oz BMI: 27.4 Psychosocial - Initial Assess Referral to Behavioral Health PS - Interventions: Yes: Attend Stress Management Classes Exercise - 30-day Assessment Physician Prescribed Exercise Modalities: Treadmill, Rower and SciFit Stepper Exercise - 60-day Assessment Visit Date of Eval: 01/28/25 Session #:: 19 Physician Prescribed Exercise Modalities: Treadmill, Rower and SciFit Stepper Frequency: 3x/week for 12 weeks [36 sessions] Intensity: 60-80% of age predicted maximum heart rate reserve Duration: 30 - 45 minutes METs - Progression 0.5-1.0 weekly:: 0.5 Current METSs:: 6.1 Target Heart Rate:: 86-108 Target RPE 11-14 Current RPE:: 12-16 Current RPE:: 14 Maximum Excercise HR:: 131 Resting Blood Pressure: 92/62 Maximum Exercise Blood Pressure: 160/90 EKG Type: sinus jonelle to sinus tach, 1st degree block with occasional pac, pvc. Current Physical Activity or Exercising minutes: 30 mins Outcomes & Goals Goals:: Verbalizes understanding of THR, RPE & goal METS by session 6, Documents in home exercise log/reports 30 min aerobic 5 day/wk by DC, Demonstrates accurate pulse taking by DC and Other additional outcome/goals: see below Intervention & Plan Exercise Program Goals: Instruct on personal THR & RPE, Instruct on MET level & personal MET goal, Show patient to take own pulse /validate performance until accurate, Instruct on home exercise and Other additional plan/int 30-day Reassessments 30 day Reassessments:: Progressing Reassessment Notes & Comments:: pt reaching target heart rate during exercise. increasing exercise workloads weekly. Physical Activity Home Exercise Physical Activity - Home Exercise: Safe Exercise, Warm-up, Self-monitoring, Cool-Down, Home Exercise > 30 min Daily and Sitting Time <3 hours/daily Outcomes & Goals Outcomes/Goals: Demonstrates correct Warm-up/exercise Cool-Down (S3) if = 2.5 METs, Verbalizes symptoms of exercise intolerance by Session 3 (S3), Demonstrate safe equipment use (S3) & follows exercise prescrition (6) and Other: See below Intervention & Plan Plan/Intervention: Instruct warm-up & cool-down if exercising at > 2 METs, Instruct on symptoms of exercise intolerance & actions to take, Instruct & monitor on saf, Assess intial functional capacity & safety risk and Other See below 30-day Reassessments 30 day Reassessments:: Progressing Reassessment Notes & Comments:: pt completing 5 mins warm up and cool down with exercise. accurately rating exercise difficulty using rpe scale. Exercise - 90-day Assessment Physician Prescribed Exercise Modalities: Treadmill, Rower and SciFit Stepper Exercise - Final/Discharge Physician Prescribed Exercise Modalities: Treadmill, Rower and SciFit Stepper Nutrition - 30-Day Assessment Weight Mgt (Other Care) Height: 5 ft 8 in Weight:: 180 lb 8 oz BMI: 27.4 Nutrition - 60-Day Assessment Program Goals Nutrition Program Goals Patient has diagnosis of Hyperlipidemia (ICD E78)?: Yes Visit Date of Eval: 01/28/25 (nutrition score 2) Session #:: 19 Cholesterol/Lipids (Other Core Measures) Determine presence & major risk factors that modify LDL goal: Cigarette smoking, Hypertension or hypertensive medication, Low HDL cholesterol <40 mg/dL*, Family history of premature CHD in Male < 55 years: female <65 yearsFa and Age men > 45 years; women >/= 55 years Outcomes/Goals: Pt IDs own risk factors & lifestyle modifications by Session 10, Verbalizes symptoms of angina & response by session 3., Pt independently manages and Other Additional Outcomes/Goals: Intervention/Plan: Advocate for lipid panel cholesterol medication if applicable, Instruct on personal lipid levels & lipid goals/NCEP guidelines, Instruct on cholesterol and Other additional plan/int 30-day Reassessments:: Progressing Diabetes (Other Core Measures) Diabetes Type: Not Applicable Weight Mgt (Other Care) Height: 5 ft 8 in Weight:: 180 lb 8 oz BMI: 27.4 Intervention/Plan: Instruct on ideal BMI & set weight loss goal w/patient, Assist pt to ID & incorporate diet changes for weight loss by S9, Refer to Structured Weight Loss program as appropriate, Encourage goal of using 250- 300dcal per session for weight loss and Other additional plan/interventions 30 day Reassessments:: Progressing Reassessment Notes & Comments:: pt will continue to weigh weekly to monitor progress. Healthy Eating Habits Will attend diet classes:: Yes Outcomes/Goals:: Consume diet rich in vegs,fruits,whole grain/high fiber,fish,lean meat, Limit sat/trans fats,cholesterol & added salts & sugars and Other additional outcome/goals: Intervention/Plan:: Assess current eating habits and Other Additional plan/interventions 30-day Reassessments:: Progressing Reassessment Notes & Comments:: Pt attended nutrition classes with extension course coordinator last week. reviewed reading food labels and low sodium diet. Education Gave educational materials for:: Signs & symptoms of hypoglycemia, Signs & symptoms of hyperglycemia, Relate diabetes to coronary artery disease and Healthy eating Core - 60-Day Assessment Visit Date of Eval: 01/28/25 Session #:: 19 Medication Compliance Preventative Medication(s):: Aspirin, Statin/lipid and Beta chivo H/O mental health issues: depression, anxiety, or addiction?: No Doesn’t believe in the benefits of treatment?: No Believes medications are unnecessary or harmful?: No Has a concern about medication side effects?: No Expresses concern over the cost of medications?: No Outcomes/Goals: Verbalizes medications,desired effect & common side effects @ DC, Pt self-reports following medication regimen, Keeps card in wallet w/medications listed by DC and Other additional outcome/goals: Interventions/plans: Instruct on medication effects & side effects, Review medication list w/patient every two weeks, Instruct importance of taking meds as ordered & assist problem solving and Other additional 30-day Reassessments:: Progressing Reassessment Notes & Comments:: pt reports taking medications as prescribed. Tobacco Use Tobacco Use: Non-smoker Hypertension Hypertension Diagnosis:: Hypertension ICD-10 I10 Resting Blood Pressure:: 92/62 [place] [employer] Hypertension Guidelines Peak Exercise Blood Pressure:: 160/90 Outcomes/Goals: Able to verbalize/achieve optimal blood pressure <130/80, Incorporates diet changes & exercise for blood pressure control by DC and Other additional outcomes/goals Interventions/plan: Instruct on optimal blood pressure, hypertension & medications, Instruct on effects of sodium, alcohol, stress, exercise &hypertension and Other additional plan/interventions 30 day Reassessments:: Progressing Reassessment Notes & Comments:: BP wnl before during and after exercise. will continue to monitor bp's and report if necessary Tobacco Cessation Referral Smoking Cessation Referral:: No Individual Education/Counseling:: No Education Schedule Given:: Yes Psychosocial - 30-Day Assess Referral to Behavioral Health PS - Interventions: Yes: Attend Stress Management Classes Outcomes/Goals: See list Psychosocial Outcomes/Goals:: ID's personal stressors & 2 strategies to manage stress by discharge and Other Additional outcome/goals: Psychosocial - 60-Day Assess VIsit Date of Eval: 01/28/25 Session #:: 19 Psychosocial Test Tool Used:: PHQ-9 Questionnaire phq-9 Severity See PHQ-9 Score: 1 Referral to Behavioral Health PS - Interventions: Yes: Attend Stress Management Classes Outcomes/Goals: See list Psychosocial Outcomes/Goals:: ID's personal stressors & 2 strategies to manage stress by discharge and Other Additional outcome/goals: Intervention/Plan: See List Interventions/Plan:: Assess stressors,coping strategies & signs of derpression on admission, Instruct/assist pt to develop coping & personal stress Mgt strategies, Refer to Behavioral Health if appropriate, Refer to Physician if appropriate, Instruct patient to recognize signs & symptoms of depression, Instruct patient to recog and Other additional plan/intervention 30-day Reassessments: 30 day Reassessments:: Progressing Reassessment Notes & Comments:: pt to attend stress and emotion classes next week. no psychosocial concerns at this time. gab attends consistently and is motivated to progress in his exercise and health. Psychosocial - 90-Day Assess Referral to Behavioral Health PS - Interventions: Yes: Attend Stress Management Classes Psychosocial - Final Assessmen Referral to Behavioral Health PS - Interventions: Yes: Attend Stress Management Classes Nutrition - 90-Day Assessment Weight Mgt (Other Care) Height: 5 ft 8 in Weight:: 180 lb 8 oz BMI: 27.4 Nutrition - Final Assessment Weight Mgt (Other Care) Height: 5 ft 8 in Weight:: 180 lb 8 oz BMI: 27.4
[2025-01-28 11:13] VITALS: BP 92/62; BMI 27.4
== END 2025-02-01 23:59 ==
LOC: CR 13:00
PROVIDERS: PCP Family Medicine; Referring Provider Internal Medicine Cardiovascular Disease; Visit Provider Internal Medicine Cardiovascular Disease
DX: Z95.2 Presence of prosthetic heart valve (principal); I48.0 Paroxysmal atrial fibrillation
CPT/HCPCS: 93798

== ENCOUNTER 2025-03-04 13:00 | Outpatient (RCR) | payer MEDICARE, OTHER, SELFPAY ==
--- NOTE | 2025-02-25 10:47 | PCM.CR.ITP ---
Exercise - Initial Assessment Physician Prescribed Exercise Modalities: Treadmill, Rower and SciFit Stepper Nutrition - Initial Assessment Weight Mgt (Other Care) Height: 5 ft 8 in Weight:: 179 lb BMI: 27.2 Psychosocial - Initial Assess Referral to Behavioral Health PS - Interventions: Yes: Attend Stress Management Classes Exercise - 30-day Assessment Physician Prescribed Exercise Modalities: Treadmill, Rower and SciFit Stepper Exercise - 60-day Assessment Physician Prescribed Exercise Modalities: Treadmill, Rower and SciFit Stepper Exercise - 90-day Assessment Visit Date of Eval: 02/25/25 Session #:: 28 Physician Prescribed Exercise Modalities: Treadmill, Rower and SciFit Stepper Frequency: 3x/week for 12 weeks [36 sessions] Intensity: 60-80% of age predicted maximum heart rate reserve Duration: 30 - 45 minutes Current METSs:: 6.1 Target Heart Rate:: 86-116 Current RPE:: 12-13 Maximum Excercise HR:: 113 Resting Blood Pressure: 104/58 Maximum Exercise Blood Pressure: 108/60 EKG Type: SB-ST w/1st degree block at times w/ occas PAC and PVC Outcomes & Goals Goals:: Verbalizes understanding of THR, RPE & goal METS by session 6, Documents in home exercise log/reports 30 min aerobic 5 day/wk by DC, Demonstrates accurate pulse taking by DC and Other additional outcome/goals: see below Intervention & Plan Exercise Program Goals: Instruct on personal THR & RPE, Instruct on MET level & personal MET goal, Show patient to take own pulse /validate performance until accurate, Instruct on home exercise and Other additional plan/int Physical Activity Home Exercise Physical Activity - Home Exercise: Safe Exercise, Warm-up, Self-monitoring, Cool-Down, Home Exercise > 30 min Daily and Sitting Time <3 hours/daily Outcomes & Goals Outcomes/Goals: Demonstrates correct Warm-up/exercise Cool-Down (S3) if = 2.5 METs, Verbalizes symptoms of exercise intolerance by Session 3 (S3), Demonstrate safe equipment use (S3) & follows exercise prescrition (6) and Other: See below Intervention & Plan Plan/Intervention: Instruct warm-up & cool-down if exercising at > 2 METs, Instruct on symptoms of exercise intolerance & actions to take, Instruct & monitor on saf, Assess intial functional capacity & safety risk and Other See below 30-day Reassessments 30 day Reassessments:: Progressing Reassessment Notes & Comments:: Pt is progressing his exercise intensity. Will continue to encourage and increase intensity as tolerated. Pulse taking explained in exercise class. Exercise - Final/Discharge Physician Prescribed Exercise Modalities: Treadmill, Rower and SciFit Stepper Nutrition - 30-Day Assessment Weight Mgt (Other Care) Height: 5 ft 8 in Weight:: 179 lb BMI: 27.2 Nutrition - 60-Day Assessment Weight Mgt (Other Care) Height: 5 ft 8 in Weight:: 179 lb BMI: 27.2 Core - 30-Day Assessment Hypertension [employer] [employer] Hypertension Guidelines Reassessment Notes & Comments:: Pt's BP's are within AHA normal limits. Will continue to monitor and report to pt's physician if necessary. Core - Final Assessment Hypertension [employer] [employer] Hypertension Guidelines Reassessment Notes & Comments:: Pt's BP's are within AHA normal limits. Will continue to monitor and report to pt's physician if necessary. Core - 90 Day Assessment Visit Date of Eval: 02/25/25 Session #:: 28 Medication Compliance Preventative Medication(s):: Aspirin, Statin/lipid and Beta chivo H/O mental health issues: depression, anxiety, or addiction?: No Doesn?t believe in the benefits of treatment?: No Believes medications are unnecessary or harmful?: No Has a concern about medication side effects?: No Expresses concern over the cost of medications?: No Outcomes/Goals: Verbalizes medications,desired effect & common side effects @ DC, Pt self-reports following medication regimen, Keeps card in wallet w/medications listed by DC and Other additional outcome/goals: Interventions/plans: Instruct on medication effects & side effects, Review medication list w/patient every two weeks, Instruct importance of taking meds as ordered & assist problem solving and Other additional Tobacco Use Tobacco Use: Non-smoker Hypertension Resting Blood Pressure:: 104/58 [employer] [employer] Hypertension Guidelines Peak Exercise Blood Pressure:: 108/60 Outcomes/Goals: Able to verbalize/achieve optimal blood pressure <130/80, Incorporates diet changes & exercise for blood pressure control by DC and Other additional outcomes/goals Interventions/plan: Instruct on optimal blood pressure, hypertension & medications, Instruct on effects of sodium, alcohol, stress, exercise &hypertension and Other additional plan/interventions 30 day Reassessments:: Met Reassessment Notes & Comments:: Pt's BP's are within AHA normal limits. Will continue to monitor and report to pt's physician if necessary. Tobacco Cessation Referral Smoking Cessation Referral:: No Individual Education/Counseling:: No Education Schedule Given:: Yes Psychosocial - 30-Day Assess Referral to Behavioral Health PS - Interventions: Yes: Attend Stress Management Classes Psychosocial - 60-Day Assess Referral to Behavioral Health PS - Interventions: Yes: Attend Stress Management Classes Psychosocial - 90-Day Assess VIsit Date of Eval: 02/25/25 Session #:: 28 History of previous Mental disease:: No Psychosocial Test Tool Used:: [employer] QOL Cardiac and PHQ-9 Questionnaire phq-9 Severity See PHQ-9 Score: 1 Referral to Behavioral Health PS - Interventions: Yes: Attend Stress Management Classes Outcomes/Goals: See list Psychosocial Outcomes/Goals:: ID's personal stressors & 2 strategies to manage stress by discharge and Other Additional outcome/goals: Intervention/Plan: See List Interventions/Plan:: Assess stressors,coping strategies & signs of derpression on admission, Instruct/assist pt to develop coping & personal stress Mgt strategies, Refer to Behavioral Health if appropriate, Refer to Physician if appropriate, Instruct patient to recognize signs & symptoms of depression, Instruct patient to recog and Other additional plan/intervention 30-day Reassessments: 30 day Reassessments:: Met Reassessment Notes & Comments:: Pt denies any psychosocial issues at this time. Pt has attended stress management classes. Psychosocial - Final Assessmen Referral to Behavioral Health PS - Interventions: Yes: Attend Stress Management Classes Nutrition - 90-Day Assessment Program Goals Nutrition Program Goals Patient has diagnosis of Hyperlipidemia (ICD E78)?: Yes Visit Date of Eval: 02/25/25 Session #:: 28 Cholesterol/Lipids (Other Core Measures) Determine presence & major risk factors that modify LDL goal: Cigarette smoking, Hypertension or hypertensive medication, Low HDL cholesterol <40 mg/dL*, Family history of premature CHD in Male < 55 years: female <65 yearsFa and Age men > 45 years; women >/= 55 years Outcomes/Goals: Pt IDs own risk factors & lifestyle modifications by Session 10, Verbalizes symptoms of angina & response by session 3., Pt independently manages and Other Additional Outcomes/Goals: Intervention/Plan: Advocate for lipid panel cholesterol medication if applicable, Instruct on personal lipid levels & lipid goals/NCEP guidelines, Instruct on cholesterol and Other additional plan/int Referral to dietitian:: No (Nutrtion survey score of 2.) Diabetes (Other Core Measures) Diabetes Type: Not Applicable Weight Mgt (Other Care) Height: 5 ft 8 in Weight:: 179 lb BMI: 27.2 Diagnosis Overweight/Obesity BMI> 30% ICD-10 E66: No Diagnosis High BMI/Morbid Obesity BMI> 35% ICD-10 Z68: No Outcomes/Goals: Pt sets, maintains & shows weight loss goal & trend during rehab and Other additional outcomes/goals Intervention/Plan: Instruct on ideal BMI & set weight loss goal w/patient, Assist pt to ID & incorporate diet changes for weight loss by S9, Refer to Structured Weight Loss program as appropriate, Encourage goal of using 250-300dcal per session for weight loss and Other additional plan/interventions Healthy Eating Habits Will attend diet classes:: Yes Outcomes/Goals:: Consume diet rich in vegs,fruits,whole grain/high fiber,fish,lean meat, Limit sat/trans fats,cholesterol & added salts & sugars and Other additional outcome/goals: Intervention/Plan:: Assess current eating habits and Other Additional plan/interventions 30-day Reassessments:: Met Reassessment Notes & Comments:: Pt has attended nutrition class. Pt understands the benefits of a hearth healthy low sodium diet. Education Gave educational materials for:: Signs & symptoms of hypoglycemia, Signs & symptoms of hyperglycemia, Relate diabetes to coronary artery disease and Healthy eating Nutrition - Final Assessment Weight Mgt (Other Care) Height: 5 ft 8 in Weight:: 179 lb BMI: 27.2
[2025-02-25 10:58] VITALS: BP 104/58; BMI 27.2
== END 2025-03-04 23:59 ==
LOC: CR 13:00
PROVIDERS: PCP Family Medicine; Referring Provider Internal Medicine Cardiovascular Disease; Visit Provider Internal Medicine Cardiovascular Disease
DX: Z95.2 Presence of prosthetic heart valve (principal); I48.0 Paroxysmal atrial fibrillation
CPT/HCPCS: 93798